=== PATIENT | male | born 1955 | race Caucasian/White ===

== ENCOUNTER 2023-06-23 10:58 | Day surgery (SDC) | payer MEDICARE, OTHER, SELFPAY ==
[2023-06-22 16:11] VITALS: BMI 25.1
[2023-06-23] VITALS (11 sets, daily range): BP systolic 136–198; BP diastolic 66–82; BMI 25.1
[2023-06-23] MEDS: BACTROBAN NASAL 1 GRAM NASAL (11:36)
[2023-06-23] MEDS: PERIDEX 0.12% ORAL RINSE 15 ML PO (11:36)
[2023-06-23] MEDS: NSS 500 IV (11:37)
[2023-06-23] MEDS: VANCOCIN 200 IV (11:37)
[2023-06-23 13:01] LABS: PT 13.4 Sec (11.4-14.6)
[2023-06-23 13:03] LABS: Hematocrit 40.9 % (39.0-52.0); Hemoglobin 13.5 g/dL (13.0-18.0); Mean Corpuscular Volume 78.8 fL (80.0-94.0); Mean Platelet Volume 9.6 fL (7.4-10.4); Platelet Count 242 10^3/uL (130-400); Red Blood Cell Count 5.19 10^6/uL (4.70-6.10); Red Cell Dist. Width 18.7 % (11.5-14.5); White Blood Cell Count 6.9 10^3/uL (4.8-10.8)
[2023-06-23 13:04] LABS: Blood Urea Nitrogen 50 mg/dl (9-20); Calcium 8.5 mg/dl (8.4-10.2); Carbon Dioxide 28 mmol/L (22-30); Chloride 102 mmol/L (98-107); Estimated Creatinine Clearance 20 ml/min; Glucose 166 mg/dl (70-99); Potassium 3.9 mmol/L (3.5-5.1); Sodium 135 mmol/L (135-145); eGFR 18.64
--- NOTE | 2023-06-23 13:31 | W.SUR.PREOP ---
Pre-Operative Surgical Note
-
I have examined this patient prior to the performance of the scheduled procedure.
The patient's condition is unchanged from the time of the current History and
Physical and the patient is able to undergo the scheduled procedure.
--- NOTE | 2023-06-23 15:38 | W.IMMPOSTOP ---
Surgical Immed Post Op Note
-
Primary Surgeon: Tres Morgan III, MD
Assisting Surgeon: Ty Arce MD
Pre-op Diagnosis: AV Graft Stenosis
Post-op Diagnosis: AV Graft Stenosis
Procedure Performed: Brachial-Basilic Graft
Anesthesia Type: General
Specimen / Cultures: NA
Estimated Blood Loss: 8cc
Complications: None
Operative Findings:
Patient's left upper extremity was examined under ultrasound and course of brachial artery and basilic vein were mapped. Two 5cm incisions were made in the distal brachial artery and proximal basilic vein. Subcutaneous tissue and fascia were
dissected with a combination of cautery and blunt dissection. The vessels were exposed and proximal and distal control were obtained with vessel loops. A Bostwick 4-7mm x 45cm vascular graft was opened and tunneled through subcutaneous tissue between
the two incison sites. Local heparin was given and brachial endarderectomy was performed. The 4mm end was beveled and anastamosed in an end-side fashion with the brachial artery. A venotomy was performed on the basilic vein. The 7mm end of graft was
beveled and anastamosed in an end-side fashion with the basilic vein. All anastamoses sites were assessed for leakage and overlying sites were packed with fibrillar and thrombin. Overlying subcutaneous tissue and skin were closed with 3-0 and 4-0
sutures, respectively. Radial and ulnar pulses palpable at end of case. Strong pulse and palpable thrill noted over tunneled graft site.
[2023-06-23 15:50] LABS: Glucose - Point of Care 176 mg/dl (70-99)
--- NOTE | 2023-06-23 16:44 | OR.RPT ---
Operative Report
Operative Report
Date of Operation: 06/23/2023
Pre Op Diagnosis: End-stage renal disease requiring hemodialysis
Post Op Diagnosis: End-stage renal disease requiring hemodialysis
Procedure: Creation of left upper arm AV graft for hemodialysis
Surgeon: Tres Morgan III, MD
Boy'S Adviser: Ty Arce MD PGY-1
Anesthesia: General
Complications: None
Estimated Blood Loss: 15 cc
History and Indications for Procedure: 68-year-old male status post failed attempt at left upper extremity brachiobasilic AV fistula creation. He was still in need of more permanent hemodialysis access and was brought to the operating room for
creation of left upper extremity AV graft.
Procedure in Detail: Kahlil Medina was correctly identified and placed supine on the operating table. After adequate induction of anesthesia the left arm was positioned, prepped and draped in the usual sterile fashion. Preoperative antibiotics were
administered. A timeout procedure was performed with the nursing and anesthesia staff confirming the patients identity as well as the nature and laterality of the procedure.
Just proximal to the antecubital fossa over the brachial pulse a vertical incision was made. Electrocautery was used to divide the subcutaneous tissue. The brachial artery was sharply exposed and proximal and distal control was obtained with vessel
loops .
Over the medial upper arm near the axilla another incision was made. Electrocautery was used on the subcutaneous tissue. The proximal basilic vein was dissected out at this level and proximal and distal control was obtained with vessel loops.
A gentle curved tunnel was created between the 2 incisions over the lateral arm. A 4-7 mm tapered Propaten graft was brought carefully through the tunnel keeping the correct orientation. The 4 mm side was for the arterial anastomosis and the 7 mm
side for the venous.
The vessel loops on the brachial artery were secured. A small arteriotomy was created with an 11 blade and extended just slightly proximally and distally with Loredo scissors to accommodate the 4 mm graft anastomosis. The proximal and distal artery
were flushed with heparinized saline solution. The 4 mm end of the graft was sewn end-to-side to the brachial artery with a running 7-0 Prolene suture. At the completion of the anastomosis the proximal brachial artery vessel loop was released
first. There was excellent pulsatile bleeding from the 7 mm end of the graft. The distal vessel loop was then released. The graft was back flushed with heparinized saline solution and a clamp was placed on the graft just off the arterial
anastomosis.
The vessel loops on the vein were then secured. A venotomy was made with an 11-blade and extended proximally and distally with Loredo scissors. The 7 mm end of the graft was cut and bevelled appropriately and an end to side anastomosis was created
using a running 7-0 Prolene suture. At the completion of the anastomosis the vessel loops were released.
There was an good pulse in the brachial artery proximal and distal to the suture line. There was an excellent, easily palpable thrill in the graft along the entire course in the upper arm. The patient had a palpable ulnar pulse at the wrist at the
conclusion of the case (prior radial artery harvest). Both suture lines were inspected for hemostasis which was achieved.
The wounds were then irrigated with warm saline. Hemostasis was achieved in the wound beds. The wounds were closed in layers and sterile dressings applied.
The patient tolerated the procedure well and was taken to the PACU in stable condition.
Attestation: I was present and responsible for the entire procedure
Signed:
Tres Morgan III, MD
[facility] Surgery
[phone] (ppbg)
== END 2023-06-23 17:55 | disposition home or self-care (01) ==
LOC: CATH 10:58
PROVIDERS: ATTENDING PHYSICIAN Surgery Vascular Surgery; FAMILY PHYSICIAN Family Medicine
DX: I12.0 Hypertensive chronic kidney disease with stage 5 chronic kidney disease or end stage renal disease (principal); E11.22 Type 2 diabetes mellitus with diabetic chronic kidney disease; N18.6 End stage renal disease; Z99.2 Dependence on renal dialysis; Z79.82 Long term (current) use of aspirin; Z79.4 Long term (current) use of insulin; I10 Essential (primary) hypertension
CPT/HCPCS: 36821; 80048; 82962; 85027; 85610; 85730; 86850; 86900; 86901

== ENCOUNTER 2023-07-01 20:06 | Inpatient (IN) | payer MEDICARE, OTHER, SELFPAY ==
[2023-07-01] VITALS (7 sets, daily range): BP systolic 110–153; BP diastolic 56–71; BMI 26.5; BMI 24.3
[2023-07-01 17:20] LABS: Glucose - Point of Care 67 mg/dl (70-99)
--- NOTE | 2023-07-01 17:22 | ED.GENMED ---
History of Present Illness
General
Chief Complaint: Blood Sugar Problem
Source: patient
Time Seen by Provider: 07/01/23 17:10
Travel History
Have you had any contact with someone who has COVID-19?: No
Do you have any symptoms of coronavirus? Fever > 100 degrees, chills, cough, shortness of breath, sore throat, loss of taste or smell, muscle aches, or headache?: No
History of Present Illness
History of Present Illness:
68-year-old male presents to the emergency room via ambulance from dialysis. Patient was noted to be hypoglycemic at dialysis. His glucose was 45. This was treated with glucagon and some oral sugar candy. Medics found his glucose had increased
to 65 when they got there. Upon arrival here patient is noted to have a fever of 101.5. Patient does make urine 3-4 times a day. He denies any dysuria or frequency. He has a mild cough which is chronic. He does not report any change in his
cough. Does have a right anterior chest dialysis catheter. This was placed April 30. Patient started dialysis April 30.
Past History
Past History
ED Past Medical History: Asthma, CAD, Cancer (Right kidney neoplasm), HTN, Hypercholesterolemia, NIDDM, [place], Other (Kidney stones , Back pain due to herniated disc, ) and Other (Herniated discs in neck, has seen pain management at Dr. Arias's office
for injections x 2. Has not had lower back problems.)
ED Past Surgical History: Cardiac (Triple bypass), Orthopedic, Urological (Renal calculus ) and Other (Left upper arm fistula)
Social History
Tobacco: Non-smoker
Alcohol: Occasional
Drug: None
Personal:
Living: with family
Employment: Employed
Phy Exam
Physical Exam
Physical Exam:
General: Awake, Alert, Oriented X3. No acute distress, appears chronically ill
Vitals: Febrile
Head: Atraumatic
Eyes: Pupils equal, EOMI
Throat: Airway intact, no exudates
Neck: Trachea midline
Chest: Right sided tunneled catheter
Lungs: Few crackles bilateral bases l
Heart: Regular rate, no murmurs
Abd: Soft, Nontender, No pulsatile mass
Neuro: Nonfocal
Skin: Warm, dry, no rash
Extremities: pulses equal b/l, no edema
Course
Orders/Labs/Results
Orders:
Orders
07/01/23 Dinner
Regular
At Your Request: Full Participation
07/01/23 17:20
Cardiac Monitoring- Treatment ONCE
07/01/23 17:21
CR Chest - 2 Views Urgent
Comment:
Reason For Exam: fever
07/01/23 17:28
COVID-19 Antigen Urgent
Source: Nasal Swab
Complete Blood Count/With Diff Urgent
Comprehensive Metabolic Panel Urgent
Lactic Acid Q4H
Comment: CANCEL 2nd LACTIC ACID IF 1st LACTIC ACID IS LESS THAN 2
Blood Culture Q30M
JACQUE Source: Blood/Venous
Specimen Description:
Influenza A+B Rapid Molecular Urgent
JACQUE Source: Nasal Swab
Specimen Description:
07/01/23 17:32
Blood Culture Q30M
JACQUE Source: Blood/Venous
Specimen Description:
07/01/23 18:58
Cefepime HCl [Maxipime] 2,000 mg IV NOW STA
07/01/23 19:36
Admit/Transfer Patient As Directed
Co-Sign Provider:
Level of Care: Inpatient admission
Assign to:: Medical/Surgical
Physician / Group: aide
Diagnosis: gastroenteritis, hypoglycemia
Reason for Hospitalization: gastroenteritis, hypoglycemia
Expected length of stay greater than two midnights?: Yes
ELOS- Estimated Length of Stay in days: 2
I certify the patient meets the requirements for IP care: Yes
Code Status As Directed
Resuscitation Status: Full Code
Sterile Water [Sterile Water For Injection] 10 ml .ROUTE .[facility]
07/01/23 19:38
Stool Culture Routine
JACQUE Source: Feces/Stool
Specimen Description:
07/01/23 20:16
Urinalysis Reflex To Culture Urgent
Date Specimen was Collected: 07/01/23
Time Specimen was Collected: 19:02
07/01/23 20:50
Albuterol [ProAIR HFA INHALER] 2 puff INH R QIDPRN PRN
Dextrose 50%-Water [Dextrose 50% Syringe] 12.5 grams IV [id number] PRN
Doxazosin Mesylate [Cardura] 2 mg PO BID
Glucagon [GlucaGen] 1 mg IM PRN PRN
Heparin 5,000 units SC Q12
Nitroglycerin Sublingual [Nitrostat (Sublingual)] 0.4 mg SL [id number] PRN
Ondansetron Injectable [Zofran] 4 mg IV Q6HPRN PRN
VANCOMYCIN Pharmacy to Dose [VANCOCIN Pharmacy to Dose] 1 each Pharmacy To Prepare [Call Pharmacy To Prepare] 0 ml IV PER PROTOCOL
07/01/23 20:50
Activity As Directed
Activity Level: As Tolerated
Bedside Glucose Monitoring As Directed
Frequency: AC&HS
Comment: Change to q6h if pt on TPN, tube feeding or not eating
Vital Signs As Directed
Frequency: Per unit guidelines
DX Deep Vein Thrombosis Video Routine
07/01/23 22:00
FLUTICASONE PROPIONATE 110 mcg [FLOVENT 110mcg] 1 puff INH R BID
Metoprolol Xl [Toprol Xl] 12.5 mg PO BID
Rosuvastatin Calcium [Crestor] 10 mg PO HS
07/02/23 06:00
Complete Blood Count/With Diff IN AM
Comprehensive Metabolic Panel IN AM
Glycohemoglobin (HgbA1c) IN AM
07/02/23 07:30
Insulin Aspart Corrective Low [Novolog Flexpen-Low Resistance] See Protocol SC AC
07/02/23 08:00
Aspirin Low Dose EC [Aspir Low (Enteric Coated)] 81 mg PO DAILY
Calcium Acetate [Phoslo] 1,334 mg PO MEALS
Lactobac/Bifidobac [Visbiome] 1 cap PO DAILY
omega 0-jno-gbz-fish oil [Fish Oil] 1 cap PO DAILY
07/02/23 18:00
Amlodipine [Norvasc] 10 mg PO QPM
Cefepime HCl [Maxipime] 1,000 mg IV Q24H
07/02/23 22:00
Loratadine [Claritin] 10 mg PO Q48H
Abnormal Lab Results
07/01/23 07/01/23 07/01/23
17:14 17:28 18:33
MCH 26.1 L pg
(27.0-31.0)
MCHC 32.3 L g/dL
(33.0-37.0)
RDW 18.9 H %
(11.5-14.5)
Absolute Lymphs (auto) 0.3 L 10^3/uL
(1.2-3.4)
Neutrophils % 91.1 H %
(42.2-75.2)
Lymphocytes % 3.7 L %
(20.5-51.1)
Chloride 94 L mmol/L
(98-107)
Carbon Dioxide 37 H mmol/L
(22-30)
BUN 26 H mg/dl
(9-20)
Creatinine 2.9 H mg/dL
(0.7-1.3)
Glucose 65 L mg/dl
(70-99)
Total Protein 5.7 L g/dl
(6.3-8.2)
Albumin 3.2 L g/dl
(3.5-5.0)
POC Glucose 67 L mg/dl 107 H mg/dl
(70-99) (70-99)
07/01/23 17:28
07/01/23 17:28
Vital Signs
Initial and Last Documented VS:
Initial Vital Signs
Temp Pulse Resp Pulse Ox
101.5 F H 75 18 92
07/01/23 17:09 07/01/23 17:09 07/01/23 17:09 07/01/23 17:09
Last Documented Vital Signs
Temp Pulse Resp BP Pulse Ox
101.1 F H 71 20 112/56 96
07/01/23 21:00 07/01/23 21:00 07/01/23 21:00 07/01/23 21:00 07/01/23 22:13
MDM/Problems Addressed
Differential Diagnosis Includes:
Pneumonia, urinary tract infection, line sepsis, viral illness
MDM/Problems Addressed:
Patient came initially for hypoglycemia but was found to be febrile. COVID and influenza test are negative. Chest x-ray showed left lower lobe infiltrate but this appears to be improving from his previous admissions but do not know that this is
the source of his fever. Patient does have an indwelling dialysis catheter which could be infected. Patient covered with broad-spectrum antibiotics. Will require hospitalization pending culture results and response to therapy
Chronic conditions affecting care: DM, HTN and Kidney disease
*Radiology
Radiology exam reviewed: radiology read reviewed
*Pulse Oximetry
Patient hypoxic: no
*Wheel Setter Interpretation
Rate: normal
Interpretation: normal
Rhythm: sinus
*Critical Care Note
Total Time (30-74mins, 75-104mins- exclusive of procedures): Not Applicable
ED Attending Note
-
Portions of this chart may have been created with voice recognition software.� Occasional wrong word or��sound alike� substitutions may have occurred due to the inherent limitations of voice recognition software.
Discharge Plan
Departure
Patient Disposition: Admit
Date of Disposition: 07/01/23
Time of Disposition: 19:03
Admit to: Med/Surg
Presentation/result/management discussed w/ accepting MD/DO: Hospitalist
Condition: Fair
Discharge Problem:
Fever, ESRD (end stage renal disease), Hypoglycemia
Interventions
Interventions:
*Risk Screen - Suicide Last Done: 07/01/23 17:45
*General Assessment Last Done: 07/01/23 17:45
*Neglect/Abuse Screening Last Done: 07/01/23 17:45
ED- Fall Risk Assessment Last Done: 07/01/23 17:46
*ED COVID-19 Vaccine History Last Done: 07/01/23 17:45
*Nursing Disposition Last Done: 07/01/23 20:50
ED- Neurological Assessment Last Done: 07/01/23 17:45
Discharge Date and Time
Discharge Date/Time: 07/01/23 20:53
[2023-07-01 17:47] LABS: % Basophils 0.1 % (0-2); % Eosinophils 0.3 % (0-6); % Immature Granulocytes 0.3 % (0-0.5); % Lymphocytes 3.7 % (20.5-51.1); % Monocytes 4.5 % (1.7-9.3); % Neutrophils 91.1 % (42.2-75.2); Absolute Lymphocytes 0.3 10^3/uL (1.2-3.4); Absolute Monocytes 0.3 10^3/uL (0.1-0.6); Absolute Neutrophils 6.4 10^3/uL (1.4-6.5); Hematocrit 43.7 % (39.0-52.0); Hemoglobin 14.1 g/dL (13.0-18.0); Mean Corp Hgb Conc. 32.3 g/dL (33.0-37.0); Mean Corpuscular Hgb 26.1 pg (27.0-31.0); Mean Corpuscular Volume 80.8 fL (80.0-94.0); Mean Platelet Volume 9.7 fL (7.4-10.4); Nucleated Red Blood Cells % 0 % (-); Platelet Count 193 10^3/uL (130-400); Red Blood Cell Count 5.41 10^6/uL (4.70-6.10); Red Cell Dist. Width 18.9 % (11.5-14.5)
[2023-07-01 17:57] LABS: ALT (SGPT) 22 U/L (0-50); AST (SGOT) 30 U/L (17-59); Albumin 3.2 g/dl (3.5-5.0); Alkaline Phosphatase 80 U/L (38-126); Blood Urea Nitrogen 26 mg/dl (9-20); Calcium 8.5 mg/dl (8.4-10.2); Carbon Dioxide 37 mmol/L (22-30); Chloride 94 mmol/L (98-107); Estimated Creatinine Clearance 24 ml/min; Glucose 65 mg/dl (70-99); Sodium 138 mmol/L (135-145); Total Bilirubin 0.9 mg/dl (0.2-1.3); Total Protein 5.7 g/dl (6.3-8.2); eGFR 22.56
[2023-07-01 18:01] LABS: Lactic Acid 1.3 mmol/L (0.7-2.0)
[2023-07-01 18:03] LABS: COVID-19 Antigen Negative (Negative)
[2023-07-01 18:35] LABS: Glucose - Point of Care 107 mg/dl (70-99)
[2023-07-01] MEDS: MAXIPIME 2000 MG IV (19:39)
--- NOTE | 2023-07-01 19:42 | HPS.HSE ---
Family Physician
-
Family Physician: Paz Vasquez
Chief Complaint
-
vomiting
History of Present Illness
68-year-old male past medical history of ESRD on hemodialysis Thursday, Thursday, Thursday,, coronary artery disease status post CABG, HFpEF, hypertension, diabetes, BPH, GERD, CML, asthma, right kidney neoplasm presenting with vomiting since last
night. He had several episodes of vomiting after having crab cake earlier in the day yesterday. His spouse also had vomiting. Patient had an episode of loose stools today.
Today during dialysis his blood sugar was noted to be 45. He was given glucagon and some oral sugar candy. Medics found his glucose had increased to 65 when he got there. Upon arrival patient had fever of 101.5. He does make urine 3-4 times a
day. He denies any dysuria or frequency. He has chronic mild cough which is unchanged. He has right anterior chest dialysis catheter that was placed on April 30 looked clean.
Patient checks his blood sugar regularly and states that his blood sugar has been normal in the days preceding up to today.
He drinks alcohol very rarely. He denies any smoking or drugs.
Medical History
Past Medical History
Past Medical History: Reports Other ( ESRD on hemodialysis Thursday, Thursday, Thursday,, coronary artery disease status post CABG, HFpEF, hypertension, diabetes, BPH, GERD, CML, asthma, right kidney neoplasm)
Past Surgical History: Reports None
Social History
Tobacco: Non-smoker
Alcohol: None
Drug: None
Family History
Family History: Not pertinent
Allergies / Home Medications
Allergies reflects when Allergies were last updated in [employer].
Home Medications with original date entered in [employer]
Allergy/Medication List:
Allergies
Allergy/AdvReac Type Severity Reaction Status Date / Time
atorvastatin Allergy Intermediate reports Verified 06/23/23 11:32
muscle
weakness
clonidine Allergy Intermediate Rash Verified 06/23/23 11:32
hydralazine Allergy Intermediate Vomiting Verified 06/23/23 11:32
codeine Allergy Nausea / Verified 06/23/23 11:32
Vomiting
penicillin G Allergy Hives Verified 06/23/23 11:32
Penicillins Allergy Hives Verified 06/23/23 11:32
pollen extracts Allergy seasonal Verified 06/23/23 11:32
allergies
Home Medications
insulin aspart U-100 100 unit/mL (3 mL) subcutaneous pen (Novolog FlexPen U-100 Insulin aspart) 10 - 20 sliding scale dose SC AC Diabetes 09/09/18
rosuvastatin 40 mg tablet (Crestor) 40 mg PO HS High cholesterol 03/11/21
beclomethasone dipropionate 80 mcg/actuation HFA breath activated aerosol (Qvar RediHaler) 1 inh inhalation R BID Lung/breathing issues 12/01/21
aspirin 81 mg tablet,delayed release 81 mg PO DAILY Blood clot prevention/tx 05/15/22
amlodipine 10 mg tablet (Norvasc) 10 mg PO QPM Blood pressure 06/06/22
nitroglycerin 0.4 mg sublingual tablet (Nitrostat) 0.4 mg sublingual [id number] PRN chest pain 06/06/22
doxazosin 2 mg tablet 2 mg PO BID Blood Pressure 08/11/22
loratadine 10 mg tablet 10 mg PO HS Allergies 08/11/22
metoprolol succinate 25 mg tablet,extended release 24 hr (Toprol XL) 12.5 mg PO BID Blood Pressure 08/11/22
albuterol sulfate 90 mcg/actuation aerosol inhaler (ProAir HFA) 2 puff inhalation R QID PRN sob/wheezing 11/21/22
bosutinib 100 mg tablet (Bosulif) 100 mg PO TID CML ##0 04/15/23
Lactobacillus acidophilus 10 billion cell capsule 10,000 mmu cells PO DAILY ##0 04/27/23
omega 7-gth-fus-fish oil 1,200 mg (144 mg-216 mg) capsule (Fish Oil) 1 cap PO DAILY 04/27/23
calcium acetate 667 mg tablet 1,334 mg PO MEALS Kidney Disease 04/28/23
furosemide 80 mg tablet 80 mg PO DAILY 30 days #30 tabs 05/02/23
insulin glargine 100 unit/mL (3 mL) subcutaneous pen (Lantus Solostar U-100 Insulin) 14 unit SC HS Diabetes 06/18/23
insulin glargine 100 unit/mL (3 mL) subcutaneous pen (Lantus Solostar U-100 Insulin) 30 unit SC DAILY Diabetes 06/18/23
Review of Systems
-
History Source: Patient
A 12 point ROS was completed and negative except as noted: Yes
Constitutional: Reports No Symptoms
EENT: Reports No Symptoms
Respiratory: Reports No Symptoms
Cardiac: Reports No Symptoms
Abdomen/GI: Reports See HPI
: Reports No Symptoms
Musculoskeletal: Reports No Symptoms
Skin: Reports No Symptoms
Neurological: Reports No Symptoms
Endocrine: Reports No Symptoms
Hematologic/Lymphatic: Reports No Symptoms
Psych: Reports No Symptoms
Physical Exam
Vital Signs
Vital Signs
Temp Pulse Resp BP Pulse Ox
100.1 F 73 19 113/62 96
07/01/23 19:23 07/01/23 19:23 07/01/23 19:23 07/01/23 19:23 07/01/23 19:23
Physical Exam
General: Well Developed, Well Nourished and No Apparent Distress
HEENT: NormoCephalic, Moist mucous membranes and Atraumatic
Respiratory: Clear
Cardiac: S1/S2 and Regular Rhythm; No Murmur or Rub
GI: Soft, Non Tender, Non Distended and Normal Bowel Sounds; No Organomegaly
Rectal: Deferred by Provider
Musculoskeletal: No Clubbing, No Cyanosis and No Edema
Skin: No Rash
Neuro: Nonfocal/grossly intact
Laboratory Results
-
07/01/23 17:28
07/01/23 17:28
Laboratory Results
Lactic Acid Cancelled 07/01/23 21:30
Total Bilirubin 0.9 mg/dl (0.2-1.3) 07/01/23 17:28
AST 30 U/L (17-59) 07/01/23 17:28
ALT 22 U/L (0-50) 07/01/23 17:28
Alkaline Phosphatase 80 U/L (38-126) 07/01/23 17:28
Data Reviewed
-
Lab Data: Labs Reviewed by me
Old Records: Reviewed
Impression/Plan
-
IMPRESSION:
PLAN:
# Vomiting/fever secondary to gastroenteritis versus possible pneumonia
-Chest x-ray shows findings suggesting left lower lobe pneumonia and moderate left oral effusion which is improved although clinically does not correlate
-COVID, influenza negative
-Check blood cultures
-Urinalysis pending
-Vancomycin/cefepime to cover pneumonia
-Check stool culture if able
-BRAT diet if can tolerate
-Hold Lasix for now given volume losses
# Hypoglycemia secondary to infection
-Hold Lantus for now
-Insulin sliding scale
ESRD on hemodialysis Thursday, Thursday, Thursday
-Patient received dialysis today
CAD status post CABG
-Continue aspirin
-Continue statin
Chronic HFpEF
-Hold Lasix for now
Essential hypertension
-Continue amlodipine
-Continue doxazosin
-Continue metoprolol
Type 2 diabetes
-Continue Lantus 14 units
-Insulin sliding scale
BPH
CML
-Hold Bosulif given current infection
Asthma
-Continue inhalers
Right kidney neoplasm
Full code
DVT prophylaxis�heparin
BRAT diet
--- NOTE | 2023-07-01 21:24 | PHA.VAN.IN ---
Assessment
- Assessment
Renal Function: Patient has ESRD, on chronic Hemodialysis
Hemodialysis Schedule: MWF
Concomitant Antimicrobials: CEFEPIME
- Previous Dosing Experience
Previous Regimen: DOSING BY RANDOM LEVELS
Date of Regimen: 06/07/22
Provided Trough of: UNKNOWN
Provided AUC of: UNKNOWN
Patient's weight is: Decreased compared to previous dosing experience (06/07/22 WT = 84.4 KG)
Plan
- Plan
Initial / Loading Dose: 1500MG
Maintenance Regimen: DOSING BY RANDOM LEVELS
Monitoring: RANDOM VANCOMYCIN LEVEL 07/02/23
Pharmacokinetics Vancomycin I
- -
Patient Age: 68
Patient Sex: Male
Vancomycin Day #: 1
Indication: Pulmonary/Respiratory
Requesting Provider: ADIA
Height / Weight:
Height 5 ft 10 in
Actual Weight 83.8 kg
Pertinent Past Medical History: ESRD
- Vital Signs / Lab Results
Temp Pulse Resp BP Pulse Ox
100.1 F 66 20 120/61 93
07/01/23 19:23 07/01/23 20:15 07/01/23 20:15 07/01/23 20:00 07/01/23 20:35
Lab Results - Hematology
07/01/23
17:28
WBC 7.0
Lab Results - Chemistry
07/01/23
17:28
BUN 26 H
Creatinine 2.9 H
Estimated Creat Clear 24
Albumin 3.2 L
07/01/23 07/01/23
17:28 21:30
Lactic Acid 1.3 Cancelled
Microbiology Results
07/01/23 17:28 Influenza Types A & B (MARY) - Final
Nasal Swab Negative for Influenza A & B, NAAT
Negative results must be combined with clinical observations
and patient history.
Nucleic Acid Amplification test (NAAT)performed on the
[employer] platform.
[2023-07-01] MEDS: CARDURA 2 MG PO (22:01)
[2023-07-01] MEDS: HEPARIN 5000 UNITS SC (22:02)
[2023-07-01] MEDS: VANCOCIN 300 MG IV (22:02)
[2023-07-01] MEDS: TOPROL XL 12.5 MG PO (22:02)
[2023-07-01] MEDS: VANCOCIN 300 ML IV (22:02)
[2023-07-01] MEDS: CRESTOR 10 MG PO (22:02)
[2023-07-01 22:13] LABS: Glucose - Point of Care 68 mg/dl (70-99)
[2023-07-01 22:40] LABS: Glucose - Point of Care 84 mg/dl (70-99)
[2023-07-01] MEDS: OFIRMEV 100 IV (22:52)
[2023-07-02 05:46] VITALS: BMI 24.4
[2023-07-02 07:14] LABS: % Basophils 0.3 % (0-2); % Eosinophils 0.8 % (0-6); % Immature Granulocytes 0.3 % (0-0.5); % Lymphocytes 17.9 % (20.5-51.1); % Monocytes 9.9 % (1.7-9.3); % Neutrophils 70.8 % (42.2-75.2); Absolute Eosinophils 0.1 10^3/uL (0-0.7); Absolute Lymphocytes 1.1 10^3/uL (1.2-3.4); Absolute Monocytes 0.6 10^3/uL (0.1-0.6); Absolute Neutrophils 4.4 10^3/uL (1.4-6.5); Hematocrit 39.8 % (39.0-52.0); Hemoglobin 12.5 g/dL (13.0-18.0); Mean Corp Hgb Conc. 31.4 g/dL (33.0-37.0); Mean Corpuscular Hgb 25.9 pg (27.0-31.0); Mean Corpuscular Volume 82.4 fL (80.0-94.0); Mean Platelet Volume 9.6 fL (7.4-10.4); Nucleated Red Blood Cells % 0 % (-); Platelet Count 173 10^3/uL (130-400); Red Blood Cell Count 4.83 10^6/uL (4.70-6.10); Red Cell Dist. Width 18.6 % (11.5-14.5); White Blood Cell Count 6.3 10^3/uL (4.8-10.8)
[2023-07-02 07:34] LABS: Vancomycin Random 22.3 ug/ml
[2023-07-02 07:47] LABS: ALT (SGPT) 18 U/L (0-50); AST (SGOT) 27 U/L (17-59); Albumin 2.7 g/dl (3.5-5.0); Alkaline Phosphatase 70 U/L (38-126); Blood Urea Nitrogen 37 mg/dl (9-20); Calcium 7.8 mg/dl (8.4-10.2); Carbon Dioxide 34 mmol/L (22-30); Chloride 97 mmol/L (98-107); Estimated Creatinine Clearance 19 ml/min; Glucose 77 mg/dl (70-99); Potassium 4.4 mmol/L (3.5-5.1); Sodium 137 mmol/L (135-145); Total Bilirubin 0.8 mg/dl (0.2-1.3); Total Protein 4.9 g/dl (6.3-8.2); eGFR 16.31
[2023-07-02 07:58] VITALS: BP 141/72
[2023-07-02 08:38] LABS: Glucose - Point of Care 71 mg/dl (70-99)
--- NOTE | 2023-07-02 08:40 | PHA.VAN.FU ---
Vancomycin Assessment / Plan
- Assessment
Hemodialysis Schedule: MWF
WBC's are: WNL
Concomitant Antimicrobials: cefepime
- Assessment - Therapeutic Drug Monitoring
Random Level: 22.3 - drawn ~9H after previous dose of 1500mg
- Dosing Plan
Dosing by Level: Hold off on dosing today
- Monitoring Plan
Random Level: 2/ pre-HD
- Follow Up
Pharmacy will continue to follow.
Vancomycin Follow UP
- -
Patient Age: 68
Patient Sex: Male
Vancomycin Day #: 2
Indication: Pulmonary/Respiratory
Requesting Provider: Dr. Licea
Pertinent Antimicrobial Allergies:
penicillin G - hives as a child
Height / Weight:
Height 5 ft 10 in
Actual Weight 77.224 kg
Pertinent Past Medical History: ESRD on HD MWF, DM, CML
- Vital Signs / Lab Results
Temp Pulse Resp BP Pulse Ox
98.9 F 59 18 141/72 94
07/02/23 07:58 07/02/23 07:58 07/02/23 07:58 07/02/23 07:58 07/02/23 07:58
Lab Results - Hematology
07/01/23 07/02/23
17:28 06:54
WBC 7.0 6.3
Lab Results - Chemistry
07/01/23 07/02/23
17:28 06:54
BUN 26 H 37 H
Creatinine 2.9 H 3.8 H
Estimated Creat Clear 24 19
Albumin 3.2 L 2.7 L
07/01/23 07/01/23
17:28 21:30
Lactic Acid 1.3 Cancelled
Microbiology Results
07/01/23 17:28 Influenza Types A & B (MARY) - Final
Nasal Swab Negative for Influenza A & B, NAAT
Negative results must be combined with clinical observations
and patient history.
Nucleic Acid Amplification test (NAAT)performed on the
[employer] platform.
Therapeutic Drug Monitoring
Random Vancomycin 22.3 ug/ml 07/02/23 06:54
[2023-07-02 09:24] LABS: Glycohemoglobin (HgbA1c) 7.1 % (4.0-5.6)
[2023-07-02] MEDS: NOVOLOG FLEXPEN-LOW RESISTANCE SC (09:41)
[2023-07-02] MEDS: CARDURA 2 MG PO ×2 (09:48→20:49)
[2023-07-02] MEDS: VISBIOME 1 CAP PO (09:48)
[2023-07-02] MEDS: TOPROL XL 12.5 MG PO ×2 (09:48→20:51)
[2023-07-02] MEDS: PHOSLO 1334 MG PO ×3 (09:48→17:45)
[2023-07-02] MEDS: ASPIR LOW (ENTERIC COATED) 81 MG PO (09:49)
[2023-07-02] MEDS: HEPARIN 5000 UNITS SC ×2 (09:49→20:53)
[2023-07-02 10:44] LABS: Urine Albumin 3+ (Neg - Trace); Urine Bilirubin Negative (Negative); Urine Character Clear (Clear); Urine Color Yellow; Urine Glucose Trace (Negative); Urine Ketone Trace (Negative); Urine Leukocyte Negative (Negative); Urine Nitrite Negative (Negative); Urine Occult Blood Negative (Negative); Urine Urobilinogen Negative (Neg - 1+)
[2023-07-02 11:11] LABS: Urine Bacteria Few (Negative); Urine Red Blood Cell 0-2 /HPF (0-2)
--- NOTE | 2023-07-02 11:42 | CM ---
Patient seen bedside.
IA completed.
Patient lives with spouse in 2 story home with 2 steps to enter.
Patient drives.
Independent prior to admission.
patient receives HD at [facility] 10 :25 am chair time.
No hx VN or skilled rehab. Did go to an acute Rehab in [place], but could not recall the name.
Patient denies home care needs.
Plan: Home no needs anticiapted.
[2023-07-02 12:06] LABS: Glucose - Point of Care 282 mg/dl (70-99)
--- NOTE | 2023-07-02 12:19 | W.PN.HOSP.TC ---
Today's Communication/Plan
-
see bold
Assessment / Plan
Assessment / Plan
Gen: NAD, AAOx3.
Eyes: EOMI, PERRLA, no scleral icterus.
Neck: supple.
CV: RRR with frequent premature beats, +S1/S2, no m/r/g.
Resp: CTAB, no rales, wheezes, or rhonchi.
Abd: +BS, soft, NT, ND
Skin: No rashes.
Neuro: CN 2-12 intact, non-focal.
Psych: Normal mood and affect.
CXR: Slightly improved findings suggesting left lower lobe pneumonia. Moderate left pleural effusion. Improved. Cardiomegaly. Stable. Tiny right pleural effusion. Improved.
Vomiting/fever secondary to gastroenteritis versus possible pneumonia, fever:
-CXR above
-COVID, influenza negative
-follow BCxs/stool Cx
-Vancomycin/cefepime to cover pneumonia
-BRAT diet if can tolerate
-Holding Lasix for now given volume losses
-c/s ID
Other problems:
DM2: with mild hypoglycemia secondary to infection, Lantus was held. SSI/accuchecks.
ESRD: renal following for HD M/W/F
CAD s/p CABG: Continue ASA/statin/BB
Chronic HFpEF: cont BB
Essential hypertension: Cont Norvasc/BB/doxazosin
BPH: cont Doxazosin
CML: Hold Bosulif given current infection
Asthma: Continue flovent
h/o Right kidney neoplasm
FULL/heparin
Anticipated Discharge: Within 24 hours
Subjective/Interval History
-
Date of Service: July 02, 2023
Denies CP/SOB. Reports a very small amount of diarrhea.
Objective Data
-
Labs:
Laboratory Results
07/02/23
06:54
WBC 6.3
Hgb 12.5 L
Hct 39.8
Plt Count 173
Sodium 137
Potassium 4.4
Chloride 97 L
Carbon Dioxide 34 H
BUN 37 H
Creatinine 3.8 H
Glucose 77
Calcium 7.8 L
Total Bilirubin 0.8
AST 27
ALT 18
Alkaline Phosphatase 70
Vital Signs:
Vital Signs
Temp Pulse Resp BP Pulse Ox
98.9 F 59 18 141/72 94
07/02/23 07:58 07/02/23 07:58 07/02/23 07:58 07/02/23 07:58 07/02/23 07:58
I&O
07/01/23 07/02/23 07/03/23
06:59 06:59 06:59
Intake Total 600 / 600
Balance 600 / 600
--- NOTE | 2023-07-02 13:37 | W.CON.NEPH ---
Consultation
-
Date/Time Consultation Requested: 07/02/2023 9 AM
Date/Time Consultation Performed: 07/02/2023 12 noon
Requesting Provider: Dr. Rubio
Performing Provider: Dr. Gabriel
Reason for Consultation: ESRD
Medical History
-
Chief Complaint: ESRD
History of Present Illness:
This is a 68-year-old gentleman who is well-known to us for his chronic kidney disease with ESRD now on dialysis Wednesdays at [facility]. He has diabetes mellitus type 2 with multiple complications. He also has known coronary
artery disease with CABG in the past. He also has heart failure with preserved ejection fraction but has had no issues with volume on dialysis. Recently, he had had a crab cake and both he and his became ill with gastrointestinal symptoms.
His primary symptoms were vomiting which she did on several occasions he denied any diarrhea. Because of the persistent vomiting even while dialysis ultimately he was sent to the hospital for evaluation after his treatment on Thursday. He was
then admitted given the severity of his symptoms.
Assisted with his dialysis.
Past Medical History
ESRD, heart failure preserved ejection fraction, coronary disease with bypass, hypertension, diabetes mellitus type 2, nephrolithiasis, left upper extremity AV fistula, BPH, GERD, vocal polyps, CML, cervical radiculopathy, right Achilles tendon
repair, cataract surgery, tenosynovectomy, wisdom teeth extraction.
Social History
Tobacco: Non-Smoker
Alcohol: Occasional
Family History
Family History: CAD and Cancer
Allergies / Home Medications
Allergy/AdvReac Type Severity Reaction Status Date / Time
atorvastatin Allergy reports Verified 07/01/23 20:53
muscle
weakness
clonidine Allergy Rash Verified 07/01/23 20:53
codeine Allergy Nausea / Verified 06/23/23 11:32
Vomiting
grass pollen Allergy Unknown Verified 07/01/23 20:54
house dust Allergy Unknown Verified 07/01/23 20:54
hydralazine Allergy Vomiting Verified 07/01/23 20:53
penicillin G Allergy Hives A Verified 07/01/23 20:53
CHILD
Penicillins Allergy Hives A Verified 07/01/23 20:53
CHILD
pollen extracts Allergy seasonal Verified 06/23/23 11:32
allergies
tree and shrub pollen Allergy Unknown Verified 07/01/23 20:54
Medication Instructions Recorded Confirmed Type
insulin aspart U-100 100 unit/mL 10 - 20 sliding scale dose SC AC 09/09/18 07/01/23 History
(3 mL) subcutaneous pen (Novolog Diabetes
FlexPen U-100 Insulin aspart)
rosuvastatin 40 mg tablet (Crestor) 40 mg PO HS High cholesterol 03/11/21 07/01/23 History
beclomethasone dipropionate 80 1 inh inhalation R BID 12/01/21 07/01/23 History
mcg/actuation HFA breath activated Lung/breathing issues
aerosol (Qvar RediHaler)
aspirin 81 mg tablet,delayed 81 mg PO DAILY Blood clot 05/15/22 07/01/23 History
release prevention/tx
amlodipine 10 mg tablet (Norvasc) 10 mg PO QPM Blood pressure 06/06/22 07/01/23 History
nitroglycerin 0.4 mg sublingual 0.4 mg sublingual [id number] PRN 06/06/22 07/01/23 History
tablet (Nitrostat) chest pain
doxazosin 2 mg tablet 2 mg PO BID Blood Pressure 08/11/22 07/01/23 History
loratadine 10 mg tablet 10 mg PO HS Allergies 08/11/22 07/01/23 History
metoprolol succinate 25 mg 12.5 mg PO BID Blood Pressure 08/11/22 07/01/23 History
tablet,extended release 24 hr
(Toprol XL)
albuterol sulfate 90 mcg/actuation 2 puff inhalation R QID PRN 11/21/22 07/01/23 History
aerosol inhaler (ProAir HFA) sob/wheezing
bosutinib 100 mg tablet (Bosulif) 100 mg PO TID CML ##0 04/15/23 07/01/23 History
Lactobacillus acidophilus 10 10,000 mmu cells PO DAILY 04/27/23 07/01/23 History
billion cell capsule Supplement ##0
omega 8-ubc-qok-fish oil 1,200 mg 1 cap PO DAILY Supplement 04/27/23 07/01/23 History
(144 mg-216 mg) capsule (Fish Oil)
calcium acetate 667 mg tablet 1,334 mg PO MEALS Kidney Disease 04/28/23 07/01/23 History
insulin glargine 100 unit/mL (3 14 unit SC HS Diabetes 06/18/23 07/01/23 History
mL) subcutaneous pen (Lantus
Solostar U-100 Insulin)
insulin glargine 100 unit/mL (3 30 unit SC DAILY Diabetes 06/18/23 07/01/23 History
mL) subcutaneous pen (Lantus
Solostar U-100 Insulin)
furosemide 80 mg tablet 80 mg PO DAILY Fluid 07/02/23 07/01/23 History
Retention/Swelling
Review of Systems
-
Patient denies any nausea or vomiting at this time no shortness of breath no abdominal pain no diarrhea. The remainder of the complete review of systems is negative.
Physical Exam
Vital Signs
Vital Signs
Temp Pulse Resp BP Pulse Ox
98.9 F 59 18 141/72 94
07/02/23 07:58 07/02/23 07:58 07/02/23 07:58 07/02/23 07:58 07/02/23 07:58
Lab Results
WBC 6.3 10^3/uL (4.8-10.8) 07/02/23 06:54
RBC 4.83 10^6/uL (4.70-6.10) 07/02/23 06:54
Hgb 12.5 g/dL (13.0-18.0) L 07/02/23 06:54
Hct 39.8 % (39.0-52.0) 07/02/23 06:54
Plt Count 173 10^3/uL (130-400) 07/02/23 06:54
Sodium 137 mmol/L (135-145) 07/02/23 06:54
Potassium 4.4 mmol/L (3.5-5.1) 07/02/23 06:54
Chloride 97 mmol/L (98-107) L 07/02/23 06:54
Carbon Dioxide 34 mmol/L (22-30) H 07/02/23 06:54
BUN 37 mg/dl (9-20) H 07/02/23 06:54
Creatinine 3.8 mg/dL (0.7-1.3) H 07/02/23 06:54
eGFR 16.31 07/02/23 06:54
Glucose 77 mg/dl (70-99) 07/02/23 06:54
Calcium 7.8 mg/dl (8.4-10.2) L 07/02/23 06:54
Albumin 2.7 g/dl (3.5-5.0) L 07/02/23 06:54
Physical Exam
General: AOx3
HEENT: PERRL, EOMI, Anicteric, Ear/Nose Intact, Hearing Normal, Oropharynx Clear/Moist, Neck Supple, Trachea Midline and No Thyromegaly
Respiratory: Clear and Normal Excursion
Cardiac: Regular Rate/Rhythm
Abdomen: Soft, Nontender, Nondistended, Normal Bowel Sounds and No Hepatosplenomegaly
Skin: No Rash and Normal Turgor
Psych: Mood/afflect pleasant and Insight/judgement good
Assessment/Plan
-
IMP:
ESRD
Chronic HFpEF
ASCVD s/p CABG
Benign Hypertension
DM-II
Creation of left upper arm brachiobasilic AV fistula�, 1st stage on 04/21
Nephrotic syndrome
Nephrolithiasis
BPH
GERD
CML on Bosutinib
Cervical radiculopathy
Hyperphosphatemia
PNA
gastroenteritis
Plan:
-HD tomorrow
-abx for PNA per primary team
-supportive care for gastroenteritis
Data Reviewed
-
Radiology: Image Personally Visualized and interpreted (Chest x-ray on 07/01/2023 by my reading shows left lower lobe infiltrate)
Labs: Labs Reviewed by me (WBC 6.3, hemoglobin 12.5, platelets 173, sodium 137, potassium 4.4, bicarb 34, BUN 37, creatinine 3.8, calcium 7.8, urinalysis pH of 8 with specific gravity of 1.010 trace ketones few bacteria trace glucose 3+ albumin)
--- NOTE | 2023-07-02 13:55 | CON.ID ---
Consultation
-
Date/Time Consultation Requested: 07/02/23 12:35
Date/Time Consultation Performed: 07/02/23 13:55
Requesting Provider: Dr Rubio
Performing Provider: Dr Galo
Reason for Consultation: fever in immunocompromised patient, pneumonia
Chief Complaint / Past History
Chief Complaint
vomiting
History of Present Illness
Mr Medina is a 68 year old male with history of ESRD on HD MWF, CML (bosutinib), R kidney neoplasm who presented here yesterday for vomiting since two nights ago. Spouse also vomiting and they're attributing this to crab cakes. Then yesterday
developed single episode of loose stools. Then at HD same day was hypoglycemia to 45, treated and increased to 65 and patient referred to the ER. No dysuria (makes urine), chronic cough unchanged. HD cath placed 04/30/23.
In the ER febrile to 101.5, BP stable, HR normal, wbc on arrival 7.0 now 6.3, hgb 12.5, plt 173, neutrophils elevated on arrival now normal, K 4.4, cr 3.8, lactic acid 1.3, covid ag neg, 07/01 CXR: atelectasis vs LLL pneumonia, blood cultures x2 in
progress, stool culture in progress, influenza neg, currently on vancomycin and cefepime, ID is consulted for assistance with management.
Past History
Additional Past Medical History:
�ESRD on hemodialysis Thursday, Thursday, Thursday,, coronary artery disease status post CABG, HFpEF, hypertension, diabetes, BPH, GERD, CML, asthma, right kidney neoplasm
Additional Past Surgical History:
none
Allergy History:
atorvastatin Allergy (Verified 07/01/23 20:53)
reports muscle weakness
clonidine Allergy (Verified 07/01/23 20:53)
Rash
codeine Allergy (Verified 06/23/23 11:32)
Nausea / Vomiting
grass pollen Allergy (Verified 07/01/23 20:54)
Unknown
house dust Allergy (Verified 07/01/23 20:54)
Unknown
hydralazine Allergy (Verified 07/01/23 20:53)
Vomiting
penicillin G Allergy (Verified 07/01/23 20:53)
Hives A CHILD
Penicillins Allergy (Verified 07/01/23 20:53)
Hives A CHILD
pollen extracts Allergy (Verified 06/23/23 11:32)
seasonal allergies
tree and shrub pollen Allergy (Verified 07/01/23 20:54)
Unknown
Medications Reviewed: Yes
Social History
Tobacco: Non-Smoker
Alcohol: None
Drug: None
Family History
Family History: Not Pertinent
Review of Systems
Review of Systems
General: Fever
All systems: All other systems were reviewed and were negative
Vital Signs
Temp Pulse Resp BP Pulse Ox
98.9 F 59 18 141/72 94
07/02/23 07:58 07/02/23 07:58 07/02/23 07:58 07/02/23 07:58 07/02/23 07:58
Physical Exam
Physical Exam
Constitutional: No Acute Distress
Cardiovascular: Regular Rate and S1/S2; Negative Murmur or Rub
Pulmonary: Clear and Symmetric; Negative Wheezes, Rales or Rhonchi
Gastrointestinal: Soft, Non Tender, Non Distended and Normal Bowel Sounds
Skin: Warm and Dry; Negative Rash or Jaundice
Lines: HD Cath
Lab / Diagnostic Study Results
07/02/23 06:54
07/02/23 06:54
Abs Immat Gran (auto) 0.0 10^3/uL (0-0.05) 07/02/23 06:54
Absolute Neuts (auto) 4.4 10^3/uL (1.4-6.5) 07/02/23 06:54
Absolute Lymphs (auto) 1.1 10^3/uL (1.2-3.4) L 07/02/23 06:54
Absolute Monos (auto) 0.6 10^3/uL (0.1-0.6) 07/02/23 06:54
Absolute Basos (auto) 0.0 10^3/uL (0-0.2) 07/02/23 06:54
Immature Gran % 0.3 % (0-0.5) 07/02/23 06:54
Neutrophils % 70.8 % (42.2-75.2) 07/02/23 06:54
Lymphocytes % 17.9 % (20.5-51.1) L 07/02/23 06:54
Monocytes % 9.9 % (1.7-9.3) H 07/02/23 06:54
Eosinophils % 0.8 % (0-6) 07/02/23 06:54
Basophils % 0.3 % (0-2) 07/02/23 06:54
Lactic Acid Cancelled 07/01/23 21:30
Ur Squamous Epith Cells 6-10 /LPF (Few) 07/02/23 10:33
Microbiology Results
Micro:
07/02/23 08:56 Salmonella/Shigella Culture - Pending
Feces/Stool Campylobacter Culture - Pending
Shiga Toxin Test - Pending
07/02/23 08:56 Nasal Screen MRSA (PCR) - Pending
Nose
07/01/23 17:28 Influenza Types A & B (MARY) - Final
Nasal Swab Negative for Influenza A & B, NAAT
Negative results must be combined with clinical observations
and patient history.
Nucleic Acid Amplification test (NAAT)performed on the
[employer] platform.
07/01/23 17:28 Blood Culture - Pending
Blood/Venous
07/01/23 17:32 Blood Culture - Pending
Blood/Venous
Assessment / Plan
Gastroenteritis
CML on RTK-I
ESRD on HD
Reported allergy to Penicillin - hives
- blood cultures x2 in progress
- stool culture in progress will follow up
- covid neg
- presentation would not be classic for C diff
- often a self limited issue
- for now will start ceftriaxone (given HD cath), stop vanc/cefepime
- follow clinically
[2023-07-02] MEDS: NOVOLOG FLEXPEN-LOW RESISTANCE 3 UNITS SC (14:23)
[2023-07-02 15:19] VITALS: BP 156/64
[2023-07-02 17:12] LABS: Glucose - Point of Care 368 mg/dl (70-99)
[2023-07-02] MEDS: NOVOLOG FLEXPEN-LOW RESISTANCE 5 UNITS SC (17:27)
[2023-07-02] MEDS: NORVASC 10 MG PO (17:46)
[2023-07-02] MEDS: ROCEPHIN 2000 MG IV (17:46)
[2023-07-02] MEDS: STERILE WATER FOR INJECTION 20 ML IV (17:46)
[2023-07-02 20:47] VITALS: BP 148/70
[2023-07-02] MEDS: CRESTOR 10 MG PO (20:51)
[2023-07-02] MEDS: CLARITIN 10 MG PO (20:51)
[2023-07-02] MEDS: TYLENOL 650 MG PO (20:52)
[2023-07-02 21:31] LABS: Glucose - Point of Care 313 mg/dl (70-99)
[2023-07-02 23:40] VITALS: BP 142/62
[2023-07-03 05:58] VITALS: BMI 24.8
--- NOTE | 2023-07-03 06:44 | W.PN.HOSP.TC ---
Addendum entered and electronically signed by Raaf Rubio MD 07/03/23 15:26:
I just called microbiology. At this moment the patient's blood cultures remain no growth to date. I did discuss this with Dr. Galo over [employer] and she is OK with the patient being discharged. He will be discharged after today's dose of
Rocephin.
Total time spent on d/c = 35 min. This included today's physical exam, progress note, review of laboratory and diagnostic data, preparation of discharge documents and prescriptions, and discussions about the pt's hospital course and discharge plan
with the patient and other esthetician and manager medical spa involved in the patient's care.
Original Note:
Today's Communication/Plan
-
see bold
Assessment / Plan
Assessment / Plan
Gen: NAD, AAOx3.
Eyes: EOMI, PERRLA, no scleral icterus.
Neck: supple.
CV: RRR, +S1/S2, no m/r/g.
Resp: Remains CTAB, no rales, wheezes, or rhonchi.
Abd: Remains +BS, soft, NT, ND
Skin: No rashes.
Neuro: CN 2-12 intact, non-focal.
Psych: Normal mood and affect.
07/01/23 17:32 Blood/Venous Blood Culture - Preliminary
No Growth in 24 hours- Final report to follow
07/01/23 17:28 Blood/Venous Blood Culture - Preliminary
No Growth in 24 hours- Final report to follow
07/02/23 08:56 Nose Nasal Screen MRSA (PCR) - Final
MRSA not detected - performed by PCR methodology.
07/01/23 17:28 Nasal Swab Influenza Types A & B (MARY) - Final
Negative for Influenza A & B, NAAT
Negative results must be combined with clinical observations
and patient history.
Nucleic Acid Amplification test (NAAT)performed on the
[employer] platform.
CXR: Slightly improved findings suggesting left lower lobe pneumonia. Moderate left pleural effusion. Improved. Cardiomegaly. Stable. Tiny right pleural effusion. Improved.
Vomiting/fever secondary to gastroenteritis versus possible pneumonia, fever:
-CXR above
-COVID, influenza negative
-BCxs NGTD
-follow stool Cx
-cont Rocephin as per ID
-diet as tolerated
-Holding Lasix for now given volume losses
Other problems:
DM2: with mild hypoglycemia secondary to infection, Lantus was held. Restart Lantus. SSI/accuchecks.
ESRD: renal following for HD M/W/
CAD s/p CABG: Continue ASA/statin/BB
Chronic HFpEF: cont BB
Essential hypertension: Cont Norvasc/BB/doxazosin
BPH: cont Doxazosin
CML: Hold Bosulif given current infection
Asthma: Continue Flovent
h/o Right kidney neoplasm
FULL/heparin
Anticipated Discharge: 24 - 48 hours
Subjective/Interval History
-
Date of Service: July 03, 2023
No new complaints.
Objective Data
-
Labs:
Laboratory Results
07/03/23
07:00
WBC Pending
Hgb Pending
Hct Pending
Plt Count Pending
Sodium Pending
Potassium Pending
Chloride Pending
Carbon Dioxide Pending
Vital Signs:
Vital Signs
Temp Pulse Resp BP Pulse Ox
98.1 F 55 18 142/62 93
07/02/23 23:40 07/02/23 23:40 07/02/23 23:40 07/02/23 23:40 07/02/23 23:40
I&O
07/01/23 07/02/23 07/03/23
06:59 06:59 06:59
Intake Total 600 / 600 1280 / 1280
Balance 600 / 600 1280 / 1280
[2023-07-03 07:24] LABS: Glucose - Point of Care 264 mg/dl (70-99)
[2023-07-03] MEDS: NON-FORMULARY ITEM 100 MG PO ×2 (07:30→12:12)
[2023-07-03 08:09] VITALS: BP 163/77
[2023-07-03] MEDS: HEPARIN 500 UNITS IV ×2 (08:10→09:12)
[2023-07-03] MEDS: NOVOLOG FLEXPEN-LOW RESISTANCE 3 UNITS SC (08:39)
[2023-07-03] MEDS: HEPARIN 5000 UNITS SC (08:44)
[2023-07-03 08:56] LABS: Hematocrit 36.7 % (39.0-52.0); Hemoglobin 11.8 g/dL (13.0-18.0); Mean Corp Hgb Conc. 32.2 g/dL (33.0-37.0); Mean Corpuscular Hgb 26.6 pg (27.0-31.0); Mean Corpuscular Volume 82.7 fL (80.0-94.0); Platelet Count 180 10^3/uL (130-400); Red Blood Cell Count 4.44 10^6/uL (4.70-6.10); Red Cell Dist. Width 18.5 % (11.5-14.5); White Blood Cell Count 6.9 10^3/uL (4.8-10.8)
[2023-07-03] MEDS: ASPIR LOW (ENTERIC COATED) 81 MG PO (09:02)
--- NOTE | 2023-07-03 09:02 | W.PN.ID1 ---
Date of Service
Date of Service: July 03, 2023
Today's Communication
- to get a dose of ceftriaxone today, if blood cultures remain negative this afternoon then could get dose of CTX early and be discharged to follow up with PCP
Assessment / Plan
Gastroenteritis
CML on RTK-I
ESRD on HD
Reported allergy to Penicillin - hives
- blood cultures x2 in progress
- stool culture in progress
- often a self limited issue
- to get a dose of ceftriaxone today, if blood cultures remain negative this afternoon then could get dose of CTX early and be discharged to follow up with PCP
Chief Complaint
-: Other (gastroenteritis)
Subjective / Review of Systems
afebrile
bp stable
labs not yet posted
stool culture pending
blood cultures remain no growth
no further nausea, vomiting or diarrhea
Vital Signs / Physical Exam
Vital Signs
Vital Signs
Temp Pulse Resp BP Pulse Ox
97.9 F 51 18 163/77 94
07/03/23 08:09 07/03/23 08:09 07/03/23 08:09 07/03/23 08:09 07/03/23 08:09
Physical Exam
Constitutional: No Acute Distress
Cardiovascular: Regular Rate
Pulmonary: Symmetric and Non Labored
Gastrointestinal: Soft, Non Tender and Non Distended
Skin: Warm and Dry; Negative Rash or Jaundice
Objective Data
Lab Data
Estimated Creat Clear 19 ml/min 07/02/23 06:54
Lactic Acid Cancelled 07/01/23 21:30
Total Bilirubin 0.8 mg/dl (0.2-1.3) 07/02/23 06:54
AST 27 U/L (17-59) 07/02/23 06:54
ALT 18 U/L (0-50) 07/02/23 06:54
Alkaline Phosphatase 70 U/L (38-126) 07/02/23 06:54
Most recent labs reviewed.
Micro Results:
07/01/23 17:32 Blood Culture - Preliminary
Blood/Venous No Growth in 24 hours- Final report to follow
07/01/23 17:28 Blood Culture - Preliminary
Blood/Venous No Growth in 24 hours- Final report to follow
07/02/23 08:56 Nasal Screen MRSA (PCR) - Final
Nose MRSA not detected - performed by PCR methodology.
07/02/23 08:56 Salmonella/Shigella Culture - Pending
Feces/Stool Campylobacter Culture - Pending
Shiga Toxin Test - Pending
07/01/23 17:28 Influenza Types A & B (MARY) - Final
Nasal Swab Negative for Influenza A & B, NAAT
Negative results must be combined with clinical observations
and patient history.
Nucleic Acid Amplification test (NAAT)performed on the
[employer] platform.
Care Review
Plan reviewed with: Physician (Dr Rubio)
[2023-07-03] MEDS: VISBIOME 1 CAP PO (09:03)
[2023-07-03] MEDS: PHOSLO 1334 MG PO ×2 (09:03→12:18)
[2023-07-03 09:20] LABS: Carbon Dioxide 30 mmol/L (22-30); Chloride 91 mmol/L (98-107); Potassium 4.4 mmol/L (3.5-5.1); Sodium 131 mmol/L (135-145)
[2023-07-03] MEDS: LANTUS 0.299999999999999989 UNITS SC (10:00)
[2023-07-03 11:15] LABS: Hepatitis B Surface Antigen Negative (Negative)
[2023-07-03] MEDS: HEPARIN 3900 UNITS INTRACATH (11:22)
[2023-07-03 11:29] LABS: Glucose - Point of Care 174 mg/dl (70-99)
[2023-07-03] MEDS: TOPROL XL 12.5 MG PO (12:13)
[2023-07-03] MEDS: CARDURA 2 MG PO (12:14)
[2023-07-03] MEDS: NOVOLOG FLEXPEN-LOW RESISTANCE 1 UNITS SC (12:15)
--- NOTE | 2023-07-03 14:07 | CM ---
Addendum entered by Tati Chairez 07/03/23 15:34:
patient stable for dischrge home today with no needs.
Original Note:
met with patient who is adm with gastroenteritis,bc negative,cont iv roscephin,restart lantus,possible dc home tomorrow with no needs.patient signed medicare letter.
--- NOTE | 2023-07-03 15:27 | W.DCSUMMARY ---
Discharge Summary
Discharge Data
Date of Admission: 07/01/23
Date of Discharge: 07/03/23
-
Pending Results: Yes
Additional Pending Results:
Stool culture results
Hospital Course
Primary diagnoses:
Fever likely due to gastroenteritis
Secondary diagnoses:
Type 2 diabetes mellitus with mild hypoglycemia secondary to infection
End-stage renal disease on hemodialysis Thursday/Thursday/Thursday
Coronary artery disease s/p coronary artery bypass grafting
Chronic heart failure with preserved ejection fraction
Essential hypertension
Benign prostatic hypertrophy
Chronic myelocytic leukemia
Asthma
h/o Right kidney neoplasm
Consultants:
Infectious disease
Nephrology
Imaging:
CXR: Slightly improved findings suggesting left lower lobe pneumonia. Moderate left pleural effusion. Improved. Cardiomegaly. Stable. Tiny right pleural effusion. Improved.
Hospital course: 68-year-old male initially presented with chief complaint of vomiting as outlined in the H&P done on admission. The patient had had vomiting for approximately a day and it started after having a crab cake. His spouse also had
vomiting. He had an episode of loose stools. During dialysis on the day of admission he was noted to be hypoglycemic. Upon arrival to the ER he was febrile. Chest x-ray above. History of the present illness was not consistent with pneumonia but
more likely gastroenteritis. COVID and influenza testing were negative. Patient was initially placed on vancomycin and cefepime. He was seen in consultation by infectious disease and transition to Rocephin. His blood cultures were no growth to
date and he was cleared for discharge by infectious disease off of antibiotic therapy. His symptoms resolved by the time of discharge.
Discharge Plan
-
Patient Disposition: Home (Routine Discharge)
Discharge Diagnosis/Procedures: Fever likely due to gastroenteritis
Condition: Good
Diet: Diabetic, Carb Controlled and Other diet
Additional Diets: Fluid restrict to 1500 cc/day
Activity: As tolerated
Driving Restrictions: As prior to admission
Referrals:
Paz Vasquez MD [Family Provider] - in less than 1 week
Prescriptions:
Continued
insulin aspart U-100 [Novolog FlexPen U-100 Insulin] 300 UNITS/3 ML insulin pen
10 - 20 sliding scale dose SC AC
Patient Comments:
SLIDING SCALE WITH MEALS
rosuvastatin [Crestor] 40 MG tablet
40 mg PO HS
Qvar RediHaler 80 mcg/actuation HFA aerosol breath activated
1 inh INHALATION R BID
aspirin 81 mg Tablet,Delayed Release (Dr/Ec)
81 mg PO DAILY
amlodipine [Norvasc] 10 mg Tablet
10 mg PO QPM
nitroglycerin [Nitrostat] 0.4 mg Tablet, Sublingual
0.4 mg SUBLINGUAL [id number] PRN (Reason: chest pain)
metoprolol succinate [Toprol XL] 25 mg Tablet Extended Release 24 Hr
12.5 mg PO BID
loratadine 10 mg Tablet
10 mg PO HS
doxazosin 2 mg Tablet
2 mg PO BID
albuterol sulfate [ProAir HFA] 90 mcg/actuation Hfa Aerosol Inhaler
2 puff INHALATION R QID PRN (Reason: sob/wheezing)
Bosulif 100 mg Tablet
100 mg PO TID Qty: 0
omega 1-tyl-ukt-fish oil [Fish Oil] 1,200 (144-216) mg Capsule
1 cap PO DAILY
Lactobacillus acidophilus 10 billion cell Capsule
10,000 mmu cells PO DAILY Qty: 0
calcium acetate 667 mg tablet
1,334 mg PO MEALS
insulin glargine [Lantus Solostar U-100 Insulin] 100 unit/mL (3 mL) insulin pen
14 unit SC HS
insulin glargine [Lantus Solostar U-100 Insulin] 100 unit/mL (3 mL) insulin pen
30 unit SC DAILY
furosemide 80 mg tablet
80 mg PO DAILY
Discharge Orders:
Discharge Patient (As Directed); Ordered 07/03/23
Ordered By: Rafa Rubio
[2023-07-03] MEDS: ROCEPHIN 2000 MG IV (16:37)
[2023-07-03 16:38] VITALS: BP 157/69
[2023-07-03] MEDS: STERILE WATER FOR INJECTION 20 ML IV (16:38)
--- NOTE | 2023-07-03 17:30 | PTCARENOTE ---
Rn asset coordinator. Patient states that they removed iv upstairs. Patient d/c with dialysis catheter on right chest wall.
== END 2023-07-03 17:12 | disposition home or self-care (01) | DRG 391 ==
LOC: 4 WEST ACU 20:06
PROVIDERS: ADMITTING PHYSICIAN Hospitalist; ATTENDING PHYSICIAN Internal Medicine; EMERGENCY PHYSICIAN Emergency Medicine; FAMILY PHYSICIAN Family Medicine; OTHER PHYSICIAN Specialist; OTHER PHYSICIAN Student in an Organized Health Care Education/Training Program
DX: K52.9 Noninfective gastroenteritis and colitis, unspecified (principal); N18.6 End stage renal disease; I50.32 Chronic diastolic (congestive) heart failure; I13.2 Hypertensive heart and chronic kidney disease with heart failure and with stage 5 chronic kidney disease, or end stage renal disease; I25.810 Atherosclerosis of coronary artery bypass graft(s) without angina pectoris; C92.10 Chronic myeloid leukemia, BCR/ABL-positive, not having achieved remission; C64.1 Malignant neoplasm of right kidney, except renal pelvis; D84.9 Immunodeficiency, unspecified; K21.9 Gastro-esophageal reflux disease without esophagitis; N40.0 Benign prostatic hyperplasia without lower urinary tract symptoms; J45.909 Unspecified asthma, uncomplicated; Z99.2 Dependence on renal dialysis; E11.22 Type 2 diabetes mellitus with diabetic chronic kidney disease; E11.649 Type 2 diabetes mellitus with hypoglycemia without coma; Z11.52 Encounter for screening for COVID-19
CPT/HCPCS: 71046; 80051; 80053; 80202; 81003; 81015; 82962; 83036; 83605; 85025; 85027; 87040; 87045; 87046; 87340; 87427; 87502; 87641; 87811; 94640; 96374; 99285; G0257; P9047

== ENCOUNTER → 2023-07-09 13:46 | Outpatient (REF) | payer MEDICARE, OTHER, SELFPAY | LOC: RAD 13:46 | PROVIDERS: ATTENDING PHYSICIAN Physician Assistant | DX: I77.0 Arteriovenous fistula, acquired (principal); I82.623 Acute embolism and thrombosis of deep veins of upper extremity, bilateral | CPT/HCPCS: 93990 ==

== ENCOUNTER 2023-07-23 06:22 | Day surgery (SDC) | payer MEDICARE, OTHER, SELFPAY ==
[2023-07-23] VITALS (14 sets, daily range): BP systolic 113–173; BP diastolic 59–78; BMI 25.0
[2023-07-23 08:33] LABS: Glucose - Point of Care 144 mg/dl (70-99)
[2023-07-23] MEDS: NSS 1000 IV (09:06)
[2023-07-23 10:38] LABS: Glucose - Point of Care 158 mg/dl (70-99)
[2023-07-23] MEDS: DETROL LA 4 MG PO (11:12)
[2023-07-23 11:52] LABS: Glucose - Point of Care 126 mg/dl (70-99)
[2023-07-23] MEDS: NOVOLOG FLEXPEN-MODERATE RESISTANCE SC (12:05)
--- NOTE | 2023-07-23 12:19 | W.PN.UPDATE ---
Update Note
Progress Note Update
Junctional rhythm noted intraop and on EKG in PACU
Patient is stable and asymptomatic without chest pain, SOB
Discussed with cardiology - recommended holding beta randa, repeat EKG this afternoon and tomorrow AM
Cardiology consult if not back in sinus rhythm tomorrow or with any symptoms
--- NOTE | 2023-07-23 12:40 | PTCARENOTE ---
pt admitted to room 2110 from the PACU at 1140. pt arrived alert and oriented to room, bed controls and plan of care with verbalized understanding. telemtry placed and reading SB 50's. #[address] Morgan catheter w/CBI infusing slowly. Morgan
output clear yellow. admission database and assessment completed as documented. bedside glucose 126. pt tolerating clear liquids and ordered lunch. pt called to bring in his Bosulif medication from home since non formulary. will observe.
--- NOTE | 2023-07-23 15:44 | W.CON.NEPH ---
Consultation
-
Date/Time Consultation Requested: 8:45AM
Date/Time Consultation Performed: 3:44PM
Performing Provider: Kyleigh Baldwin
Reason for Consultation: ESRD on HD
Medical History
-
Chief Complaint: ESRD on HD
History of Present Illness:
This is a 68-year-old gentleman who is well-known to us for his chronic kidney disease with ESRD now on dialysis Wednesdays at [facility].� He has diabetes mellitus type 2 with multiple complications.� He also has known coronary
artery disease with CABG in the past.� He also has heart failure with preserved ejection fraction and some LE swelling noted on exam. Patient presents to the hospital for TURP procedure, which he states went well.
Past Medical History
ESRD, heart failure preserved ejection fraction, coronary disease with bypass, hypertension, diabetes mellitus type 2, nephrolithiasis, left upper extremity AV fistula, BPH, GERD, vocal polyps, CML, cervical radiculopathy, right Achilles tendon
repair, cataract surgery, tenosynovectomy, wisdom teeth extraction.
Past Surgical History: None
Social History
Tobacco: Non-Smoker
Alcohol: Occasional
Drug: None
Family History
Family History: Not Pertinent
Allergies / Home Medications
Allergy/AdvReac Type Severity Reaction Status Date / Time
atorvastatin Allergy reports Verified 07/23/23 08:30
muscle
weakness
clonidine Allergy Rash Verified 07/23/23 08:30
codeine Allergy Nausea / Verified 07/23/23 08:30
Vomiting
grass pollen Allergy Unknown Verified 07/23/23 08:30
house dust Allergy Unknown Verified 07/23/23 08:30
hydralazine Allergy Vomiting Verified 07/23/23 08:30
Penicillins Allergy Hives A Verified 07/23/23 08:30
CHILD
pollen extracts Allergy seasonal Verified 07/23/23 08:30
allergies
tree and shrub pollen Allergy Unknown Verified 07/23/23 08:30
Medication Instructions Recorded Confirmed Type
insulin aspart U-100 100 unit/mL 10 - 20 sliding scale dose SC AC 09/09/18 07/23/23 History
(3 mL) subcutaneous pen (Novolog Diabetes
FlexPen U-100 Insulin aspart)
rosuvastatin 40 mg tablet (Crestor) 40 mg PO HS High cholesterol 03/11/21 07/23/23 History
beclomethasone dipropionate 80 1 inh inhalation R BID 12/01/21 07/23/23 History
mcg/actuation HFA breath activated Lung/breathing issues
aerosol (Qvar RediHaler)
aspirin 81 mg tablet,delayed 81 mg PO DAILY Blood clot 05/15/22 07/23/23 History
release prevention/tx
amlodipine 10 mg tablet (Norvasc) 10 mg PO QPM Blood pressure 06/06/22 07/23/23 History
nitroglycerin 0.4 mg sublingual 0.4 mg sublingual [id number] PRN 06/06/22 07/23/23 History
tablet (Nitrostat) chest pain
doxazosin 2 mg tablet 2 mg PO BID Blood Pressure 08/11/22 07/23/23 History
loratadine 10 mg tablet 10 mg PO HS Allergies 08/11/22 07/23/23 History
metoprolol succinate 25 mg 12.5 mg PO BID Blood Pressure 08/11/22 07/23/23 History
tablet,extended release 24 hr
(Toprol XL)
albuterol sulfate 90 mcg/actuation 2 puff inhalation R QID PRN 11/21/22 07/23/23 History
aerosol inhaler (ProAir HFA) sob/wheezing
bosutinib 100 mg tablet (Bosulif) 100 mg PO TID CML ##0 04/15/23 07/23/23 History
Lactobacillus acidophilus 10 10,000 mmu cells PO DAILY 04/27/23 07/23/23 History
billion cell capsule Supplement ##0
omega 7-htk-pbx-fish oil 1,200 mg 1 cap PO DAILY Supplement 04/27/23 07/23/23 History
(144 mg-216 mg) capsule (Fish Oil)
calcium acetate 667 mg tablet 1,334 mg PO MEALS Kidney Disease 04/28/23 07/23/23 History
insulin glargine 100 unit/mL (3 14 unit SC HS Diabetes 06/18/23 07/23/23 History
mL) subcutaneous pen (Lantus
Solostar U-100 Insulin)
insulin glargine 100 unit/mL (3 30 unit SC DAILY Diabetes 06/18/23 07/23/23 History
mL) subcutaneous pen (Lantus
Solostar U-100 Insulin)
furosemide 80 mg tablet 80 mg PO DAILY Fluid 07/02/23 07/23/23 History
Retention/Swelling
Review of Systems
-
All other systems: Negative unless noted
Constitutional: Weight Gain and Fatigue
EENT: No Symptoms
Respiratory: No Symptoms
Cardiac: No Symptoms
Abdomen/GI: Abdominal Pain
: Urgency
Musculoskeletal: No Symptoms
Skin: No Symptoms
Neurological: No Symptoms
Endocrine: No Symptoms
Hematologic/Lymphatic: No Symptoms
Physical Exam
Vital Signs
Vital Signs
Temp Pulse Resp BP Pulse Ox
98.4 F 55 18 131/64 91
07/23/23 14:17 07/23/23 14:17 07/23/23 14:17 07/23/23 14:17 07/23/23 14:17
Physical Exam
General: AOx3, No Distress and Nontoxic
HEENT: PERRL, EOMI, Anicteric, Conjunctivae Clear, Ear/Nose Intact and Hearing Normal
Respiratory: Clear
Cardiac: S1/S2, Regular Rate/Rhythm and Murmur
Breast: N/A
Abdomen: Soft, Nontender and Nondistended
Rectal: Deferred by Provider
Musculoskeletal: Edema
Skin: No Rash
Neuro: Nonfocal/Grossly Intact
Hematologic/Lymphatic: No Cervical Lymphadenopathy
Psych: Mood/afflect pleasant and Insight/judgement good
Assessment/Plan
-
IMP:
ESRD
Chronic HFpEF
TURP
ASCVD s/p CABG
Benign Hypertension
DM-II
Creation of left upper arm brachiobasilic AV fistula�, 1st stage on 04/21
Nephrotic syndrome
Nephrolithiasis
BPH
GERD
CML on Bosutinib
Cervical radiculopathy
Hyperphosphatemia
Plan:
-HD tomorrow
-post op management by primary team
Data Reviewed
-
Labs: Discussed with Patient
Old Records: Reviewed
[2023-07-23 17:59] LABS: Glucose - Point of Care 262 mg/dl (70-99)
[2023-07-23] MEDS: NOVOLOG FLEXPEN-MODERATE RESISTANCE 5 UNITS SC (19:54)
[2023-07-23] MEDS: CARDURA 2 MG PO (19:55)
[2023-07-23] MEDS: NORVASC 10 MG PO (19:55)
[2023-07-23] MEDS: NON-FORMULARY ITEM 100 MG PO (19:57)
[2023-07-23] MEDS: TYLENOL 650 MG PO (20:13)
[2023-07-23] MEDS: ROBITUSSIN DM 5 ML PO (20:13)
[2023-07-23] MEDS: MYLICON 80 MG PO (20:13)
[2023-07-23] MEDS: PHOSLO 1334 MG PO (20:36)
[2023-07-23 22:27] LABS: Glucose - Point of Care 290 mg/dl (70-99)
[2023-07-23] MEDS: CRESTOR 40 MG PO (22:45)
[2023-07-23] MEDS: CLARITIN 10 MG PO (22:45)
[2023-07-23] MEDS: PERCOCET 5/325 1 TABLET PO (22:45)
[2023-07-23] MEDS: LANTUS 0.140000000000000013 UNITS SC (22:46)
[2023-07-24] VITALS (8 sets, daily range): BP systolic 152–168; BP diastolic 69–86; BMI 27.1
[2023-07-24] MEDS: ZOFRAN 4 MG IV (03:44)
[2023-07-24] MEDS: FLUSH (NSS) 1 FLUSH IV (03:45)
[2023-07-24] MEDS: PERCOCET 5/325 1 TABLET PO ×3 (03:45→21:34)
[2023-07-24 06:18] LABS: Hematocrit 43.9 % (39.0-52.0); Hemoglobin 13.9 g/dL (13.0-18.0); Mean Corp Hgb Conc. 31.7 g/dL (33.0-37.0); Mean Corpuscular Hgb 26.2 pg (27.0-31.0); Mean Corpuscular Volume 82.7 fL (80.0-94.0); Platelet Count 181 10^3/uL (130-400); Red Blood Cell Count 5.31 10^6/uL (4.70-6.10); Red Cell Dist. Width 17.7 % (11.5-14.5); White Blood Cell Count 18.6 10^3/uL (4.8-10.8)
[2023-07-24 07:02] LABS: Blood Urea Nitrogen 54 mg/dl (9-20); Calcium 9.6 mg/dl (8.4-10.2); Carbon Dioxide 24 mmol/L (22-30); Chloride 95 mmol/L (98-107); Estimated Creatinine Clearance 16 ml/min; Glucose 200 mg/dl (70-99); Potassium 5.3 mmol/L (3.5-5.1); Sodium 135 mmol/L (135-145); eGFR 13.68
[2023-07-24] MEDS: NON-FORMULARY ITEM PO (08:00)
--- NOTE | 2023-07-24 09:13 | W.PN.URO.CBU ---
Today's Communication / Plan
-
Trial of void
Dialysis
Cardiology consult
Possible discharge today
Assessment / Plan
-
68M POD 1 s/p TURP
- No hematuria overnight. Hansen removed this AM for trial of void
- Dialysis this AM, IVF per nephrology
- Some arrhythmia post op with junctional rhythm and now afib on this AM EKG. SR with PVCs on monitor when I saw him. Asymptomatic and normal rate. Discussed with cardiology who will see him today
- Discharge pending trial of void and cardiology recs
Diagnosis
-
Date of Service: July 24, 2023
-
Patient Diagnosis:
BPH
ESRD
CHF
Post Op Day: s/p TURP
Subjective
-
Feeling well overnight
No CP, SOB, palpitations
Some bladder spasms, doing better
Objective
-
Vital Signs
Temp Pulse Resp BP Pulse Ox
97.6 F 72 16 164/81 91
07/24/23 07:45 07/24/23 08:04 07/24/23 08:04 07/24/23 07:45 07/24/23 08:04
Intake and Output
07/23/23 07/24/23 07/25/23
06:59 06:59 06:59
Intake Total 480 / 480
Output Total 50 / 50 250 / 250
Balance 430 / 430 -250 / -250
Intake:
Oral fluids 480 / 480
IV fluids (Total) 0 / 0
NSS 0 / 0
Output:
True Urine Output from CBI 50 / 50 250 / 250
Laboratory Results
07/24/23 05:17
07/24/23 05:17
Physical Exam
-
General - well developed, well nourished, no acute distress
Chest - clear
Abdomen - soft, non-tender
- hansen in place, clear urine
Skin - warm & dry with no rash
Neuro - AOx3, no motor deficits
Extremities - no edema
[2023-07-24] MEDS: NOVOLOG FLEXPEN-MODERATE RESISTANCE SC ×2 (09:15→12:59)
[2023-07-24 09:17] LABS: Glucose - Point of Care 153 mg/dl (70-99)
[2023-07-24] MEDS: PHOSLO PO (10:56)
[2023-07-24] MEDS: LANTUS 0.299999999999999989 UNITS SC (11:01)
--- NOTE | 2023-07-24 11:07 | CON.CAR ---
Addendum entered and electronically signed by Chris Watts MD 07/24/23 21:07:
First line of addendum should read '68 yo man reported to have new onset atrial fibrillation'
Addendum entered and electronically signed by Chris Watts MD 07/24/23 12:04:
68-year-old man with new onset atrial fibrillation following TURP performed on 07/23/2023. He is well-known to me with history of CABG and old inferior [place]V as well as PVCs. He has chronic myelogenous leukemia and more recently history of end-stage
renal disease on hemodialysis effective April 2023. Background history of renal calculi and diabetes. He was bradycardic intraoperatively during TURP and this morning has atrial fibrillation. Bardy CAM performed on May 08, 2023 showed
sinus rhythm with 3 episodes of atrial tachycardia up to 6 beats, with 4 episodes of nonsustained VT up to 8 beats with 9% PVCs and 1.1% PACs. Currently he feels well.
PMH: CAD, inferior [place] 1997, PCI 1997 and 2004, CABG in 2018, asthma, hyperlipidemia, cervical radiculopathy, renal calculi, hypertension, hypercholesterolemia, type 2 diabetes, GERD, CML, end-stage renal disease
Surgical history: ORIF left ankle , lithotripsy, CABG 2018, LAIRD to LAD, radial to OM, saphenous vein to right PDA, right Achilles tendon rupture,, fistula March 2023
FH: Positive for CAD,
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
Allergies: Penicillin, codeine, atorvastatin, clonidine
Outpatient meds: Albuterol, amlodipine 10 mg a day, aspirin 81 mg a day Bosulif 100 mg 3 times daily, doxazosin 2 mg twice daily, furosemide 80 mg a day, insulin, Claritin, metoprolol ER 12.5 twice daily, Qvar, rosuvastatin
ROS negative except as above
164/81, pulse 72, resp rate 16, afebrile
Head neck exam unremarkable, lungs are clear, intermittently irregular rhythm, no obvious murmurs, JVD okay, abdomen benign, extremities without edema, currently on hemodialysis
ECG: Sinus bradycardia with junctional rhythm and A-V dissociation, PVCs, high-grade AV block
ECG #2 possible sinus rhythm with competing junctional pacemaker
ECG #3 sinus rhythm/bradycardia with high-grade AV block and junctional escape's
White count 18.6, hemoglobin 13.9, creatinine 4.4, potassium 5.3
Impression
s/p TURP 07/23/23
Junctional rhythm with periods of sinus arrest and A-V dissociation
History of transient accelerated junctional rhythm 2021
CAD
s/p inferior wall WV in 1997 with circ PCI
in-stent restenosis of circ resulting in PTCA 2004
CABG x3 2019Chronic HFpEF
PVCs
HLD
DM2
ESRD on HD as of 04/2023
CML
Asthma
R renal mass, felt most likely to be cyst
L kidney stones s/p lithotripsy in past
ECHO 04/29/23: EF 50 to 55%, mild biatrial dilatation, trace TR, PAP 37 mmHg
Plan:
He presents with an interesting intraoperative and postoperative rhythm. This is not the first time we have seen this. His sinus mechanism has slowed possibly related to his beta-randa and he has an adequate junctional escape with intermittent
relatively high-grade AV block and A-V dissociation.
However, given his junctional rhythm he is hemodynamically stable. I am hopeful that the issue will resolve with withdrawal of his beta-randa.
Would observe overnight and plan on discharging in the a.m.
While it is conceivable that symptomatic AV block and sick sinus syndrome could eventually necessitate pacemaker implantation I am hopeful that this will not be the case.
We will arrange for outpatient follow-up and can consider outpatient monitoring at that time.
Original Note:
Consultation
Consultation Request
Date/Time Consultation Performed: 07/24/23
Requesting Provider: Dr. Veronica
Performing Provider: An Mahoney PA-C for Dr. LEAH Watts
Reason for Consultation: abnormal heart rhythm, ? afib
Medical History
-
Chief Complaint: TURP
History of Present Illness:
Patient is a 68-year-old male with past medical history of CAD status post stenting and CABG, chronic heart failure with preserved EF, previous renal disease on hemodialysis as of 04/2023, CML who underwent TURP 07/23/2023. Postoperatively patient
had EKG which showed junctional rhythm. His outpatient Toprol was held last evening, however rhythm remains abnormal this morning, with concerns for atrial fibrillation resulting in cardiology consultation. Patient without complaints of chest
pain, shortness of breath, lightheadedness or dizziness. Of note, with history of accelerated junctional rhythm in 2021 in setting of urologic procedure.
PMH:
History of transient accelerated junctional rhythm 2021
CAD
s/p inferior wall [place]V in 1997 with circ PCI
in-stent restenosis of circ resulting in PTCA 2004
CABG x3 2018
Chronic HFpEF
PVCs
HLD
DM2
ESRD on HD as of 04/2023
CML
Asthma
R renal mass, felt most likely to be cyst
L kidney stones s/p lithotripsy in past
Past Medical History
Past Medical History: Other (in HPI)
Social History
Tobacco: Non-Smoker
Personal:
Living: With Family
Employment: Retired
Family History
Family History: CAD (CABG in father)
Allergies / Home Medications
Allergy/AdvReac Type Severity Reaction Status Date / Time
atorvastatin Allergy reports Verified 07/23/23 08:30
muscle
weakness
clonidine Allergy Rash Verified 07/23/23 08:30
codeine Allergy Nausea / Verified 07/23/23 08:30
Vomiting
grass pollen Allergy Unknown Verified 07/23/23 08:30
house dust Allergy Unknown Verified 07/23/23 08:30
hydralazine Allergy Vomiting Verified 07/23/23 08:30
Penicillins Allergy Hives A Verified 07/23/23 08:30
CHILD
pollen extracts Allergy seasonal Verified 07/23/23 08:30
allergies
tree and shrub pollen Allergy nasal Verified 07/23/23 20:07
congestion
Medication Instructions Recorded Confirmed Type
insulin aspart U-100 100 unit/mL 10 - 20 sliding scale dose SC AC 09/09/18 07/23/23 History
(3 mL) subcutaneous pen (Novolog Diabetes
FlexPen U-100 Insulin aspart)
rosuvastatin 40 mg tablet (Crestor) 40 mg PO HS High cholesterol 03/11/21 07/23/23 History
beclomethasone dipropionate 80 1 inh inhalation R BID 12/01/21 07/23/23 History
mcg/actuation HFA breath activated Lung/breathing issues
aerosol (Qvar RediHaler)
aspirin 81 mg tablet,delayed 81 mg PO DAILY Blood clot 05/15/22 07/23/23 History
release prevention/tx
amlodipine 10 mg tablet (Norvasc) 10 mg PO QPM Blood pressure 06/06/22 07/23/23 History
nitroglycerin 0.4 mg sublingual 0.4 mg sublingual [id number] PRN 06/06/22 07/23/23 History
tablet (Nitrostat) chest pain
doxazosin 2 mg tablet 2 mg PO BID Blood Pressure 08/11/22 07/23/23 History
loratadine 10 mg tablet 10 mg PO HS Allergies 08/11/22 07/23/23 History
metoprolol succinate 25 mg 12.5 mg PO BID Blood Pressure 08/11/22 07/23/23 History
tablet,extended release 24 hr
(Toprol XL)
albuterol sulfate 90 mcg/actuation 2 puff inhalation R QID PRN 11/21/22 07/23/23 History
aerosol inhaler (ProAir HFA) sob/wheezing
bosutinib 100 mg tablet (Bosulif) 100 mg PO TID CML ##0 04/15/23 07/23/23 History
Lactobacillus acidophilus 10 10,000 mmu cells PO DAILY 04/27/23 07/23/23 History
billion cell capsule Supplement ##0
omega 2-sst-yjc-fish oil 1,200 mg 1 cap PO DAILY Supplement 04/27/23 07/23/23 History
(144 mg-216 mg) capsule (Fish Oil)
calcium acetate 667 mg tablet 1,334 mg PO MEALS Kidney Disease 04/28/23 07/23/23 History
insulin glargine 100 unit/mL (3 14 unit SC HS Diabetes 06/18/23 07/23/23 History
mL) subcutaneous pen (Lantus
Solostar U-100 Insulin)
insulin glargine 100 unit/mL (3 30 unit SC DAILY Diabetes 06/18/23 07/23/23 History
mL) subcutaneous pen (Lantus
Solostar U-100 Insulin)
furosemide 80 mg tablet 80 mg PO DAILY Fluid 07/02/23 07/23/23 History
Retention/Swelling
Review of Systems
-
History Source: Patient
All other systems: Negative unless noted
Physical Exam
Vital Signs
Temp Pulse Resp BP Pulse Ox
97.6 F 72 16 164/81 91
07/24/23 07:45 07/24/23 08:04 07/24/23 08:04 07/24/23 07:45 07/24/23 08:04
Lab Results
07/24/23 05:17
07/24/23 05:17
Physical Exam
General: No Apparent Distress, Comfortable and Other (on HD. on supp O2)
HEENT: Normocephalic, Anicteric and Moist Mucous Membranes
Respiratory: Clear and Non Labored Respirations
Cardiac: S1/S2 and Regular Rhythm
GI: Soft, Non Tender, Non Distended and Normal Bowel Sounds
Genito-urinary: Other (Morgan to CBI)
Musculoskeletal: No Clubbing, No Cyanosis and No Edema
Skin: Warm and Dry
Neuro: AO x 3
Impression / Plan
-
Primary Design Assembler: Dr. LEAH Watts
Assessment:
s/p TURP 07/23/23
Junctional rhythm post op
History of transient accelerated junctional rhythm 2021
CAD
s/p inferior wall [place] in 1997 with circ PCI
in-stent restenosis of circ resulting in PTCA 2004
CABG x3 2018
Chronic HFpEF
PVCs
HLD
DM2
ESRD on HD as of 04/2023
CML
Asthma
R renal mass, felt most likely to be cyst
L kidney stones s/p lithotripsy in past
ECHO 04/29/23: EF 50 to 55%, mild biatrial dilatation, trace TR, PAP 37 mmHg
Plan:
-Status post TURP 07/23/2023. seen while on HD.
-EKG postoperatively with junctional rhythm. does have history of accelerated junctional rhythm in 2021. Outpatient Toprol held last evening and this morning. EKG from this a.m. likely high-grade AV block with junctional escape. no clear
evidence of atrial fibrillation
-Patient asymptomatic
-Discontinue beta-randa
-Observe overnight on tele
-check TSH
-Consider for outpatient cardiac monitoring
-May require eventual pacemaker
-will follow
Data Reviewed
-
EKG: Tracing Personally Visualized and interpreted
Medical Tests (Nuc Med, Echo etc): Report Reviewed by me
Labs: Labs Reviewed by me
Old Records: Reviewed
--- NOTE | 2023-07-24 12:14 | W.PN.NEPH.HD ---
Assessment
-
Seen on HD. no complaints. VSS, access ok
Progress Note - Hemodialysis
-
Date of Service: July 24, 2023
Duration: 30 minutes and 3 hours
Potassium Bath: 2
Calcium Bath: 2.5
Opti-Dialyzer: 160
Ultrafiltration: Other (3.5kg)
Blood Flow: 400
Dialysate Flow: 600
Heparin: no
EPO: no
[2023-07-24 12:38] LABS: Glucose - Point of Care 148 mg/dl (70-99)
[2023-07-24] MEDS: NON-FORMULARY ITEM 100 MG PO ×2 (12:49→18:23)
[2023-07-24] MEDS: PHOSLO 1334 MG PO ×2 (12:50→18:24)
[2023-07-24] MEDS: ASPIR LOW (ENTERIC COATED) 81 MG PO (12:50)
[2023-07-24] MEDS: CARDURA 2 MG PO ×2 (12:50→21:26)
[2023-07-24] MEDS: LASIX 80 MG PO (12:50)
--- NOTE | 2023-07-24 12:50 | CM ---
Addendum entered by Nano Isaacs RN 07/24/23 12:59:
Patient receives HD M-W-F at [facility].
Original Note:
Reviewed the chart notes and spoke with the patient at the bedside. The patient resides with his spouse in a two story home with two steps to enter. The patient reports no DME/VN in the past, but was in a SNF in [place]. Patient could not
recall name of facility. The patient confirmed his pharmacy of choice is the [facility] [place]. CM continues to be available to patient/family and is monitoring medical plan for needs at discharge.
Plan: Discharge to home when medically stable. Anticipate no needs.
[2023-07-24] MEDS: MYLICON 80 MG PO (12:57)
--- NOTE | 2023-07-24 13:00 | PTCARENOTE ---
Pt assessed after dialysis. Pt is shaking almost to Rigors and resp. are short and 24. Pulse ox reading 80 on 2L 02 via nc. O2 increased to 3L and pulse ox now at 95%. Pt c/o being cold and c/o penile pain 5/10 on pain scale. VS: 97.9-90-41-manual
bp:168/78. Morgan Cath had been removed @1250pm. No bleeding noted from Penis or from AV fistula used for dialysis this am. Pt states ' I'm fine, I'm just cold'. Pt given pain, med.,& warm blankets, Call flynn within reach. Pt instructed to call
Nurses if he begins to feel bad, or have any other needs.
[2023-07-24 16:57] LABS: Glucose - Point of Care 234 mg/dl (70-99)
[2023-07-24] MEDS: NOVOLOG FLEXPEN-MODERATE RESISTANCE 3 UNITS SC (18:24)
[2023-07-24] MEDS: NORVASC 10 MG PO (18:24)
[2023-07-24] MEDS: CRESTOR 40 MG PO (21:27)
[2023-07-24] MEDS: CLARITIN 10 MG PO (21:27)
[2023-07-24] MEDS: LANTUS 0.140000000000000013 UNITS SC (21:28)
[2023-07-24 21:55] LABS: Glucose - Point of Care 181 mg/dl (70-99)
[2023-07-24] MEDS: MELATONIN 5 MG PO (23:56)
[2023-07-25 03:05] VITALS: BP 135/70
[2023-07-25 06:00] VITALS: BMI 27.4
--- NOTE | 2023-07-25 07:39 | W.PN.URO.CBU ---
Today's Communication / Plan
-
check PVR
UOOB
cardiac eval
possible discharge if stable
Assessment / Plan
-
68M POD 2 s/p TURP
hansen out- some hematuria- will check PVR
no cardiac sx's- await cardio dispo regarding discharge planning
underwent HD yesterday
to check labs and pvr today and await cardiac input- possible discharge if stable
Diagnosis
-
Date of Service: July 25, 2023
-
Patient Diagnosis:
BPH
ESRD
CHF
Post Op Day: s/p TURP
Subjective
-
pt feels ok
hansen is out- voiding small volumes of perkins urine
no chest pain
underwent HD yesterday
Objective
-
Vital Signs
Temp Pulse Resp BP Pulse Ox
98.8 F 63 18 135/70 92
07/25/23 03:05 07/25/23 03:05 07/25/23 03:05 07/25/23 03:05 07/25/23 03:05
Intake and Output
07/24/23 07/25/23 07/26/23
06:59 06:59 06:59
Intake Total 480 / 480 360 / 360
Output Total 50 / 50 1300 / 1300
Balance 430 / 430 -940 / -940
Intake:
Oral fluids 480 / 480 360 / 360
IV fluids (Total) 0 / 0
NSS 0 / 0
Output:
Urine, Hansen 1000 / 1000
Urine, Voided 50 / 50
True Urine Output from CBI 50 / 50 250 / 250
Other:
Number of approximated MODERATE 2
amounts of urine
Review of Systems
-
Constitutional: Fatigue
Respiratory: No Symptoms
Cardiac: No Symptoms
Abdomen/GI: No Symptoms
: Frequency
Physical Exam
-
General - no acute distress
Abdomen - soft, non-tender
Genitalia - normal
[2023-07-25 07:40] LABS: % Basophils 0.4 % (0-2); % Eosinophils 1.3 % (0-6); % Immature Granulocytes 0.3 % (0-0.5); % Lymphocytes 8.9 % (20.5-51.1); % Monocytes 9.1 % (1.7-9.3); Absolute Basophils 0.1 10^3/uL (0-0.2); Absolute Eosinophils 0.2 10^3/uL (0-0.7); Absolute Lymphocytes 1.1 10^3/uL (1.2-3.4); Absolute Monocytes 1.2 10^3/uL (0.1-0.6); Absolute Neutrophils 10.1 10^3/uL (1.4-6.5); Hematocrit 41.4 % (39.0-52.0); Hemoglobin 13.3 g/dL (13.0-18.0); Mean Corp Hgb Conc. 32.1 g/dL (33.0-37.0); Mean Corpuscular Hgb 25.9 pg (27.0-31.0); Mean Corpuscular Volume 80.7 fL (80.0-94.0); Mean Platelet Volume 10.1 fL (7.4-10.4); Nucleated Red Blood Cells % 0 % (-); Platelet Count 164 10^3/uL (130-400); Red Blood Cell Count 5.13 10^6/uL (4.70-6.10); Red Cell Dist. Width 17.4 % (11.5-14.5); White Blood Cell Count 12.6 10^3/uL (4.8-10.8)
[2023-07-25 08:00] VITALS: BP 159/76
[2023-07-25 08:10] LABS: Blood Urea Nitrogen 39 mg/dl (9-20); Calcium 9.1 mg/dl (8.4-10.2); Carbon Dioxide 28 mmol/L (22-30); Chloride 98 mmol/L (98-107); Estimated Creatinine Clearance 17 ml/min; Glucose 83 mg/dl (70-99); Sodium 134 mmol/L (135-145); eGFR 14.89
[2023-07-25 08:21] LABS: Glucose - Point of Care 82 mg/dl (70-99)
[2023-07-25 08:23] LABS: TSH 3.17 uIU/ml (0.47-4.68)
[2023-07-25] MEDS: ASPIR LOW (ENTERIC COATED) 81 MG PO (08:42)
[2023-07-25] MEDS: NON-FORMULARY ITEM 100 MG PO ×2 (08:42→13:07)
[2023-07-25] MEDS: LASIX 80 MG PO (08:45)
[2023-07-25] MEDS: PHOSLO 1334 MG PO ×2 (08:45→13:08)
[2023-07-25] MEDS: CARDURA 2 MG PO (08:46)
[2023-07-25] MEDS: NOVOLOG FLEXPEN-MODERATE RESISTANCE SC (08:47)
[2023-07-25] MEDS: LANTUS SC (08:48)
--- NOTE | 2023-07-25 09:37 | W.PN.NEPH.PH ---
Today's Communication / Plan
-
dc planning
Assessment/Plan
-
IMP:
ESRD
Chronic HFpEF
TURP
ASCVD s/p CABG
Benign Hypertension
DM-II
Creation of left upper arm brachiobasilic AV fistula�, 1st stage on 04/21
Nephrotic syndrome
Nephrolithiasis
BPH
GERD
CML on Bosutinib
Cervical radiculopathy
Hyperphosphatemia
Plan:
-HD thursday
-post op management by primary team
-cardiology eval
-dc planning
-
-
Date of Service: July 25, 2023
CC / HPI / ROS
-
Chief Complaint:
ESRD
History of Present Illness:
tolerated HD yesterday
BP stable
no hematuria
Review of Systems:
no CP/SOB
Labs
-
Labs:
WBC 12.6 10^3/uL (4.8-10.8) H 07/25/23 06:58
RBC 5.13 10^6/uL (4.70-6.10) 07/25/23 06:58
Hgb 13.3 g/dL (13.0-18.0) 07/25/23 06:58
Hct 41.4 % (39.0-52.0) 07/25/23 06:58
Plt Count 164 10^3/uL (130-400) 07/25/23 06:58
Sodium 134 mmol/L (135-145) L 07/25/23 06:58
Potassium 4.0 mmol/L (3.5-5.1) 07/25/23 06:58
Chloride 98 mmol/L (98-107) 07/25/23 06:58
Carbon Dioxide 28 mmol/L (22-30) 07/25/23 06:58
BUN 39 mg/dl (9-20) H 07/25/23 06:58
Creatinine 4.1 mg/dL (0.7-1.3) H* 07/25/23 06:58
eGFR 14.89 07/25/23 06:58
Glucose 83 mg/dl (70-99) 07/25/23 06:58
Calcium 9.1 mg/dl (8.4-10.2) 07/25/23 06:58
Physical Exam
-
Vital Signs:
Vital Signs
Temp Pulse Resp BP Pulse Ox
98.4 F 60 16 259/76 93
07/25/23 08:00 07/25/23 08:46 07/25/23 08:02 07/25/23 08:46 07/25/23 08:02
Cardiovascular:: Regular rate and rhythm
Respiratory:: Bilateral: Coarse
Lung Excursion:: Normal
Abdomen:: Nontender and Soft
Bowel Sounds:: Normal
Extremity Edema:: None: Bilateral:
[2023-07-25] MEDS: LANTUS 0.299999999999999989 UNITS SC (10:05)
--- NOTE | 2023-07-25 10:48 | W.PN.CARDCBS ---
Addendum entered and electronically signed by Amarilis Castillo DO 07/25/23 16:46:
I saw and examined the patient.
The Bleach Boiler Puller's note was reviewed and I agree with the note.
Comment: Seen and examined. Patient denies chest pain or pressure, dyspnea on exertion, exertional fatigue, palpitations, dizziness/lightheadedness or near syncope. No history of syncope.
GEN: NAD. AOA x 3
HEENT: Mucous membranes moist
LUNGS: CTA, no wheezes/rales
CV: Regular with ectopy, positive S1-S2. No murmur
CHEST: Dialysis port right anterior chest
ABD: soft, BS+, NT/ND
EXT: No edema
Plan:
Sinus bradycardia with intermittent junctional rhythm and A-V dissociation as well as PVCs and high degree AV block
-Asymptomatic
-Beta-randa was discontinued this hospitalization
-We discussed symptoms attributable to symptomatic bradycardia arrhythmia with instructions to call 911 and return immediately to the hospital
-Discussed with his outpatient generator man Dr. Watts, plan for outpatient library monitor. Patient understands that he may eventually require permanent pacemaker
History of coronary artery disease with prior AL and CABG x 3 in 2019
-No chest pain suggestive of angina
-Continue medical therapy
-No beta-randa given bradycardia arrhythmia
Status post TURP 07/23/2023
-Management and follow-up per urology
Chronic kidney disease on dialysis as of April 2023
-Dialysis on Thursday
History of heart failure with preserved ejection fraction�appears euvolemic.
-Continue outpatient medical therapy including oral Lasix
Patient has outpatient library monitor and follow-up next week in our office
From a cardiac standpoint may be discharged home today
Original Note:
Today's Communication / Plan
-
Stop beta-randa
Outpatient cardiology follow up and monitor arranged
Stable for d/c
Impression / Plan
-
Primary Kitchen Work Supervisor: Dr. LEAH Watts
Assessment:
s/p TURP 07/23/23
Junctional rhythm post op
History of transient accelerated junctional rhythm 2021
CAD
s/p inferior wall AL in 1997 with circ PCI
in-stent restenosis of circ resulting in PTCA 2004
CABG x3 2018
Chronic HFpEF
PVCs
HLD
DM2
ESRD on HD as of 04/2023
CML
Asthma
R renal mass, felt most likely to be cyst
L kidney stones s/p lithotripsy in past
ECHO 04/29/23: EF 50 to 55%, mild biatrial dilatation, trace TR, PAP 37 mmHg
Plan:
-Status post TURP 07/23/2023.
-feeling well and wants to go home today.
-EKG postoperatively with junctional rhythm as well as high-grade AV block with junctional escape. This is not new and he does have history of accelerated junctional rhythm in 2021.
-Toprol held starting evening of 07/23/23. Still with junctional rhythm in the 60's with PVCS which are also not new. Patient asymptomatic
-Discontinue beta-randa and we will arrange for outpatient monitor at cardiology follow up on 07/28/2023
-No indication for PPM at this time
-TSH 3.17
-Stable from cardiac standpoint for d/c with follow up arranged
Progress Note - Kitchen Work Supervisor
Subjective
Date of Service: July 25, 2023
Patient seen and examined. Patient resting comfortably in bed. Patient reports he has been able to ambulate without dizziness or lightheadedness. He is eager to go home.
Objective
Labs:
07/25/23 06:58
07/25/23 06:58
Labs
Hgb 13.3 g/dL (13.0-18.0) 07/25/23 06:58
Hct 41.4 % (39.0-52.0) 07/25/23 06:58
Plt Count 164 10^3/uL (130-400) 07/25/23 06:58
Sodium 134 mmol/L (135-145) L 07/25/23 06:58
Potassium 4.0 mmol/L (3.5-5.1) 07/25/23 06:58
BUN 39 mg/dl (9-20) H 07/25/23 06:58
Creatinine 4.1 mg/dL (0.7-1.3) H* 07/25/23 06:58
Glucose 83 mg/dl (70-99) 07/25/23 06:58
Vital Signs and I&O:
Vital Signs
Temp Pulse Resp BP Pulse Ox
98.4 F 60 16 259/76 93
07/25/23 08:00 07/25/23 08:46 07/25/23 08:02 07/25/23 08:46 07/25/23 08:02
Vital Signs
Temp Pulse Resp BP Pulse Ox
98.4 F 60 16 259/76 93
07/25/23 08:00 07/25/23 08:46 07/25/23 08:02 07/25/23 08:46 07/25/23 08:02
Intake & Output
07/23/23 07/24/23 07/25/23 07/26/23
06:59 06:59 06:59 06:59
Intake Total 480 / 480 360 / 360
Output Total 50 / 50 1300 / 1300
Balance 430 / 430 -940 / -940
Physical Exam
Physical Exam
GEN: No distress, awake, Ox3, sittin up in bed
HEENT: supple, anicteric, mmm
LUNGS: CTA, no wheezes/rales
CV: Reg with ectopy noted, S1/S2, no murmur
CHEST: Dialysis port right anterior chest
ABD: soft, BS+, NT/ND
EXT: No edema, clubbing or cyanosis
NEURO: Gross non-focal
SKIN: No rash, warm, dry
[2023-07-25] MEDS: ROBITUSSIN DM 5 ML PO (12:12)
[2023-07-25 12:18] VITALS: BP 137/65
[2023-07-25 12:52] LABS: Glucose - Point of Care 170 mg/dl (70-99)
[2023-07-25] MEDS: NOVOLOG FLEXPEN-MODERATE RESISTANCE 1 UNITS SC (13:08)
--- NOTE | 2023-07-25 14:17 | CM ---
CM reviewed chart and noted dc order
Bedside meeting with pt- no dc needs noted
Update provided to [facility] via phone
Clinicals and flowsheet faxed
Discharge Disposition- home, no needs
== END 2023-07-25 16:49 | disposition home or self-care (01) ==
LOC: SDS 06:22
PROVIDERS: ATTENDING PHYSICIAN Urology; CONSULT PHYSICIAN Internal Medicine; CONSULT PHYSICIAN Internal Medicine Cardiovascular Disease
DX: N40.1 Benign prostatic hyperplasia with lower urinary tract symptoms (principal); N13.8 Other obstructive and reflux uropathy
CPT/HCPCS: 52601; 80048; 82962; 84443; 85025; 85027; 87070; 93005; 94640; P9047

== ENCOUNTER → 2023-08-06 09:14 | Outpatient (REF) | payer MEDICARE, OTHER, SELFPAY | LOC: RADI 09:14 | PROVIDERS: ATTENDING PHYSICIAN Student in an Organized Health Care Education/Training Program | DX: Z49.01 Encounter for fitting and adjustment of extracorporeal dialysis catheter (principal); N18.6 End stage renal disease | CPT/HCPCS: 36589 ==

== ENCOUNTER → 2023-10-07 11:32 | Outpatient (REF) | payer MEDICARE, OTHER, SELFPAY | LOC: RAD 11:32 | PROVIDERS: ATTENDING PHYSICIAN Family Medicine | DX: I50.32 Chronic diastolic (congestive) heart failure (principal); N18.6 End stage renal disease; C92.10 Chronic myeloid leukemia, BCR/ABL-positive, not having achieved remission; R60.0 Localized edema; R05.8 Other specified cough | CPT/HCPCS: 71046 ==

== ENCOUNTER 2023-11-23 15:57 | Inpatient (IN) | payer MEDICARE, OTHER, SELFPAY ==
[2023-11-23] VITALS (12 sets, daily range): BP systolic 176–201; BP diastolic 72–101
--- NOTE | 2023-11-23 09:14 | ED.GENMED ---
History of Present Illness
<Narinder Araya PA-C - Last Filed: 11/23/23 12:45>
General
Chief Complaint: Change in Mental Status
Source: patient
Exam Limitations: none
Time Seen by Provider: 11/23/23 08:51
History of Present Illness
History of Present Illness:
68-year-old male insulin-dependent diabetic end-stage renal disease on home dialysis presents with 2 to 3 days worth of trouble with dexterity, confusion loss of balance and sensation of weakness. No measurable fever. He does note a new cough. He
states he has been urinating more frequently than usual. He typically does home hemodialysis 5 times a week. He denies chest pain. No chills. He describes having difficulty with dexterity particularly while using a keyboard with his right hand.
He has trouble hitting the right Schwarz-E or sometimes he hits the keys twice.
Past History
<Narinder Araya PA-C - Last Filed: 11/23/23 12:45>
Past History
ED Past Medical History: Asthma, CAD, Cancer (Right kidney neoplasm), HTN, Hypercholesterolemia, NIDDM, NV, Other (Kidney stones , Back pain due to herniated disc, ) and Other (Herniated discs in neck, has seen pain management at Dr. Arias's office
for injections x 2. Has not had lower back problems.)
ED Past Surgical History: Cardiac (Triple bypass), Orthopedic, Urological (Renal calculus ) and Other (Left upper arm fistula)
Social History
Tobacco: Non-smoker
Alcohol: Occasional
Drug: None
Personal:
Living: with family
Employment: Employed
Phy Exam
<Narinder Araya PA-C - Last Filed: 11/23/23 12:45>
Physical Exam
Physical Exam:
General: Chronically ill-appearing male no acute respiratory distress
HEENT: Normocephalic atraumatic
Heart: Regular rate and rhythm no murmurs
Lungs: Clear no wheeze or rales
Neurologic exam: Alert and oriented no facial asymmetry finger-nose [id number] intact. Good sensation to the lower extremities bilaterally. Good strength to the upper extremities bilaterally. No dysarthria or aphasia
Extremities: No cyanosis or edema
Skin: Warm no rash
Course
<Narinder Araya PA-C - Last Filed: 11/23/23 12:45>
Orders/Labs/Results
Orders:
Orders
11/23/23 09:12
CR Chest - 2 Views Urgent
Comment:
Reason For Exam: cough
11/23/23 09:13
CT Head W/o Iv Contrast Urgent
Comment:
Reason For Exam: weakness, confusion
11/23/23 09:24
Comprehensive Metabolic Panel Urgent
11/23/23 10:31
Complete Blood Count/With Diff Routine
11/23/23 12:12
Hemodialysis treatment As Directed
Treatment date:: 11/24/23
Treatment type: Hemodialysis
Ultrafiltration (kg): 2kg
Estimated dry weight (kg): 70
Treatment time (duration): 3 hours 30 minutes
Use dialysis access:: AVF
Dialyzer:: Optiflux 160
Blood flow rate minimum: 350
Blood flow rate maximum: 400
Dialysis flow rate: 600 mL/min
Dialysate temperature: 37 degrees Celsius
Sodium (Na): 137
Potassium (K): 3
Calcium (Ca): 2.5
Bicarbonate (HCO3): 37
11/23/23 13:47
Urinalysis Reflex To Culture Urgent
Date Specimen was Collected: 11/23/23
Time Specimen was Collected: 13:46
Urine Microscopic Reflex Cult Urgent
Urine Culture Urgent
JACQUE Source: U
Specimen Description:
Date Specimen was Collected: 11/23/23
Time Specimen was Collected: 13:46
11/24/23 07:00
Electrolytes Urgent
Comment: pre-Hemodialysis lab, to be drawn by HD nurse
H&H Urgent
Comment: pre-Hemodialysis lab, to be drawn by HD nurse
11/24/23 08:00
Mannitol 25% 12.5 grams IV HD-Q1HPRN PRN
Sodium Chloride [Sodium Chloride 4 Meq/ml For Hemodialysis] 10 ml IV HD-Q1HPRN PRN
Abnormal Lab Results
11/23/23 11/23/23 11/23/23
10:31 13:47
MCV 77.3 L fL
(80.0-94.0)
MCH 26.5 L pg
(27.0-31.0)
RDW 17.1 H %
(11.5-14.5)
Absolute Neuts (auto) 6.9 H 10^3/uL
(1.4-6.5)
Absolute Lymphs (auto) 1.0 L 10^3/uL
(1.2-3.4)
Absolute Monos (auto) 0.7 H 10^3/uL
(0.1-0.6)
Neutrophils % 78.8 H %
(42.2-75.2)
Lymphocytes % 11.9 L %
(20.5-51.1)
Sodium 131 L mmol/L
(135-145)
Chloride 92 L mmol/L
(98-107)
BUN 49 H mg/dl
(9-20)
Creatinine 4.5 H* mg/dL
(0.7-1.3)
Glucose 263 H mg/dl
(70-99)
Calcium 11.4 H mg/dl
(8.4-10.2)
Ur Occult Blood Reflex 2+ A
(Negative)
Leukocyte Esterase Rfl 1+ A
(Negative)
Urine Glucose 1+ A
(Negative)
Urine Albumin (Reflex) 3+ A
(Neg - Trace)
11/23/23 10:31
11/23/23 09:24
Vital Signs
Initial and Last Documented VS:
Initial Vital Signs
Temp Pulse Resp BP Pulse Ox
98.0 F 62 18 176/101 93
11/23/23 08:47 11/23/23 08:47 11/23/23 08:47 11/23/23 08:47 11/23/23 08:47
Last Documented Vital Signs
Temp Pulse Resp BP Pulse Ox
98.0 F 62 14 190/87 97
11/23/23 08:47 11/23/23 14:00 11/23/23 14:00 11/23/23 14:00 11/23/23 14:00
<Prabhu Maki, DO - Last Filed: 11/23/23 14:10>
Orders/Labs/Results
Orders:
Orders
11/23/23 09:12
CR Chest - 2 Views Urgent
Comment:
Reason For Exam: cough
11/23/23 09:13
CT Head W/o Iv Contrast Urgent
Comment:
Reason For Exam: weakness, confusion
11/23/23 09:24
Comprehensive Metabolic Panel Urgent
11/23/23 10:31
Complete Blood Count/With Diff Routine
11/23/23 12:12
Hemodialysis treatment As Directed
Treatment date:: 11/24/23
Treatment type: Hemodialysis
Ultrafiltration (kg): 2kg
Estimated dry weight (kg): 70
Treatment time (duration): 3 hours 30 minutes
Use dialysis access:: AVF
Dialyzer:: Optiflux 160
Blood flow rate minimum: 350
Blood flow rate maximum: 400
Dialysis flow rate: 600 mL/min
Dialysate temperature: 37 degrees Celsius
Sodium (Na): 137
Potassium (K): 3
Calcium (Ca): 2.5
Bicarbonate (HCO3): 37
11/23/23 13:47
Urinalysis Reflex To Culture Urgent
Date Specimen was Collected: 11/23/23
Time Specimen was Collected: 13:46
Urine Microscopic Reflex Cult Urgent
Urine Culture Urgent
JACQUE Source: U
Specimen Description:
Date Specimen was Collected: 11/23/23
Time Specimen was Collected: 13:46
11/24/23 07:00
Electrolytes Urgent
Comment: pre-Hemodialysis lab, to be drawn by HD nurse
H&H Urgent
Comment: pre-Hemodialysis lab, to be drawn by HD nurse
11/24/23 08:00
Mannitol 25% 12.5 grams IV HD-Q1HPRN PRN
Sodium Chloride [Sodium Chloride 4 Meq/ml For Hemodialysis] 10 ml IV HD-Q1HPRN PRN
Abnormal Lab Results
11/23/23 11/23/23 11/23/23
09:24 10:31 13:47
MCV 77.3 L fL
(80.0-94.0)
MCH 26.5 L pg
(27.0-31.0)
RDW 17.1 H %
(11.5-14.5)
Absolute Neuts (auto) 6.9 H 10^3/uL
(1.4-6.5)
Absolute Lymphs (auto) 1.0 L 10^3/uL
(1.2-3.4)
Absolute Monos (auto) 0.7 H 10^3/uL
(0.1-0.6)
Neutrophils % 78.8 H %
(42.2-75.2)
Lymphocytes % 11.9 L %
(20.5-51.1)
Sodium 131 L mmol/L
(135-145)
Chloride 92 L mmol/L
(98-107)
BUN 49 H mg/dl
(9-20)
Creatinine 4.5 H* mg/dL
(0.7-1.3)
Glucose 263 H mg/dl
(70-99)
Calcium 11.4 H mg/dl
(8.4-10.2)
Ur Occult Blood Reflex 2+ A
(Negative)
Leukocyte Esterase Rfl 1+ A
(Negative)
Urine Glucose 1+ A
(Negative)
Urine Albumin (Reflex) 3+ A
(Neg - Trace)
11/23/23 10:31
11/23/23 09:24
Vital Signs
Initial and Last Documented VS:
Initial Vital Signs
Temp Pulse Resp BP Pulse Ox
98.0 F 62 18 176/101 93
11/23/23 08:47 11/23/23 08:47 11/23/23 08:47 11/23/23 08:47 11/23/23 08:47
Last Documented Vital Signs
Temp Pulse Resp BP Pulse Ox
98.0 F 62 14 190/87 97
11/23/23 08:47 11/23/23 14:00 11/23/23 14:00 11/23/23 14:00 11/23/23 14:00
<Narinder Araya PA-C - Last Filed: 11/23/23 12:45>
MDM/Problems Addressed
Differential Diagnosis Includes:
Weakness confusion increased difficulty with dexterity. Question CVA versus electrolyte abnormality versus anemia versus underlying infectious source.
Will check urine and chest x-ray. CT head pending labs pending.
<Narinder Araya PA-C - Last Filed: 11/23/23 12:45>
*Critical Care Note
Total Time (30-74mins, 75-104mins- exclusive of procedures): Not Applicable
<Narinder Araya PA-C - Last Filed: 11/23/23 12:45>
Update Note
Update Note:
Patient reevaluated. CT of the head was negative. Still waiting on urine specimen. Labs reviewed. Creatinine 4.5 but consistent with end-stage renal disease. Potassium is 3.6. Head CT negative. Chest x-ray shows small bilateral pleural
effusions. Question possible CVA with dexterity and confusion issues. Will admit to hospital. Discussed with emergency room attending. Also discussed with nephrology who saw the patient
ED Attending Note
<Narinder Araya PA-C - Last Filed: 11/23/23 12:45>
-
Portions of this chart may have been created with voice recognition software.� Occasional wrong word or��sound alike� substitutions may have occurred due to the inherent limitations of voice recognition software.
<Prabhu Maki, - Last Filed: 11/23/23 14:10>
ED Attending Note
Patient seen and examined by attending physician: Yes
ED Attending Note:
I have reviewed and agree with history and treatment plan by Shelton Araya. My exam revealed
Physical Exam
General: no apparent distress, not acutely ill
Neck: supple. no meningeal signs. normal posterior pharynx
Heart: s1/s2 regular rate and rhythm, no murmur. equal radial
pulses.
HEENT: Pupils equal round reactive to light, EOMI
Lungs: no acute respiratory distress. clear bilaterally
Abdomen: normal bowel sounds. not tender. no CVAT
Neuro: alert and oriented. no focal neurological deficits cranial nerves II through XII intact
Skin: no rash
Psychiatric: well kept. interactive and cooperative
Extremities: no edema. no calf tenderness. negative homans. good distal pulses, AV fistula left upper arm
68-year-old male that complains of decreased dexterity right hand, numbness of right hand and a global weakness. Concern for possible CVA.
Discharge Plan
Departure
Patient Disposition: Admit
Date of Disposition: 11/23/23
Time of Disposition: 12:45
Admit to: Telemetry
Presentation/result/management discussed w/ accepting MD/DO: Hospitalist
Discharge Problem:
Confusion
Prescriptions:
No Action
rosuvastatin [Crestor] 40 MG tablet
40 mg PO HS
Qvar RediHaler 80 mcg/actuation HFA aerosol breath activated
2 inh INHALATION R BID
aspirin 81 mg Tablet,Delayed Release (Dr/Ec)
81 mg PO DAILY
amlodipine [Norvasc] 10 mg Tablet
10 mg PO HS
loratadine 10 mg Tablet
10 mg PO HS
doxazosin 2 mg Tablet
2 mg PO BID
Bosulif 100 mg Tablet
100 mg PO TID Qty: 0
omega 3-nlv-iiq-fish oil [Fish Oil] 1,200 (144-216) mg Capsule
1 cap PO HS
insulin glargine [Lantus Solostar U-100 Insulin] 100 unit/mL (3 mL) insulin pen
14 unit SC HS
insulin glargine [Lantus Solostar U-100 Insulin] 100 unit/mL (3 mL) insulin pen
30 unit SC DAILY
furosemide 80 mg tablet
80 mg PO BID
acetaminophen [Tylenol 8 Hour] 650 mg Tablet Extended Release
650 - 1,300 mg PO Q8HPRN PRN (Reason: mild pain)
Renal Caps 1 mg Capsule
2 cap PO BID
Patient Comments:
11/23/2023, pt. gets this med. from [facility]. Could not confirm with another source. Pt. states to take 2 caps BID.
albuterol sulfate 90 mcg/actuation Hfa Aerosol Inhaler
2 puff INHALATION R QIDPRN PRN (Reason: sob)
insulin aspart U-100 [Novolog FlexPen U-100 Insulin] 100 unit/mL (3 mL) Insulin Pen
14 - 20 sliding scale dose SC DIRECTED
Patient Comments:
11/23/2023, pt. unsure of sliding scale breakdown.
calcium acetate(phosphat bind) 667 mg Capsule
1,334 mg PO MEALS
Visbiome 112.5 billion cell Capsule
1 cap PO DAILY
Referrals:
Paz Vasquez MD [Family Provider] -
Interventions
Interventions:
*Risk Screen - Suicide Last Done: 11/23/23 08:47
*General Assessment Last Done: 11/23/23 08:47
*Neglect/Abuse Screening Last Done: 11/23/23 08:47
ED- Fall Risk Assessment Last Done: 11/23/23 09:59
*ED COVID-19 Vaccine History Last Done: 11/23/23 08:52
ED- Pulmonary Assessment Last Done: 11/23/23 08:56
ED- Neurological Assessment Last Done: 11/23/23 09:08
ED- Cardiac Assessment Last Done: 11/23/23 09:08
ED Swallowing Screen Last Done: 11/23/23 09:09
Discharge Date and Time
Print Language: CHINESE
[2023-11-23 10:23] LABS: ALT (SGPT) 31 U/L (0-50); AST (SGOT) 35 U/L (17-59); Albumin 4.3 g/dl (3.5-5.0); Alkaline Phosphatase 64 U/L (38-126); Blood Urea Nitrogen 49 mg/dl (9-20); Calcium 11.4 mg/dl (8.4-10.2); Carbon Dioxide 28 mmol/L (22-30); Chloride 92 mmol/L (98-107); Glucose 263 mg/dl (70-99); Potassium 3.6 mmol/L (3.5-5.1); Sodium 131 mmol/L (135-145); Total Bilirubin 0.9 mg/dl (0.2-1.3); Total Protein 6.7 g/dl (6.3-8.2); eGFR 13.32
[2023-11-23 10:43] LABS: % Basophils 0.3 % (0-2); % Eosinophils 0.8 % (0-6); % Immature Granulocytes 0.5 % (0-0.5); % Lymphocytes 11.9 % (20.5-51.1); % Monocytes 7.7 % (1.7-9.3); % Neutrophils 78.8 % (42.2-75.2); Absolute Eosinophils 0.1 10^3/uL (0-0.7); Absolute Monocytes 0.7 10^3/uL (0.1-0.6); Absolute Neutrophils 6.9 10^3/uL (1.4-6.5); Hematocrit 39.1 % (39.0-52.0); Hemoglobin 13.4 g/dL (13.0-18.0); Mean Corp Hgb Conc. 34.3 g/dL (33.0-37.0); Mean Corpuscular Hgb 26.5 pg (27.0-31.0); Mean Corpuscular Volume 77.3 fL (80.0-94.0); Nucleated Red Blood Cells % 0 % (-); Platelet Count 191 10^3/uL (130-400); Red Blood Cell Count 5.06 10^6/uL (4.70-6.10); Red Cell Dist. Width 17.1 % (11.5-14.5); White Blood Cell Count 8.7 10^3/uL (4.8-10.8)
--- NOTE | 2023-11-23 11:57 | W.CON.NEPH ---
Consultation
-
Date/Time Consultation Requested: 11/23/2023 12:00
Date/Time Consultation Performed: 11/23/2023 12:00
Requesting Provider: Shanthi
Performing Provider: Dr. Frost
Reason for Consultation: End-stage renal disease/hypertension
Medical History
-
Chief Complaint: End-stage renal disease/hypertension
History of Present Illness:
This is a 68-year-old gentleman who is well-known to us for his chronic kidney disease with ESRD now on dialysis at home 5 times nightly. He dialyzes via his AV fistula and his last dialysis was completed last. He has diabetes mellitus type 2 with
multiple complications. and is maintained insulin.� He also has known coronary artery disease with CABG in the past.� He has a history of hypertension maintained on amlodipine and doxazosin. His current estimated dry weight on dialysis has been
70.5 kg. He presents today with 2 to 3 days worth of trouble with dexterity, confusion loss of balance and sensation of weakness. No measurable fever. He does note a new cough. He states he has been urinating more frequently than usual. He
denies chest pain. No chills. He describes having difficulty with dexterity particularly while using a keyboard with his right hand. He has trouble hitting the right Schwarz-E or sometimes he hits the keys twice. He underwent CAT scan in the
emergency room without acute findings. I note that his blood pressure is uncontrolled with systolic blood pressures of 200. He is to be admitted and worked up for possible CVA. We were consulted for end-stage renal disease manage.
Past Medical History
ESRD, heart failure preserved ejection fraction, coronary disease with bypass, hypertension, diabetes mellitus type 2, nephrolithiasis, left upper extremity AV fistula, BPH, GERD, vocal polyps, CML, cervical radiculopathy, right Achilles tendon
repair, cataract surgery, tenosynovectomy, wisdom teeth extraction.
Past Surgical History: None
Social History
Tobacco: Non-Smoker
Alcohol: Occasional
Drug: None
Family History
Family History: Not Pertinent
Allergies / Home Medications
Allergy/AdvReac Type Severity Reaction Status Date / Time
atorvastatin Allergy reports Verified 11/23/23 08:47
muscle
weakness
clonidine Allergy Rash Verified 11/23/23 08:47
codeine Allergy Nausea / Verified 11/23/23 08:47
Vomiting
grass pollen Allergy Unknown Verified 11/23/23 08:47
house dust Allergy Unknown Verified 11/23/23 08:47
hydralazine Allergy Vomiting Verified 11/23/23 08:47
Penicillins Allergy Hives A Verified 11/23/23 08:47
CHILD
pollen extracts Allergy seasonal Verified 11/23/23 08:47
allergies
tree and shrub pollen Allergy nasal Verified 11/23/23 08:47
congestion
�Medication �Instructions �Recorded �Confirmed �Type
rosuvastatin 40 mg tablet (Crestor) 40 mg PO HS High cholesterol 03/11/21 11/23/23 History
beclomethasone dipropionate 80 2 inh inhalation R BID 12/01/21 11/23/23 History
mcg/actuation HFA breath activated Lung/breathing issues
aerosol (Qvar RediHaler)
aspirin 81 mg tablet,delayed 81 mg PO DAILY Blood clot 05/15/22 11/23/23 History
release prevention/tx
amlodipine 10 mg tablet (Norvasc) 10 mg PO HS Blood pressure 06/06/22 11/23/23 History
doxazosin 2 mg tablet 2 mg PO BID Blood Pressure 08/11/22 11/23/23 History
loratadine 10 mg tablet 10 mg PO HS Allergies 08/11/22 11/23/23 History
bosutinib 100 mg tablet (Bosulif) 100 mg PO TID CML ##0 04/15/23 11/23/23 History
omega 4-fpu-sey-fish oil 1,200 mg 1 cap PO HS Supplement 04/27/23 11/23/23 History
(144 mg-216 mg) capsule (Fish Oil)
insulin glargine 100 unit/mL (3 14 unit SC HS Diabetes 06/18/23 11/23/23 History
mL) subcutaneous pen (Lantus
Solostar U-100 Insulin)
insulin glargine 100 unit/mL (3 30 unit SC DAILY Diabetes 06/18/23 11/23/23 History
mL) subcutaneous pen (Lantus
Solostar U-100 Insulin)
furosemide 80 mg tablet 80 mg PO BID Fluid 07/02/23 11/23/23 History
Retention/Swelling
Lactobac no.2-Bifidobac no.1-S. 1 cap PO DAILY 11/23/23 11/23/23 History
thermo 112.5 billion cell capsule
(Visbiome)
acetaminophen 650 mg 650 - 1,300 mg PO Q8HPRN PRN mild 11/23/23 11/23/23 History
tablet,extended release (Tylenol 8 pain
Hour)
albuterol sulfate 90 mcg/actuation 2 puff inhalation R QIDPRN PRN sob 11/23/23 11/23/23 History
aerosol inhaler
calcium acetate(phosphat bind) 667 1,334 mg PO MEALS 11/23/23 11/23/23 History
mg capsule
insulin aspart U-100 100 unit/mL 14 - 20 sliding scale dose SC 11/23/23 11/23/23 History
(3 mL) subcutaneous pen (Novolog DIRECTED
FlexPen U-100 Insulin aspart)
vitamin B complex and vitamin C 2 cap PO BID 11/23/23 History
no.20-folic acid 1 mg capsule
(Renal Caps)
Review of Systems
-
History Source: Patient and Family
All other systems: Negative unless noted
Constitutional: Fatigue
Respiratory: Cough
Cardiac: No Symptoms
Abdomen/GI: No Symptoms
: No Symptoms
Musculoskeletal: No Symptoms
Skin: No Symptoms
Neurological: Weakness (Right hand weakness) and Other (Vestibular disturbances, confusion, intermittent verbal expressive aphasia, right hand dysarthria)
Endocrine: No Symptoms
Hematologic/Lymphatic: No Symptoms
Physical Exam
Vital Signs
Vital Signs
Temp Pulse Resp BP Pulse Ox
98.0 F 59 13 199/79 92
11/23/23 08:47 11/23/23 11:15 11/23/23 11:15 11/23/23 11:00 11/23/23 10:24
Lab Results
WBC 8.7 10^3/uL (4.8-10.8) 11/23/23 10:31
RBC 5.06 10^6/uL (4.70-6.10) 11/23/23 10:31
Hgb 13.4 g/dL (13.0-18.0) 11/23/23 10:31
Hct 39.1 % (39.0-52.0) 11/23/23 10:31
Plt Count 191 10^3/uL (130-400) 11/23/23 10:31
Sodium 131 mmol/L (135-145) L 11/23/23 09:24
Potassium 3.6 mmol/L (3.5-5.1) 11/23/23 09:24
Chloride 92 mmol/L (98-107) L 11/23/23 09:24
Carbon Dioxide 28 mmol/L (22-30) 11/23/23 09:24
BUN 49 mg/dl (9-20) H 11/23/23 09:24
Creatinine 4.5 mg/dL (0.7-1.3) H* 11/23/23 09:24
eGFR 13.32 11/23/23 09:24
Glucose 263 mg/dl (70-99) H 11/23/23 09:24
Calcium 11.4 mg/dl (8.4-10.2) H 11/23/23 09:24
Albumin 4.3 g/dl (3.5-5.0) 11/23/23 09:24
Physical Exam
General: AOx3, Nontoxic , NAD
HEENT: PERRL, EOMI, Anicteric, Conjunctivae Clear, Ear/Nose Intact, Hearing Normal, Oropharynx Clear/Moist, Dentition Intact, Facial Symmetry, Neck Supple, Neck: Trachea Midline, No JVD and No Thyromegaly, no Bruits
Respiratory: Clear to auscultation bilaterally with normal lung exersion
Cardiac: S1/S2 and Regular Rate/Rhythm
Breast: Deferred by me
Abdomen: Soft, Nontender, Nondistended, Normal Bowel Sounds and No Hepatosplenomegaly
Rectal: Deferred by Provider
Genito-urinary: No Costovertebral Tenderness
Extremities: No Clubbing, No Cyanosis and No Edema
Skin: No Rash or open lesions
Neuro: Nonfocal/Grossly Intact, CN II-XII (Intact) and Strength (Musculoskeletal exam 5 out of 5 both upper and lower extremities)
Hematologic/Lymphatic: No Cervical Lymphadenopathy, No Submandibular Lymphadenopathy and No Supraclavicular Lymphadenopathy
Psych: Mood/afflect pleasant, Insight/judgement good and Appropriate
Vascular: plus 2 pedal and radial pulses
Vascular Access: AVF (Left upper extremity: Good thrill and bruit)
Data Reviewed
-
Radiology: Report Reviewed by me (Chest x-ray personally reviewed by myself: sternal cl noted, no infiltrate or chf)
CT Scan: Report Reviewed by me (CT of head without acute findings such as mass or bleed or CVA)
Labs: Labs Reviewed by me ([facility])
Old Records: Reviewed (Old records reviewed from date July 2023 for ESRD during TURP procedure)
Assessment/Plan
-
Impression:
ESRD (home 5 days weekly)
Confusion/disequilibrium/right hand dysarthria: suspecte CVA
Uncontrolled hypertension
Hyponatremia
Left upper extremity AV fistula
Diabetes
History of coronary artery disease with previous CABG
BPH/TURP
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
Plan:
-No acute dialysis requirement today, we will plan on dialysis tomorrow and orders will be provided
-Would add IV hydralazine 10 mg IV every 6 hours for systolic blood pressure greater than 170, maintain current oral antihypertensives
-Fluid restriction at 1500 cc daily in setting of hyponatremia and ESRD
-Sodium restriction 2 g or less in diet for ESRD
-CVA workup will be initiated, initial CT scan negative but will likely require MRI of head, anticipate neurology consult
[2023-11-23 14:03] LABS: Urine Albumin 3+ (Neg - Trace); Urine Bilirubin Negative (Negative); Urine Character Clear (Clear); Urine Color Yellow; Urine Glucose 1+ (Negative); Urine Ketone Negative (Negative); Urine Leukocyte 1+ (Negative); Urine Nitrite Negative (Negative); Urine Occult Blood 2+ (Negative); Urine Specific Gravity 1.015 (<1.030); Urine Urobilinogen Negative (Neg - 1+)
[2023-11-23 14:16] LABS: Urine Red Blood Cell 0-2 /HPF (0-2); Urine White Cell 30-40 /HPF (0-5)
[2023-11-23 14:17] LABS: Urine Bacteria Moderate (Negative)
[2023-11-23 14:18] LABS: Urine Hyaline Cast 0-2 /LPF (0-2)
--- NOTE | 2023-11-23 14:47 | HPS.HSE ---
Addendum entered and electronically signed by Andre Gregg MD 11/23/23 17:45:
Continue to follow closely and will consider cardiology evaluation if any tele abnormality
Addendum entered and electronically signed by Andre Gregg MD 11/23/23 17:03:
I saw and examined the patient.
The HEADLINE WRITER or PA's note was reviewed and I agree with the note.
Comment: 68-year-old male with past medical history of diabetes, ESRD status, BPH, GERD, CAD, hypertension came to the hospital with right hand weakness along with generalized weakness. Patient also noted to have problem with his gait. Denies any
chest pain, shortness of breath he denies any headache. Check ammonia. start abx for UTI. check bladder scan. HD per nephrology. neurology consult. check MRI. PT/OT. check iron panel,b12,folate
General: Well Developed, Well Nourished and No Apparent Distress
HEENT: NormoCephalic, Moist mucous membranes and Atraumatic
Respiratory: Clear
Cardiac: S1/S2 and Regular Rhythm; No Murmur or Rub
GI: Soft, Non Tender, Non Distended and Normal Bowel Sounds; No Organomegaly
Rectal: Deferred by Provider
Musculoskeletal: No Clubbing, No Cyanosis and No Edema
Skin: No Rash
Neuro: AO x 3 and Nonfocal/grossly intact
Psych: Calm
I spent a total of 77 minutes with the patient or on the floor. More than 50% of this time involved counseling and coordination of care.
Original Note:
Family Physician
-
Family Physician: Paz Vasquez
Chief Complaint
-
right hand dexterity
lethargic
loss of balance
History of Present Illness
68-year-old male with PMH for CKD on dialysis 5 time night at home, GERD,BPH, CAD, hypertension, leukemia presented to us with right hand dexterity. Patient was having trouble typing, spelling. noticed lethargic. He was falling asleep more
than usual. Complained of generalized weakness. Patient was not able to get of from toilet or from chair. Patient was off balance. Complaint of cough for 3 days which is nonproductive. Patient denied any fever, chills chest pain or short of
breath. Patient denied headache dizziness or syncopal episode. Patient denied any dysuria hematuria.
Head CT with no acute findings.
Possible UTI
Admitting for further management
Medical History
Past Medical History
Past Medical History: Reports Other
Additional Past Medical History:
GERD
Coronary artery disease
Asthma
Type 2 diabetes
BPH
Hyperlipidemia
Nephrotic syndrome
End-stage renal disease
Chronic heart failure
Kidney stones
Leukemia
Past Surgical History: Reports Other
Additional Past Surgical History:
Coronary artery bypass graft x 3
Cardiac stent
Left ankle surgery x 2
Social History
Tobacco: Non-smoker
Alcohol: None
Drug: None
Personal:
Living: With Family
Family History
Family History: Not pertinent
Allergies / Home Medications
Allergies reflects when Allergies were last updated in [facility].
Home Medications with original date entered in [facility]
Allergy/Medication List:
Allergies
Allergy/AdvReac Type Severity Reaction Status Date / Time
atorvastatin Allergy reports Verified 11/23/23 08:47
muscle
weakness
clonidine Allergy Rash Verified 11/23/23 08:47
codeine Allergy Nausea / Verified 11/23/23 08:47
Vomiting
grass pollen Allergy Unknown Verified 11/23/23 08:47
house dust Allergy Unknown Verified 11/23/23 08:47
hydralazine Allergy Vomiting Verified 11/23/23 08:47
Penicillins Allergy Hives A Verified 11/23/23 08:47
CHILD
pollen extracts Allergy seasonal Verified 11/23/23 08:47
allergies
tree and shrub pollen Allergy nasal Verified 11/23/23 08:47
congestion
Home Medications
rosuvastatin 40 mg tablet (Crestor) 40 mg PO HS High cholesterol 03/11/21
beclomethasone dipropionate 80 mcg/actuation HFA breath activated aerosol (Qvar RediHaler) 2 inh inhalation R BID Lung/breathing issues 12/01/21
aspirin 81 mg tablet,delayed release 81 mg PO DAILY Blood clot prevention/tx 05/15/22
amlodipine 10 mg tablet (Norvasc) 10 mg PO HS Blood pressure 06/06/22
doxazosin 2 mg tablet 2 mg PO BID Blood Pressure 08/11/22
loratadine 10 mg tablet 10 mg PO HS Allergies 08/11/22
bosutinib 100 mg tablet (Bosulif) 100 mg PO TID CML ##0 04/15/23
omega 0-ajc-rwv-fish oil 1,200 mg (144 mg-216 mg) capsule (Fish Oil) 1 cap PO HS Supplement 04/27/23
insulin glargine 100 unit/mL (3 mL) subcutaneous pen (Lantus Solostar U-100 Insulin) 14 unit SC HS Diabetes 06/18/23
insulin glargine 100 unit/mL (3 mL) subcutaneous pen (Lantus Solostar U-100 Insulin) 30 unit SC DAILY Diabetes 06/18/23
furosemide 80 mg tablet 80 mg PO BID Fluid Retention/Swelling 07/02/23
Lactobac no.2-Bifidobac no.1-S. thermo 112.5 billion cell capsule (Visbiome) 1 cap PO DAILY 11/23/23
acetaminophen 650 mg tablet,extended release (Tylenol 8 Hour) 650 - 1,300 mg PO Q8HPRN PRN mild pain 11/23/23
albuterol sulfate 90 mcg/actuation aerosol inhaler 2 puff inhalation R QIDPRN PRN sob 11/23/23
calcium acetate(phosphat bind) 667 mg capsule 1,334 mg PO MEALS 11/23/23
insulin aspart U-100 100 unit/mL (3 mL) subcutaneous pen (Novolog FlexPen U-100 Insulin aspart) 14 - 20 sliding scale dose SC DIRECTED 11/23/23
vitamin B complex and vitamin C no.20-folic acid 1 mg capsule (Renal Caps) 2 cap PO BID 11/23/23
Review of Systems
-
Constitutional: Reports Fatigue
EENT: Reports No Symptoms
Respiratory: Reports No Symptoms and Cough
Cardiac: Reports No Symptoms
Abdomen/GI: Reports No Symptoms
: Reports No Symptoms
Musculoskeletal: Reports No Symptoms
Skin: Reports No Symptoms
Neurological: Reports Weakness
Endocrine: Reports No Symptoms
Hematologic/Lymphatic: Reports No Symptoms
Psych: Reports No Symptoms
Physical Exam
Vital Signs
Vital Signs
Temp Pulse Resp BP Pulse Ox
98.0 F 62 14 190/87 97
11/23/23 08:47 11/23/23 14:00 11/23/23 14:00 11/23/23 14:00 11/23/23 14:00
Physical Exam
General: Well Developed, Well Nourished and No Apparent Distress
HEENT: NormoCephalic, Moist mucous membranes and Atraumatic
Respiratory: Clear
Cardiac: S1/S2 and Regular Rhythm; No Murmur or Rub
GI: Soft, Non Tender, Non Distended and Normal Bowel Sounds; No Organomegaly
Rectal: Deferred by Provider
Musculoskeletal: No Clubbing, No Cyanosis and No Edema
Skin: No Rash
Neuro: AO x 3 and Nonfocal/grossly intact
Psych: Calm
Laboratory Results
-
11/23/23 10:31
11/23/23 09:24
Laboratory Results
Total Bilirubin 0.9 mg/dl (0.2-1.3) 11/23/23 09:24
AST 35 U/L (17-59) 11/23/23 09:24
ALT 31 U/L (0-50) 11/23/23 09:24
Alkaline Phosphatase 64 U/L (38-126) 11/23/23 09:24
Data Reviewed
-
Diagnostic Radiology: Report Reviewed by me
CT Scan: Report Reviewed by me
Lab Data: Labs Reviewed by me
Impression/Plan
-
# Weakness/metabolic encephalopathy/gait dysfunction rule out acute CVA
-Head CT negative for acute findings
-stroke protocol
-obtain MRI/MRA
-asa continued
-statin continued
-obtain a1c,lipid profile
-PT/OT consulted
-neurology consulted
# Urinary tract infection
-hxt of Enterococcus faecalis
-ceftriaxone continued
#cough likely viral
-chest x ray with Small bilateral pleural effusions, left greater than right. Left lower lobe airspace disease may also be present. Mild central pulmonary vascular congestion.
-obtain COVID
-[place] prn for cough
# End-stage renal disease on dialysis/hyponatremia/hypercalcemia
-Nephrology consulted
#DM2
-sliding scale
-CHO diet
-Lantus 14u at hs
-Lantus 15u in am
#CAD s/p CABG: Continue ASA/statin/BB
#Chronic HFpEF
-not in acute exacerbation
-Lasix continued
.-fluid restriction
-strict I&O
-daily weight
#hypertension urgency
-ROSA MARIA elevated in ER
-hydralazine prn
-Norvasc,doxazosin
#BPH: cont Doxazosin
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
#Asthma
-not in acute exacerbation
-nebs from home continued
#FULL/heparin
[2023-11-23 15:35] LABS: COVID-19 Antigen Negative (Negative)
--- NOTE | 2023-11-23 16:00 | CON.NEURO ---
Neuro Assessment/Plan
Assessment
IMPRESSIONS/RECOMMENDATIONS:
Abrupt change in mental status with reduced dexterity in the right hand and new onset cough
Differential diagnosis includes focal area of acute ischemic change intracranially producing the patient's dexterity difficulty, the rest of his symptoms however are more suggestive of toxic metabolic encephalopathy
Plan
Check MRI of brain as planned
Would not at this time alter the patient's usual aspirin use
Must consider replacement of the patient's aspirin with the use of anticoagulation based on prior history of atrial fibrillation and on future MRI of brain results
Check blood work for additional metabolic abnormalities
Provide thiamine in case of deficiency
Will continue to follow patient. Thank you.
Consultation
Order
Date of Consultation: 11/23/23
Requesting Provider: Hospitalists
Reason for Consult: Change in mental status
Subjective/Objective
Subjective Data
Date of Service: November 23, 2023
As per my esteemed colleagues consultation of November 22, 2022:
'History of Present Illness:
67-year-old male with a past medical history of hypertension and cancer brought into the ED after becoming confused while out to dinner. He states that his told him that he was repeatedly asking where they were, what he ordered for dinner and
did not know details of a vacation that they are planning to take that he planned. Per ED records, he had difficulty operating their car. Speech was clear throughout the event. No loss of consciousness during the event. No clear seizure
activity. No clear focal neurological deficits. No associated headache. He states that he began coming back to normal in the ED and is currently completely back to baseline. He states that he remembers some of last night's events but does not
remember repeatedly asking questions or driving home. Blood pressure is elevated he says 'it always is when I come to the hospital.'
No prior history of transient global amnesia, seizure or stroke. He has no baseline memory issues. No clear provoking factors for this event. No recent medical procedures, exertion or stressful events. His losartan was recently increased from 25
mg to 50 mg daily.'
Subsequent evaluation included an MRI of the brain performed February 2023 which was unremarkable. Patient [right-handed] had follow-up with our esteemed outpatient nurse practitioner and was not found to have recurrent episodes subsequently
discharged from follow-up. Patient was instructed at that time to continue daily aspirin lifelong.
Patient returned to this hospital's emergency department with approximately 72-hour history of mental status change with dexterity decline in the right hand. Patient is a limited history provider and information mostly obtained from medical record
review. Patient also reports right eye visual difficulty and cough starting at the same time.
Objective Data
Vital Signs
Temp Pulse Resp BP Pulse Ox
36.7 C 63 23 197/80 94
11/23/23 08:47 11/23/23 15:15 11/23/23 15:15 11/23/23 15:00 11/23/23 15:15
Lab Results
11/23/23 10:31
11/23/23 09:24
Sodium 131 mmol/L (135-145) L 11/23/23 09:24
Potassium 3.6 mmol/L (3.5-5.1) 11/23/23 09:24
BUN 49 mg/dl (9-20) H 11/23/23 09:24
Glucose 263 mg/dl (70-99) H 11/23/23 09:24
Calcium 11.4 mg/dl (8.4-10.2) H 11/23/23 09:24
Patient Allergies
atorvastatin Allergy (Verified 11/23/23 08:47)
reports muscle weakness
clonidine Allergy (Verified 11/23/23 08:47)
Rash
codeine Allergy (Verified 11/23/23 08:47)
Nausea / Vomiting
grass pollen Allergy (Verified 11/23/23 08:47)
Unknown
house dust Allergy (Verified 11/23/23 08:47)
Unknown
hydralazine Allergy (Verified 11/23/23 08:47)
Vomiting
Penicillins Allergy (Verified 11/23/23 08:47)
Hives A CHILD
pollen extracts Allergy (Verified 11/23/23 08:47)
seasonal allergies
tree and shrub pollen Allergy (Verified 11/23/23 08:47)
nasal congestion
Review of Systems
-
History Source: Patient
All other systems: Reviewed and negative
EENT: Blurry Vision (right eye); Negative Swallowing Difficulty
Respiratory: Cough
Cardiac: Negative Chest Pain
Abdomen/GI: Negative Incontinence of Stool
Genitourinary: Negative Incontinence
Musculoskeletal: Negative Back Pain or Neck Pain
Neuro: Other (gait change with proceeding to the right); Negative Dizzy or Headache
Physical Exam
-
General: No Apparent Distress and Appears Stated Age
Eyes: OU Absent Papilledema, Round OU, [place] Conjunctivae and No Ptosis
HEENT: Anicteric and Moist Mucous Membranes
Neck: Full Range of Motion
Respiratory: No Dyspnea
Cardiac: No JVD
GI: Non-distended
Skin: Unremarkable
Extremities: No Clubbing, No Cyanosis and No Edema
Psych: Negative Intact Judgement/Insight
Extended Neurological Exam
Mood & Affect: Mood Unremarkable and Affect Unremarkable
Attention Span & Concentration: Awake, Interactive, Closes Eyes after Stimulation (After approximately 3 seconds) and Severe Difficulty with 2 Step Request
Memory: Unremarkable
Tremor: Hand Tremor Absent and Head Tremor Absent
Involuntary Movement: Asterixis (In lower extremities more than upper extremities)
Speech: Quality Unremarkable and Moderately Reduced Output
Cranial Nerve II: Left Eye: Pupillary Reactivity Unremarkable, Pupillary Size Unremarkable and Visual Silverio Intact
Cranial Nerve II: Right Eye: Pupillary Reactivity Unremarkable, Pupillary Size Unremarkable and Visual Silverio Intact
Cranial Nerves III, IV, : Extraocular Movement: Extraocular Movement Full in all Directions
Cranial Nerve VII: Facial Symmetry: Normal Facial Symmetry
Cranial Nerve VIII: Hearing: Unremarkable Hearing to Normal Conversational Volume
Cranial Nerves IX, X: Palate Movement: Palate Elevation Symmetric
Cranial Nerve XI: Shoulder Shrug: Unremarkable
Cranial Nerve XII: Tongue Protusion: Midline
Muscle Strength, Overall: Full Throughout
Muscle Bulk & Tone: Bulk Unremarkable and Tone Unremarkable
Pronator Drift: Drift in Left Lower Extremity and Drift in Right Lower Extremity
Deep Tendon Reflexes: Absent Throughout
Touch Sensation: Unremarkable and Double Simultaneous Stimulation Unremarkable
Coordination: Fibpcj-tyhl-xvfoyl Testing Unremarkable
Babinski Sign: Absent Bilaterally
Gait & Station: Unable to Assess
Data Reviewed
-
CT Head: Report Reviewed
Labs: Ordered and Report Reviewed
Reviewed with: Nurse, Nurse Practioner and Patient
Old Records: Summarized
Medications
-
Active Medications
Generic Name Dose Route Start Last Admin
Trade Name Freq PRN Reason Stop Dose Admin
Mannitol 12.5 grams 11/24/23 08:00
Mannitol 25% (12.5 Grams/50 Ml) Vial IV 11/24/23 23:59
HD-Q1HPRN PRN
sbp less then 100
Sodium Chloride 10 ml 11/24/23 08:00
Sodium Chloride (4 Meq/Ml) 30 Ml Vial *For Hemodialysis* IV 11/24/23 23:59
HD-Q1HPRN PRN
cramps
Home Medications
�Medication �Instructions �Recorded
rosuvastatin 40 mg tablet (Crestor) 40 mg PO HS High cholesterol 03/11/21
beclomethasone dipropionate 80 2 inh inhalation R BID 12/01/21
mcg/actuation HFA breath activated Lung/breathing issues
aerosol (Qvar RediHaler)
aspirin 81 mg tablet,delayed 81 mg PO DAILY Blood clot 05/15/22
release prevention/tx
amlodipine 10 mg tablet (Norvasc) 10 mg PO HS Blood pressure 06/06/22
doxazosin 2 mg tablet 2 mg PO BID Blood Pressure 08/11/22
loratadine 10 mg tablet 10 mg PO HS Allergies 08/11/22
bosutinib 100 mg tablet (Bosulif) 100 mg PO TID CML ##0 04/15/23
omega 0-wxu-aci-fish oil 1,200 mg 1 cap PO HS Supplement 04/27/23
(144 mg-216 mg) capsule (Fish Oil)
insulin glargine 100 unit/mL (3 14 unit SC HS Diabetes 06/18/23
mL) subcutaneous pen (Lantus
Solostar U-100 Insulin)
insulin glargine 100 unit/mL (3 30 unit SC DAILY Diabetes 06/18/23
mL) subcutaneous pen (Lantus
Solostar U-100 Insulin)
furosemide 80 mg tablet 80 mg PO BID Fluid 07/02/23
Retention/Swelling
Lactobac no.2-Bifidobac no.1-S. 1 cap PO DAILY 11/23/23
thermo 112.5 billion cell capsule
(Visbiome)
acetaminophen 650 mg 650 - 1,300 mg PO Q8HPRN PRN mild 11/23/23
tablet,extended release (Tylenol 8 pain
Hour)
albuterol sulfate 90 mcg/actuation 2 puff inhalation R QIDPRN PRN sob 11/23/23
aerosol inhaler
calcium acetate(phosphat bind) 667 1,334 mg PO MEALS 11/23/23
mg capsule
insulin aspart U-100 100 unit/mL 14 - 20 sliding scale dose SC 11/23/23
(3 mL) subcutaneous pen (Novolog DIRECTED
FlexPen U-100 Insulin aspart)
vitamin B complex and vitamin C 2 cap PO BID 11/23/23
no.20-folic acid 1 mg capsule
(Renal Caps)
Past History
Past History
ED Past Medical History: Arrthythmia (Atrial fibrillation), Asthma, CAD, Cancer (Right kidney neoplasm, CML), CHF, GERD, HTN, Hypercholesterolemia, NIDDM, [place], Renal failure (Diabetic nephropathy), Other (Kidney stones, Back pain due to herniated
disc, transient global amnesia in November 2022, bilateral pleural effusions) and Other (Herniated discs in neck, has seen pain management at Dr. Arias's office for injections x 2. Has not had lower back problems, BPH, vocal polyps)
ED Past Surgical History: Cardiac (Triple bypass), Orthopedic, Urological (Renal calculus, TURP) and Other (Left upper arm fistula, cataract extractions, tenosynovectomy, wisdom teeth extraction)
Social History
Tobacco: Non-smoker
Alcohol: Occasional
Drug: None
Personal:
Living: with family
Employment: Employed
Family History
Family History: Other (Reviewed and noncontributory)
[2023-11-23 16:26] LABS: Ammonia 26 umol/L (9-30)
--- NOTE | 2023-11-23 17:03 | W.PN.UPDATE ---
Update Note
Progress Note Update
For billing purposes only
[2023-11-23 17:10] LABS: Ferritin 22.8 ng/ml (17.9-464.0)
[2023-11-23 17:42] LABS: Folate > 20.0 ng/ml (2.76-20); Vitamin B12 > 1000 pg/ml (239-931)
[2023-11-23 17:56] LABS: Total Iron Binding Capacity 373 ug/dl (261-462)
[2023-11-23 18:27] LABS: Iron 85 ug/dl (49-181); Percent Saturation 22 % (20-50)
[2023-11-23] MEDS: STERILE WATER FOR INJECTION 10 ML IV (18:37)
[2023-11-23] MEDS: PHOSLO 1334 MG PO (18:37)
[2023-11-23 18:41] LABS: Glucose - Point of Care 103 mg/dl (70-99)
[2023-11-23] MEDS: APRESOLINE 10 MG IV ×2 (18:41→23:30)
[2023-11-23] MEDS: FLUSH (NSS) 3 FLUSH IV (18:42)
[2023-11-23] MEDS: NOVOLOG FLEXPEN-LOW RESISTANCE SC (18:43)
[2023-11-23] MEDS: LASIX 80 MG PO (18:46)
[2023-11-23] MEDS: THIAMINE INJECTION 100 MG IV (18:46)
[2023-11-23] MEDS: ROCEPHIN 1000 MG IV (18:48)
[2023-11-23] MEDS: NEPHROCAP 2 CAPSULE PO (20:11)
[2023-11-23] MEDS: CARDURA 2 MG PO (20:11)
[2023-11-23] MEDS: ROBITUSSIN 100 MG PO (20:17)
[2023-11-23 21:36] LABS: Glucose - Point of Care 234 mg/dl (70-99)
[2023-11-23] MEDS: CRESTOR 40 MG PO (21:48)
[2023-11-23] MEDS: NORVASC 10 MG PO (21:48)
[2023-11-23] MEDS: LANTUS 0.14 UNITS SC (21:49)
[2023-11-24] VITALS (10 sets, daily range): BP systolic 122–199; BP diastolic 66–87; PULSE 64; O2SAT 95–99; BMI 22.1
[2023-11-24] MEDS: COMPAZINE 5 MG IV (06:01)
[2023-11-24 07:12] LABS: Glucose - Point of Care 266 mg/dl (70-99)
[2023-11-24] MEDS: NOVOLOG FLEXPEN-LOW RESISTANCE 3 UNITS SC ×2 (07:52→18:34)
[2023-11-24] MEDS: NON-FORMULARY ITEM 300 MG PO (07:54)
[2023-11-24] MEDS: PHOSLO 1334 MG PO ×3 (07:59→20:28)
[2023-11-24] MEDS: LANTUS 0.15 UNITS SC (08:00)
[2023-11-24] MEDS: ASPIR LOW (ENTERIC COATED) 81 MG PO (08:00)
[2023-11-24] MEDS: NEPHROCAP 2 CAPSULE PO ×2 (08:00→20:32)
[2023-11-24] MEDS: APRESOLINE 10 MG IV ×2 (08:03→23:40)
[2023-11-24] MEDS: LASIX 80 MG PO ×2 (08:06→20:28)
[2023-11-24] MEDS: THIAMINE INJECTION 100 MG IV (08:07)
[2023-11-24] MEDS: CARDURA 2 MG PO (08:07)
[2023-11-24] MEDS: FLUSH (NSS) 1 FLUSH IV (08:08)
--- NOTE | 2023-11-24 09:35 | W.PN.NEURO.1 ---
Today's Communication / Plan
-
Check MRI of brain as planned
Would not at this time alter the patient's usual aspirin use
Must consider replacement of the patient's aspirin with the use of anticoagulation based on prior history of atrial fibrillation and on future MRI of brain results
Initiate iron due to low ferritin level
Provided thiamine in case of deficiency
Neuro Assessment/Plan
Assessment
IMPRESSIONS/RECOMMENDATIONS:
Abrupt change in mental status with reduced dexterity in the right hand and new onset cough
Differential diagnosis includes focal area of acute ischemic change intracranially producing the patient's dexterity difficulty, the rest of his symptoms however are more suggestive of toxic metabolic encephalopathy
Plan
Check MRI of brain as planned
Would not at this time alter the patient's usual aspirin use
Must consider replacement of the patient's aspirin with the use of anticoagulation based on prior history of atrial fibrillation and on future MRI of brain results
Initiate iron due to low ferritin level
Provided thiamine in case of deficiency
Will continue to follow patient
Subjective/Objective
Subjective Data
Date of Service: November 24, 2023
Wakefulness improved.
Objective Data
Vital Signs
Temp Pulse Resp BP Pulse Ox
37.3 C 76 16 182/78 94
11/24/23 07:35 11/24/23 08:04 11/24/23 08:04 11/24/23 07:35 11/24/23 08:04
Sodium 131 mmol/L (135-145) L 11/23/23 09:24
Potassium 3.6 mmol/L (3.5-5.1) 11/23/23 09:24
BUN 49 mg/dl (9-20) H 11/23/23 09:24
Glucose 263 mg/dl (70-99) H 11/23/23 09:24
Calcium 11.4 mg/dl (8.4-10.2) H 11/23/23 09:24
Vitamin B12 > 1000 pg/ml (084-931) H 11/23/23 09:24
Patient Allergies
atorvastatin Allergy (Verified 11/23/23 08:47)
reports muscle weakness
clonidine Allergy (Verified 11/23/23 08:47)
Rash
codeine Allergy (Verified 11/23/23 08:47)
Nausea / Vomiting
grass pollen Allergy (Verified 11/23/23 08:47)
Unknown
house dust Allergy (Verified 11/23/23 08:47)
Unknown
hydralazine Allergy (Verified 11/23/23 08:47)
Vomiting
Penicillins Allergy (Verified 11/23/23 08:47)
Hives A CHILD
pollen extracts Allergy (Verified 11/23/23 08:47)
seasonal allergies
tree and shrub pollen Allergy (Verified 11/23/23 08:47)
nasal congestion
Review of Systems
-
History Source: Patient
All other systems: Reviewed and negative
EENT: Blurry Vision (right eye); Negative Swallowing Difficulty
Respiratory: Cough
Cardiac: Negative Chest Pain
Abdomen/GI: Negative Incontinence of Stool
Genitourinary: Negative Incontinence
Musculoskeletal: Negative Back Pain or Neck Pain
Neuro: Negative Dizzy or Headache
Physical Exam
-
General: No Apparent Distress and Appears Stated Age
Eyes: Round OU, [place] Conjunctivae and No Ptosis
HEENT: Anicteric and Moist Mucous Membranes
Neck: Full Range of Motion
Respiratory: No Dyspnea
Cardiac: No JVD
GI: Non-distended
Skin: Unremarkable
Extremities: No Clubbing, No Cyanosis and No Edema
Psych: Negative Intact Judgement/Insight
Extended Neurological Exam
Mood & Affect: Mood Unremarkable and Affect Unremarkable
Attention Span & Concentration: Awake, Alert and Interactive
Memory: Unremarkable
Tremor: Hand Tremor Absent and Head Tremor Absent
Involuntary Movement: Asterixis (In hands)
Speech: Quality Unremarkable and Quantity Unremarkable
Cranial Nerve II: Left Eye: Pupillary Size Unremarkable and Visual Silverio Grossly Intact
Cranial Nerve II: Right Eye: Pupillary Size Unremarkable and Visual Silverio Grossly Intact
Cranial Nerves III, IV, : Extraocular Movement: Grossly Intact
Cranial Nerve VII: Facial Symmetry: Normal Facial Symmetry
Cranial Nerve VIII: Hearing: Unremarkable Hearing to Normal Conversational Volume
Muscle Strength, Overall: Spontaneously Moves (All extremities)
Muscle Bulk & Tone: Bulk Unremarkable
Pronator Drift: No Drift in Upper Extremities
Touch Sensation: Unremarkable
Coordination: Pgsfgr-[id number]-[id number] Testing Unremarkable
Data Reviewed
-
CT Head: Report Reviewed
Labs: Report Reviewed
Reviewed with: Physician and Patient
Old Records: Summarized
Past History
Past History
ED Past Medical History: Arrthythmia (Atrial fibrillation), Asthma, CAD, Cancer (Right kidney neoplasm, CML), CHF, GERD, HTN, Hypercholesterolemia, NIDDM, [place], Renal failure (Diabetic nephropathy), Other (Kidney stones, Back pain due to herniated
disc, transient global amnesia in November 2022, bilateral pleural effusions) and Other (Herniated discs in neck, has seen pain management at Dr. Arias's office for injections x 2. Has not had lower back problems, BPH, vocal polyps)
ED Past Surgical History: Cardiac (Triple bypass), Orthopedic, Urological (Renal calculus, TURP) and Other (Left upper arm fistula, cataract extractions, tenosynovectomy, wisdom teeth extraction)
Social History
Tobacco: Non-smoker
Alcohol: Occasional
Drug: None
Personal:
Living: with family
Employment: Employed
Family History
Family History: Other (Reviewed and noncontributory)
Medications
-
Medications:
Generic Name Dose Route Start Last Admin
Trade Name Freq PRN Reason Stop Dose Admin
Acetaminophen 650 mg 11/23/23 16:37
Acetaminophen 650 Mg Rectal Suppository RECTAL 12/21/23 16:36
Q4HPRN PRN
QUINTANILLA, mild pain, or temp >100.4F
Acetaminophen 650 mg 11/23/23 16:37
Acetaminophen 325 Mg Tablet PO 12/21/23 16:36
Q4HPRN PRN
QUINTANILLA, mild pain, or temp >100.4F
Albuterol 2 puff 11/23/23 16:37
Albuterol Hfa [90 Mcg/Dose] Inhaler INH
R QIDPRN PRN
sob
Protocol
Amlodipine Besylate 10 mg 11/23/23 22:00 11/23/23 21:48
Amlodipine 10 Mg Tablet PO 12/21/23 21:59 10 mg
HS BINH Administration
Aspirin 81 mg 11/24/23 08:00 11/24/23 08:00
Aspirin 81 Mg (Enteric Coated) Tablet PO 12/22/23 07:59 81 mg
DAILY BINH Administration
Calcium Acetate 1,334 mg 11/23/23 17:30 11/24/23 07:59
Calcium Acetate 667 Mg Tablet PO 12/21/23 17:29 1,334 mg
MEALS BINH Administration
Ceftriaxone Sodium 1,000 mg 11/23/23 18:00 11/23/23 18:48
Ceftriaxone 1000 Mg / 10 Ml Vial IV 1,000 mg
Q24H BINH Administration
Dextrose 12.5 grams 11/23/23 16:37
Dextrose 50% (0.5 Grams/Ml) 50 Ml Syringe IV 12/21/23 16:36
[id number] PRN
hypoglycemia
Protocol
Docusate Sodium 100 mg 11/24/23 08:02
Docusate Sodium 100 Mg Capsule PO 12/22/23 08:01
BIDPRN PRN
no BM > 24 hours
Doxazosin Mesylate 2 mg 11/23/23 20:00 11/24/23 08:07
Doxazosin 2 Mg Tablet PO 12/21/23 19:59 2 mg
BID BINH Administration
Ferrous Sulfate 325 mg 11/24/23 22:00
Ferrous Sulfate 325 Mg Tablet PO 12/22/23 21:59
HS BINH
Fluticasone Propionate 2 puff 11/23/23 20:00 11/24/23 08:00
Fluticasone 110mcg Inhaler INH 12/21/23 19:59 2 puff
R BID BINH Administration
Furosemide 80 mg 11/23/23 17:00 11/24/23 08:06
Furosemide 80 Mg Tablet PO 12/21/23 16:59 80 mg
BID AT 0800,1600 BINH Administration
Glucagon 1 mg 11/23/23 16:37
Glucagon 1 Mg Vial IM 12/21/23 16:36
PRN PRN
hypoglycemia
Protocol
Guaifenesin 100 mg 11/23/23 16:37 11/23/23 20:17
Guaifenesin Oral Solution (200 Mg/10 Ml) Cup PO 12/21/23 16:36 100 mg
Q4HPRN PRN Administration
cough
Hydralazine HCl 10 mg 11/23/23 16:37 11/24/23 08:03
Hydralazine 20 Mg/Ml Vial IV 12/21/23 16:36 10 mg
Q6HPRN PRN Administration
hypertension
Insulin Glargine 14 units/ 0.14 mls @ 0 mls/hr 11/23/23 22:00 11/23/23 21:49
Device SC 12/21/23 21:59 0.14 mls
HS BINH Administration
As Directed
Insulin Glargine 15 units/ 0.15 mls @ 0 mls/hr 11/24/23 08:00 11/24/23 08:00
Device SC 12/22/23 07:59 0.15 mls
DAILY BINH Administration
As Directed
Insulin Aspart 0 units 11/23/23 16:37 11/24/23 07:52
Insulin Aspart Low Resistance 300 Units/3 Ml Pen.Injctr SC 12/21/23 16:36 3 units
AC BINH Administration
Protocol
Mannitol 12.5 grams 11/24/23 08:00
Mannitol 25% (12.5 Grams/50 Ml) Vial IV 11/24/23 23:59
HD-Q1HPRN PRN
sbp less then 100
Bosutinib [Bosulif] 0 mg 11/24/23 08:00 11/24/23 07:54
300mg [3 Tablets] Po PO 12/22/23 07:59 300 mg
Daily DAILY BINH Administration
Prochlorperazine Edisylate 5 mg 11/24/23 05:43 11/24/23 06:01
Prochlorperazine 10 Mg/2 Ml Vial IV 12/22/23 05:42 5 mg
Q6HPRN PRN Administration
n/v
Rosuvastatin Calcium 40 mg 11/23/23 22:00 11/23/23 21:48
Rosuvastatin (Crestor) 40 Mg Tablet PO 12/21/23 21:59 40 mg
HS BINH Administration
Sodium Chloride 10 ml 11/24/23 08:00
Sodium Chloride (4 Meq/Ml) 30 Ml Vial *For Hemodialysis* IV 11/24/23 23:59
HD-Q1HPRN PRN
cramps
Sodium Chloride 0 flush 11/23/23 17:00 11/24/23 08:08
Sodium Chloride 0.9% (Flush) Syringe IV 12/21/23 16:59 1 flush
PER PROTOCOL BINH Administration
Sterile Water 10 ml 11/23/23 18:00 11/23/23 18:38
Sterile Water For Injection 10 Ml Vial IV 12/21/23 17:59 Not Given
Q24H BINH
Thiamine HCl 100 mg 11/23/23 18:00 11/24/23 08:07
Thiamine (100 Mg/Ml) 2 Ml Vial IV 12/21/23 17:59 100 mg
DAILY BINH Administration
Vitamin B Complex/Vit C/Folic Acid 2 capsule 11/23/23 20:00 11/24/23 08:00
Renal Cap (Nephrocap) Capsule PO 12/21/23 19:59 2 capsule
BID BINH Administration
[2023-11-24 11:14] LABS: Glucose - Point of Care 411 mg/dl (70-99)
[2023-11-24 11:16] LABS: Glucose - Point of Care 418 mg/dl (70-99)
[2023-11-24 11:41] LABS: Hematocrit 37.9 % (39.0-52.0); Hemoglobin 12.9 g/dL (13.0-18.0); Mean Corpuscular Hgb 26.3 pg (27.0-31.0); Mean Corpuscular Volume 77.2 fL (80.0-94.0); Mean Platelet Volume 9.6 fL (7.4-10.4); Platelet Count 181 10^3/uL (130-400); Red Blood Cell Count 4.91 10^6/uL (4.70-6.10); Red Cell Dist. Width 17.1 % (11.5-14.5); White Blood Cell Count 9.1 10^3/uL (4.8-10.8)
--- NOTE | 2023-11-24 12:08 | W.PN.HOSP.TC ---
Addendum entered and electronically signed by Andre Gregg MD 11/24/23 12:19:
Hyponatremia
Monitor
Original Note:
Today's Communication/Plan
-
Monitor vital signs see plan
Continue with aspirin
Switch antibiotics to oral
Need better blood pressure control
HD today
PT/OT
Assessment / Plan
Assessment / Plan
General: Well Developed, Well Nourished and No Apparent Distress
HEENT: NormoCephalic, Moist mucous membranes and Atraumatic
Respiratory: Clear
Cardiac: S1/S2 and Regular Rhythm; No Murmur or Rub
GI: Soft, Non Tender, Non Distended and Normal Bowel Sounds; No Organomegaly
Rectal: Deferred by Provider
Musculoskeletal: No Clubbing, No Cyanosis and No Edema
Skin: No Rash
Neuro: AO x 3 and Nonfocal/grossly intact
Psych: Calm
Weakness and confusion could be related to metabolic encephalopathy related to possible insufficient HD; would need to r/o CVA
-Head CT negative for acute findings
-stroke protocol
-obtain MRI/MRA
-asa continued
-statin continued
-obtain a1c,lipid profile pending
-PT/OT consulted
-neurology following, plan for HD 11/23
# Urinary tract infection
-hx of Enterococcus faecalis
ucx no growth here; switch to cefdinir for complicated UTI
#cough likely viral
-chest x ray with Small bilateral pleural effusions, left greater than right. Left lower lobe airspace disease may also be present. Mild central pulmonary vascular congestion.
-obtain COVID
-guaianesin prn for cough
# End-stage renal disease on dialysis/hyponatremia/hypercalcemia
-Nephrology consulted
#DM2
-sliding scale
-CHO diet
-Lantus 14u at hs
-Lantus 30u in am
#CAD s/p CABG: Continue ASA/statin/BB
#Chronic HFpEF
-not in acute exacerbation
-Lasix continued
.-fluid restriction
-strict I&O
-daily weight
#hypertension urgency
-BP elevated in ER
-hydralazine prn
-Norvasc,doxazosin
#BPH: cont Doxazosin
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
#Asthma
-not in acute exacerbation
-nebs from home continued
#FULL/heparin
Anticipated Discharge: 24 - 48 hours
Subjective/Interval History
-
Date of Service: November 24, 2023
denies pain
Objective Data
-
Labs:
Laboratory Results
11/24/23 11/24/23
11:29 11:29
WBC 9.1
Hgb 12.9 L
Hct 37.9 L
Plt Count 181
Sodium Pending
Potassium Pending
Chloride Pending
Carbon Dioxide Pending
BUN Pending
Creatinine Pending
Glucose Pending Pending
Calcium Pending
Vital Signs:
Vital Signs
Temp Pulse Resp BP Pulse Ox
98.8 F 71 17 183/75 98
11/24/23 11:33 11/24/23 11:33 11/24/23 11:33 11/24/23 11:33 11/24/23 11:33
I&O
11/23/23 11/24/23 11/25/23
06:59 06:59 06:59
Intake Total 480 / 480
Balance 480 / 480
--- NOTE | 2023-11-24 12:09 | CM ---
health sciences manager reviewed patient's chart and met with patient and patient states that he lives in a 2 story home with his spouse with 2 steps to enter, patient is independent with adl's and ambulation, no dme, patient drives, patient is on Dialysis at
home, 5 nights a week. Physical therapy saw patient and are recommending acute rehab attempted to discuss with patient however patient unable to stay awake.
[facility]
PCP: Dr. Vasquez
Plan; Will discuss acute rehab as recommended by physical therapy with patient.
[2023-11-24 12:17] LABS: Blood Urea Nitrogen 66 mg/dl (9-20); Calcium 11.9 mg/dl (8.4-10.2); Carbon Dioxide 23 mmol/L (22-30); Chloride 91 mmol/L (98-107); Estimated Creatinine Clearance 12 ml/min; Glucose 403 mg/dl (70-99); HDL Cholesterol 43 mg/dl; LDL Cholesterol, Calculated 32 mg/dl; Potassium 3.8 mmol/L (3.5-5.1); Sodium 130 mmol/L (135-145); Total Cholesterol 103 mg/dl (50-199); Triglyceride 144 mg/dl (10-149); Very Low Density Lipoprotein 28 mg/dl (0-30); eGFR 10.24
[2023-11-24] MEDS: NOVOLOG FLEXPEN-LOW RESISTANCE 6 UNITS SC (12:57)
[2023-11-24 14:33] LABS: Glycohemoglobin (HgbA1c) 7.2 % (4.0-5.6)
[2023-11-24 17:13] LABS: Glucose - Point of Care 266 mg/dl (70-99)
--- NOTE | 2023-11-24 17:28 | W.PN.NEPH.HD ---
Assessment
-
Seen on HD. no complaints. BP high, Access ok. still somnolent overall but more awake on HD.
Progress Note - Hemodialysis
-
Date of Service: November 24, 2023
Duration: 30 minutes and 3 hours
Potassium Bath: 3
Calcium Bath: 2.5
Ultrafiltration: Other (2kg)
Blood Flow: 400
Dialysate Flow: 600
Heparin: no
EPO: no
[2023-11-24] MEDS: CARDURA 3 MG PO (20:32)
[2023-11-24] MEDS: OMNICEF 300 MG PO (20:32)
[2023-11-24 22:07] LABS: Glucose - Point of Care 248 mg/dl (70-99)
[2023-11-24] MEDS: LANTUS 0.14 UNITS SC (22:09)
[2023-11-24] MEDS: CRESTOR 40 MG PO (22:10)
[2023-11-24] MEDS: NORVASC 10 MG PO (22:10)
[2023-11-24] MEDS: FEOSOL 325 MG PO (22:10)
[2023-11-24] MEDS: ROBITUSSIN 100 MG PO (22:59)
[2023-11-24] MEDS: MELATONIN PO (23:24)
[2023-11-24] MEDS: MELATONIN 5 MG PO (23:40)
[2023-11-25] VITALS (8 sets, daily range): BP systolic 153–205; BP diastolic 70–85; PULSE 108; BMI 22.1
[2023-11-25] MEDS: ROBITUSSIN 100 MG PO ×2 (05:50→23:28)
[2023-11-25 07:46] LABS: Glucose - Point of Care 245 mg/dl (70-99)
[2023-11-25 08:50] LABS: Hematocrit 41.3 % (39.0-52.0); Hemoglobin 13.4 g/dL (13.0-18.0); Mean Corp Hgb Conc. 32.4 g/dL (33.0-37.0); Mean Corpuscular Hgb 26.1 pg (27.0-31.0); Mean Corpuscular Volume 80.5 fL (80.0-94.0); Mean Platelet Volume 9.3 fL (7.4-10.4); Platelet Count 178 10^3/uL (130-400); Red Blood Cell Count 5.13 10^6/uL (4.70-6.10); Red Cell Dist. Width 16.9 % (11.5-14.5); White Blood Cell Count 10.5 10^3/uL (4.8-10.8)
[2023-11-25] MEDS: NON-FORMULARY ITEM 300 MG PO (09:11)
[2023-11-25] MEDS: NEPHROCAP 2 CAPSULE PO ×2 (09:12→21:28)
[2023-11-25] MEDS: LASIX 80 MG PO ×2 (09:12→16:39)
[2023-11-25] MEDS: PHOSLO 1334 MG PO ×3 (09:12→16:41)
[2023-11-25] MEDS: CARDURA 3 MG PO (09:13)
[2023-11-25] MEDS: ASPIR LOW (ENTERIC COATED) 81 MG PO (09:14)
[2023-11-25] MEDS: LANTUS 0.3 UNITS SC (09:14)
[2023-11-25] MEDS: NOVOLOG FLEXPEN-LOW RESISTANCE 2 UNITS SC (09:14)
[2023-11-25] MEDS: ATIVAN 1 MG PO (09:45)
[2023-11-25] MEDS: THIAMINE INJECTION 100 MG IV (09:45)
[2023-11-25 09:55] LABS: Blood Urea Nitrogen 38 mg/dl (9-20); Calcium 11.2 mg/dl (8.4-10.2); Carbon Dioxide 28 mmol/L (22-30); Chloride 92 mmol/L (98-107); Estimated Creatinine Clearance 16 ml/min; Glucose 246 mg/dl (70-99); Potassium 3.6 mmol/L (3.5-5.1); Sodium 134 mmol/L (135-145); eGFR 14.06
--- NOTE | 2023-11-25 11:30 | W.PN.HOSP.TC ---
Today's Communication/Plan
-
Monitor vital signs see plan
MRI pending
HD per nephrology
Continued antibiotics
PT/OT
Might need rehab
Assessment / Plan
Assessment / Plan
General: Well Developed, Well Nourished and No Apparent Distress
HEENT: NormoCephalic, Moist mucous membranes and Atraumatic
Respiratory: Clear
Cardiac: S1/S2 and Regular Rhythm; No Murmur or Rub
GI: Soft, Non Tender, Non Distended and Normal Bowel Sounds; No Organomegaly
Rectal: Deferred by Provider
Musculoskeletal: No Clubbing, No Cyanosis and No Edema
Skin: No Rash
Neuro: AO x 3 and Nonfocal/grossly intact
Psych: Calm
Weakness and confusion could be related to metabolic encephalopathy related to possible insufficient HD; would need to r/o CVA
-Head CT negative for acute findings
-stroke protocol
- MRI/MRA pending
-asa continued
-statin continued
A1c 7.2
-PT/OT consulted
-neurology following, plan for HD 11/23
# Urinary tract infection
-hx of Enterococcus faecalis
ucx no growth here; switch to cefdinir for complicated UTI; to be given after HD
#cough likely viral
-chest x ray with Small bilateral pleural effusions, left greater than right. Left lower lobe airspace disease may also be present. Mild central pulmonary vascular congestion.
-obtain COVID
-guaianesin prn for cough
# End-stage renal disease on dialysis/hyponatremia/hypercalcemia
-Nephrology consulted
Hyponatremia
Monitor
#DM2
-sliding scale
-CHO diet
Increase Lantus
cw sliding scale
#CAD s/p CABG: Continue ASA/statin/BB
#Chronic HFpEF
-not in acute exacerbation
-Lasix continued
.-fluid restriction
-strict I&O
-daily weight
Iron deficient
Replete
#hypertension urgency
-BP elevated in ER
-hydralazine prn
-Norvasc,doxazosin
#BPH: cont Doxazosin
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
#Asthma
-not in acute exacerbation
-nebs from home continued
#FULL/heparin
PT/OT recommending rehab
Anticipated Discharge: Within 24 hours
Subjective/Interval History
-
Date of Service: November 25, 2023
Denies pain
Objective Data
-
Labs:
Laboratory Results
11/25/23
07:53
WBC 10.5
Hgb 13.4
Hct 41.3
Plt Count 178
Sodium 134 L
Potassium 3.6
Chloride 92 L
Carbon Dioxide 28
BUN 38 H
Creatinine 4.3 H*
Glucose 246 H
Calcium 11.2 H
Vital Signs:
Vital Signs
Temp Pulse Resp BP Pulse Ox
97.8 F 65 16 165/72 98
11/25/23 08:00 11/25/23 09:13 11/25/23 08:11 11/25/23 09:13 11/25/23 08:11
I&O
11/24/23 11/25/23 11/26/23
06:59 06:59 06:59
Intake Total 480 / 480 960 / 960
Balance 480 / 480 960 / 960
[2023-11-25 13:04] LABS: Glucose - Point of Care 365 mg/dl (70-99)
[2023-11-25] MEDS: NOVOLOG FLEXPEN-LOW RESISTANCE 5 UNITS SC (13:12)
--- NOTE | 2023-11-25 13:37 | W.PN.NEPH.PH ---
Today's Communication / Plan
-
HD tomorrow
Assessment/Plan
-
Impression:
ESRD (home 5 days weekly)
Confusion/disequilibrium/right hand dysarthria: suspecte CVA
Uncontrolled hypertension
Hyponatremia
Left upper extremity AV fistula
Diabetes
History of coronary artery disease with previous CABG
BPH/TURP
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
Plan:
HD tomorrow
increase doxazosin to 4mg BID
neuro eval in progress, possible increase in ventricle size on MRI, may need to consider LP
MRI does not suggest PRES given BP and severity of sxs on admission
-
-
Date of Service: November 25, 2023
CC / HPI / ROS
-
Chief Complaint:
ESRD
History of Present Illness:
BP slightly better on more BP meds
tolerated HD yesterday
mental status better
Review of Systems:
no CP/SOB
Labs
-
Labs:
WBC 10.5 10^3/uL (4.8-10.8) 11/25/23 07:53
RBC 5.13 10^6/uL (4.70-6.10) 11/25/23 07:53
Hgb 13.4 g/dL (13.0-18.0) 11/25/23 07:53
Hct 41.3 % (39.0-52.0) 11/25/23 07:53
Plt Count 178 10^3/uL (130-400) 11/25/23 07:53
Sodium 134 mmol/L (135-145) L 11/25/23 07:53
Potassium 3.6 mmol/L (3.5-5.1) 11/25/23 07:53
Chloride 92 mmol/L (98-107) L 11/25/23 07:53
Carbon Dioxide 28 mmol/L (22-30) 11/25/23 07:53
BUN 38 mg/dl (9-20) H 11/25/23 07:53
Creatinine 4.3 mg/dL (0.7-1.3) H* 11/25/23 07:53
eGFR 14.06 11/25/23 07:53
Glucose 246 mg/dl (70-99) H 11/25/23 07:53
Calcium 11.2 mg/dl (8.4-10.2) H 11/25/23 07:53
Albumin 4.3 g/dl (3.5-5.0) 11/23/23 09:24
Physical Exam
-
Vital Signs:
Vital Signs
Temp Pulse Resp BP Pulse Ox
97.8 F 65 16 165/72 98
11/25/23 08:00 11/25/23 09:13 11/25/23 08:11 11/25/23 09:13 11/25/23 08:11
Cardiovascular:: Regular rate and rhythm
Respiratory:: Bilateral: Coarse
Lung Excursion:: Normal
Abdomen:: Nontender and Soft
Bowel Sounds:: Normal
Extremity Edema:: None: Bilateral:
--- NOTE | 2023-11-25 14:02 | CM ---
trailer park manager reviewed patient's chart and will follow with patient progress for discharge planning. Patient was given Ativan for a test and unable to keep eyes open when speaking with rifle case repairer unable to review acute rehab options with patient.
Plan; To follow with patient progress.
--- NOTE | 2023-11-25 14:53 | W.PN.NEURO.1 ---
Today's Communication / Plan
-
Would not at this time alter the patient's usual aspirin use
Initiated iron due to low ferritin level
Provided thiamine in case of deficiency
Neuro Assessment/Plan
Assessment
IMPRESSIONS/RECOMMENDATIONS:
Abrupt change in mental status with reduced dexterity in the right hand and new onset cough
There is no evidence of a neurological etiology for the patient's symptomatology with the exception of toxic metabolic encephalopathy although there is again not a major change in his usual background function
Plan
Would not at this time alter the patient's usual aspirin use
Initiated iron due to low ferritin level
Provided thiamine in case of deficiency
Will continue to follow as needed
Subjective/Objective
Subjective Data
Date of Service: November 25, 2023
Objective Data
Vital Signs
Temp Pulse Resp BP Pulse Ox
36.6 C 65 16 165/72 98
11/25/23 08:00 11/25/23 09:13 11/25/23 08:11 11/25/23 09:13 11/25/23 08:11
Lab Results
11/25/23 07:53
11/25/23 07:53
Sodium 134 mmol/L (135-145) L 11/25/23 07:53
Potassium 3.6 mmol/L (3.5-5.1) 11/25/23 07:53
BUN 38 mg/dl (9-20) H 11/25/23 07:53
Glucose 246 mg/dl (70-99) H 11/25/23 07:53
Calcium 11.2 mg/dl (8.4-10.2) H 11/25/23 07:53
LDL Cholesterol, Calc 32 mg/dl 11/24/23 11:29
Vitamin B12 > 1000 pg/ml (239-931) H 11/23/23 09:24
Patient Allergies
atorvastatin Allergy (Verified 11/23/23 08:47)
reports muscle weakness
clonidine Allergy (Verified 11/23/23 08:47)
Rash
codeine Allergy (Verified 11/23/23 08:47)
Nausea / Vomiting
grass pollen Allergy (Verified 11/23/23 08:47)
Unknown
house dust Allergy (Verified 11/23/23 08:47)
Unknown
hydralazine Allergy (Verified 11/23/23 08:47)
Vomiting
Penicillins Allergy (Verified 11/23/23 08:47)
Hives A CHILD
pollen extracts Allergy (Verified 11/23/23 08:47)
seasonal allergies
tree and shrub pollen Allergy (Verified 11/23/23 08:47)
nasal congestion
Data Reviewed
-
MRI Head: Report Reviewed and Image Reviewed
MRA Head: Report Reviewed
MRA Neck: Report Reviewed
Labs: Report Reviewed
Lipid Profile: Report Reviewed
Old Records: Summarized
[2023-11-25] MEDS: ProAIR HFA INHALER 2 PUFF INH (15:45)
[2023-11-25 15:50] LABS: Glucose - Point of Care 307 mg/dl (70-99)
[2023-11-25] MEDS: NOVOLOG FLEXPEN-LOW RESISTANCE 4 UNITS SC (16:41)
[2023-11-25] MEDS: NORVASC 10 MG PO (21:28)
[2023-11-25] MEDS: FEOSOL 325 MG PO (21:28)
[2023-11-25] MEDS: CRESTOR 40 MG PO (21:28)
[2023-11-25] MEDS: CARDURA 4 MG PO (21:29)
[2023-11-25 21:36] LABS: Glucose - Point of Care 373 mg/dl (70-99)
[2023-11-25] MEDS: LANTUS 0.16 UNITS SC (21:46)
[2023-11-25] MEDS: NOVOLOG FLEXPEN 4 UNITS SC (22:19)
[2023-11-25] MEDS: APRESOLINE 10 MG IV (23:20)
[2023-11-26] VITALS (10 sets, daily range): BP systolic 155–191; BP diastolic 58–77; BMI 22.3
[2023-11-26] MEDS: ProAIR HFA INHALER 2 PUFF INH (00:10)
--- NOTE | 2023-11-26 01:26 | PTCARENOTE ---
Recheck patient`s blood pressure. Manual BP was 172/60. OFFICE SUPPORT ASSISTANT Brayan made aware.
--- NOTE | 2023-11-26 03:47 | PTCARENOTE ---
0300 manual BP was 186/58 and HR 64. Patient is asymptomatic laying in bed. On-call HOOKER MACHINE TENDER Brayan made aware. No new orders.
[2023-11-26] MEDS: APRESOLINE 10 MG IV ×2 (04:00→22:46)
[2023-11-26 07:57] LABS: Glucose - Point of Care 286 mg/dl (70-99)
[2023-11-26] MEDS: NOVOLOG FLEXPEN-LOW RESISTANCE 3 UNITS SC (08:45)
[2023-11-26] MEDS: ASPIR LOW (ENTERIC COATED) 81 MG PO (08:51)
[2023-11-26] MEDS: LANTUS 0.33 UNITS SC (08:52)
[2023-11-26] MEDS: PHOSLO 1334 MG PO ×2 (08:52→18:39)
[2023-11-26] MEDS: THIAMINE INJECTION 100 MG IV (08:52)
[2023-11-26] MEDS: NEPHROCAP 2 CAPSULE PO ×2 (08:52→20:23)
[2023-11-26] MEDS: FLUSH (NSS) 2 FLUSH IV (08:53)
[2023-11-26] MEDS: CARDURA 4 MG PO ×2 (09:00→20:23)
[2023-11-26] MEDS: LASIX 80 MG PO ×2 (09:00→18:38)
[2023-11-26] MEDS: NON-FORMULARY ITEM 300 MG PO (09:01)
--- NOTE | 2023-11-26 11:22 | W.PN.HOSP.TC ---
Today's Communication/Plan
-
Monitor vital signs and see plan
HD today
Continue to monitor blood pressure
Continue antibiotics
PT/OT
Discharge planning
Assessment / Plan
Assessment / Plan
General: Well Developed, Well Nourished and No Apparent Distress
HEENT: NormoCephalic, Moist mucous membranes and Atraumatic
Respiratory: Clear
Cardiac: S1/S2 and Regular Rhythm; No Murmur or Rub
GI: Soft, Non Tender, Non Distended and Normal Bowel Sounds; No Organomegaly
Rectal: Deferred by Provider
Musculoskeletal: No Clubbing, No Cyanosis and No Edema
Skin: No Rash
Neuro: AO x 3 and Nonfocal/grossly intact
Psych: Calm
Weakness and confusion could be related to metabolic encephalopathy related to possible insufficient HD
MRI without acute CVA. Neurology does not seem convinced with normal pressure hydrocephalus. Patient denies any headache.
-Head CT negative for acute findings
-asa continued
-statin continued
A1c 7.2
-PT/OT rec rehab
-neurology following, plan for HD today
# Urinary tract infection
-hx of Enterococcus faecalis
ucx no growth here; switch to cefdinir for complicated UTI; to be given after HD
#cough likely viral
-chest x ray with Small bilateral pleural effusions, left greater than right. Left lower lobe airspace disease may also be present. Mild central pulmonary vascular congestion.
-obtain COVID
-guaianesin prn for cough
# End-stage renal disease on dialysis/hyponatremia/hypercalcemia
-Nephrology following
Hyponatremia
Monitor
#DM2
-sliding scale
-CHO diet
Increase Lantus
cw sliding scale
#CAD s/p CABG: Continue ASA/statin/BB
#Chronic HFpEF
-not in acute exacerbation
-Lasix continued
.-fluid restriction
-strict I&O
-daily weight
Iron deficient
Replete
#hypertension urgency
-BP elevated in ER
-hydralazine prn
-Norvasc,doxazosin
#BPH: cont Doxazosin
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
#Asthma
-not in acute exacerbation
-nebs from home continued
#FULL/heparin
PT/OT recommending rehab
Anticipated Discharge: Within 24 hours
Subjective/Interval History
-
Date of Service: November 26, 2023
denies pain
Objective Data
-
Labs:
Laboratory Results
11/26/23
06:00
WBC Pending
Hgb Pending
Hct Pending
Plt Count Pending
Sodium Pending
Potassium Pending
Chloride Pending
Carbon Dioxide Pending
BUN Pending
Creatinine Pending
Glucose Pending
Calcium Pending
Vital Signs:
Vital Signs
Temp Pulse Resp BP Pulse Ox
97.8 F 65 16 183/68 92
11/26/23 07:00 11/26/23 07:32 11/26/23 07:32 11/26/23 07:00 11/26/23 07:32
I&O
11/25/23 11/26/23 11/27/23
06:59 06:59 06:59
Intake Total 960 / 960 900 / 900
Balance 960 / 960 900 / 900
--- NOTE | 2023-11-26 11:50 | PTOTSP ---
Speech Therapy
Presentation: Patient was fully oriented and willing to participate. Patient recalled his phone number, home address, and read the time on the clock without any overt difficulty.
Communication: Patient's speech and language appeared to be WNL during informal conversation with slightly slowed rate of speech. Patient states his speech is back to baseline but does at times have trouble with word-finding. Patient identified
10/10 items and their functions without any overt difficulty during confrontational naming tasks.
Swallowing Function: Patient was observed with several sips of thin liquids (cup and straw) and bites of regular consistency solids in which patient appeared to tolerate as he did not exhibit any overt clinical s/sx of aspiration. Patient denied any
dysphagia complaints.
Per RN, patient tolerated medication whole with thin liquids.
Recommendations:
1) Continue regular consistency solids and thin liquids
2) Standard aspiration precautions and reflux precautions
3) Medications as tolerated
Plan: MEDICAL WRITER will continue to follow; pending hospitalization.
--- NOTE | 2023-11-26 12:19 | W.PN.NEPH.HD ---
Assessment
-
Patient seen on HD
sbp 180
will add losartan tomorrow if bp remains high
Progress Note - Hemodialysis
-
Date of Service: November 26, 2023
Duration: 30 minutes and 3 hours
Potassium Bath: 3
Calcium Bath: 2.5
Opti-Dialyzer: 160
Ultrafiltration: Other (2.5kg if tolerated)
Blood Flow: 400
Dialysate Flow: 600
Heparin: none
EPO: none
[2023-11-26 12:49] LABS: Hematocrit 34.6 % (39.0-52.0); Mean Corp Hgb Conc. 34.7 g/dL (33.0-37.0); Mean Corpuscular Hgb 26.8 pg (27.0-31.0); Mean Corpuscular Volume 77.2 fL (80.0-94.0); Mean Platelet Volume 9.4 fL (7.4-10.4); Platelet Count 169 10^3/uL (130-400); Red Blood Cell Count 4.48 10^6/uL (4.70-6.10); Red Cell Dist. Width 16.9 % (11.5-14.5); White Blood Cell Count 11.4 10^3/uL (4.8-10.8)
[2023-11-26 13:08] LABS: Blood Urea Nitrogen 59 mg/dl (9-20); Calcium 10.9 mg/dl (8.4-10.2); Carbon Dioxide 28 mmol/L (22-30); Chloride 91 mmol/L (98-107); Estimated Creatinine Clearance 11 ml/min; Glucose 373 mg/dl (70-99); Potassium 3.6 mmol/L (3.5-5.1); Sodium 129 mmol/L (135-145); eGFR 9.43
[2023-11-26] MEDS: FLEXBUMIN 25% FOR HEMODIALYSIS 12.5 GRAMS IV (15:05)
[2023-11-26] MEDS: MANNITOL 25% 12.5 GRAMS IV (15:06)
[2023-11-26] MEDS: TYLENOL 650 MG PO ×2 (15:30→22:55)
[2023-11-26 15:31] LABS: Glucose - Point of Care 194 mg/dl (70-99)
[2023-11-26] MEDS: NOVOLOG FLEXPEN-LOW RESISTANCE 1 UNITS SC (15:32)
[2023-11-26] MEDS: PHOSLO PO (16:48)
[2023-11-26 17:38] LABS: Glucose - Point of Care 222 mg/dl (70-99)
[2023-11-26] MEDS: NOVOLOG FLEXPEN-LOW RESISTANCE 2 UNITS SC (18:36)
[2023-11-26] MEDS: OMNICEF 300 MG PO (18:38)
[2023-11-26 19:21] LABS: Hepatitis B Surface Antigen Negative (Negative)
[2023-11-26 19:56] LABS: Hepatitis B Surface Antibody Positive
[2023-11-26] MEDS: CRESTOR 40 MG PO (21:33)
[2023-11-26] MEDS: NORVASC 10 MG PO (21:33)
[2023-11-26] MEDS: FEOSOL 325 MG PO (21:33)
[2023-11-26 21:55] LABS: Glucose - Point of Care 343 mg/dl (70-99)
[2023-11-26] MEDS: LANTUS 0.16 UNITS SC (21:59)
[2023-11-26] MEDS: NOVOLOG FLEXPEN 10 UNITS SC (22:19)
[2023-11-26] MEDS: ROBITUSSIN 100 MG PO (22:46)
[2023-11-26] MEDS: MYLICON 80 MG PO (23:08)
[2023-11-26] MEDS: VENTOLIN NEBULES 2.5 MG INH (23:44)
[2023-11-27 01:11] VITALS: BP 170/58
[2023-11-27 06:00] VITALS: BMI 22.2
[2023-11-27 08:13] LABS: Glucose - Point of Care 244 mg/dl (70-99)
[2023-11-27] MEDS: ProAIR HFA INHALER 2 PUFF INH (08:22)
[2023-11-27 08:29] VITALS: BP 158/71
[2023-11-27] MEDS: NON-FORMULARY ITEM 3 MG PO (08:51)
[2023-11-27] MEDS: PHOSLO 1334 MG PO ×3 (08:52→16:54)
[2023-11-27] MEDS: LASIX 80 MG PO ×2 (08:53→15:50)
[2023-11-27] MEDS: NEPHROCAP 2 CAPSULE PO ×2 (08:53→20:40)
[2023-11-27] MEDS: ASPIR LOW (ENTERIC COATED) 81 MG PO (08:54)
[2023-11-27] MEDS: CARDURA 4 MG PO ×2 (08:55→20:41)
[2023-11-27] MEDS: LANTUS 0.33 UNITS SC (08:55)
[2023-11-27] MEDS: NOVOLOG FLEXPEN-LOW RESISTANCE 2 UNITS SC (08:56)
[2023-11-27] MEDS: THIAMINE INJECTION 100 MG IV (09:32)
--- NOTE | 2023-11-27 09:49 | W.PN.NEPH.PH ---
Today's Communication / Plan
-
Add losartan 25 mg every afternoon
Dialysis tomorrow
Assessment/Plan
-
Impression:
ESRD (home 5 days weekly)
Confusion/disequilibrium/right hand dysarthria: suspecte CVA
Uncontrolled hypertension
Hyponatremia
Left upper extremity AV fistula
Diabetes
History of coronary artery disease with previous CABG
BPH/TURP
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
Plan:
HD tomorrow,orders provided
Patient and now deciding as to whether or not they want to continue at home dialysis or be transition back to our dialysis unit
I will need to know an answer as outpatient dialysis schedule and will have to be arranged if they decide to go back into the unit
add losartan 25mg qhs for bp control
Patient will likely not tolerate further ultrafiltration for blood pressure control
neuro eval in progress, possible increase in ventricle size on MRI, may need to consider LP
MRI does not suggest PRES given BP and severity of sxs on admission
-
-
Date of Service: November 27, 2023
CC / HPI / ROS
-
Chief Complaint:
ESRD
History of Present Illness:
BP slightly better on more BP meds
tolerated HD yesterday
mental status better
Review of Systems:
no CP/SOB
Labs
-
Labs:
eGFR 9.43 11/26/23 12:37
Albumin 4.3 g/dl (3.5-5.0) 11/23/23 09:24
Physical Exam
-
Vital Signs:
Vital Signs
Temp Pulse Resp BP Pulse Ox
98.2 F 69 16 158/71 95
11/27/23 08:29 11/27/23 08:29 11/27/23 08:29 11/27/23 08:29 11/27/23 08:29
Cardiovascular:: Regular rate and rhythm
Respiratory:: Bilateral: Coarse
Lung Excursion:: Normal
Abdomen:: Nontender and Soft
Bowel Sounds:: Normal
Extremity Edema:: None: Bilateral:
[2023-11-27 10:37] LABS: Hematocrit 39.2 % (39.0-52.0); Hemoglobin 12.7 g/dL (13.0-18.0); Mean Corp Hgb Conc. 32.4 g/dL (33.0-37.0); Mean Corpuscular Hgb 26.1 pg (27.0-31.0); Mean Corpuscular Volume 80.7 fL (80.0-94.0); Mean Platelet Volume 9.9 fL (7.4-10.4); Platelet Count 165 10^3/uL (130-400); Red Blood Cell Count 4.86 10^6/uL (4.70-6.10); Red Cell Dist. Width 17.1 % (11.5-14.5)
[2023-11-27 10:55] LABS: Blood Urea Nitrogen 44 mg/dl (9-20); Calcium 10.5 mg/dl (8.4-10.2); Carbon Dioxide 22 mmol/L (22-30); Chloride 93 mmol/L (98-107); Estimated Creatinine Clearance 15 ml/min; Glucose 362 mg/dl (70-99); Sodium 131 mmol/L (135-145); eGFR 13.32
[2023-11-27 11:38] LABS: Glucose - Point of Care 418 mg/dl (70-99)
[2023-11-27 13:17] LABS: Glucose 406 mg/dl (70-99)
--- NOTE | 2023-11-27 13:21 | W.PN.HOSP.TC ---
Today's Communication/Plan
-
Monitor vital signs and see plan
HD per nephrology
Monitor blood pressure
Increase insulin
Continue with antibiotics
Discharge planning
Assessment / Plan
Assessment / Plan
General: Well Developed, Well Nourished and No Apparent Distress
HEENT: NormoCephalic, Moist mucous membranes and Atraumatic
Respiratory: Clear
Cardiac: S1/S2 and Regular Rhythm; No Murmur or Rub
GI: Soft, Non Tender, Non Distended and Normal Bowel Sounds; No Organomegaly
Rectal: Deferred by Provider
Musculoskeletal: No Clubbing, No Cyanosis and No Edema
Skin: No Rash
Neuro: AO x 3 and Nonfocal/grossly intact
Psych: Calm
Weakness and confusion could be related to metabolic encephalopathy related to possible insufficient HD
MRI without acute CVA. Neurology does not seem convinced with normal pressure hydrocephalus. Patient denies any headache.
-Head CT negative for acute findings
-asa continued
-statin continued
A1c 7.2
-PT/OT rec rehab
-nephrology following, plan for HD tomorrow
# Urinary tract infection
-hx of Enterococcus faecalis
ucx no growth here; switch to cefdinir for complicated UTI; to be given after HD
#cough likely viral
-chest x ray with Small bilateral pleural effusions, left greater than right. Left lower lobe airspace disease may also be present. Mild central pulmonary vascular congestion.
-guaianesin prn for cough
# End-stage renal disease on dialysis/hyponatremia/hypercalcemia
-Nephrology following
Hyponatremia
Monitor
#DM2
-sliding scale
-CHO diet
Increase Lantus
cw sliding scale
Mild hypercalcemia
Managed with HD
#CAD s/p CABG: Continue ASA/statin/BB
#Chronic HFpEF
-not in acute exacerbation
-Lasix continued
.-fluid restriction
-strict I&O
-daily weight
Iron deficient
Replete
#hypertension urgency
-BP elevated in ER
-hydralazine prn
-Norvasc,doxazosin
#BPH: cont Doxazosin
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
#Asthma
-not in acute exacerbation
-nebs from home continued
#FULL/heparin
PT/OT recommending rehab
I spent a total of 51 minutes with the patient or on the floor. More than 50% of this time involved counseling and coordination of care.
Anticipated Discharge: Within 24 hours
Subjective/Interval History
-
Date of Service: November 27, 2023
denies pain
Objective Data
-
Labs:
Laboratory Results
11/27/23 11/27/23
09:54 12:48
WBC 12.0 H
Hgb 12.7 L
Hct 39.2
Plt Count 165
Sodium 131 L
Potassium 4.0
Chloride 93 L
Carbon Dioxide 22
BUN 44 H
Creatinine 4.5 H*
Glucose 362 H 406 H
Calcium 10.5 H
Vital Signs:
Vital Signs
Temp Pulse Resp BP Pulse Ox
98.2 F 69 16 158/71 95
11/27/23 08:29 11/27/23 08:29 11/27/23 08:29 11/27/23 08:29 11/27/23 08:29
I&O
11/26/23 11/27/23 11/28/23
06:59 06:59 06:59
Intake Total 900 / 900 480 / 480
Balance 900 / 900 480 / 480
[2023-11-27] MEDS: APRESOLINE 10 MG IV (14:24)
[2023-11-27] MEDS: NOVOLOG FLEXPEN-MODERATE RESISTANCE 11 UNITS SC (14:28)
[2023-11-27] MEDS: NOVOLOG FLEXPEN-LOW RESISTANCE SC (14:32)
[2023-11-27 15:21] LABS: Glucose - Point of Care 423 mg/dl (70-99)
--- NOTE | 2023-11-27 15:45 | CM ---
manager pathology spoke with patient and spouse today and they are waiting on PM&R evaluation, referral sent to [facility] and will follow up to see if patient is approved and accepted at [facility].
Plan: Patient is hoping for acute rehab at [facility], patient is not agreeable to skilled placement.
[2023-11-27 15:47] VITALS: BP 176/67
--- NOTE | 2023-11-27 16:21 | CON.MD ---
Addendum entered and electronically signed by Chris Osuna MD 11/27/23 18:07:
Hypertension: Blood pressure must be less than 180 systolically to participate in therapy. Currently not able to participate in therapy due to hypertension which is being addressed.
Original Note:
Consultation - Medical
-
Referring Provider: Dr. Andre Gregg
Chief Complaint: Debility after sepsis
History of Present Illness: 68-year-old male with PMH (as below) presented to [facility] on 11/23/2023 with generalized weakness. Noted with hypertension urgency in the hospital. CT and MRI of the head with no acute findings, thought to be
metabolic encephalopathy possible related to insufficient hemodialysis. Noted with cough thought to be viral in nature with small bilateral pleural effusions left greater than right. Found to be iron deficient and on repletion. Seen by speech and
cleared for regular diet with thin liquids, no acute speech concerns. Overall he is feeling better and feeling more clear. Still working on his sugar and blood pressure control. Notes that he is scheduled start some new blood pressure medications
for hypertension.
Past Medical History: Asthma, insulin-dependent type II diabetes mellitus, CML on tyrosine kinase inhibitor therapy, essential hypertension, nephrolithiasis, hyperlipidemia, CAD, ESRD on HD, BPH, GERD, nephrotic syndrome, chronic heart failure
Procedure History: Cardiac bypass x5, multiple renal calculi resections with recent stent and removal, right Achilles rupture repair and left ankle surgery for fracture
Family History: Denies any pertinent
Social History:
Functional Level Premorbidly: Independent with all activities
Functional Level Currently: Min assist transfers, min assist ambulating 75 feet hand-held assist, min assist lower extremity dressing.
Tobacco: Denies
Alcohol: Occasional
Drug use: Denies
Lives with: Spouse
24-hour assistance available: Yes, is retired
Number of floors: 2
# steps to enter: 1
# steps to second floor: Full flight
Potential First floor set up: Yes
Driving: Yes
Occupation: Retired
�
Allergies:
Allergy/AdvReac Type Severity Reaction Status Date / Time
atorvastatin Allergy reports Verified 11/23/23 08:47
muscle
weakness
clonidine Allergy Rash Verified 11/23/23 08:47
codeine Allergy Nausea / Verified 11/23/23 08:47
Vomiting
grass pollen Allergy Unknown Verified 11/23/23 08:47
house dust Allergy Unknown Verified 11/23/23 08:47
hydralazine Allergy Vomiting Verified 11/23/23 08:47
Penicillins Allergy Hives A Verified 11/23/23 08:47
CHILD
pollen extracts Allergy seasonal Verified 11/23/23 08:47
allergies
tree and shrub pollen Allergy nasal Verified 11/23/23 08:47
congestion
Review of Systems:
Constitutional: (x) abNormal _fatigue
Eye: (x) Normal _
Ear/Nose/Throat: (x) Normal _
Respiratory: (x) Normal _
Cardiovascular: (x) Normal _
Gastrointestinal: (x) Normal _
Genitourinary: (x) abNormal _end-stage renal disease on dialysis
Musculoskeletal: (x) abNormal _generalized fatigue
Integumentary: (x) Normal _
Neurologic: (x) abNormal _neuropathy
Psychiatric: (x) Normal _
Endocrine: (x) Normal _
Hematologic/Lymphatic: (x) Normal _
Allergic/Immunologic: (x) Normal _
Medications:
Active Current Visit Medication List
Category Date Time Status
Acetaminophen [Tylenol/Feverall] Med 11/23/23 16:37 Active
650 mg RECTAL Q4HPRN PRN
Acetaminophen [Tylenol] Med 11/23/23 16:37 Active
650 mg PO Q4HPRN PRN
Albuterol [ProAIR HFA INHALER] Med 11/23/23 16:37 Active
2 puff INH R QIDPRN PRN
Amlodipine [Norvasc] Med 11/23/23 22:00 Active
10 mg PO HS
Aspirin Low Dose EC [Aspir Low (Enteric Coated)] Med 11/24/23 08:00 Active
81 mg PO DAILY
Bosutinib [Bosulif] Med 11/24/23 08:00 Active
See Dose Instructions PO DAILY
Calcium Acetate [Phoslo] Med 11/23/23 17:30 Active
1,334 mg PO MEALS
Cefdinir [Omnicef] Med 11/24/23 18:00 Active
300 mg PO TuThSa@1800
Dextrose 50%-Water [Dextrose 50% Syringe] Med 11/23/23 16:37 Active
12.5 grams IV [id number] PRN
Docusate Sodium [Colace] Med 11/24/23 08:02 Active
100 mg PO BIDPRN PRN
Doxazosin Mesylate [Cardura] Med 11/25/23 20:00 Active
4 mg PO BID
FLUTICASONE PROPIONATE 110 mcg [FLOVENT 110mcg] Med 11/23/23 20:00 Active
2 puff INH R BID
Ferrous Sulfate [Feosol] Med 11/24/23 22:00 Active
325 mg PO HS
Flush (0.9% Sodium Chloride) [Flush (Nss)] Med 11/23/23 17:00 Active
See Dose Instructions IV PER PROTOCOL
Furosemide [Lasix] Med 11/23/23 17:00 Active
80 mg PO BID AT 0800,1600
Glucagon [GlucaGen] Med 11/23/23 16:37 Active
1 mg IM PRN PRN
Guaifenesin Solution [Robitussin] Med 11/23/23 16:37 Active
100 mg PO Q4HPRN PRN
HydrALAZINE [Apresoline] Med 11/26/23 03:36 Active
10 mg IV Q4HPRN PRN
Insulin Aspart Corrective Mod [Novolog Flexpen-Moderate Med 11/27/23 16:30 Active
Resistance]
See Protocol SC AC
Insulin Aspart Pen [Novolog Flexpen] Med 11/27/23 16:30 Active
10 units SC AC
Insulin Glargine Lantus [Lantus] 20 units Med 11/27/23 08:42 Active
Subcutaneous Insulin Syringe [Syringe-Insulin] 0 unit
SC HS
Insulin Glargine Lantus [Lantus] 35 units Med 11/27/23 08:42 Active
Subcutaneous Insulin Syringe [Syringe-Insulin] 0 unit
SC DAILY
Losartan [Cozaar] Med 11/27/23 18:00 Active
25 mg PO QPM
Mannitol 25% Med 11/28/23 08:00 Active
12.5 grams IV HD-Q1HPRN PRN
Prochlorperazine [Compazine] Med 11/24/23 05:43 Active
5 mg IV Q6HPRN PRN
Renal Cap [Nephrocap] Med 11/23/23 20:00 Active
2 capsule PO BID
Rosuvastatin Calcium [Crestor] Med 11/23/23 22:00 Active
40 mg PO HS
Simethicone [Mylicon] Med 11/26/23 23:00 Active
80 mg PO QIDPRN PRN
Sodium Chloride [Sodium Chloride 4 Meq/ml For Med 11/28/23 08:00 Active
Hemodialysis]
10 ml IV HD-Q1HPRN PRN
Thiamine Injection Med 11/23/23 18:00 Active
100 mg IV DAILY
Vitals:
Temp Pulse Resp BP Pulse Ox
97.3 F 66 14 176/67 93
11/27/23 15:47 11/27/23 15:47 11/27/23 15:47 11/27/23 15:47 11/27/23 15:47
Height 5 ft 10 in
Actual Weight 70.08 kg
Body Mass Index (BMI) 22.2
Physical Exam:
General Appearance/Observation: Well-developed, well-nourished male in no apparent distress.
Pain/Comfort Assessment: Denies
Mood/Affect: Appropriate
Integumentary/Operative Site:
�� Pressure Ulcer Evaluation: Has some ecchymosis over the right heel, but does not appear to be pressure related. Has protective heel pad.
Eyes: Conjunctiva/Lids: normal ��� Pupils: pupils equal round and reactive to light and Accommodation
Ears/Nose/Throat: oral mucosa moist,� throat clear, geographic tongue.������������ Lips/Teeth/Gums: normal
Cardiovascular: Heart: regular, systolic murmur
Respiratory: Respiratory Effort/Chest Expansion: normal ������ Auscultation: Clear to auscultation bilaterally
Gastrointestinal: abdomen not tender, no distension, normal abdominal bowel sounds
Genitourinary: No Morgan
Extremities: Edema: None Cyanosis: None Trophic changes: None
Neurology Exam:
Orientation: Alert, Oriented to self, Time, Place
Memory: Intact for recent medical concerns
Comprehension: Intact
Two step command: Intact
Cranial Nerves:
�� CNII: Pupillary light reflex: Intact��� Visual Field: Intact
�� CN III, IV, : Extraocular muscles: Intact
�� CN V: Facial Sensation at Forehead: Intact, Maxilla: Intact, Mandible: Intact
�� CN VII: Facial movement: Symmetric
�� CN VIII: Hearing: Normal
�� CN IX/X: Speech & swallow: Normal, Position of Uvula: Midline
�� CN XI: Shoulder shrug: Symmetric
�� CN XII: Tongue protrusion: Midline
Sensory:
�� Light touch: Intact in bilateral upper and lower extremities
�� Pain: Intact in bilateral lower extremities
Reflexes:
�� Biceps: 2+ bilaterally
�� Brachioradialis: 2+ bilaterally
�� Triceps: 2+ bilaterally
�� Patellar: 3+ bilaterally with crossed adductor
�� Achilles: 3+ bilaterally
�� Babinski: Down going bilaterally
�� Clonus: None
�� Paul: Negative bilaterally
Cerebellar: Dysmetria/Ataxia: None
Musculoskeletal:
Motor: (Manual muscle scale 0-5)
Muscle SA EF WE EE FF FA HF KE DF EHL PF
Right� 5 5 5 5 5 5 5 5 5 5 5
Left 5 5 5 5 5 5 5 5 5 5 5
Tone: Normal in all extremities
Range of Motion: Passively within normal limits in all extremities
Lab Results
Laboratory Data
11/27/23 09:54
Total Bilirubin 0.9 mg/dl (0.2-1.3) 11/23/23 09:24
AST 35 U/L (17-59) 11/23/23 09:24
ALT 31 U/L (0-50) 11/23/23 09:24
Alkaline Phosphatase 64 U/L (38-126) 11/23/23 09:24
Total Protein 6.7 g/dl (6.3-8.2) 11/23/23 09:24
Albumin 4.3 g/dl (3.5-5.0) 11/23/23 09:24
Diagnostic Results: as per HPI
Assessment
67-year-old male with PMH (Asthma, insulin-dependent diabetes mellitus, CML on tyrosine kinase inhibitor therapy, essential hypertension, nephrolithiasis, hyperlipidemia, CAD) with 06/06/2022 with right lower extremity weakness felt to be
radiculopathy and urosepsis with ADL and ambulatory dysfunction
Plan
PM&R PT/OT to increase independence with ADLs, improve balance, coordination, endurance, strength, mobility, community reintegration, decreased burden of care on others and family education.
Metabolic encephalopathy: Unclear etiology, possibly secondary to dialysis or blood pressure concerns
ESRD on HD: Nephrology following.
HTN: Amlodipine, metoprolol, monitor closely
HLD: Statin
CML: bosutinib
Coronary artery disease : Aspirin, statin, beta-randa
DM II: Accu-Cheks, insulin sliding scale, aspart, lantus.
Microcytic Anemia: ESRD on HD, on iron supplement.� Continue to monitor.
Psych: Psychology consult.� Monitor mood, medications as needed.
Skin: monitor for pressure sores/rashes/lesions.
Pain: acetaminophen as needed.
Bowel: Colace and Senna, PRN bisacodyl.
Bladder: Decreased urine output on dialysis
DVT Prophylaxis: Mechanical currently, consider chemoprophylaxis
Pulmonary: Incentive spirometry
Safety: Continue to reinforce assistance with all transfers.
Code Status:� Full code
Dispo (date/plan/equipment needs): Home with family care.� Social history reviewed.
Functional and Medical Goals: Modified Independent with ADL�s, ambulation, transfers
Discharge Destination: [facility] facility
A total of 60 minutes were spent with the patient preparing for the evaluation, obtaining history, performing examination and evaluation, counseling, data review, case management, care coordination, forder operator, and EMR documentation.
Thank you for allowing me to care for your patient. Please contact me with any questions or concerns.
[2023-11-27 16:35] LABS: Glucose 371 mg/dl (70-99)
[2023-11-27] MEDS: COZAAR 25 MG PO (16:54)
[2023-11-27] MEDS: NOVOLOG FLEXPEN 10 UNITS SC (18:33)
[2023-11-27] MEDS: NOVOLOG FLEXPEN-MODERATE RESISTANCE 9 UNITS SC (18:33)
[2023-11-27 21:29] LABS: Glucose - Point of Care 242 mg/dl (70-99)
[2023-11-27] MEDS: FEOSOL 325 MG PO (21:40)
[2023-11-27] MEDS: CRESTOR 40 MG PO (21:40)
[2023-11-27] MEDS: NORVASC 10 MG PO (21:42)
[2023-11-27] MEDS: LANTUS 0.2 UNITS SC (21:47)
[2023-11-27] MEDS: ROBITUSSIN 100 MG PO (22:52)
[2023-11-27] MEDS: MYLICON 80 MG PO (23:00)
[2023-11-27 23:36] VITALS: BP 138/60
[2023-11-28] MEDS: COMPAZINE 5 MG IV (05:25)
[2023-11-28 05:34] VITALS: BP 153/65
[2023-11-28 06:26] VITALS: BMI 21.8
[2023-11-28 07:05] LABS: Glucose - Point of Care 164 mg/dl (70-99)
--- NOTE | 2023-11-28 07:25 | PTCARENOTE ---
At 0530 pt called and needed assistance while in the bathroom. Jakub PCT stood by the bathroom door while patient was washing up. Pt stated 'I feel dizzy' and pt stated 'I'm losing my balance because the socks are slippery.' Ashley RN, Desmond RN and
[facility] assisted lowering pt to the ground. Pt was then assisted onto to the wheelchair and back to bed. Once in bed, pt reported 'feeling nauseous.' Rosman given to the pt. Pt vomited. VSS. AAOx3. Neuro check completed. Bed alarm, yellow fall risk
band intact.
[2023-11-28 07:55] VITALS: BP 119/59
[2023-11-28 08:32] LABS: Hematocrit 35.7 % (39.0-52.0); Mean Corp Hgb Conc. 33.6 g/dL (33.0-37.0); Mean Corpuscular Hgb 26.5 pg (27.0-31.0); Mean Corpuscular Volume 78.8 fL (80.0-94.0); Mean Platelet Volume 9.5 fL (7.4-10.4); Platelet Count 169 10^3/uL (130-400); Red Blood Cell Count 4.53 10^6/uL (4.70-6.10); White Blood Cell Count 11.7 10^3/uL (4.8-10.8)
--- NOTE | 2023-11-28 08:58 | W.PN.NEPH.HD ---
Assessment
-
Patient seen on Hd
Systolic blood pressure 118 at current low-volume UF of 0.5 kg
Losartan was added last evening to help control blood pressure
Patient and decided for patient to go in center as opposed to HD following discharge
Henceforth case management will have to contact our dialysis unit for outpatient arrangements to be made
Progress Note - Hemodialysis
-
Date of Service: November 28, 2023
Duration: 30 minutes and 3 hours
Potassium Bath: 3
Calcium Bath: 2.5
Opti-Dialyzer: 160
Ultrafiltration: Other (0.5)
Blood Flow: 400
Dialysate Flow: 600
Heparin: None
EPO: None
--- NOTE | 2023-11-28 09:18 | PTCARENOTE ---
Addendum entered by Natali Hardy RN 11/28/23 12:46:
lunch blood sugar was 103. Dr Gregg made aware and was asked whether pt should receive his 10 units of Novolog. made him aware he only ate a small bowl of oatmea. stated he should get 2 units. asked for now order to be entered.
Addendum entered by Natali Hardy RN 11/28/23 09:28:
Dr Gregg at bedside. Discussed morning insulin with him as pt has not eaten breakfast. stated ok to give scheduled Lantus. novolog 10units scheduled and Novolog corrective morning doses to be held.
Original Note:
pt on dialysis at start of shift. Per dialysis, morning meds to be given once treatment is done.
[2023-11-28] MEDS: LANTUS 0.35 UNITS SC (09:24)
[2023-11-28] MEDS: NOVOLOG FLEXPEN-MODERATE RESISTANCE SC ×2 (09:25→11:55)
[2023-11-28] MEDS: NOVOLOG FLEXPEN SC ×2 (09:25→12:45)
[2023-11-28] MEDS: PHOSLO PO (11:32)
[2023-11-28] MEDS: NON-FORMULARY ITEM 300 MG PO (11:45)
[2023-11-28] MEDS: PHOSLO 1334 MG PO ×2 (11:46→17:31)
[2023-11-28] MEDS: ASPIR LOW (ENTERIC COATED) 81 MG PO (11:46)
[2023-11-28] MEDS: NEPHROCAP 2 CAPSULE PO ×2 (11:46→20:30)
[2023-11-28] MEDS: LASIX 80 MG PO (11:46)
[2023-11-28] MEDS: CARDURA 4 MG PO ×2 (11:48→20:30)
[2023-11-28] MEDS: THIAMINE INJECTION 100 MG IV (11:48)
[2023-11-28 11:52] LABS: Glucose - Point of Care 103 mg/dl (70-99)
[2023-11-28] MEDS: ROBITUSSIN 100 MG PO ×2 (12:28→22:07)
[2023-11-28] MEDS: NOVOLOG FLEXPEN 2 UNITS SC (13:12)
--- NOTE | 2023-11-28 14:05 | W.PN.HOSP.TC ---
Today's Communication/Plan
-
Monitor vital signs see plan
HD per nephrology
PMNR consulted
pai gow manager for disposition
Continue antibiotics
Assessment / Plan
Assessment / Plan
General: Well Developed, Well Nourished and No Apparent Distress
HEENT: NormoCephalic, Moist mucous membranes and Atraumatic
Respiratory: Clear
Cardiac: S1/S2 and Regular Rhythm; No Murmur or Rub
GI: Soft, Non Tender, Non Distended and Normal Bowel Sounds; No Organomegaly
Rectal: Deferred by Provider
Musculoskeletal: No Clubbing, No Cyanosis and No Edema
Skin: No Rash
Neuro: AO x 3 and Nonfocal/grossly intact
Psych: Calm
Weakness and confusion could be related to metabolic encephalopathy related to possible insufficient HD
MRI without acute CVA. Neurology does not seem convinced with normal pressure hydrocephalus. Patient denies any headache.
-Head CT negative for acute findings
-asa continued
-statin continued
A1c 7.2
-PT/OT rec rehab
-nephrology following, plan for HD today
# Urinary tract infection
-hx of Enterococcus faecalis
ucx no growth here; switch to cefdinir for complicated UTI; to be given after HD
#cough likely viral
-chest x ray with Small bilateral pleural effusions, left greater than right. Left lower lobe airspace disease may also be present. Mild central pulmonary vascular congestion.
-guaianesin prn for cough
# End-stage renal disease on dialysis/hyponatremia/hypercalcemia
-Nephrology following
Hyponatremia
Monitor
#DM2
-sliding scale
-CHO diet
Increase Lantus
cw sliding scale
Mild hypercalcemia
Managed with HD
#CAD s/p CABG: Continue ASA/statin/BB
#Chronic HFpEF
-not in acute exacerbation
-Lasix continued
.-fluid restriction
-strict I&O
-daily weight
Iron deficient
Replete
#hypertension urgency
-BP elevated in ER
-hydralazine prn
-Norvasc,doxazosin
#BPH: cont Doxazosin
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
#Asthma
-not in acute exacerbation
-nebs from home continued
#FULL/heparin
PT/OT recommending rehab; PMNR consulted
Anticipated Discharge: Within 24 hours
Subjective/Interval History
-
Date of Service: November 28, 2023
Denies pain
Objective Data
-
Labs:
Laboratory Results
11/28/23
08:03
WBC 11.7 H
Hgb 12.0 L
Hct 35.7 L
Plt Count 169
Vital Signs:
Vital Signs
Temp Pulse Resp BP Pulse Ox
97.9 F 75 14 122/57 97
11/28/23 07:55 11/28/23 11:46 11/28/23 07:55 11/28/23 11:46 11/28/23 07:55
I&O
11/27/23 11/28/23 11/29/23
06:59 06:59 06:59
Intake Total 480 / 480 720 / 720
Balance 480 / 480 720 / 720
[2023-11-28 15:03] VITALS: BP 132/62
[2023-11-28] MEDS: TYLENOL 650 MG PO (16:17)
[2023-11-28 16:40] LABS: Glucose - Point of Care 236 mg/dl (70-99)
[2023-11-28] MEDS: ProAIR HFA INHALER 2 PUFF INH ×2 (16:43→22:48)
[2023-11-28] MEDS: LASIX PO (17:37)
[2023-11-28] MEDS: COZAAR PO (17:38)
[2023-11-28] MEDS: NOVOLOG FLEXPEN-MODERATE RESISTANCE 3 UNITS SC (17:38)
[2023-11-28] MEDS: NOVOLOG FLEXPEN 10 UNITS SC (17:39)
--- NOTE | 2023-11-28 17:46 | PTCARENOTE ---
Dr Gregg aware pt with blood pressure of 90/58 heart rate of 72. aware that Lasix is due (given later as his morning dose was late due to dialysis)and losartan. Ordered to hold both medications at this time. Pt and updated.
[2023-11-28] MEDS: OMNICEF 300 MG PO (18:06)
[2023-11-28 20:23] VITALS: BP 136/63
[2023-11-28 21:22] LABS: Glucose - Point of Care 208 mg/dl (70-99)
[2023-11-28] MEDS: CRESTOR 40 MG PO (22:06)
[2023-11-28] MEDS: FEOSOL 325 MG PO (22:06)
[2023-11-28] MEDS: NORVASC 10 MG PO (22:06)
[2023-11-28] MEDS: LANTUS 0.2 UNITS SC (22:07)
[2023-11-28 23:00] VITALS: BP 126/59
[2023-11-29] MEDS: ROBITUSSIN 100 MG PO ×2 (02:14→21:39)
[2023-11-29 03:00] VITALS: BP 148/72
[2023-11-29 06:00] VITALS: BMI 21.8
[2023-11-29 06:09] LABS: % Basophils 0.3 % (0-2); % Eosinophils 0.9 % (0-6); % Immature Granulocytes 0.8 % (0-0.5); % Lymphocytes 11.9 % (20.5-51.1); % Monocytes 7.4 % (1.7-9.3); % Neutrophils 78.7 % (42.2-75.2); Absolute Eosinophils 0.1 10^3/uL (0-0.7); Absolute Immature Granulocytes 0.1 10^3/uL (0-0.05); Absolute Lymphocytes 1.8 10^3/uL (1.2-3.4); Absolute Monocytes 1.1 10^3/uL (0.1-0.6); Absolute Neutrophils 11.9 10^3/uL (1.4-6.5); Hematocrit 39.9 % (39.0-52.0); Hemoglobin 13.3 g/dL (13.0-18.0); Mean Corp Hgb Conc. 33.3 g/dL (33.0-37.0); Mean Corpuscular Hgb 26.1 pg (27.0-31.0); Mean Corpuscular Volume 78.4 fL (80.0-94.0); Mean Platelet Volume 9.6 fL (7.4-10.4); Nucleated Red Blood Cells % 0 % (-); Platelet Count 189 10^3/uL (130-400); Red Blood Cell Count 5.09 10^6/uL (4.70-6.10); Red Cell Dist. Width 17.2 % (11.5-14.5); White Blood Cell Count 15.2 10^3/uL (4.8-10.8)
[2023-11-29 06:40] LABS: Blood Urea Nitrogen 41 mg/dl (9-20); Calcium 10.5 mg/dl (8.4-10.2); Carbon Dioxide 28 mmol/L (22-30); Chloride 91 mmol/L (98-107); Estimated Creatinine Clearance 14 ml/min; Glucose 77 mg/dl (70-99); Potassium 3.4 mmol/L (3.5-5.1); Sodium 131 mmol/L (135-145); eGFR 12.64
[2023-11-29 07:00] VITALS: BP 137/68
[2023-11-29] MEDS: ProAIR HFA INHALER 2 PUFF INH ×2 (07:28→20:23)
[2023-11-29 07:47] LABS: Glucose - Point of Care 91 mg/dl (70-99)
[2023-11-29] MEDS: ASPIR LOW (ENTERIC COATED) 81 MG PO (08:35)
[2023-11-29] MEDS: PHOSLO 1334 MG PO ×3 (08:36→17:58)
[2023-11-29] MEDS: LASIX 80 MG PO ×2 (08:36→16:30)
[2023-11-29] MEDS: NEPHROCAP 2 CAPSULE PO ×2 (08:36→20:17)
[2023-11-29] MEDS: CARDURA 4 MG PO ×2 (08:36→20:17)
[2023-11-29] MEDS: THIAMINE INJECTION 100 MG IV (08:36)
[2023-11-29] MEDS: NON-FORMULARY ITEM 300 MG PO (08:38)
[2023-11-29] MEDS: NOVOLOG FLEXPEN 5 UNITS SC ×3 (09:20→17:57)
[2023-11-29] MEDS: NOVOLOG FLEXPEN-MODERATE RESISTANCE SC (09:21)
[2023-11-29] MEDS: LANTUS SC (09:24)
--- NOTE | 2023-11-29 09:25 | PTCARENOTE ---
Dr Gregg aware of morning blood sugar of 91. labwork of 77. Pt expressed concern about receiving 35 units of lantus with his sugar being 91. He was also scheduled for Novolog [address] Gregg changed Lantus order to 25 units and
his meal Novolog dose to 5 units. Pt updated on the change in orders.
[2023-11-29] MEDS: NOVOLOG FLEXPEN SC (09:48)
--- NOTE | 2023-11-29 11:21 | W.PN.NEPH.PH ---
Addendum entered and electronically signed by Joaquin Frost DO 11/29/23 11:25:
Patient is on Thursday dialysis schedule
Next dialysis will be scheduled for Thursday not tomorrow
Original Note:
Today's Communication / Plan
-
Dialysis tomorrow
Assessment/Plan
-
Impression:
ESRD (home 5 days weekly)
Confusion/disequilibrium/right hand dysarthria: suspecte CVA
Uncontrolled hypertension
Hyponatremia
Left upper extremity AV fistula
Diabetes
History of coronary artery disease with previous CABG
BPH/TURP
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
Plan:
HD tomorrow,orders provided
Patient and already signed deciding that they want to transition back to our dialysis unit from home therapies
maintain losartan 25mg qhs for bp control which was added a few days prior
Patient will likely not tolerate further ultrafiltration for blood pressure control
MRI does not suggest PRES given BP and severity of sxs on admission
For possible rehab placement
-
-
Date of Service: November 29, 2023
CC / HPI / ROS
-
Chief Complaint:
ESRD
History of Present Illness:
BP better on with addition of losartan
ESRD now on Thursday
mental status better
Review of Systems:
no CP/SOB
Labs
-
Labs:
WBC 15.2 10^3/uL (4.8-10.8) H 11/29/23 05:44
RBC 5.09 10^6/uL (4.70-6.10) 11/29/23 05:44
Hgb 13.3 g/dL (13.0-18.0) 11/29/23 05:44
Hct 39.9 % (39.0-52.0) 11/29/23 05:44
Plt Count 189 10^3/uL (130-400) 11/29/23 05:44
Sodium 131 mmol/L (135-145) L 11/29/23 05:44
Potassium 3.4 mmol/L (3.5-5.1) L 11/29/23 05:44
Chloride 91 mmol/L (98-107) L 11/29/23 05:44
Carbon Dioxide 28 mmol/L (22-30) 11/29/23 05:44
BUN 41 mg/dl (9-20) H 11/29/23 05:44
Creatinine 4.7 mg/dL (0.7-1.3) H* 11/29/23 05:44
eGFR 12.64 11/29/23 05:44
Glucose 77 mg/dl (70-99) 11/29/23 05:44
Calcium 10.5 mg/dl (8.4-10.2) H 11/29/23 05:44
Albumin 4.3 g/dl (3.5-5.0) 11/23/23 09:24
Physical Exam
-
Vital Signs:
Vital Signs
Temp Pulse Resp BP Pulse Ox
97.9 F 69 16 137/68 93
11/29/23 07:00 11/29/23 07:32 11/29/23 07:32 11/29/23 07:00 11/29/23 07:32
Cardiovascular:: Regular rate and rhythm
Respiratory:: Bilateral: Coarse
Lung Excursion:: Normal
Abdomen:: Nontender and Soft
Bowel Sounds:: Normal
Extremity Edema:: None: Bilateral:
Other Findings::
LUE AV fistula
--- NOTE | 2023-11-29 12:13 | W.PN.HOSP.TC ---
Today's Communication/Plan
-
Monitor vital sign closely plan
HD per nephrology
Antibiotics
Discharge planning, patient and spouse interested in rehab. prepress manager aware
Monitor leukocytosis
Assessment / Plan
Assessment / Plan
General: Well Developed, Well Nourished and No Apparent Distress
HEENT: NormoCephalic, Moist mucous membranes and Atraumatic
Respiratory: Clear
Cardiac: S1/S2 and Regular Rhythm; No Murmur or Rub
GI: Soft, Non Tender, Non Distended and Normal Bowel Sounds
Musculoskeletal: No Clubbing, No Cyanosis and No Edema
Neuro: AO x 3 and Nonfocal/grossly intact
Psych: Calm
Weakness and confusion could be related to metabolic encephalopathy related to possible insufficient HD
MRI without acute CVA. Neurology does not seem convinced with normal pressure hydrocephalus. Patient denies any headache.
-Head CT negative for acute findings
-asa continued
-statin continued
A1c 7.2
-PT/OT rec rehab
-nephrology following, on HD
# Urinary tract infection
-hx of Enterococcus faecalis
ucx no growth here however did had symptoms. switch to cefdinir for complicated UTI; to be given after HD
last day 12/02
#cough likely viral
-chest x ray with Small bilateral pleural effusions, left greater than right. Left lower lobe airspace disease may also be present. Mild central pulmonary vascular congestion.
-guaianesin prn for cough
Leukocytosis noted, had not passed. If white count continues to rise then will get chest x-ray again
# End-stage renal disease on dialysis/hyponatremia/hypercalcemia
-Nephrology following
Hyponatremia
Monitor
#DM2
-sliding scale
-lantus decreased due to episodes of hypoglycemia, mealtime insulin also decreased
cw sliding scale
Mild hypercalcemia
Managed with HD
#CAD s/p CABG: Continue ASA/statin/BB
#Chronic HFpEF
-not in acute exacerbation
-Lasix continued
.-fluid restriction
-strict I&O
-daily weight
Iron deficient
Replete
#hypertension urgency
-BP elevated in ER
-hydralazine prn
-Norvasc,doxazosin
#BPH: cont Doxazosin
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
#Asthma
-not in acute exacerbation
-nebs from home continued
#FULL/heparin
PT/OT recommending rehab; PMNR consulted, does not appear candidate for [facility]. Spoke with spouse and patient and they are okay with SNF. prepress manager notified
Anticipated Discharge: 24 - 48 hours
Subjective/Interval History
-
Date of Service: November 29, 2023
denies pain
Objective Data
-
Labs:
Laboratory Results
11/29/23
05:44
WBC 15.2 H
Hgb 13.3
Hct 39.9
Plt Count 189
Sodium 131 L
Potassium 3.4 L
Chloride 91 L
Carbon Dioxide 28
BUN 41 H
Creatinine 4.7 H*
Glucose 77
Calcium 10.5 H
Vital Signs:
Vital Signs
Temp Pulse Resp BP Pulse Ox
97.9 F 69 16 137/68 93
11/29/23 07:00 11/29/23 07:32 11/29/23 07:32 11/29/23 07:00 11/29/23 07:32
I&O
11/28/23 11/29/23 11/30/23
06:59 06:59 06:59
Intake Total 720 / 720 480 / 480
Balance 720 / 720 480 / 480
[2023-11-29 13:12] LABS: Glucose - Point of Care 256 mg/dl (70-99)
[2023-11-29] MEDS: NOVOLOG FLEXPEN-MODERATE RESISTANCE 5 UNITS SC ×2 (13:12→17:57)
--- NOTE | 2023-11-29 14:37 | CM ---
Addendum entered by Maegan Cabrera 11/30/23 12:11:
manager system spoke with Emilio saleem for [facility] [phone] and she requested that all clinicals be faxed to [phone], telehealth case manager faxed all clinicals to [facility] in [place]. Facility is 2.[address] from [facility], case
building manager will await determination.
Original Note:
Chart reviewed including patient progress with physical therapy, recommendation was for possible acute rehab, patient was seen by PM&R who recommended skilled. Referral sent to [place] as requested by patient. manager system explained to patient that
PM&R did not approve him for acute rehab and but recommended skilled, options were reviewed and patient declined skilled placement satiating that he wanted a referral sent to [facility] in [place], referral
sent to facility.
Plan; Await determination from [facility] in [place].
[2023-11-29 15:00] VITALS: BP 154/77
[2023-11-29 17:54] VITALS: BP 142/72
[2023-11-29 17:55] LABS: Glucose - Point of Care 253 mg/dl (70-99)
[2023-11-29] MEDS: COZAAR 25 MG PO (17:58)
[2023-11-29 19:25] VITALS: BP 151/62
[2023-11-29] MEDS: CRESTOR 40 MG PO (21:25)
[2023-11-29] MEDS: NORVASC 10 MG PO (21:25)
[2023-11-29 21:30] LABS: Glucose - Point of Care 199 mg/dl (70-99)
[2023-11-29] MEDS: LANTUS 0.14 UNITS SC (21:31)
[2023-11-29] MEDS: MYLICON 80 MG PO (21:39)
[2023-11-29] MEDS: FEOSOL 325 MG PO (22:09)
[2023-11-29 23:40] VITALS: BP 158/68
[2023-11-30 03:47] LABS: Glucose - Point of Care 165 mg/dl (70-99)
[2023-11-30 03:50] VITALS: BP 134/56
[2023-11-30 06:00] VITALS: BMI 22.2
[2023-11-30 07:00] VITALS: BP 124/57
[2023-11-30 07:17] LABS: % Basophils 0.3 % (0-2); % Immature Granulocytes 0.6 % (0-0.5); % Lymphocytes 10.8 % (20.5-51.1); % Monocytes 6.5 % (1.7-9.3); % Neutrophils 80.8 % (42.2-75.2); Absolute Eosinophils 0.1 10^3/uL (0-0.7); Absolute Immature Granulocytes 0.1 10^3/uL (0-0.05); Absolute Lymphocytes 1.4 10^3/uL (1.2-3.4); Absolute Monocytes 0.8 10^3/uL (0.1-0.6); Absolute Neutrophils 10.1 10^3/uL (1.4-6.5); Hematocrit 35.1 % (39.0-52.0); Mean Corp Hgb Conc. 34.2 g/dL (33.0-37.0); Mean Corpuscular Hgb 26.6 pg (27.0-31.0); Mean Corpuscular Volume 77.8 fL (80.0-94.0); Mean Platelet Volume 9.7 fL (7.4-10.4); Nucleated Red Blood Cells % 0 % (-); Platelet Count 182 10^3/uL (130-400); Red Blood Cell Count 4.51 10^6/uL (4.70-6.10); Red Cell Dist. Width 17.1 % (11.5-14.5); White Blood Cell Count 12.5 10^3/uL (4.8-10.8)
[2023-11-30 07:42] LABS: Blood Urea Nitrogen 58 mg/dl (9-20); Calcium 10.1 mg/dl (8.4-10.2); Carbon Dioxide 27 mmol/L (22-30); Chloride 91 mmol/L (98-107); Estimated Creatinine Clearance 10 ml/min; Glucose 151 mg/dl (70-99); Sodium 129 mmol/L (135-145); eGFR 8.41
[2023-11-30 07:59] LABS: Glucose - Point of Care 179 mg/dl (70-99)
[2023-11-30 08:53] VITALS: BP 105/51; BP 105/57; BP 121/58; BP 127/58; BP 84/45; BP 95/53; BP 97/53; PULSE 56; PULSE 58; PULSE 60; PULSE 64; O2SAT 93
[2023-11-30] MEDS: CARDURA 4 MG PO (10:11)
[2023-11-30] MEDS: PHOSLO 1334 MG PO ×3 (10:11→17:10)
[2023-11-30] MEDS: ASPIR LOW (ENTERIC COATED) 81 MG PO (10:11)
[2023-11-30] MEDS: LASIX 80 MG PO ×2 (10:12→17:11)
[2023-11-30] MEDS: NEPHROCAP 2 CAPSULE PO ×2 (10:12→20:36)
[2023-11-30] MEDS: NON-FORMULARY ITEM 3 MG PO (10:12)
[2023-11-30] MEDS: THIAMINE INJECTION 100 MG IV (10:13)
[2023-11-30] MEDS: NOVOLOG FLEXPEN 5 UNITS SC ×3 (10:15→17:11)
[2023-11-30] MEDS: NOVOLOG FLEXPEN-MODERATE RESISTANCE 1 UNITS SC (10:15)
[2023-11-30] MEDS: LANTUS 0.25 UNITS SC (10:33)
--- NOTE | 2023-11-30 10:59 | W.PN.HOSP.TC ---
Today's Communication/Plan
-
Nephro recs
adjustment of BP meds
Ongoing disposition-
HD tomorrow
Assessment / Plan
Assessment / Plan
General: Well Developed, Well Nourished and No Apparent Distress
HEENT: NormoCephalic, Moist mucous membranes and Atraumatic
Respiratory: Clear
Cardiac: S1/S2 and Regular Rhythm; No Murmur or Rub
GI: Soft, Non Tender, Non Distended and Normal Bowel Sounds
Musculoskeletal: No Clubbing, No Cyanosis and No Edema
Neuro: AO x 3 and Nonfocal/grossly intact
Psych: Calm
Weakness and confusion could be related to metabolic encephalopathy related to possible insufficient HD
MRI without acute CVA. Neurology does not seem convinced with normal pressure hydrocephalus. Patient denies any headache.
-Head CT negative for acute findings
-asa continued
-statin continued
A1c 7.2
-PT/OT rec rehab
-nephrology following, on HD Thursday and Thursday. HD tomorrow.
#hypertension urgency
#Primary hypertension
-BP elevated in ER
-hydralazine prn
-Remains on multiple regimen with Norvasc 10 mg nightly, doxazosin dose increased to 4 mg p.o. twice daily, Cozaar 25 mg nightly was added and remains on Lasix 80 mg p.o. twice daily
-Patient was orthostatic positive symptomatic. May need to consider down titration of meds. Nephrology managing meds and will defer to them.
# Urinary tract infection
-hx of Enterococcus faecalis
ucx no growth here however did had symptoms. switch to cefdinir for complicated UTI; to be given after HD
last day 12/02
#cough likely viral
-chest x ray with Small bilateral pleural effusions, left greater than right. Left lower lobe airspace disease may also be present. Mild central pulmonary vascular congestion.
-guaianesin prn for cough
Leukocytosis downtrended. Afebrile.
# End-stage renal disease on dialysis/hyponatremia/hypercalcemia
--nephrology following, on HD Thursday and Thursday. HD tomorrow.
#DM2
-Lantus dose decreased. Continue with Lantus 25 units a.m. and 14 units nightly. Continue with decreased dose of NovoLog 5 units AC
-cw sliding scale
-poc am 179.
Mild hypercalcemia
Managed with HD
#CAD s/p CABG: Continue ASA/statin/BB
#Chronic HFpEF
-not in acute exacerbation
-Lasix continued
.-fluid restriction
-strict I&O
-daily weight
Iron deficient
Replete
#BPH: cont Doxazosin
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
#Asthma
-not in acute exacerbation
-nebs from home continued
#FULL/heparin
PT/OT-SNF. Pt wants acute rehab in [place]. CM on board.
Anticipated Discharge: Within 24 hours
Subjective/Interval History
-
Date of Service: November 30, 2023
Worked with physical therapy earlier in the morning and was found to have orthostatic positive hypotension
Objective Data
-
Labs:
Laboratory Results
11/30/23
06:42
WBC 12.5 H
Hgb 12.0 L
Hct 35.1 L
Plt Count 182
Sodium 129 L
Potassium 4.0
Chloride 91 L
Carbon Dioxide 27
BUN 58 H
Creatinine 6.6 H*
Glucose 151 H
Calcium 10.1
Vital Signs:
Vital Signs
Temp Pulse Resp BP Pulse Ox
97.9 F 61 16 124/57 94
11/30/23 07:00 11/30/23 08:59 11/30/23 08:59 11/30/23 07:00 11/30/23 08:59
I&O
11/29/23 11/30/23 12/01/23
06:59 06:59 06:59
Intake Total 1200 / 1200
Balance 1200 / 1200
--- NOTE | 2023-11-30 11:26 | W.PN.NEPH.PH ---
Today's Communication / Plan
-
HD tomorrow
Assessment/Plan
-
Impression:
ESRD (home 5 days weekly)
Confusion/disequilibrium/right hand dysarthria: suspecte CVA
Uncontrolled hypertension
Hyponatremia
Left upper extremity AV fistula
Diabetes
History of coronary artery disease with previous CABG
BPH/TURP
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
Plan:
HD tomorrow
Patient and already signed deciding that they want to transition back to our dialysis unit from home therapies
maintain losartan 25mg qhs for bp control
await rehab arrangements
-
-
Date of Service: November 30, 2023
CC / HPI / ROS
-
Chief Complaint:
ESRD
History of Present Illness:
BP better on with addition of losartan
ESRD tolerated HD thursday
mental status better
Review of Systems:
no CP/SOB
Labs
-
Labs:
WBC 12.5 10^3/uL (4.8-10.8) H 11/30/23 06:42
RBC 4.51 10^6/uL (4.70-6.10) L 11/30/23 06:42
Hgb 12.0 g/dL (13.0-18.0) L 11/30/23 06:42
Hct 35.1 % (39.0-52.0) L 11/30/23 06:42
Plt Count 182 10^3/uL (130-400) 11/30/23 06:42
Sodium 129 mmol/L (135-145) L 11/30/23 06:42
Potassium 4.0 mmol/L (3.5-5.1) 11/30/23 06:42
Chloride 91 mmol/L (98-107) L 11/30/23 06:42
Carbon Dioxide 27 mmol/L (22-30) 07/08/24 06:42
BUN 58 mg/dl (9-20) H 11/30/23 06:42
Creatinine 6.6 mg/dL (0.7-1.3) H* 11/30/23 06:42
eGFR 8.41 11/30/23 06:42
Glucose 151 mg/dl (70-99) H 11/30/23 06:42
Calcium 10.1 mg/dl (8.4-10.2) 11/30/23 06:42
Albumin 4.3 g/dl (3.5-5.0) 11/23/23 09:24
Physical Exam
-
Vital Signs:
Vital Signs
Temp Pulse Resp BP Pulse Ox
97.9 F 61 16 124/57 94
11/30/23 07:00 11/30/23 08:59 11/30/23 08:59 11/30/23 07:00 11/30/23 08:59
Cardiovascular:: Regular rate and rhythm
Respiratory:: Bilateral: CTA
Lung Excursion:: Normal
Abdomen:: Nontender and Soft
Bowel Sounds:: Normal
Extremity Edema:: None: Bilateral:
[2023-11-30 12:21] LABS: Glucose - Point of Care 290 mg/dl (70-99)
[2023-11-30] MEDS: NOVOLOG FLEXPEN-MODERATE RESISTANCE 5 UNITS SC (14:27)
--- NOTE | 2023-11-30 14:36 | CM ---
apartment house manager reviewed patient's chart and met with patient and followed up with a referral to [facility] [id number] in [place] acute rehab and they have accepted patient tomorrow after HD. Spouse to transport.
[facility] [place]
Report [phone]

Plan; Patient to transfer to [facility] acute rehab in [place]
[2023-11-30 15:00] VITALS: BP 122/52
[2023-11-30 16:56] LABS: Glucose - Point of Care 244 mg/dl (70-99)
[2023-11-30] MEDS: NOVOLOG FLEXPEN-MODERATE RESISTANCE 3 UNITS SC (17:11)
[2023-11-30] MEDS: COZAAR 25 MG PO (18:39)
[2023-11-30 20:25] VITALS: BP 129/54
[2023-11-30] MEDS: CARDURA 3 MG PO (20:37)
[2023-11-30 20:58] LABS: Glucose - Point of Care 213 mg/dl (70-99)
[2023-11-30] MEDS: FEOSOL 325 MG PO (22:27)
[2023-11-30] MEDS: LANTUS 0.14 UNITS SC (22:27)
[2023-11-30] MEDS: NORVASC 10 MG PO (22:27)
[2023-11-30] MEDS: ROBITUSSIN 100 MG PO (22:27)
[2023-11-30] MEDS: CRESTOR 40 MG PO (22:27)
[2023-11-30] MEDS: MELATONIN 5 MG PO (22:56)
[2023-11-30] MEDS: ProAIR HFA INHALER 2 PUFF INH (23:39)
[2023-12-01 00:21] VITALS: BP 146/66
[2023-12-01 06:00] VITALS: BMI 22.2
[2023-12-01 07:00] VITALS: BP 110/50
[2023-12-01] MEDS: ProAIR HFA INHALER 2 PUFF INH (07:52)
[2023-12-01 07:54] LABS: Glucose - Point of Care 140 mg/dl (70-99)
[2023-12-01] MEDS: NOVOLOG FLEXPEN-MODERATE RESISTANCE SC (08:52)
[2023-12-01] MEDS: LANTUS 0.25 UNITS SC (08:59)
[2023-12-01] MEDS: NOVOLOG FLEXPEN 5 UNITS SC ×2 (08:59→11:33)
[2023-12-01] MEDS: PHOSLO 1334 MG PO ×2 (09:00→11:36)
[2023-12-01] MEDS: NON-FORMULARY ITEM 300 MG PO (09:00)
[2023-12-01] MEDS: ASPIR LOW (ENTERIC COATED) 81 MG PO (09:00)
[2023-12-01] MEDS: THIAMINE INJECTION 100 MG IV (09:00)
[2023-12-01] MEDS: LASIX 80 MG PO (09:00)
[2023-12-01] MEDS: NEPHROCAP 2 CAPSULE PO (09:01)
[2023-12-01] MEDS: CARDURA 3 MG PO (09:01)
--- NOTE | 2023-12-01 10:24 | PTCARENOTE ---
pt aaox3. states no pain or sob. HD scheduled for 12:00 today pt made aware.
[2023-12-01 11:00] VITALS: BP 114/52
--- NOTE | 2023-12-01 11:14 | CM ---
Addendum entered by Maegan Cabrera 12/01/23 14:39:
Spouse to transport patient at 5pm today, nursing and Emilio at [facility] rehab made aware.
Original Note:
truck sales manager continues to follow with patient progress notes and spoke with Emilio in admissions at [facility] this morning and faxed flow sheets for HD, along with Hep B. Plan is for patient to transfer to
[facility] today after HD, patient to have HD today at 12:00.
After HD please fax HD notes to [phone]
[facility]
Report [phone]

Plan; Patient to transfer to [facility] today after HD, spouse to transport.
[2023-12-01 11:25] LABS: Glucose - Point of Care 312 mg/dl (70-99)
[2023-12-01] MEDS: NOVOLOG FLEXPEN-MODERATE RESISTANCE 7 UNITS SC (11:34)
--- NOTE | 2023-12-01 11:52 | W.PN.HOSP.TC ---
Today's Communication/Plan
-
DC after HD today
Assessment / Plan
Assessment / Plan
General: Well Developed, Well Nourished and No Apparent Distress
HEENT: NormoCephalic, Moist mucous membranes and Atraumatic
Respiratory: Clear
Cardiac: S1/S2 and Regular Rhythm; No Murmur or Rub
GI: Soft, Non Tender, Non Distended and Normal Bowel Sounds
Musculoskeletal: No Clubbing, No Cyanosis and No Edema
Neuro: AO x 3 and Nonfocal/grossly intact
Psych: Calm
Weakness and confusion could be related to metabolic encephalopathy related to possible insufficient HD
MRI without acute CVA. Neurology does not seem convinced with normal pressure hydrocephalus. Patient denies any headache.
-Head CT negative for acute findings
-asa continued
-statin continued
-A1c 7.2
-PT/OT rec rehab
-nephrology following, on HD Thursday and Thursday. HD tomorrow.
#hypertension urgency
#Primary hypertension
-BP elevated in ER
-hydralazine prn
-Remains on multiple regimen with Norvasc 10 mg nightly, , Cozaar 25 mg nightly was added and remains on Lasix 80 mg p.o. twice daily. d/w with nephro and doxazosin decreased to 3mg BID (which was increased to 4mg BID earlier in admission)
-No overt hypotension.
# Urinary tract infection
-hx of Enterococcus faecalis
ucx no growth here however did had symptoms. switch to cefdinir for complicated UTI; to be given after HD
last day 12/02
#cough likely viral
-chest x ray with Small bilateral pleural effusions, left greater than right. Left lower lobe airspace disease may also be present. Mild central pulmonary vascular congestion.
-guaianesin prn for cough
Leukocytosis downtrended. Afebrile.
# End-stage renal disease on dialysis/hyponatremia/hypercalcemia
--nephrology following, on HD Thursday and Thursday. HD toDAY.
#DM2
-Lantus dose decreased. Continue with Lantus 25 units a.m. and 14 units nightly. Continue with decreased dose of NovoLog 5 units AC
-cw sliding scale
-poc am 140
Mild hypercalcemia
Managed with HD
#CAD s/p CABG: Continue ASA/statin/BB
#Chronic HFpEF
-not in acute exacerbation
-Lasix continued
.-fluid restriction
-strict I&O
-daily weight
Iron deficient
Replete
#BPH: cont Doxazosin
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
#Asthma
-not in acute exacerbation
-nebs from home continued
#FULL/heparin
PT/OT-SNF. Pt wants acute rehab in [place]. CM on board. dc to [facility] today post HD
More than 30 minutes spent in discharge including
Final examination of the patient
Summarizing hospital stay
Instructions for continuing care to all relevant caregivers
Preparation of discharge records, prescriptions, and referral forms
Total time spent (in minutes): 52
Anticipated Discharge: Today
Subjective/Interval History
-
Date of Service: December 01, 2023
frustrated with diet
otherwise no lightheadedness or dizziness
Objective Data
-
Labs:
Laboratory Results
12/01/23
07:00
Hgb Pending
Hct Pending
Sodium Pending
Potassium Pending
Chloride Pending
Carbon Dioxide Pending
Vital Signs:
Vital Signs
Temp Pulse Resp BP Pulse Ox
97.5 F 70 18 110/50 94
12/01/23 07:00 12/01/23 07:54 12/01/23 07:54 12/01/23 09:01 07/09/24 07:54
I&O
11/30/23 12/01/23 12/02/23
06:59 06:59 06:59
Intake Total 1200 / 1200 420 / 420
Balance 1200 / 1200 420 / 420
[2023-12-01 12:51] LABS: Hematocrit 32.8 % (39.0-52.0); Hemoglobin 11.2 g/dL (13.0-18.0)
[2023-12-01 12:57] LABS: Carbon Dioxide 25 mmol/L (22-30); Chloride 89 mmol/L (98-107); Potassium 3.4 mmol/L (3.5-5.1); Sodium 126 mmol/L (135-145)
[2023-12-01] MEDS: MANNITOL 25% 12.5 GRAMS IV (13:34)
[2023-12-01] MEDS: FLEXBUMIN 25% FOR HEMODIALYSIS 12.5 GRAMS IV (13:37)
--- NOTE | 2023-12-01 13:38 | W.PN.NEPH.HD ---
Assessment
-
Seen on HD. no complaints. Vss, BP low on HD. reduce cardura to 4mg HS. access ok
Progress Note - Hemodialysis
-
Date of Service: December 01, 2023
Duration: 30 minutes and 3 hours
Potassium Bath: 3
Calcium Bath: 2.5
Opti-Dialyzer: 160
Ultrafiltration: EDW
Blood Flow: 400
Dialysate Flow: 600
Heparin: no
EPO: no
[2023-12-01 15:00] VITALS: BP 111/55
== END 2023-12-01 17:13 | DRG 291 ==
LOC: 4 WEST ACU 15:57
PROVIDERS: Physician Assistant; Registered Nurse; Specialist; ADMITTING PHYSICIAN Internal Medicine; ATTENDING PHYSICIAN Hospitalist; CONSULT PHYSICIAN Physical Medicine & Rehabilitation; CONSULT PHYSICIAN Psychiatry & Neurology Neurology; CONSULT PHYSICIAN Specialist; EMERGENCY PHYSICIAN Emergency Medicine; FAMILY PHYSICIAN Family Medicine
PROC: 5A1D70Z Performance of Urinary Filtration, Intermittent, Less than 6 Hours Per Day (ICD-10-PCS; 2023-11-24)
DX: I13.2 Hypertensive heart and chronic kidney disease with heart failure and with stage 5 chronic kidney disease, or end stage renal disease (principal); G93.41 Metabolic encephalopathy; N18.6 End stage renal disease; N39.0 Urinary tract infection, site not specified; E87.1 Hypo-osmolality and hyponatremia; C92.10 Chronic myeloid leukemia, BCR/ABL-positive, not having achieved remission; I50.32 Chronic diastolic (congestive) heart failure; Z99.2 Dependence on renal dialysis; I16.0 Hypertensive urgency; Z11.52 Encounter for screening for COVID-19
CPT/HCPCS: 70450; 70544; 70547; 70551; 71046; 80048; 80051; 80053; 80061; 81003; 81015; 82140; 82607; 82728; 82746; 82947; 82962; 83036; 83540; 83550; 85014; 85018; 85025; 85027; 86706; 87070; 87086; 87340; 87811; 92526; 92610; 93005; 94640; 97116; 97129; 97163; 97167; 97530; 99285; G0257; P9047

== ENCOUNTER 2024-01-17 14:20 | Inpatient (IN) | payer MEDICARE, OTHER, SELFPAY ==
[2024-01-17] VITALS (10 sets, daily range): BP systolic 112–145; BP diastolic 63–86; BMI 24.6
[2024-01-17] MEDS: LOW STRENGTH ASPIRIN 324 MG PO (12:12)
--- NOTE | 2024-01-17 12:14 | PHANOTE ---
Med Rec Note:
Spouse unsure of insulin dosages or if pt is still taking calcium acetate, medications left unconfirmed.
[2024-01-17] MEDS: BRILINTA 180 MG PO (12:18)
--- NOTE | 2024-01-17 12:20 | ED.GENMED ---
History of Present Illness
General
Chief Complaint: Chest Pain
Time Seen by Provider: 01/17/24 12:13
History of Present Illness
History of Present Illness:
69-year-old male with history of CAD status post stenting and CABG in 2019 on aspirin, end-stage renal disease on dialysis, CML, diabetes presenting for chest pain. Patient reports chest pain started last evening, midsternal. He thought it was
indigestion so he waited until today. Pain worsened throughout the evening, prompting him to come to the hospital. Notes that the pain is currently present. Does note some dyspnea with the chest pain. Denies any vomiting. Reports the pain does
feel similar to prior cardiac events. Denies additional acute medical complaints
Past History
Past History
ED Past Medical History: Arrthythmia (Atrial fibrillation), Asthma, CAD, Cancer (Right kidney neoplasm, CML), CHF, GERD, HTN, Hypercholesterolemia, NIDDM, DE, Renal failure (Diabetic nephropathy), Other (Kidney stones, Back pain due to herniated
disc, transient global amnesia in November 2022, bilateral pleural effusions) and Other (Herniated discs in neck, has seen pain management at Dr. Arias's office for injections x 2. Has not had lower back problems, BPH, vocal polyps)
ED Past Surgical History: Cardiac (Triple bypass), Orthopedic, Urological (Renal calculus, TURP) and Other (Left upper arm fistula, cataract extractions, tenosynovectomy, wisdom teeth extraction)
Social History
Tobacco: Non-smoker
Alcohol: Occasional
Drug: None
Personal:
Living: with family
Employment: Employed
Family History
Family History: Other (Reviewed and noncontributory)
Phy Exam
Physical Exam
Physical Exam:
General: Well-appearing, no clinical signs of dehydration, nontoxic and in no acute distress
HEENT: protecting airway
Neck: appears supple
CV: Normal heart rate, regular rhythm, no evidence of cyanosis
Resp: No accessory muscle use, no increased work of breathing, lungs clear to auscultation bilaterally
Abd: Soft and non-distended, no tenderness to palpation
Extremities: No deformities, no swelling, no erythema
Neuro: alert, no focal neurologic deficit
: deferred
Rectal: deferred
Psych: Normal affect
Skin: Intact
Scores
Heart Score for Chest Pain Patients
STEMI patient?: Yes
History: Highly Suspicious
ECG: Significant ST-Depression
Age: >/= 65 years
Risk Factors: >/= 3 Risk Factors or History of CAD
Course
Orders/Labs/Results
Orders:
Orders
01/17/24 12:00
EKG [Electrocardiogram (*1)] Urgent
Reason for Study: Chest Pain
EKG- Treatment ONCE
01/17/24 12:09
Cardiac Monitoring- Treatment ONCE
IV Insert/Care/Rem.- Treatment PRN
O2 Therapy [RESP] Urgent
Titrate/Wean O2 to maintain O2 sat greater than (%): 90
Special Instructions: Maintain sats >/=90%
Pulse Ox/spot Check [RESP] Urgent
Quantity: 1
Special Instructions: ON ROOM AIR
01/17/24 12:14
Complete Blood Count/With Diff Urgent
Comprehensive Metabolic Panel Urgent
Troponin I Urgent
01/17/24 12:18
Heparin 4,000 units IV NOW STA
01/17/24 12:24
Ticagrelor [Brilinta] 180 mg PO ONCE ONE
01/17/24 12:25
Aspirin Chewable [Low Strength Aspirin] 324 mg PO NOW STA
01/17/24 12:29
Verapamil Injectable [Isoptin/Verapamil Injection] 5 mg .ROUTE .STK-MED ONE
01/17/24 12:30
Fentanyl Citrate/Pf [Sublimaze] 100 mcg .ROUTE .STK-MED ONE
Heparin 10,000 units .ROUTE .STK-MED ONE
Heparin 1000 Units/500 ml [Heparin] 1,000 units in 500 ml .ROUTE .STK-MED
Heparin Sodium,Porcine/Ns/Pf [Heparin 2000 Units/1000 ml] 2,000 unit in 1,000 ml .ROUTE .STK-MED
Lidocaine HCl/Pf [Xylocaine-Mpf 1% Vial] 100 mg .ROUTE .STK-MED ONE
Midazolam HCl [Versed] 2 mg .ROUTE .STK-MED ONE
Nitroglycerin [Tridil] 1,500 mcg .ROUTE .STK-MED ONE
Abnormal Lab Results
01/17/24
12:14
WBC 16.6 H 10^3/uL
(4.8-10.8)
RBC 4.42 L 10^6/uL
(4.70-6.10)
Hgb 12.5 L g/dL
(13.0-18.0)
Hct 37.0 L %
(39.0-52.0)
RDW 18.6 H %
(11.5-14.5)
Abs Immat Gran (auto) 0.1 H 10^3/uL
(0-0.05)
Absolute Neuts (auto) 13.8 H 10^3/uL
(1.4-6.5)
Absolute Monos (auto) 1.4 H 10^3/uL
(0.1-0.6)
Neutrophils % 83.4 H %
(42.2-75.2)
Lymphocytes % 7.2 L %
(20.5-51.1)
Sodium 132 L mmol/L
(135-145)
Chloride 86 L mmol/L
(98-107)
BUN 76 H mg/dl
(9-20)
Creatinine 6.0 H* mg/dL
(0.7-1.3)
Glucose 164 H mg/dl
(70-99)
AST 159 H U/L
(17-59)
Troponin I 24.300 H* ng/ml
01/17/24 12:14
01/17/24 12:14
Vital Signs
Initial and Last Documented VS:
Initial Vital Signs
Pulse Resp BP
64 20 117/86
01/17/24 12:08 01/17/24 12:08 01/17/24 12:08
Last Documented Vital Signs
Temp Pulse Resp BP Pulse Ox
97.6 F 58 17 112/63 95
01/17/24 12:21 01/17/24 12:30 01/17/24 12:30 01/17/24 12:30 01/17/24 12:30
MDM/Problems Addressed
MDM/Problems Addressed:
69-year-old male with significant cardiac history presenting for chest pain since last evening. Vital signs normal.
Patient had EKG in triage, concerning for STEMI, so STEMI alert called. On my evaluation, patient in no acute distress, however EKG does appear consistent with a STEMI, elevations in the precordial leads with depressions laterally. IV access
obtained, laboratory analysis sent. Will administer as/Brilinta/heparin. Did discuss with cardiac interventionalists on-call, Dr. Dixon who will come in for catheterization.
*EKG
Interpreted by ED Provider?: Yes
EKG Intrepretation Date: 01/17/24
EKG Intrepretation Time: 12:21
Interpretation: abnormal
Comparison EKG: changes noted
Heart Rate: 58
Rate: bradycardiac
Rhythm: sinus
[place]: right axis deviation
Interval: long QT
QRS Pattern: right bundle branch block
Ischemia: ST elevation
*Critical Care Note
Total Time (30-74mins, 75-104mins- exclusive of procedures): Not Applicable
ED Attending Note
-
Portions of this chart may have been created with voice recognition software.� Occasional wrong word or��sound alike� substitutions may have occurred due to the inherent limitations of voice recognition software.
Discharge Plan
Departure
Patient Disposition: Admit
Date of Disposition: 01/17/24
Time of Disposition: 12:38
Presentation/result/management discussed w/ accepting MD/DO: cardiology
Condition: Serious
Discharge Problem:
Chest pain, ST elevation (STEMI) myocardial infarction
Prescriptions:
No Action
rosuvastatin [Crestor] 40 MG tablet
40 mg PO HS
Qvar RediHaler 80 mcg/actuation HFA aerosol breath activated
2 inh INHALATION R BID
aspirin 81 mg Tablet,Delayed Release (Dr/Ec)
81 mg PO DAILY
amlodipine [Norvasc] 10 mg Tablet
10 mg PO HS
loratadine 10 mg Tablet
10 mg PO HS
Bosulif 100 mg Tablet
100 mg PO TID Qty: 0
omega 4-msd-khq-fish oil [Fish Oil] 1,200 (144-216) mg Capsule
1 cap PO HS
insulin glargine [Lantus Solostar U-100 Insulin] 100 unit/mL (3 mL) insulin pen
14 unit SC HS
furosemide 80 mg tablet
80 mg PO BID
acetaminophen [Tylenol 8 Hour] 650 mg Tablet Extended Release
650 - 1,300 mg PO Q8HPRN PRN (Reason: mild pain)
albuterol sulfate 90 mcg/actuation Hfa Aerosol Inhaler
2 puff INHALATION R QIDPRN PRN (Reason: sob)
calcium acetate(phosphat bind) 667 mg Capsule
1,334 mg PO MEALS
Visbiome 112.5 billion cell Capsule
1 cap PO DAILY
losartan 25 mg Tablet
25 mg PO QPM 30 Days Qty: 30 0RF
Rx Instructions:
Hold for SBP<100
insulin aspart U-100 100 unit/mL (3 mL) Insulin Pen
5 unit SC AC 30 Days Qty: 4.5 0RF
insulin glargine [Lantus Solostar U-100 Insulin] 100 unit/mL (3 mL) insulin pen
25 unit SC DAILY Qty: 0 0RF
doxazosin 2 mg Tablet
4 mg PO HS Qty: 0 0RF
Rx Instructions:
Hold for SBP<100
ProRenal 8 mg iron-800 mcg-1,000 unit tablet
1 tab PO DAILY
calcitriol 0.5 mcg capsule
1 mcg PO DAILY
Referrals:
Paz Vasquez MD [Family Provider] -
Interventions
Interventions:
*Risk Screen - Suicide Last Done: 01/17/24 12:11
*General Assessment Last Done: 01/17/24 12:11
*Neglect/Abuse Screening Last Done: 01/17/24 12:11
ED- Fall Risk Assessment Last Done: 01/17/24 12:15
*ED COVID-19 Vaccine History Last Done: 01/17/24 12:11
*Nursing Disposition Last Done: 01/17/24 12:35
ED- Cardiac Assessment Last Done: 01/17/24 12:15
Discharge Date and Time
Discharge Date/Time: 01/17/24 12:35
Print Language: [id number]
[2024-01-17] MEDS: HEPARIN 4000 UNITS IV (12:23)
[2024-01-17 12:26] LABS: % Basophils 0.2 % (0-2); % Eosinophils 0.1 % (0-6); % Immature Granulocytes 0.5 % (0-0.5); % Lymphocytes 7.2 % (20.5-51.1); % Monocytes 8.6 % (1.7-9.3); % Neutrophils 83.4 % (42.2-75.2); Absolute Immature Granulocytes 0.1 10^3/uL (0-0.05); Absolute Lymphocytes 1.2 10^3/uL (1.2-3.4); Absolute Monocytes 1.4 10^3/uL (0.1-0.6); Absolute Neutrophils 13.8 10^3/uL (1.4-6.5); Hemoglobin 12.5 g/dL (13.0-18.0); Mean Corp Hgb Conc. 33.8 g/dL (33.0-37.0); Mean Corpuscular Hgb 28.3 pg (27.0-31.0); Mean Corpuscular Volume 83.7 fL (80.0-94.0); Mean Platelet Volume 9.5 fL (7.4-10.4); Nucleated Red Blood Cells % 0 % (-); Platelet Count 206 10^3/uL (130-400); Red Blood Cell Count 4.42 10^6/uL (4.70-6.10); Red Cell Dist. Width 18.6 % (11.5-14.5); White Blood Cell Count 16.6 10^3/uL (4.8-10.8)
[2024-01-17 12:34] LABS: ALT (SGPT) 50 U/L (0-50); AST (SGOT) 159 U/L (17-59); Albumin 4.7 g/dl (3.5-5.0); Alkaline Phosphatase 67 U/L (38-126); Blood Urea Nitrogen 76 mg/dl (9-20); Calcium 8.9 mg/dl (8.4-10.2); Carbon Dioxide 30 mmol/L (22-30); Chloride 86 mmol/L (98-107); Estimated Creatinine Clearance 12 ml/min; Glucose 164 mg/dl (70-99); Potassium 4.2 mmol/L (3.5-5.1); Sodium 132 mmol/L (135-145); Total Bilirubin 0.8 mg/dl (0.2-1.3); Total Protein 7.1 g/dl (6.3-8.2); eGFR 9.37
--- NOTE | 2024-01-17 12:42 | CON.CAR ---
Addendum entered and electronically signed by Lobito Sandhu DO 01/17/24 14:15:
Update:
The patient was able to clarify his chest pain syndrome, stating that symptoms actually began Thursday evening (today is Thursday afternoon) but became worse on Thursday evening.
His chest pain is actually 2/10 at rest, 5-6/10 with deep inspiration.
During his cardiac catheterization, his troponin returned at 24.
LVEDP was 16 mmHg.
LVgram shows a dilated LV with inferolateral hypokinesis and a mildly reduced systolic function, LVEF 45%.
Coronary angiography showed FIRE MEDIC of the RCA, a 90% LAD lesion, a 70% LCx lesion and an occlusion of the dLCx into OM2.
The LAIRD to LAD and SVG to RCA grafts are widely patent.
The LRA to OM2 could not be identified and is presumed occluded.
An attempt was made to intervene on the OM2, the thinking being that the lesion appeared to be a FIRE MEDIC but might be acutely occluded, or more likely the lesion is a FIRE MEDIC and the LRA is acute occluded.
I was able to pass a Whisper wire partially into the OM2, but was never confident that I was not in a dissection plane. Clearly the dLCx/OM2 is chronically, totally occluded, which is consistent with his prior SPECT from 2021.
Furthermore, I was struck by the patient's relative hypoxia vs. his filling pressures. He required 4LNC to maintain SaO2 of 92%, out of proportion to an LVEDP of 16-20 mmHg.
Given his hypoxia with pleuritic chest pain, I elected to conclude the coronary angiography procedure and send the patient for a STAT CTPE.
The patient will be admitted to internal medicine.
I have reached out to the hospitalist and spoken with the patient's .
Original Note:
Consultation
Consultation Request
Date/Time Consultation Requested: 01/17/2024; 12:09
Date/Time Consultation Performed: 01/17/2024; 12:42
Requesting Provider: Diana Davala. D.O.
Performing Provider: Lobito Sandhu D.O.
Reason for Consultation: STEMI
Medical History
-
Chief Complaint: Chest Pain.
History of Present Illness:
69 y/o male with HTN, HLD, IDDM, ESRD on HD, CML and CAD s/p remote PCI to RCA/LCx and CABG x3 (LAIRD to LAD, LRA to OM, SVG to RPDA) in [address] Brasher presenting with an hour of chest pain. He feels it is similar to prior cardiac pain he
has had in the past, but does comment that his current pain is pleuritic. He rates his chest pain at 6/10. EKG shows ST segment elevation in the anterior leads with some lateral reciprocal changes. rn lab was activated and he was loaded with
aspirin, heparin and ticagrelor. Of note, the patient had a brief run of atrial fibrillation following TURP in July of this year, but is not currently maintained on therapeutic anticoagulation.
Prior stress test on 09/09/2021 shows a fixed defect in the basal inferolateral, basal inferior and mid inferolateral segments consistent with infarction.
Past Medical History
Past Medical History: Asthma, CAD, Cancer, HTN, Hypercholesterolemia, IDDM and DC
Past Surgical History: Orthopedic and Urological
Social History
Tobacco: Non-Smoker
Alcohol: None
Drug: None
Personal:
Living: With Family
Employment: Retired
Family History
Family History: Reviewed & Not Pertinent
Allergies / Home Medications
Allergy/AdvReac Type Severity Reaction Status Date / Time
atorvastatin Allergy reports Verified 01/17/24 12:02
muscle
weakness
clonidine Allergy Rash Verified 01/17/24 12:02
codeine Allergy Nausea / Verified 01/17/24 12:02
Vomiting
grass pollen Allergy Unknown Verified 01/17/24 12:02
house dust Allergy Unknown Verified 01/17/24 12:02
hydralazine Allergy Vomiting Verified 01/17/24 12:02
Penicillins Allergy Hives A Verified 01/17/24 12:02
CHILD
pollen extracts Allergy seasonal Verified 01/17/24 12:02
allergies
tree and shrub pollen Allergy nasal Verified 01/17/24 12:02
congestion
�Medication �Instructions �Recorded �Confirmed �Type
rosuvastatin 40 mg tablet (Crestor) 40 mg PO HS High cholesterol 03/11/21 01/17/24 History
beclomethasone dipropionate 80 2 inh inhalation R BID 12/01/21 01/17/24 History
mcg/actuation HFA breath activated Lung/breathing issues
aerosol (Qvar RediHaler)
aspirin 81 mg tablet,delayed 81 mg PO DAILY Blood clot 05/15/22 01/17/24 History
release prevention/tx
amlodipine 10 mg tablet (Norvasc) 10 mg PO HS Blood pressure 06/06/22 01/17/24 History
loratadine 10 mg tablet 10 mg PO HS Allergies 08/11/22 01/17/24 History
bosutinib 100 mg tablet (Bosulif) 100 mg PO TID CML ##0 04/15/23 01/17/24 History
omega 9-bjd-tmj-fish oil 1,200 mg 1 cap PO HS Supplement 04/27/23 01/17/24 History
(144 mg-216 mg) capsule (Fish Oil)
insulin glargine 100 unit/mL (3 14 unit SC HS Diabetes 06/18/23 11/23/23 History
mL) subcutaneous pen (Lantus
Solostar U-100 Insulin)
furosemide 80 mg tablet 80 mg PO BID Fluid 07/02/23 01/17/24 History
Retention/Swelling
Lactobac no.2-Bifidobac no.1-S. 1 cap PO DAILY 11/23/23 01/17/24 History
thermo 112.5 billion cell capsule
(Visbiome)
acetaminophen 650 mg 650 - 1,300 mg PO Q8HPRN PRN mild 11/23/23 01/17/24 History
tablet,extended release (Tylenol 8 pain
Hour)
albuterol sulfate 90 mcg/actuation 2 puff inhalation R QIDPRN PRN sob 11/23/23 01/17/24 History
aerosol inhaler
calcium acetate(phosphat bind) 667 1,334 mg PO MEALS 11/23/23 11/23/23 History
mg capsule
insulin aspart U-100 100 unit/mL 5 unit (0.05 mL) SC AC 30 days 11/30/23 Rx
(3 mL) subcutaneous pen #4.5 mL
insulin glargine 100 unit/mL (3 25 unit (0.25 mL) SC DAILY 11/30/23 11/23/23 Rx
mL) subcutaneous pen (Lantus Diabetes #0 mL
Solostar U-100 Insulin)
losartan 25 mg tablet 25 mg PO QPM 30 days #30 tabs 11/30/23 01/17/24 Rx
doxazosin 2 mg tablet 4 mg (2 x 2 mg) PO HS Blood 12/01/23 01/17/24 Rx
Pressure #0 tabs
calcitriol 0.5 mcg capsule 1 mcg PO DAILY 01/17/24 01/17/24 History
vit B complx, C-iron 8 mg-folic 1 tab PO DAILY 01/17/24 01/17/24 History
acid 800 mcg-D3 1,000 unit-zinc
tablet (ProRenal)
Review of Systems
-
History Source: Patient and Family
All other systems: Negative unless noted
Constitutional: No Symptoms
EENT: No Symptoms
Respiratory: No Symptoms
Cardiac: Chest Pain
Abdomen/GI: No Symptoms
: No Symptoms
Musculoskeletal: No Symptoms
Skin: No Symptoms
Neurological: No Symptoms
Physical Exam
Vital Signs
Temp Pulse Resp BP Pulse Ox
36.4 C 58 17 112/63 95
01/17/24 12:21 01/17/24 12:30 01/17/24 12:30 01/17/24 12:30 01/17/24 12:30
Lab Results
01/17/24 12:14
01/17/24 12:14
Physical Exam
General: Well Developed, Well Nourished, No Apparent Distress and Comfortable
HEENT: Normocephalic, Anicteric and Moist Mucous Membranes
Respiratory: Clear and Non Labored Respirations
Cardiac: S1/S2 and Regular Rhythm
Breast: Deferred by me
GI: Soft, Non Tender, Non Distended and Normal Bowel Sounds
Rectal: Deferred by Provider
Musculoskeletal: No Clubbing, No Cyanosis and No Edema
Skin: Warm and Dry
Neuro: AO x 3
Hematologic/Lymphatic: No Lymphadenopathy
Psych: Calm
Impression / Plan
-
69 y/o male with CML, HTN, HLD, IDDM, ESRD on HD, CAD s/p remote PCI and CABG (2019) presenting with chest pain and ST segment elevation on EKG concerning for STEMI.
#STEMI
-Urgent cardiac catheterization with ad hoc PCI.
-Consent is signed and on the chart.
-Further instructions to follow.
Data Reviewed
-
EKG: Tracing Personally Visualized and interpreted
Radiology: Report Reviewed by me
CT Scan: Report Reviewed by me
Medical Tests (Nuc Med, Echo etc): Image Personally Visualized and interpreted and Report Reviewed by me
Labs: Labs Reviewed by me
Old Records: Reviewed
--- NOTE | 2024-01-17 13:22 | HPS.HSE ---
Family Physician
-
Family Physician: Paz Vasquez
Chief Complaint
-
Chest pain increased with inspiration
History of Present Illness
69-year-old male presenting to the ED with 1 hour of chest pain [address] elevation in anterior leads. He also reports same pain last night worse with inspiration improved somewhat with rest. He was noted to be having a STEMI with
cardiology notified Dr. Sandhu. The patient was given loading dose aspirin, heparin and Brilinta. He was immediately taken to the [facility]. He has history of CAD/PCI to RCA/LCx and CABG x3 (LAIRD to LAD, LRA to OM, SVG to RPDA) in 2019 with
Sameera .
Patient had recent admission 11/22 - 12/01/2023 for uremia secondary to insufficient hemodialysis. Patient was also noted to have Enterococcus faecalis in urine on November 27, 2023 treated with antibiotics. He was started on Cozaar due to uncontrolled
hypertension and his doxazosin was increased to 4 mg at bedtime as he could not tolerate twice daily due to hypotension.
Past medical history CAD status post CABG, chronic heart failure preserved EF, factor V Leiden, HTN with HTN urgency, DM2, ESRD on dialysis, hypercalcemia, hyponatremia, CML, asthma, UTI with Enterococcus faecalis November 27, 2023
Medical History
Past Medical History
Past Medical History: Reports Other
Additional Past Medical History:
Factor V Leiden
GERD
Coronary artery disease
Asthma
Type 2 diabetes
BPH
Hyperlipidemia
Nephrotic syndrome
End-stage renal disease
Chronic heart failure
Kidney stones
CML
Past Surgical History: Reports Other
Additional Past Surgical History:
Coronary artery bypass graft x 3 PCI to RCA/LCx and CABG x3 (LAIRD to LAD, LRA to OM, SVG to RPDA) in [address] Brasher
Cardiac stent
Left ankle surgery x 2
Social History
Tobacco: Non-smoker
Alcohol: None
Drug: None
Personal:
Living: With Family
Employment: Retired
Family History
Family History: Other (Daughter at age 18 pulmonary embolism secondary to factor V Leiden)
Allergies / Home Medications
Allergies reflects when Allergies were last updated in [employer].
Home Medications with original date entered in [employer]
Allergy/Medication List:
Allergies
Allergy/AdvReac Type Severity Reaction Status Date / Time
atorvastatin Allergy reports Verified 11/23/23 08:47
muscle
weakness
clonidine Allergy Rash Verified 11/23/23 08:47
codeine Allergy Nausea / Verified 11/23/23 08:47
Vomiting
grass pollen Allergy Unknown Verified 11/23/23 08:47
house dust Allergy Unknown Verified 11/23/23 08:47
hydralazine Allergy Vomiting Verified 11/23/23 08:47
Penicillins Allergy Hives A Verified 11/23/23 08:47
CHILD
pollen extracts Allergy seasonal Verified 11/23/23 08:47
allergies
tree and shrub pollen Allergy nasal Verified 11/23/23 08:47
congestion
Home Medications
rosuvastatin 40 mg tablet (Crestor) 40 mg PO HS High cholesterol 03/11/21
beclomethasone dipropionate 80 mcg/actuation HFA breath activated aerosol (Qvar RediHaler) 2 inh inhalation R BID Lung/breathing issues 12/01/21
aspirin 81 mg tablet,delayed release 81 mg PO DAILY Blood clot prevention/tx 05/15/22
amlodipine 10 mg tablet (Norvasc) 10 mg PO HS Blood pressure 06/06/22
doxazosin 2 mg tablet 2 mg PO BID Blood Pressure 08/11/22
loratadine 10 mg tablet 10 mg PO HS Allergies 08/11/22
bosutinib 100 mg tablet (Bosulif) 100 mg PO TID CML ##0 04/15/23
omega 6-dwf-hei-fish oil 1,200 mg (144 mg-216 mg) capsule (Fish Oil) 1 cap PO HS Supplement 04/27/23
insulin glargine 100 unit/mL (3 mL) subcutaneous pen (Lantus Solostar U-100 Insulin) 14 unit SC HS Diabetes 06/18/23
insulin glargine 100 unit/mL (3 mL) subcutaneous pen (Lantus Solostar U-100 Insulin) 30 unit SC DAILY Diabetes 06/18/23
furosemide 80 mg tablet 80 mg PO BID Fluid Retention/Swelling 07/02/23
Lactobac no.2-Bifidobac no.1-S. thermo 112.5 billion cell capsule (Visbiome) 1 cap PO DAILY 11/23/23
acetaminophen 650 mg tablet,extended release (Tylenol 8 Hour) 650 - 1,300 mg PO Q8HPRN PRN mild pain 11/23/23
albuterol sulfate 90 mcg/actuation aerosol inhaler 2 puff inhalation R QIDPRN PRN sob 11/23/23
calcium acetate(phosphat bind) 667 mg capsule 1,334 mg PO MEALS 11/23/23
insulin aspart U-100 100 unit/mL (3 mL) subcutaneous pen (Novolog FlexPen U-100 Insulin aspart) 14 - 20 sliding scale dose SC DIRECTED 11/23/23
vitamin B complex and vitamin C no.20-folic acid 1 mg capsule (Renal Caps) 2 cap PO BID 11/23/23
Review of Systems
-
History Source: Patient and Family ( at bedside)
A 12 point ROS was completed and negative except as noted: Yes
Constitutional: Denies Fever or Fatigue
EENT: Denies Tearing or Mouth Pain
Respiratory: Denies Cough or Trouble Breathing
Cardiac: Reports Chest Pain (Increased with inspiration); Denies Diaphoresis, Palpitations or Syncope
Abdomen/GI: Denies Abdominal Pain, Nausea, Vomiting or Diarrhea
: Reports Other (Patient reports voids 3-4 times a day); Denies Dysuria, Frequency, Flank Pain, Incontinence or Difficulty Voiding
Musculoskeletal: Denies Joint Pain or Joint Swelling
Skin: Denies Itching or Rash
Neurological: Denies Dizzy, Headache or Weakness
Endocrine: Reports No Symptoms
Hematologic/Lymphatic: Reports No Symptoms
Psych: Reports Calm
Physical Exam
Vital Signs
Vital Signs
Temp Pulse Resp BP Pulse Ox
97.6 F 58 17 112/63 95
01/17/24 12:21 01/17/24 12:30 01/17/24 12:30 01/17/24 12:30 01/17/24 12:30
Physical Exam
General: Comfortable and Pain; No Fever or Chills
HEENT: NormoCephalic, Anicteric, PERRLA and [employer] Conjunctivae
Respiratory: Clear; No Wheezes or Rales
Cardiac: S1/S2 and Regular Rhythm; No Murmur, Rub, Gallop or Peripheral Edema
Breast: Deferred by me
GI: Soft, Non Tender, Non Distended, Normal Bowel Sounds and No Hepatosplenomegaly
Genito-urinary: Deferred by me
Musculoskeletal: No Clubbing, No Cyanosis and No Edema
Skin: Warm, Dry and Other (Right femoral artery cath approach); No Rash or Jaundice
Neuro: AO x 3, No Motor Deficits, Nonfocal/grossly intact, Cranial Nerves Intact and No Sensory Deficits; No Slurred Speech, Facial Droop or Tremors
Psych: Calm
Laboratory Results
-
01/17/24 12:14
01/17/24 12:14
Laboratory Results
Total Bilirubin 0.8 mg/dl (0.2-1.3) 01/17/24 12:14
AST 159 U/L (17-59) H 01/17/24 12:14
ALT 50 U/L (0-50) 01/17/24 12:14
Alkaline Phosphatase 67 U/L (38-126) 01/17/24 12:14
Troponin I 24.300 ng/ml H* 01/17/24 12:14
Impression/Plan
-
Impression/plan:
Admit to IVU
#STEMI
#CAD/CABG-PCI to RCA/LCx and CABG x3 (LAIRD to LAD, LRA to OM, SVG to RPDA) in [address] Brasher
Troponin 24, repeat troponin 20 will trend
-Given aspirin 324 mg now
-Heparin 4000 units bolus given in ER
-Brilinta 180 mg once given in ER
-Continue aspirin 81 mg daily
-Continue Crestor 40 mg at bedtime
-continue aspirin 81 mg daily
-Consult [facility] cardiology
-Check 2D echo
-Limited weightbearing x 1 week, right femoral artery cath approach was completed
EKG with ST elevation in anterior leads, prolonged QTc 522 MS, Hx RBBB incomplete
[facility] report 01/17/2024:
1.Right dominant circulation with a chronic total occlusion of the ostial RCA, a 70% lesion in the proximal LAD progressing to 90% at its Zenith in the mid LAD, a 50% lesion in the proximal third of the diagonal, a 60-70% lesion in the distal aspect
of the proximal circumflex leading into OM1 with a chronic total occlusion of the mid circumflex into OM 2, status post prior coronary artery bypass grafting (patent LARID to LAD, patent SVG to RPDA, occluded LRA to OM 2).
2. Unsuccessful attempt to wire OM 2, confirming that this was a chronic total occlusion.
3. Relative hypoxia given filling pressures, high concern for pulmonary embolism given pleuritic chest pain.
2D echo 04/29/2023: EF 50-55%, no wall normalities, trace MR, trace TR, pulm arterial pressure 37 mmHg
Stress test 09/10/2023 showed fixed defect in the basal inferior lateral, basal inferior and mid inferior lateral segments consistent
with infarction
#Chest pain concern for PE
#History factor V Leiden
-Will check CT PE study today
-Continue IV heparin drip as above
#History of brief run A-fib following TURP July 2023
-Not currently on anticoagulation per cardiology notes
# End-stage renal disease on dialysis at home 5 days a week
Patient reports VOIDS 3-4 times a day
Hx hyponatremia/hypercalcemia
NA 132, calcium 8.9
-Continue Calcitrol 1 mcg p.o. daily, calcium acetate 1334 mg with meals, losartan 25 mg every afternoon
-Consult Nephrology-discussed with Dr. COOLEY who will dialyze while here Thursday
#DM 2
Accu-Cheks with SSI, check HgbA1c
-Nursing to confirm patient's Lantus dose and insulin aspart
#Hx of CML
WBC 16.6 > 12.578 2023 although baseline 12-18 in 2023
#HLD
Check lipid profile
Continue Crestor 40 mg at bedtime
# HTN�benign hypertension urgency hx
-Continue hydralazine, Norvasc 10 mg at bedtime, losartan 25 mg every afternoon
#Urinary tract infection November 27, 2023
-hx of Enterococcus faecalis treated with cefdinir
#Chronic HFpEF
-not in acute exacerbation
-- Hold Lasix today
-Would resume Lasix 80 mg twice daily tomorrow 01/18/2024 post dialysis if blood pressure stable
.-fluid restriction
-strict I&O
-daily weight
#BPH: cont Doxazosin 8 mg at bedtime
#Asthma-no acute exacerbation
-nebs from home continued
DVT prophylaxis
IV heparin drip
Full code
[2024-01-17 13:45] LABS: ACT-LR - POC 340 Seconds (116-155)
--- NOTE | 2024-01-17 14:15 | ITS.CL.CATH ---
[facility] - Catheterization
Cardiac Catheterization
Procedure Report:
CARDIAC CATHETERIZATION REPORT
Date of Procedure: 01/17/2024
Referring: Diana Celeste D.O.
INDICATION: ST elevation myocardial infarction.
PROCEDURE:
1. Left heart catheterization.
2. Coronary angiography.
3. Bypass angiography.
4. Left ventriculography.
5. Failed attempt at circumflex revascularization.
ACCESS:
6 Marshallese right common femoral artery using a modified Seldinger technique with a micropuncture kit under ultrasound guidance.
CATHETERS:
1. 5 Marshallese JR4.
2. 5 Marshallese JL 4.
3. 5 Marshallese JIMENA.
4. 5 Marshallese AL-1.
5. 5 Marshallese angled pigtail.
6. 6 Marshallese EBU 4.0 guiding catheter.
HEMODYNAMIC DATA
Weight (kg): 77.8
AO (s/d/x, mmHg): 122/62/87
LV (s/x mmHg): 124/17
LEFT VENTRICULOGRAPHY: Performed in an RABAGO projection. Dilated left ventricle with hypokinesis of the mid and distal inferior/inferolateral wall with mildly reduced systolic function. LV ejection fraction estimated at 45%. There is no mitral
valve regurgitation. There is no aortic valve insufficiency. The aortic root is normal. The ascending aorta is mild to moderately dilated. The visualized descending aorta appears normal.
CORONARY ANGIOGRAPHY
Dominance: Right.
Left Main: Normal size, trifurcating vessel. There is no coronary artery disease.
LAD: Normal size vessel giving rise to a single significant diagonal. There is a 70% lesion beginning in the proximal LAD which progresses to a 90% lesion at its Zenith, spanning the origin of the diagonal. There is a 50% lesion in the proximal
third of the diagonal. The distal vessel is supplied by patent LAIRD graft.
Ramus: Small size vessel supplying the anterolateral wall. There are minor luminal irregularities.
Circumflex: Normal size, nondominant vessel giving rise to 2 obtuse marginals. There is a 60-70% lesion in in the distal aspect of the proximal circumflex leading into OM1. The mid circumflex between OM1 and OM 2 has MAYA I flow, becoming
occluded just before the origin of OM 2.
RCA: Normal size, dominant vessel with a substantial posterolateral arcade. The vessel is chronically totally occluded at its origin.
BYPASS GRAFT ANGIOGRAPHY
LAIRD to LAD: Normal size graft with end-to-side anastomosis to the mid LAD. There is no evidence of stenosis or graft degeneration.
SVG to dRCA Normal size graft with end-to-side anastomosis to the RPDA which backfills the right posterolateral branch. There is no evidence of stenosis or graft degeneration. Of note, there is a 90% lesion in the distal RCA right at the junction
of the RPDA and RPL.
LRA to OM 2: Not visualized on angiography or left ventriculography with aortic visualization. Presumed to be occluded.
INTERVENTION(S)
1. Unsuccessful attempt to wire the second obtuse marginal, confirming chronic total occlusion.
Narrative:
The decision was made to attempt percutaneous coronary intervention. The diagnostic catheter was removed over a wire and a 6Fr EBU 4.0 guiding catheter was advanced to the aortic root and seated in the left main coronary artery. Additional heparin
was given and a Power Turn Flex wire was advanced into the distal circumflex. The wire buckled when it reached the area of occlusion in the circumflex proximal to OM 2. Several attempts were made with a power turn flex wire without any successful
forward progress. A quick cross microcatheter was advanced over the power turn flex wire for support. Unfortunately, this did not change the wires inability to cross the lesion.
The power turn flex wire was withdrawn and a whisper wire was advanced through the quick cross microcatheter with a 2 mm 45 degree bend, ideal for traversing MEDIA RELATIONS SPECIALIST's and channel surfing. With this wire, I was able to advance into the more distal
circumflex/OM 2. However, the wire tip was never free and I was concerned that the wire may have entered a dissection plane. The wire was withdrawn and angiography was performed through the quick cross. This did show the anatomy and course of the
second obtuse marginal, but confirmed that the lesion was chronically totally occluded. Given the relative small nature of the second obtuse marginal, the decision was made to end the procedure at this time. A final angiogram showed continued
patency of the circumflex into OM 1 without evidence of dissection or perforation in the distal vessel.
Closure Device: 6 Marshallese Angio-Seal.
Radiation (mGy): 1376.16
DAP (cm2.Gy): 110.79
Fluoroscopy time (minutes): 21.2
Sedation time (minutes): 65
CONCLUSIONS
1. Right dominant circulation with a chronic total occlusion of the ostial RCA, a 70% lesion in the proximal LAD progressing to 90% at its Zenith in the mid LAD, a 50% lesion in the proximal third of the diagonal, a 60-70% lesion in the distal
aspect of the proximal circumflex leading into OM1 with a chronic total occlusion of the mid circumflex into OM 2, status post prior coronary artery bypass grafting (patent LAIRD to LAD, patent SVG to RPDA, occluded LRA to OM 2).
2. Unsuccessful attempt to wire OM 2, confirming that this was a chronic total occlusion.
3. Relative hypoxia given filling pressures, high concern for pulmonary embolism given pleuritic chest pain.
RECOMMENDATIONS:
1. Expectant management after cardiac catheterization via right common femoral approach.
2. Limited weight bearing for one week.
3. Medical management of likely LRA occlusion.
4. Stat CT PE protocol.
5. Echocardiogram.
6. Guideline directed medical therapy as hemodynamics will tolerate.
7. Volume management with hemodialysis. Nephrology consult.
8. Aggressive secondary risk factor modification.
Copy to: Diana Celeste D.O., Paz Vasquez M.D., Madeleine Watts M.D.
Lobito Sandhu DO, FACC, FACP
--- NOTE | 2024-01-17 14:37 | W.CON.NEPH ---
Consultation
-
Date/Time Consultation Requested: 01/17/2024 2:20PM
Date/Time Consultation Performed: 01/17/2024 2:45PM
Requesting Provider: Leslie Pierec
Performing Provider: Kyleigh Baldwin
Reason for Consultation: ESRD on HD
Medical History
-
Chief Complaint: End-stage renal disease/hypertension
History of Present Illness:
This is a 69-year-old gentleman who is well-known to us for his chronic kidney disease with ESRD now on dialysis at home 5 times nightly. He dialyzes via his AV fistula and his last dialysis was completed last on . He has diabetes mellitus
type 2 with multiple complications and is maintained insulin.� He also has known coronary artery disease with CABG in the past.� He has a history of hypertension maintained on amlodipine and doxazosin. His current estimated dry weight on dialysis
has been 70.5 kg. He presents today for chest pain with ST elevation in anterior leads. He was found to have a STEMI and brought to manager cath lab. We are consulted for management of ESRD
Past Medical History
ESRD, heart failure preserved ejection fraction, coronary disease with bypass, hypertension, diabetes mellitus type 2, nephrolithiasis, left upper extremity AV fistula, BPH, GERD, vocal polyps, CML, cervical radiculopathy, right Achilles tendon
repair, cataract surgery, tenosynovectomy, wisdom teeth extraction.
Past Surgical History: Other (Coronary artery bypass graft x 3 PCI to RCA/LCx and CABG x3 (LAIRD to LAD, LRA to OM, SVG to RPDA) in [address] Brasher Cardiac stent Left ankle surgery x 2)
Social History
Tobacco: Non-Smoker
Alcohol: None
Drug: None
Living: With Family
Family History
Family History: Not Pertinent
Allergies / Home Medications
Allergy/AdvReac Type Severity Reaction Status Date / Time
atorvastatin Allergy reports Verified 01/17/24 12:02
muscle
weakness
clonidine Allergy Rash Verified 01/17/24 12:02
codeine Allergy Nausea / Verified 01/17/24 12:02
Vomiting
grass pollen Allergy Unknown Verified 01/17/24 12:02
house dust Allergy Unknown Verified 01/17/24 12:02
hydralazine Allergy Vomiting Verified 01/17/24 12:02
Penicillins Allergy Hives A Verified 01/17/24 12:02
CHILD
pollen extracts Allergy seasonal Verified 01/17/24 12:02
allergies
tree and shrub pollen Allergy nasal Verified 01/17/24 12:02
congestion
�Medication �Instructions �Recorded �Confirmed �Type
rosuvastatin 40 mg tablet (Crestor) 40 mg PO HS High cholesterol 03/11/21 01/17/24 History
beclomethasone dipropionate 80 2 inh inhalation R BID 12/01/21 01/17/24 History
mcg/actuation HFA breath activated Lung/breathing issues
aerosol (Qvar RediHaler)
aspirin 81 mg tablet,delayed 81 mg PO DAILY Blood clot 05/15/22 01/17/24 History
release prevention/tx
amlodipine 10 mg tablet (Norvasc) 10 mg PO HS Blood pressure 06/06/22 01/17/24 History
loratadine 10 mg tablet 10 mg PO HS Allergies 08/11/22 01/17/24 History
bosutinib 100 mg tablet (Bosulif) 100 mg PO TID CML ##0 04/15/23 01/17/24 History
omega 1-vco-abt-fish oil 1,200 mg 1 cap PO HS Supplement 04/27/23 01/17/24 History
(144 mg-216 mg) capsule (Fish Oil)
insulin glargine 100 unit/mL (3 14 unit SC HS Diabetes 06/18/23 11/23/23 History
mL) subcutaneous pen (Lantus
Solostar U-100 Insulin)
furosemide 80 mg tablet 80 mg PO BID Fluid 07/02/23 01/17/24 History
Retention/Swelling
Lactobac no.2-Bifidobac no.1-S. 1 cap PO DAILY 11/23/23 01/17/24 History
thermo 112.5 billion cell capsule
(Visbiome)
acetaminophen 650 mg 650 - 1,300 mg PO Q8HPRN PRN mild 11/23/23 01/17/24 History
tablet,extended release (Tylenol 8 pain
Hour)
albuterol sulfate 90 mcg/actuation 2 puff inhalation R QIDPRN PRN sob 11/23/23 01/17/24 History
aerosol inhaler
calcium acetate(phosphat bind) 667 1,334 mg PO MEALS 11/23/23 11/23/23 History
mg capsule
insulin aspart U-100 100 unit/mL 5 unit (0.05 mL) SC AC 30 days 11/30/23 Rx
(3 mL) subcutaneous pen #4.5 mL
insulin glargine 100 unit/mL (3 25 unit (0.25 mL) SC DAILY 11/30/23 11/23/23 Rx
mL) subcutaneous pen (Lantus Diabetes #0 mL
Solostar U-100 Insulin)
losartan 25 mg tablet 25 mg PO QPM 30 days #30 tabs 11/30/23 01/17/24 Rx
doxazosin 2 mg tablet 4 mg (2 x 2 mg) PO HS Blood 12/01/23 01/17/24 Rx
Pressure #0 tabs
calcitriol 0.5 mcg capsule 1 mcg PO DAILY 01/17/24 01/17/24 History
vit B complx, C-iron 8 mg-folic 1 tab PO DAILY 01/17/24 01/17/24 History
acid 800 mcg-D3 1,000 unit-zinc
tablet (ProRenal)
Review of Systems
-
History Source: Patient and Family
All other systems: Negative unless noted
Constitutional: Fatigue
Cardiac: Chest Pain
Physical Exam
Vital Signs
Vital Signs
Temp Pulse Resp BP Pulse Ox
97.6 F 58 17 112/63 95
01/17/24 12:21 01/17/24 12:30 01/17/24 12:30 01/17/24 12:30 01/17/24 12:30
Lab Results
WBC 16.6 10^3/uL (4.8-10.8) H 01/17/24 12:14
RBC 4.42 10^6/uL (4.70-6.10) L 01/17/24 12:14
Hgb 12.5 g/dL (13.0-18.0) L 01/17/24 12:14
Hct 37.0 % (39.0-52.0) L 01/17/24 12:14
Plt Count 206 10^3/uL (130-400) 01/17/24 12:14
Sodium 132 mmol/L (135-145) L 01/17/24 12:14
Potassium 4.2 mmol/L (3.5-5.1) 01/17/24 12:14
Chloride 86 mmol/L (98-107) L 01/17/24 12:14
Carbon Dioxide 30 mmol/L (22-30) 01/17/24 12:14
BUN 76 mg/dl (9-20) H 01/17/24 12:14
Creatinine 6.0 mg/dL (0.7-1.3) H* 01/17/24 12:14
eGFR 9.37 01/17/24 12:14
Glucose 164 mg/dl (70-99) H 01/17/24 12:14
Calcium 8.9 mg/dl (8.4-10.2) 01/17/24 12:14
Albumin 4.7 g/dl (3.5-5.0) 01/17/24 12:14
Physical Exam
General: AOx3, No Distress and Nontoxic
HEENT: PERRL, EOMI and Anicteric
Respiratory: Clear
Cardiac: S1/S2, Regular Rate/Rhythm and No Edema
Breast: N/A
Abdomen: Soft, Nontender, Nondistended, Normal Bowel Sounds and No Hepatosplenomegaly
Rectal: Deferred by Provider
Musculoskeletal: No Clubbing, No Cyanosis and No Edema
Skin: No Rash, Warm, Dry, No Clubbing, No Cyanosis, Normal Turgor and No Bruising
Neuro: Nonfocal/Grossly Intact
Hematologic/Lymphatic: No Cervical Lymphadenopathy
Psych: Mood/afflect pleasant
Vascular Access: AVG
Data Reviewed
-
Medical Tests (Nuc Med, Echo etc): Image Personally Visualized and interpreted (STEMI in anterior leads)
Labs: Labs Reviewed by me
Old Records: Reviewed
Assessment/Plan
-
Impression:
ESRD (home 5 days weekly)
STEMI
Uncontrolled hypertension
Hyponatremia
Left upper extremity AV fistula
Diabetes
History of coronary artery disease with previous CABG
BPH/TURP
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
Plan:
HD tomorrow for MWF therapy while in the hospital
will require lower BFR due to cardiac issues
renal diet
[2024-01-17] MEDS: DILAUDID 0.25 MG IV ×2 (15:05→20:15)
--- NOTE | 2024-01-17 15:05 | W.PN.UPDATE ---
Update Note
Progress Note Update
Seen and examined and discussed with physician in detail I am in agreement with plan and management mentioned by physician as
Patient seen and evaluated after cardiac catheterization is awake, alert and oriented x 3 and hold appropriate conversation at the bedside, presented to the hospital complaining of recurrent episodes of centrally located chest pain started
yesterday evening initially yesterday lasted around 2 hours eventually went away and this morning he woke up with the same pain, admit was moderately severe, denies associated sweating or nausea or vomiting denied any recent travel or cough or
congestion or shortness of breath, EKG show ST elevation TX in anterior leads as well as troponin was extremely elevated taken to cardiac cath where her multiple blockage new on old as discussed with cardiology were not able to stent opening any of
the blockage. With a known history of the factor V deficiency not anticoagulated and been hypoxic then PE may need to be considered rule out.
Patient on home hemodialysis 5 days a week,
Vital signs reviewed
Physical exam:
General: Awake, alert and oriented x3, not in distress and holds appropriate conversation.
HEENT: No active discharge, ecchymosis or bruising, moist lips, tongue and mucous membrane.
Eyes: No discharge or red conjunctiva, no nystagmus, pupils are reactive and equal
Neck:Supple, no JVD no bruit no goiter.
Respiratory: Normal AP contour and diameter, normal chest wall movement, normal respiratory effort, no respiratory distress,
Lungs: Good air entry bilaterally, no wheezing or rhonchi, no rales or crackles
Heart: S1, S2 regular, normal rate, no added sound.
Gastrointestinal: Positive bowel sounds, soft, nontender, no guarding or rigidity or organomegaly
Musculoskeletal: Left arm AV graft, no chest wall abnormality or tenderness. All joints and extremities have good range of motion, no muscle tenderness or any joint swelling or tenderness.
Extremities: No pitting edema, good peripheral pulses, good range of motion
Skin: Warm and dry, no ulceration, normal color.
Neurological: Awake, alert and oriented x3, speech clear and comprehensive, good muscle tone, normal sensory and motor function
Psychiatric: Normal mood, normal thought and judgment, normal affect,
Workup including labs, imaging, EKG and archive reviewed.
Assessment and plan:
ST elevation TX, postcardiac cath today of multiple blockage including the graft to OM or 2. Cardiology is not able to open it or even stented.
For now continue heparin drip for 48-hour with monitor for bleeding
CTA chest to rule out pulm embolism with known history of factor V deficiency
Cardiac monitoring
Recheck labs including troponin
Continue aspirin, statin
Chest pain: As above
Coronary artery disease status post graft
Aspirin/statin
Not on rate limiting medication because of bradycardia.
Diabetes mellitus: Continue insulin Glucoscan
End-stage renal disease on home hemodialysis 5 days a week
Nephrology consult
Rest of the assessment and management as per detailed H&P by physician assistant terminal manager
All discussed with the patient and the family
Discussed with physician assistant terminal manager
Discussed with the behavioral services tech
Discussed with the nurse
[2024-01-17] MEDS: HEPARIN 25000 UNITS/250 ML IV (15:16)
[2024-01-17 15:37] LABS: Glucose - Point of Care 127 mg/dl (70-99)
[2024-01-17] MEDS: NOVOLOG FLEXPEN-LOW RESISTANCE SC (16:49)
[2024-01-17] MEDS: COZAAR 25 MG PO (17:23)
--- NOTE | 2024-01-17 17:27 | PTCARENOTE ---
Pt received post cath at 1514. Pt continues with chest discomfort, worse with a deep breath. Medicated with Dilaudid as ordered with partial relief. Denies any sob, room air sat 97%. Heparin started as ordered. Pt transported to CT scan for chest
CT.
[2024-01-17] MEDS: MYLICON 80 MG PO (20:14)
[2024-01-17] MEDS: FLUSH (NSS) 1 FLUSH IV (20:15)
[2024-01-17 21:40] LABS: APTT 33.5 Sec (23.4-35.0)
[2024-01-17 21:45] LABS: Glucose - Point of Care 215 mg/dl (70-99)
[2024-01-17] MEDS: CRESTOR 40 MG PO (21:45)
[2024-01-17] MEDS: CARDURA 4 MG PO (21:45)
[2024-01-17] MEDS: CLARITIN 10 MG PO (21:45)
[2024-01-17] MEDS: LANTUS 0.15 UNITS SC (21:45)
[2024-01-17] MEDS: NORVASC PO (21:48)
--- NOTE | 2024-01-17 22:00 | PTCARENOTE ---
Received pt at handoff. AOX3 and pleasant. R groin is c/d/i. Pt is ambulatory OOB w/ standby assist. Pt c/o CP 10/01. Dilaudid administered per order. Pt reports pain relief acceptable to his level. Heparin gtt infusing at 950 units/hr. POC reviewed
w/ pt. Verbalizes understanding. Currently in bed; call rina w/in reach.
[2024-01-18] VITALS (21 sets, daily range): BP systolic 100–156; BP diastolic 48–81; BMI 24.4
--- NOTE | 2024-01-18 00:51 | PTCARENOTE ---
Pt taken down to ultrasound via stretcher and RN assist. Pt tolerated. Currently in bed; call rina w/in reach.
[2024-01-18] MEDS: PERCOCET 5/325 1 TABLET PO ×2 (00:59→07:36)
[2024-01-18 03:55] LABS: Hematocrit 32.2 % (39.0-52.0); Hemoglobin 11.3 g/dL (13.0-18.0); Mean Corp Hgb Conc. 35.1 g/dL (33.0-37.0); Mean Corpuscular Hgb 28.8 pg (27.0-31.0); Mean Corpuscular Volume 82.1 fL (80.0-94.0); Mean Platelet Volume 9.6 fL (7.4-10.4); Platelet Count 177 10^3/uL (130-400); Red Blood Cell Count 3.92 10^6/uL (4.70-6.10); Red Cell Dist. Width 18.8 % (11.5-14.5); White Blood Cell Count 13.7 10^3/uL (4.8-10.8)
[2024-01-18 04:10] LABS: APTT 95.1 Sec (23.4-35.0)
[2024-01-18 04:21] LABS: Blood Urea Nitrogen 84 mg/dl (9-20); Calcium 8.1 mg/dl (8.4-10.2); Carbon Dioxide 22 mmol/L (22-30); Chloride 89 mmol/L (98-107); Estimated Creatinine Clearance 10 ml/min; Glucose 191 mg/dl (70-99); HDL Cholesterol 41 mg/dl; LDL Cholesterol, Calculated 24 mg/dl; Potassium 4.3 mmol/L (3.5-5.1); Sodium 130 mmol/L (135-145); Total Cholesterol 82 mg/dl (50-199); Triglyceride 88 mg/dl (10-149); Very Low Density Lipoprotein 17 mg/dl (0-30); eGFR 8.06
[2024-01-18 07:10] LABS: Glucose - Point of Care 191 mg/dl (70-99)
[2024-01-18] MEDS: VISBIOME 1 CAP PO (07:36)
[2024-01-18] MEDS: ASPIR LOW (ENTERIC COATED) 81 MG PO (07:36)
[2024-01-18] MEDS: NEPHROCAP PO (07:38)
--- NOTE | 2024-01-18 08:17 | W.PN.CARDCBS ---
Addendum entered and electronically signed by Amarilis Castillo DO 01/18/24 11:08:
I saw and examined the patient.
The Business Services Analyst's note was reviewed and I agree with the note.
Comment: Patient seen and examined during dialysis. Overall feels better with resolved chest pain. No shortness of breath at rest.
GEN: No distress, awake, alert, oriented x3
HEENT: supple, anicteric, mmm
LUNGS: CTA, no wheezes/rales
CV: Reg with ectopy noted, S1/S2, no murmur
CHEST: Dialysis port right anterior chest
EXT: No edema, clubbing or cyanosis
NEURO: Gross non-focal
Plan:
-Presented with chest pain and ST segment elevation on EKG concerning for STEMI.
-Taken urgently to hatchery laborer and found to have ART HANDLER of mid circumflex into OM2 as well as occluded LRA to OM2. Unsuccessful attempt to wire OM2, confirming ART HANDLER.
-Plan is for medical management. Continue aspirin and IV heparin gtt for now.
-Eventually add plavix 75mg daily with stopping heparin.
-Factor V Leiden noted-No personal history of thromboembolic disease. Patient was tested after his daughter had a blood clot and tested positive for factor V Leiden. Unclear if he is home or heterozygous. CTA negative for PE
- Hgb stable at 11.3
-Troponin elevated, up to 27.1 in AM 01/17. Continue to trend to peak.
-Echo pending 01/17.
-BP stable, continue amlodipine, doxazosin, and losartan.
-CT of chest negative for PE. LE US negative for DVT.
-Continue crestor 40mg daily. LDL 24.
-HD today, continue MWF while hospitalized.
-Hgb A1c pending.
Original Note:
Today's Communication / Plan
-
HD today
Echo today
Continue IV heparin for now
Impression / Plan
-
Primary Crew Team Member: Dr. LEAH Watts
Assessment:
Presented with chest pain
Concern for STEMI on EKG
CAD
s/p inferior wall [place] in 1997 with circ PCI
in-stent restenosis of circ resulting in PTCA 2004
CABG x3 2018
Chronic HFpEF
PVCs
HLD
DM2
ESRD on HD as of 04/2023
CML
Factor V Leiden
Asthma
R renal mass, felt most likely to be cyst
L kidney stones s/p lithotripsy in past
ECHO 04/29/23: EF 50 to 55%, mild biatrial dilatation, trace TR, PAP 37 mmHg
Echo 01/18/2024: Study pending
Plan:
-Presented with chest pain and ST segment elevation on EKG concerning for STEMI.
-Taken urgently to hatchery laborer and found to have ART HANDLER of mid circumflex into OM2 as well as occluded LRA to OM2. Unsuccessful attempt to wire OM2, confirming ART HANDLER.
-Plan is for medical management. Continue aspirin and IV heparin gtt for now.
-Eventually add plavix 75mg daily with stopping heparin. Factor V Leiden noted. Hgb stable at 11.3
-Troponin elevated, up to 27.1 in AM 01/17. Continue to trend to peak.
-Echo pending 01/17.
-BP stable, continue amlodipine, doxazosin, and losartan.
-CT of chest negative for PE. LE US negative for DVT.
-Continue crestor 40mg daily. LDL 24.
-HD today, continue MWF while hospitalized.
-Hgb A1c pending.
Progress Note - Crew Team Member
Subjective
Date of Service: January 18, 2024
Still w/ mild chest pain, however is improving.
Objective
Labs:
01/18/24 03:35
01/18/24 03:35
Labs
Hgb 11.3 g/dL (13.0-18.0) L 01/18/24 03:35
Hct 32.2 % (39.0-52.0) L 01/18/24 03:35
Plt Count 177 10^3/uL (130-400) 01/18/24 03:35
APTT 95.1 Sec (23.4-35.0) H 01/18/24 03:35
Sodium 130 mmol/L (135-145) L 01/18/24 03:35
Potassium 4.3 mmol/L (3.5-5.1) 01/18/24 03:35
BUN 84 mg/dl (9-20) H 01/18/24 03:35
Creatinine 6.8 mg/dL (0.7-1.3) H* 01/18/24 03:35
Glucose 191 mg/dl (70-99) H 01/18/24 03:35
Troponins
01/17/24 01/17/24 01/17/24
12:14 13:54 21:23
Troponin I 24.300 H* 20.900 H* 26.000 H*
01/18/24
03:35
Troponin I 27.100 H*
Vital Signs and I&O:
Vital Signs
Temp Pulse Resp BP Pulse Ox
98.7 F 58 16 100/55 94
01/18/24 06:58 01/18/24 03:18 01/18/24 06:58 01/18/24 03:18 01/18/24 06:58
Vital Signs
Temp Pulse Resp BP Pulse Ox
98.7 F 58 16 100/55 94
01/18/24 06:58 01/18/24 03:18 01/18/24 06:58 01/18/24 03:18 01/18/24 06:58
Intake & Output
01/16/24 01/17/24 01/18/24 01/19/24
06:59 06:59 06:59 06:59
Output Total 150 / 150
Balance -150 / -150
Physical Exam
Physical Exam
GEN: No distress, awake, alert, oriented x3
HEENT: supple, anicteric, mmm
LUNGS: CTA, no wheezes/rales
CV: Reg with ectopy noted, S1/S2, no murmur
CHEST: Dialysis port right anterior chest
EXT: No edema, clubbing or cyanosis
NEURO: Gross non-focal
SKIN: No rash, warm, dry
--- NOTE | 2024-01-18 08:26 | PTCARENOTE ---
Pt c/o chest discomfort this morning, rated 5/10, med with Percocet 1 tab po, as ordered, with relief noted.
[2024-01-18] MEDS: LANTUS 0.07 UNITS SC (08:42)
[2024-01-18] MEDS: NOVOLOG FLEXPEN-LOW RESISTANCE 1 UNITS SC (08:42)
[2024-01-18 10:27] LABS: Glycohemoglobin (HgbA1c) 7.7 % (4.0-5.6)
--- NOTE | 2024-01-18 10:32 | W.PN.NEPH.HD ---
Assessment
-
Seen on HD. no complaints. VSS, access ok
Progress Note - Hemodialysis
-
Date of Service: January 18, 2024
Duration: 30 minutes and 3 hours
Potassium Bath: 4
Calcium Bath: 2.5
Opti-Dialyzer: 160
Ultrafiltration: Other (2kg)
Dialysate Flow: 600
Heparin: no
EPO: no
[2024-01-18 10:48] LABS: APTT 107.6 Sec (23.4-35.0)
[2024-01-18 12:29] LABS: Glucose - Point of Care 127 mg/dl (70-99)
[2024-01-18] MEDS: NOVOLOG FLEXPEN-LOW RESISTANCE SC (12:35)
--- NOTE | 2024-01-18 12:45 | CM ---
Addendum entered by Michelle Cole RN 01/18/24 16:25:
[facility] Patient is not interested in VN.
Original Note:
Chart reviewed. Patient was getting bedside HD. Patient is independent of ADLS, lives with his in a [address], [address], 0 DME but has a SPC an RW at home. Patient is ESRD with Home HD 5x/week. Patient received Home PT and Home OT, unsure of
through with who. Patient's will be in later today. I will follow up with her. Plan is for the patient to return home. CM to follow
[2024-01-18] MEDS: HEPARIN 25000 UNITS/250 ML IV (13:33)
[2024-01-18 17:30] LABS: Glucose - Point of Care 270 mg/dl (70-99)
[2024-01-18] MEDS: COZAAR 25 MG PO (17:47)
[2024-01-18] MEDS: NOVOLOG FLEXPEN-LOW RESISTANCE 3 UNITS SC (17:48)
--- NOTE | 2024-01-18 18:20 | PTCARENOTE ---
Addendum entered by Arina Luna RN 01/18/24 18:21:
[id number]
Original Note:
Rec'd Pt, HD nurse in room, setting up to dialize Pt. Pt eating breakfast, offers no complaints.
--- NOTE | 2024-01-18 21:24 | PTCARENOTE ---
Heparin gtt infusing at 1150 units/hr. Tele- SR. HR 60s. Pt currently has no c/o pain/discomfort at this time. POC reviewed w/ pt. Verbalizes understanding. Currently in bed; call rina w/in reach.
[2024-01-18 22:07] LABS: Glucose - Point of Care 398 mg/dl (70-99)
[2024-01-18] MEDS: CLARITIN 10 MG PO (22:12)
[2024-01-18] MEDS: NORVASC 10 MG PO (22:12)
[2024-01-18] MEDS: CRESTOR 40 MG PO (22:12)
[2024-01-18] MEDS: CARDURA 4 MG PO (22:12)
[2024-01-18] MEDS: LANTUS 0.15 UNITS SC (22:13)
[2024-01-18] MEDS: NOVOLOG FLEXPEN 5 UNITS SC (22:16)
[2024-01-18] MEDS: NON-FORMULARY ITEM 100 MG PO (22:16)
[2024-01-19] VITALS (8 sets, daily range): BP systolic 90–134; BP diastolic 37–64; BMI 24.0
[2024-01-19 00:09] LABS: Glucose - Point of Care 406 mg/dl (70-99)
[2024-01-19 00:51] LABS: Glucose 401 mg/dl (70-99)
[2024-01-19] MEDS: PERCOCET 5/325 1 TABLET PO (01:12)
[2024-01-19] MEDS: NOVOLOG FLEXPEN 10 UNITS SC (01:13)
--- NOTE | 2024-01-19 01:17 | PTCARENOTE ---
Addendum entered by Verónica Hoffman RN 01/19/24 03:55:
Rechecked accucheck 2 hours post treatment- 314. P. Jose Roberto GEODETIC ENGINEER notified and no further orders placed.
Original Note:
Pt accucheck at HS 398. P. Jose Roberto GEODETIC ENGINEER notified and orders placed. 5 units novolog administered as ordered. See MAR. Rechecked accucheck 2 hours post treatment and reads RR high. Venous stat glucose drawn and sent per protocol. Venous glucose 401. P.
Jose Roberto notified and orders placed. 10 units novolog administered as ordered. See MAR.
[2024-01-19 03:35] LABS: Glucose - Point of Care 314 mg/dl (70-99)
[2024-01-19 03:57] LABS: Hematocrit 32.2 % (39.0-52.0); Mean Corp Hgb Conc. 34.2 g/dL (33.0-37.0); Mean Corpuscular Hgb 28.5 pg (27.0-31.0); Mean Corpuscular Volume 83.4 fL (80.0-94.0); Mean Platelet Volume 9.4 fL (7.4-10.4); Platelet Count 173 10^3/uL (130-400); Red Blood Cell Count 3.86 10^6/uL (4.70-6.10); Red Cell Dist. Width 18.7 % (11.5-14.5)
[2024-01-19 04:13] LABS: APTT 91.7 Sec (23.4-35.0)
[2024-01-19 04:28] LABS: Blood Urea Nitrogen 50 mg/dl (9-20); Calcium 8.4 mg/dl (8.4-10.2); Carbon Dioxide 25 mmol/L (22-30); Chloride 94 mmol/L (98-107); Estimated Creatinine Clearance 13 ml/min; Glucose 299 mg/dl (70-99); Potassium 3.6 mmol/L (3.5-5.1); Sodium 132 mmol/L (135-145); eGFR 11.13
[2024-01-19 07:59] LABS: Glucose - Point of Care 234 mg/dl (70-99)
[2024-01-19] MEDS: ASPIR LOW (ENTERIC COATED) 81 MG PO (09:13)
[2024-01-19] MEDS: NON-FORMULARY ITEM 100 MG PO ×3 (09:13→23:09)
[2024-01-19] MEDS: VISBIOME 1 CAP PO (09:14)
[2024-01-19] MEDS: PLAVIX 600 MG PO (09:15)
[2024-01-19] MEDS: LANTUS 0.07 UNITS SC (09:16)
[2024-01-19] MEDS: NEPHROCAP PO (09:16)
[2024-01-19] MEDS: NOVOLOG FLEXPEN-LOW RESISTANCE 2 UNITS SC (09:17)
--- NOTE | 2024-01-19 09:46 | W.PN.NEPH.PH ---
Today's Communication / Plan
-
HD tomorrow
Assessment/Plan
-
Impression:
ESRD (home 5 days weekly)
STEMI
Uncontrolled hypertension
Hyponatremia
Left upper extremity AV fistula
Diabetes
History of coronary artery disease with previous CABG
BPH/TURP
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
Plan:
HD tomorrow for MWF therapy while in the hospital
dc after HD
he should continue HHD at home as before
watch post Tx bleeding with plavix
-
-
Date of Service: January 19, 2024
CC / HPI / ROS
-
Chief Complaint:
ESRD
History of Present Illness:
tolerated HD yesterday
BP stable, low this am
Anemia stable 11
Review of Systems:
no CP/SOB
Labs
-
Labs:
WBC 10.0 10^3/uL (4.8-10.8) 01/19/24 03:47
RBC 3.86 10^6/uL (4.70-6.10) L 01/19/24 03:47
Hgb 11.0 g/dL (13.0-18.0) L 01/19/24 03:47
Hct 32.2 % (39.0-52.0) L 01/19/24 03:47
Plt Count 173 10^3/uL (130-400) 01/19/24 03:47
Sodium 132 mmol/L (135-145) L 01/19/24 03:47
Potassium 3.6 mmol/L (3.5-5.1) 01/19/24 03:47
Chloride 94 mmol/L (98-107) L 01/19/24 03:47
Carbon Dioxide 25 mmol/L (22-30) 01/19/24 03:47
BUN 50 mg/dl (9-20) H 01/19/24 03:47
Creatinine 5.2 mg/dL (0.7-1.3) H* 01/19/24 03:47
eGFR 11.13 01/19/24 03:47
Glucose 299 mg/dl (70-99) H 01/19/24 03:47
Calcium 8.4 mg/dl (8.4-10.2) 01/19/24 03:47
Albumin 4.7 g/dl (3.5-5.0) 01/17/24 12:14
Physical Exam
-
Vital Signs:
Vital Signs
Temp Pulse Resp BP Pulse Ox
98.4 F 59 14 99/55 96
01/19/24 06:43 01/19/24 08:14 01/19/24 08:14 01/19/24 03:36 01/19/24 08:14
Cardiovascular:: Regular rate and rhythm
Respiratory:: Bilateral: Coarse
Lung Excursion:: Normal
Abdomen:: Nontender and Soft
Bowel Sounds:: Normal
Extremity Edema:: None: Bilateral:
--- NOTE | 2024-01-19 10:30 | W.PN.HOSP.TC ---
Today's Communication/Plan
-
plavix
monitor overnight
HD tomm
adjust insulin
Assessment / Plan
Assessment / Plan
Solar Photovoltaic Installer report 01/17/2024:
1.Right dominant circulation with a chronic total occlusion of the ostial RCA, a 70% lesion in the proximal LAD progressing to 90% at its Zenith in the mid LAD, a 50% lesion in the proximal third of the diagonal, a 60-70% lesion in the distal aspect
of the proximal circumflex leading into OM1 with a chronic total occlusion of the mid circumflex into OM 2, status post prior coronary artery bypass grafting (patent LAIRD to LAD, patent SVG to RPDA, occluded LRA to OM 2).
2. Unsuccessful attempt to wire OM 2, confirming that this was a chronic total occlusion.
3. Relative hypoxia given filling pressures, high concern for pulmonary embolism given pleuritic chest pain.
#STEMI
#CAD/CABG-PCI to RCA/LCx and CABG x3 (LAIRD to LAD, LRA to OM, SVG to RPDA) in [address] Brasher
Troponin 24, repeat troponin 20 will trend
-Given aspirin 324 mg now
-Heparin 4000 units bolus given in ER
-Brilinta 180 mg once given in ER
-Continue aspirin 81 mg daily
-Continue Crestor 40 mg at bedtime
-continue aspirin 81 mg daily
-Consult [facility] cardiology
-Plan to stop heparin later today. Status post Plavix loading dose with plan to start daily Plavix.
#Chest pain concern for PE
#History factor V Leiden
-CT chest negative for pulmonary embolism.
-DC IV heparin.
#History of brief run A-fib following TURP July 2023
-Not currently on anticoagulation per cardiology notes
# End-stage renal disease on home HD
Hx hyponatremia/hypercalcemia
-Continue Calcitrol 1 mcg p.o. daily, calcium acetate 1334 mg with meals, losartan 25 mg every afternoon
-HD per nephrology. Plan to cont MWF schedule while here.
#DM 2
Accu-Cheks with SSI, '
-Continue with Lantus 25 units morning and 14 units at bedtime. Also continue with Premeal 5 units NovoLog
#Hx of CML
Monitor for now.
#HLD
Continue Crestor 40 mg at bedtime
# HTN�benign hypertension urgency hx
-Continue Norvasc 10 mg at bedtime, losartan 25 mg every afternoon
#Chronic HFpEF
-not in acute exacerbation
-Cont lasix 80mg BID
.-fluid restriction
-strict I&O
-daily weight
#BPH: Continue with doxazosin 4 mg nightly
#Asthma-no acute exacerbation
-nebs from home continued
DVT prophylaxis-scds
Full code
d/w with cards
Anticipated Discharge: Within 24 hours
Subjective/Interval History
-
Date of Service: January 19, 2024
Of note patient was assigned to hospitalist group this morning
Patient was seen and examined at bedside
Denies any chest pain
Some cough yesterday
Objective Data
-
Labs:
Laboratory Results
01/19/24 01/19/24
00:18 03:47
WBC 10.0
Hgb 11.0 L
Hct 32.2 L
Plt Count 173
APTT 91.7 H
Sodium 132 L
Potassium 3.6
Chloride 94 L
Carbon Dioxide 25
BUN 50 H
Creatinine 5.2 H*
Glucose 401 H 299 H
Calcium 8.4
Vital Signs:
Vital Signs
Temp Pulse Resp BP Pulse Ox
98.4 F 59 14 99/55 96
01/19/24 06:43 01/19/24 08:14 01/19/24 08:14 01/19/24 03:36 01/19/24 08:14
I&O
01/18/24 01/19/24 01/20/24
06:59 06:59 06:59
Output Total 150 / 150
Balance -150 / -150
Physical Exam
-
General: Well Developed and No Apparent Distress
HEENT: Normocephalic, Atraumatic and Moist Mucous Membranes
Respiratory: Clear to Auscultation
Cardiac: Regular Rhythm, S1/S2 and Other (Midsternal scar noted); Negative Murmur, Rub or Gallop
GI: Soft, Nontender, Nondistended and Normal Bowel Sounds; Negative Organomegaly
Rectal: Deferred by Provider
Musculoskeletal: No Clubbing, No Cyanosis and No Edema
Skin: Negative Rash
Neuro: Awake, AO x 3 and Nonfocal/Grossly Intact
Psych: Calm
Data Reviewed
-
Total Time Spent with Patient (in minutes): 56
--- NOTE | 2024-01-19 11:28 | CM ---
Chart reviewed. Patient is independent of ADLS, lives with his in a [address], [facility], does not use any DME but has a SPC and RW at home. Patient is current with [facility] PT/OT. Patient does home HD 5x a week with [facility] back up. Plan is for the
patient to return home. CM to follow
[2024-01-19 11:57] LABS: Glucose - Point of Care 433 mg/dl (70-99)
--- NOTE | 2024-01-19 12:24 | PTCARENOTE ---
Pt noted to be in accelerated junctional rhythm on monitor, Pt assymptomatic, An Mahoney aware, EKG ordered and obtained.
[2024-01-19 13:26] LABS: Glucose 401 mg/dl (70-99)
[2024-01-19] MEDS: NOVOLOG FLEXPEN-LOW RESISTANCE 6 UNITS SC (13:51)
[2024-01-19] MEDS: NOVOLOG FLEXPEN 5 UNITS SC (13:52)
--- NOTE | 2024-01-19 14:12 | GLUCOSE ---
SITUATION:
Pt accucheck 433, stat venous glucose 401 @ 1345. Dr Squiresk aware. Pt covered with Novolog SSI 6 units as ordered and Novolog meal time insulin 5 units as ordered. Accucheck rechecked at 1611 = 445, stat venous glucose ordered, result 389. Dr Gamez
notified, one-time dose of Novolog 12 units SQ ordered and given.
BACKGROUND:
ASSESSMENT:
Pt assymptomatic, offers no complaints.
RECOMMENDATION:
--- NOTE | 2024-01-19 15:14 | W.PN.CARDCBS ---
Today's Communication / Plan
-
Stop IV heparin and start Plavix with 600 mg p.o. load
Hold off on beta-randa with junctional rhythm
Stable cardiology for discharge after hemodialysis on 01/19
Impression / Plan
-
Primary Medical Billing Supervisor: Dr. LEAH Watts
Assessment:
Presented with chest pain
Concern for STEMI on EKG
Catheterization 01/17/2024�TELEGRAPH OFFICE MANAGER of mid circumflex into OM2 as well as occluded LRA to OM2. Unsuccessful attempt to wire OM2, confirming TELEGRAPH OFFICE MANAGER.
Junctional rhythm 01/19/2024
CAD
s/p inferior wall [place] in 1997 with circ PCI
in-stent restenosis of circ resulting in PTCA 2004
CABG x3 2018
Chronic HFpEF
PVCs
HLD
DM2
ESRD on HD as of 04/2023
CML
Factor V Leiden
Asthma
R renal mass, felt most likely to be cyst
L kidney stones s/p lithotripsy in past
ECHO 04/29/23: EF 50 to 55%, mild biatrial dilatation, trace TR, PAP [address] of chest 01/17/2024: Negative for PE.
01/18/2024: US negative for DVT.
Catheterization 01/17/2024�TELEGRAPH OFFICE MANAGER of mid circumflex into OM2 as well as occluded LRA to OM2. Unsuccessful attempt to wire OM2, confirming TELEGRAPH OFFICE MANAGER.
Echo 01/18/2024: Ejection fraction 50 to 55%, mild concentric LVH, aortic sclerosis
Plan:
He has discomfort with taking a deep breath which is atypical for cardiac etiology although some element of pericarditis cannot be excluded
Continue medical therapy of occluded mid circumflex into OM 2
Will discontinue IV heparin and start Plavix with 600 mg p.o. load
No beta-randa with junctional rhythm
Continue high-dose Crestor
He wants to wait and get hemodialysis on 01/19 and would be stable for discharge after hemodialysis
Progress Note - Medical Billing Supervisor
Subjective
Date of Service: January 19, 2024
Complains of chest discomfort with taking a deep breath.
Objective
Labs:
01/19/24 03:47
01/19/24 12:54
Labs
Hgb 11.0 g/dL (13.0-18.0) L 01/19/24 03:47
Hct 32.2 % (39.0-52.0) L 01/19/24 03:47
Plt Count 173 10^3/uL (130-400) 01/19/24 03:47
APTT 91.7 Sec (23.4-35.0) H 01/19/24 03:47
Sodium 132 mmol/L (135-145) L 01/19/24 03:47
Potassium 3.6 mmol/L (3.5-5.1) 01/19/24 03:47
BUN 50 mg/dl (9-20) H 01/19/24 03:47
Creatinine 5.2 mg/dL (0.7-1.3) H* 01/19/24 03:47
Glucose 401 mg/dl (70-99) H 01/19/24 12:54
Troponins
01/17/24 01/17/24 01/17/24
12:14 13:54 21:23
Troponin I 24.300 H* 20.900 H* 26.000 H*
01/18/24 01/18/24 01/18/24
03:35 10:04 16:01
Troponin I 27.100 H* 31.400 H* 29.100 H*
01/18/24
22:00
Troponin I Cancelled
Vital Signs and I&O:
Vital Signs
Temp Pulse Resp BP Pulse Ox
98.6 F 65 16 91/37 92
01/19/24 14:58 01/19/24 11:15 01/19/24 14:58 01/19/24 11:06 01/19/24 14:58
Vital Signs
Temp Pulse Resp BP Pulse Ox
98.6 F 65 16 91/37 92
01/19/24 14:58 01/19/24 11:15 01/19/24 14:58 01/19/24 11:06 01/19/24 14:58
Intake & Output
01/17/24 01/18/24 01/19/24 01/20/24
06:59 06:59 06:59 06:59
Output Total 150 / 150
Balance -150 / -150
Physical Exam
Physical Exam
General: Well developed, well nourished in NAD.
Neck: Supple, no JVD, HJR, carotids +2 B/L, no bruits bilaterally.
Heart: Non displaced PMI, RRR, no murmurs, No S3, S4, no rubs.
Lungs: Scattered rhonchi at the bases
Extremities: No clubbing, cyanosis or edema bilaterally.
Neuro: Grossly nonfocal, awake, alert and oriented x3.
[2024-01-19 16:12] LABS: Glucose - Point of Care 445 mg/dl (70-99)
[2024-01-19 16:50] LABS: Glucose 389 mg/dl (70-99)
[2024-01-19] MEDS: NOVOLOG FLEXPEN SC (17:05)
[2024-01-19] MEDS: NOVOLOG FLEXPEN-LOW RESISTANCE SC (17:06)
[2024-01-19] MEDS: NOVOLOG FLEXPEN 12 UNITS SC (17:06)
[2024-01-19] MEDS: LASIX 80 MG PO (17:08)
[2024-01-19] MEDS: COZAAR 25 MG PO (17:13)
[2024-01-19 19:39] LABS: Glucose - Point of Care 306 mg/dl (70-99)
[2024-01-19] MEDS: NOVOLOG FLEXPEN 4 UNITS SC (20:11)
--- NOTE | 2024-01-19 21:00 | PTCARENOTE ---
Addendum entered by Verónica Hoffman RN 01/19/24 23:38:
Rechecked accucheck 2 hours post treatment of 4 units Novolog. Accucheck 228. 14 units Lantus administered as ordered. See JUL.
Original Note:
Rechecked pt accucheck 2 hours post treatment of 12 units novolog given by bernard DUGGAN. Accucheck 306. Aden NDIAYE notified and orders placed. 4 units Novolog ordered and administered per Aden NDIAYE.
[2024-01-19 23:04] LABS: Glucose - Point of Care 228 mg/dl (70-99)
[2024-01-19] MEDS: CARDURA 4 MG PO (23:08)
[2024-01-19] MEDS: LANTUS 0.14 UNITS SC (23:08)
[2024-01-19] MEDS: CLARITIN 10 MG PO (23:08)
[2024-01-19] MEDS: NORVASC PO (23:08)
[2024-01-19] MEDS: CRESTOR 40 MG PO (23:08)
[2024-01-20] VITALS (14 sets, daily range): BP systolic 93–126; BP diastolic 51–67
[2024-01-20] MEDS: PERCOCET 5/325 1 TABLET PO (00:04)
[2024-01-20 06:49] LABS: Glucose - Point of Care 153 mg/dl (70-99)
[2024-01-20] MEDS: NOVOLOG FLEXPEN 5 UNITS SC (07:57)
[2024-01-20] MEDS: NOVOLOG FLEXPEN-LOW RESISTANCE 1 UNITS SC (07:58)
[2024-01-20] MEDS: ASPIR LOW (ENTERIC COATED) 81 MG PO (08:21)
[2024-01-20] MEDS: PLAVIX 75 MG PO (08:22)
[2024-01-20 08:23] LABS: Hematocrit 32.3 % (39.0-52.0); Mean Corp Hgb Conc. 34.1 g/dL (33.0-37.0); Mean Corpuscular Hgb 28.5 pg (27.0-31.0); Mean Corpuscular Volume 83.7 fL (80.0-94.0); Mean Platelet Volume 9.5 fL (7.4-10.4); Platelet Count 185 10^3/uL (130-400); Red Blood Cell Count 3.86 10^6/uL (4.70-6.10); Red Cell Dist. Width 18.6 % (11.5-14.5); White Blood Cell Count 9.4 10^3/uL (4.8-10.8)
[2024-01-20] MEDS: LANTUS 0.3 UNITS SC (08:28)
[2024-01-20 08:35] LABS: Blood Urea Nitrogen 64 mg/dl (9-20); Calcium 8.1 mg/dl (8.4-10.2); Carbon Dioxide 23 mmol/L (22-30); Chloride 94 mmol/L (98-107); Estimated Creatinine Clearance 9 ml/min; Glucose 195 mg/dl (70-99); Potassium 3.8 mmol/L (3.5-5.1); Sodium 133 mmol/L (135-145); eGFR 7.29
--- NOTE | 2024-01-20 10:00 | W.PN.NEPH.HD ---
Assessment
-
pt seen during HD
vtials stable
UF to get to EDW
AVF functions well
d/c after HD
he will return to home HD from Thursday
Progress Note - Hemodialysis
-
Date of Service: January 20, 2024
Duration: 30 minutes and 3 hours
Potassium Bath: 4
Calcium Bath: 2.5
Opti-Dialyzer: 160
Ultrafiltration: Other (1-1.5kg)
Blood Flow: 400
Dialysate Flow: 600
Heparin: no
EPO: no
--- NOTE | 2024-01-20 11:27 | W.PN.HOSP.TC ---
Today's Communication/Plan
-
dc home
hd today
plavix
Op cards f/u-appt already set up
Assessment / Plan
Assessment / Plan
Automobile Repossessor report 01/17/2024:
1.Right dominant circulation with a chronic total occlusion of the ostial RCA, a 70% lesion in the proximal LAD progressing to 90% at its Zenith in the mid LAD, a 50% lesion in the proximal third of the diagonal, a 60-70% lesion in the distal aspect
of the proximal circumflex leading into OM1 with a chronic total occlusion of the mid circumflex into OM 2, status post prior coronary artery bypass grafting (patent LAIRD to LAD, patent SVG to RPDA, occluded LRA to OM 2).
2. Unsuccessful attempt to wire OM 2, confirming that this was a chronic total occlusion.
3. Relative hypoxia given filling pressures, high concern for pulmonary embolism given pleuritic chest pain.
#STEMI
#CAD/CABG-PCI to RCA/LCx and CABG x3 (LAIRD to LAD, LRA to OM, SVG to RPDA) in [address] Brasher
Troponin 24, repeat troponin 20 will trend
-Given aspirin 324 mg now
-Heparin 4000 units bolus given in ER
-Brilinta 180 mg once given in ER
-Continue aspirin 81 mg daily
-Continue Crestor 40 mg at bedtime
-continue aspirin 81 mg daily
-Consult [facility] cardiology
-status post heparin infusion. status post Plavix loading dose 600 mg and now with plan to start daily Plavix.
#Chest pain concern for PE
#History factor V Leiden
-CT chest negative for pulmonary embolism.
-DC IV heparin.
#History of brief run A-fib following TURP July 2023
-Not currently on anticoagulation per cardiology notes
-No beta-randa with junctional rhythm history
# End-stage renal disease on home HD
Hx hyponatremia/hypercalcemia
-Continue Calcitrol 1 mcg p.o. daily, calcium acetate 1334 mg with meals, losartan 25 mg every afternoon
-HD per nephrology. Plan to cont MWF schedule while here.
#DM 2
Accu-Cheks with SSI, '
-Restart patient home regimen. POC 153.
#Hx of CML
Monitor for now.
#HLD
Continue Crestor 40 mg at bedtime
# HTN�benign hypertension urgency hx
-Continue Norvasc 10 mg at bedtime, losartan 25 mg every afternoon and Lasix 80 twice daily
#Chronic HFpEF
-not in acute exacerbation
-Cont lasix 80mg BID
.-fluid restriction
-strict I&O
-daily weight
#BPH: Continue with doxazosin 4 mg nightly
#Asthma-no acute exacerbation
-nebs from home continued
DVT prophylaxis-scds
Full code
Discussed with nephrology okay for DC
Dispo Home later today after dialysis.
More than 30 minutes spent in discharge including
Final examination of the patient
Summarizing hospital stay
Instructions for continuing care to all relevant caregivers
Preparation of discharge records, prescriptions, and referral forms
Total time spent (in minutes): 56
Anticipated Discharge: Today
Subjective/Interval History
-
Date of Service: January 20, 2024
Seen on hemodialysis
Denies any chest pain
Objective Data
-
Labs:
Laboratory Results
01/20/24
07:50
WBC 9.4
Hgb 11.0 L
Hct 32.3 L
Plt Count 185
Sodium 133 L
Potassium 3.8
Chloride 94 L
Carbon Dioxide 23
BUN 64 H
Creatinine 7.4 H*
Glucose 195 H
Calcium 8.1 L
Vital Signs:
Vital Signs
Temp Pulse Resp BP Pulse Ox
97.6 F 59 16 113/61 95
01/20/24 11:09 01/20/24 11:00 01/20/24 11:09 01/20/24 11:00 01/20/24 11:09
I&O
01/19/24 01/20/24 01/21/24
06:59 06:59 06:59
Intake Total 240 / 240
Balance 240 / 240
Physical Exam
-
General: Well Developed and No Apparent Distress
HEENT: Normocephalic, Atraumatic and Moist Mucous Membranes
Respiratory: Clear to Auscultation
Cardiac: Regular Rhythm, S1/S2 and Other (Midsternal scar noted); Negative Murmur, Rub or Gallop
GI: Soft, Nontender, Nondistended and Normal Bowel Sounds; Negative Organomegaly
Rectal: Deferred by Provider
Musculoskeletal: No Clubbing, No Cyanosis and No Edema
Skin: Negative Rash
Neuro: Awake, AO x 3 and Nonfocal/Grossly Intact
Psych: Calm
--- NOTE | 2024-01-20 11:34 | W.DCSUMMARY ---
Discharge Summary
Discharge Data
Date of Admission: 01/17/24
Date of Discharge: 01/20/24
-
Pending Results: No
Hospital Course
69-year-old male past medical history of ESRD on hemodialysis, diabetes mellitus, chronic HFpEF, iron deficiency, BPH, CML, asthma who presented with chest pain. EKG on admission concerning for STEMI. STEMI alert. Patient was urgently taken to
cardiac Electrical Laboratory Technician and was found to have .Right dominant circulation with a chronic total occlusion of the ostial RCA, a 70% lesion in the proximal LAD progressing to 90% at its Zenith in the mid LAD, a 50% lesion in the proximal third of the
diagonal, a 60-70% lesion in the distal aspect of the proximal circumflex leading into OM1 with a chronic total occlusion of the mid circumflex into OM 2, status post prior coronary artery bypass grafting (patent LAIRD to LAD, patent SVG to RPDA,
occluded LRA to OM 2). Unsuccessful attempt to wire OM 2, confirming that this was a chronic total occlusion. Relative hypoxia given filling pressures, high concern for pulmonary embolism given pleuritic chest pain. Patient was continued on heparin
infusion. There was concern for pulmonary embolism patient underwent CT chest emergently and was found to be negative. Peripheral vascular ultrasound was also negative for DVT. Nephrology was consulted and patient underwent regular scheduled
hemodialysis. Patient was on home dialysis at home patient chest pain resolved.. Per cardiology further plan is for medical management. As pain was continued. Heparin was discontinued and started on Plavix. Patient was not a candidate for
beta-randa as with junctional rhythm. 7 office clerk routine will be applied per cardiology on discharge. Patient was continued on her home regimen of extensive blood pressure medications. Insulin was restarted to home regimen. Patient was
tolerating hemodialysis without any chest pain. Hemoglobin stayed stable. Patient be discharged home with outpatient cardiology follow-up and to resume his outpatient hemodialysis regimen.
Found to have a moderate interaction between Plavix and Crestor. Discussed with pharmacist plan will be to discontinue Crestor. Switch patient to simvastatin. Also discussed with patient and he agreed and verbalized understanding.
Discharge Plan
-
Patient Disposition: Home (Routine Discharge)
Discharge Diagnosis/Procedures: STEMI status post cardiac catheterization
End-stage renal disease status post hemodialysis
Junctional rhythm
Condition: Fair
Diet: 2 Gram Sodium, Diabetic, Carb Controlled and Restrict fluids to 48 oz
Activity: With assistance and As tolerated
Driving Restrictions: As prior to admission
Others Tests: 7 day office clerk routine
Other Services: Cardiac Rehab
Stand Alone Forms: DC Instructions- Cath/EP Lab
Referrals:
Ariela Tovar PA-C [Specified Professional Personl] - 02/04/24 11:00 am (You have a cardiology follow-up appointment at the [facility] with Dr. Watts's physician outreach assistant, Ariela. Please call questions)
Paz Vasquez MD [Family Provider] - in less than 1 week
Prescriptions:
New
clopidogrel 75 mg Tablet
75 mg PO DAILY 30 Days Qty: 30 0RF
simvastatin 40 mg tablet
40 mg PO DAILY Qty: 30 0RF
Continued
Qvar RediHaler 80 mcg/actuation HFA aerosol breath activated
2 inh INHALATION R BID
aspirin 81 mg Tablet,Delayed Release (Dr/Ec)
81 mg PO DAILY
amlodipine [Norvasc] 10 mg Tablet
10 mg PO HS
loratadine 10 mg Tablet
10 mg PO HS
Bosulif 100 mg Tablet
100 mg PO TID Qty: 0
omega 6-uuj-ldf-fish oil [Fish Oil] 1,200 (144-216) mg Capsule
1 cap PO HS
insulin glargine [Lantus Solostar U-100 Insulin] 100 unit/mL (3 mL) insulin pen
14 unit SC HS
furosemide 80 mg tablet
80 mg PO BID
acetaminophen [Tylenol 8 Hour] 650 mg Tablet Extended Release
650 - 1,300 mg PO Q8HPRN PRN (Reason: mild pain)
albuterol sulfate 90 mcg/actuation Hfa Aerosol Inhaler
2 puff INHALATION R QIDPRN PRN (Reason: sob)
Visbiome 112.5 billion cell Capsule
1 cap PO DAILY
losartan 25 mg Tablet
25 mg PO QPM 30 Days Qty: 30 0RF
Rx Instructions:
Hold for SBP<100
doxazosin 2 mg Tablet
4 mg PO HS Qty: 0 0RF
Rx Instructions:
Hold for SBP<100
ProRenal 8 mg iron-800 mcg-1,000 unit tablet
1 tab PO DAILY
calcitriol 0.5 mcg capsule
1 mcg PO DAILY
insulin glargine [Lantus Solostar U-100 Insulin] 100 unit/mL (3 mL) insulin pen
30 unit SC DAILY
insulin aspart U-100 100 unit/mL (3 mL) insulin pen
5 unit SC AC
Discontinued
rosuvastatin [Crestor] 40 MG tablet
40 mg PO HS
Discharge Orders:
Discharge Patient (As Directed); Ordered 01/20/24
Ordered By: He Gamez
Care Plan Goals
Care Plan Goals:
Problem: Readiness for enhanced knowledge related to diagnosis and treatment plan
Goal: Understand your diagnosis and treatment plan needs, including medications if applicable.
Instructions: Know your diagnosis, underlying causes and treatment plan options, including medications if applicable. Consult with your health care team to learn about your diagnosis and treatment plan, including medications if applicable.
Discharge Date and Time
Discharge Date/Time: 01/20/24 13:01
Print Language: YORUBA
[2024-01-20] MEDS: NEPHROCAP 1 CAPSULE PO (11:38)
[2024-01-20] MEDS: LASIX 80 MG PO (11:39)
[2024-01-20] MEDS: NON-FORMULARY ITEM 1 MG PO (11:40)
[2024-01-20] MEDS: VISBIOME 1 CAP PO (11:46)
--- NOTE | 2024-01-20 12:06 | W.PN.CARDCBS ---
Addendum entered and electronically signed by Dawit Lay MD 01/20/24 14:01:
I saw and examined the patient.
The Operational Meteorologist's note was reviewed and I agree with the note.
Comment: Briefly, 69-year-old man past medical history of CAD status post prior CABG and PCI as well as ESRD on HD who presented with chest discomfort found to be a likely late presentation STEMI
Initial troponin over 20 and EKG with anterior injury pattern
Urgent left heart catheterization 01/17/2024 found to have occluded OM 2 which was unable to be intervened on
The patient was chest pain-free at the time of my exam this morning
Plan for medical management of CAD with aspirin/Plavix, high intensity statin and Norvasc as antianginal
Patient developed accelerated junctional rhythm yesterday with heart rate in the low 60s which has persisted
No significant pauses seen on telemetry
He is asymptomatic without lightheadedness or dizziness
Avoid AV chinyere blockers for now
We will arrange for outpatient director voice at the time of discharge
Original Note:
Today's Communication / Plan
-
For discharge today after hemodialysis.
Continue aspirin, Plavix, Norvasc, statin, Cozaar, Cardura, Lasix, Crestor
Cardiac rehab
Outpatient cardiac follow-up arranged
1 week director voice upon discharge for junctional rhythm
Impression / Plan
-
Primary Raw Shellfish Preparer: Dr. LEAH Watts
Assessment:
Presented with chest pain
Concern for STEMI on EKG
Catheterization 01/17/2024�PROCESS SPECIALIST of mid circumflex into OM2 as well as occluded LRA to OM2. Unsuccessful attempt to wire OM2, confirming PROCESS SPECIALIST.
Junctional rhythm 01/19/2024
CAD
s/p inferior wall [place] in 1997 with circ PCI
in-stent restenosis of circ resulting in PTCA 2004
CABG x3 2018
Chronic HFpEF
PVCs
HLD
DM2
ESRD on HD as of 04/2023
CML
Factor V Leiden
Asthma
R renal mass, felt most likely to be cyst
L kidney stones s/p lithotripsy in past
ECHO 04/29/23: EF 50 to 55%, mild biatrial dilatation, trace TR, PAP [address] of chest 01/17/2024: Negative for PE.
01/18/2024: US negative for DVT.
Catheterization 01/17/2024�PROCESS SPECIALIST of mid circumflex into OM2 as well as occluded LRA to OM2. Unsuccessful attempt to wire OM2, confirming PROCESS SPECIALIST.
Echo 01/18/2024: Ejection fraction 50 to 55%, mild concentric LVH, aortic sclerosis
Plan:
-He presented as a STEMI. Troponin peaked at 31.4. Cath with occluded mid circumflex into OM 2, which was unable to be crossed. Plan for medical management
-Continue aspirin, Plavix
-Fortunately EF preserved at 50 to 55% by echo.
-Not candidate for beta-randa with junctional rhythm, patient asymptomatic. Will plan for 7-day director voice upon discharge
-Continue Norvasc, Cardura, Cozaar
-Continue p.o. Lasix 80 mg twice daily
-Continue high-dose Crestor
-cardiac rehab
-Plan for discharge today
-Outpatient cardiac follow-up arranged
Progress Note - Raw Shellfish Preparer
Subjective
Date of Service: January 20, 2024
No issues overnight noted
Objective
Labs:
01/20/24 07:50
01/20/24 07:50
Labs
Hgb 11.0 g/dL (13.0-18.0) L 01/20/24 07:50
Hct 32.3 % (39.0-52.0) L 01/20/24 07:50
Plt Count 185 10^3/uL (130-400) 01/20/24 07:50
APTT 91.7 Sec (23.4-35.0) H 01/19/24 03:47
Sodium 133 mmol/L (135-145) L 01/20/24 07:50
Potassium 3.8 mmol/L (3.5-5.1) 01/20/24 07:50
BUN 64 mg/dl (9-20) H 01/20/24 07:50
Creatinine 7.4 mg/dL (0.7-1.3) H* 01/20/24 07:50
Glucose 195 mg/dl (70-99) H 01/20/24 07:50
Troponins
01/17/24 01/17/24 01/17/24
12:14 13:54 21:23
Troponin I 24.300 H* 20.900 H* 26.000 H*
01/18/24 01/18/24 01/18/24
03:35 10:04 16:01
Troponin I 27.100 H* 31.400 H* 29.100 H*
01/18/24
22:00
Troponin I Cancelled
Vital Signs and I&O:
Vital Signs
Temp Pulse Resp BP Pulse Ox
97.6 F 59 16 113/61 95
01/20/24 11:09 01/20/24 11:00 01/20/24 11:09 01/20/24 11:00 01/20/24 11:09
Vital Signs
Temp Pulse Resp BP Pulse Ox
97.6 F 59 16 113/61 95
01/20/24 11:09 01/20/24 11:00 01/20/24 11:09 01/20/24 11:00 01/20/24 11:09
Intake & Output
01/18/24 01/19/24 01/20/24 01/21/24
07:59 07:59 07:59 07:59
Intake Total 240 / 240
Output Total 150 / 150
Balance -150 / -150 240 / 240
--- NOTE | 2024-01-20 13:00 | PTCARENOTE ---
Pt received this am just about to start dialysis. Pt with no c/o offered. Assisted oob to the bathroom, gait steady. Pt discharged to home with post dialysis. Discharge instructions given and reviewed with pt and his with good
understanding.
== END 2024-01-20 13:01 | disposition home or self-care (01) | DRG 280 ==
LOC: IVU 14:20
PROVIDERS: Clinical Nurse Specialist Family Health; Internal Medicine; Internal Medicine Cardiovascular Disease; Physician Assistant; Specialist; ADMITTING PHYSICIAN Internal Medicine; ATTENDING PHYSICIAN Hospitalist; CONSULT PHYSICIAN Student in an Organized Health Care Education/Training Program; EMERGENCY PHYSICIAN Student in an Organized Health Care Education/Training Program; FAMILY PHYSICIAN Family Medicine; OTHER PHYSICIAN Internal Medicine Cardiovascular Disease
PROC: 4A023N7 Measurement of Cardiac Sampling and Pressure, Left Heart, Percutaneous Approach (ICD-10-PCS; 2024-01-17)
PROC: B2151ZZ Fluoroscopy of Left Heart using Low Osmolar Contrast (ICD-10-PCS; 2024-01-17)
PROC: B2111ZZ Fluoroscopy of Multiple Coronary Arteries using Low Osmolar Contrast (ICD-10-PCS; 2024-01-17)
PROC: 5A1D70Z Performance of Urinary Filtration, Intermittent, Less than 6 Hours Per Day (ICD-10-PCS; 2024-01-18)
DX: I21.3 ST elevation (STEMI) myocardial infarction of unspecified site (principal); N18.6 End stage renal disease; C92.10 Chronic myeloid leukemia, BCR/ABL-positive, not having achieved remission; I13.2 Hypertensive heart and chronic kidney disease with heart failure and with stage 5 chronic kidney disease, or end stage renal disease; E87.1 Hypo-osmolality and hyponatremia; I50.32 Chronic diastolic (congestive) heart failure; Z99.2 Dependence on renal dialysis; E11.22 Type 2 diabetes mellitus with diabetic chronic kidney disease; I16.0 Hypertensive urgency
CPT/HCPCS: 71275; 80048; 80053; 80061; 82947; 82962; 83036; 84484; 85025; 85027; 85347; 85730; 92941; 93005; 93306; 93459; 93970; 94640; 96374; 99285; C1760; C1769; C1887; C1894; G0257; P9047; Q9967

== ENCOUNTER 2024-01-24 18:03 | Inpatient (IN) | payer MEDICARE, OTHER, SELFPAY ==
[2024-01-24] VITALS (17 sets, daily range): BP systolic 87–131; BP diastolic 49–78; BMI 25.2; BMI 24.7
--- NOTE | 2024-01-24 14:40 | EDRN ---
Dr. Harrison in room w/pt at this time.
[2024-01-24] MEDS: ASPIRIN 325 MG PO (14:46)
--- NOTE | 2024-01-24 14:47 | EDRN ---
IV VAT RN paged as no veins appeared on check, pt was stuck recently and can only use R arm d/t AVF in L arm.
--- NOTE | 2024-01-24 14:54 | ED.GENMED ---
History of Present Illness
General
Chief Complaint: Chest Pain
Source: patient, records, spouse and previous hospital records
Exam Limitations: none
Time Seen by Provider: 01/24/24 14:34
Nursing documentation reviewed up to this point in time: agreed with
History of Present Illness
History of Present Illness:
69-year-old male presents with chest pain and shortness of breath complicated past medical history CAD with stenting 25 years ago recently had an [place] troponin of 20 unable to be stented treated medically recently started on Plavix, did have some
shortness of breath which worsened pressure on the right side of his chest he states for the most part different than his prior angina a few days ago does not radiate to the jaw or back,
Blood pressure been running in the 70s the past couple days, Dr. Gabriel has been adjusting his blood pressure meds, states he worked him up for PE when he is in the hospital also an echocardiogram
Past History
Past History
ED Past Medical History: Arrthythmia (Atrial fibrillation), Asthma, CAD, Cancer (Right kidney neoplasm, CML), CHF, GERD, HTN, Hypercholesterolemia, NIDDM, [place], Renal failure (Diabetic nephropathy), Other (Kidney stones, Back pain due to herniated
disc, transient global amnesia in November 2022, bilateral pleural effusions) and Other (Herniated discs in neck, has seen pain management at Dr. Arias's office for injections x 2. Has not had lower back problems, BPH, vocal polyps)
ED Past Surgical History: Cardiac (Triple bypass), Orthopedic, Urological (Renal calculus, TURP) and Other (Left upper arm fistula, cataract extractions, tenosynovectomy, wisdom teeth extraction)
Social History
Tobacco: Non-smoker
Alcohol: Occasional
Drug: None
Personal:
Living: with family
Employment: Employed
Family History
Family History: Other (Reviewed and noncontributory)
Review of Systems
Review of Systems
All Other Systems: Not applicable
Constitutional: Denies fever or fatigue
EENT: Reports no symptoms
Respiratory: Reports cough and trouble breathing
Cardiac: Reports no symptoms
ABD/GI: Reports no symptoms
: Reports no symptoms
Musculoskeletal: Reports no symptoms
Neurological: Reports weakness
Endocrine: Reports no symptoms
Phy Exam
Physical Exam
Physical Exam:
Physical Exam
General: 69 male mild distress nontoxic
Neck: No jaw
Heart: Regular
Lungs: Crackles at the base
Abdomen: Nontender
Neuro: alert and oriented. no focal neurological deficits
Skin: no rash
Psychiatric: well kept. interactive and cooperative
Extremities: Trace
Scores
Heart Score for Chest Pain Patients
STEMI patient?: No
History: Slightly or Non-Suspicious
ECG: Significant ST-Depression
Age: >/= 65 years
Risk Factors: >/= 3 Risk Factors or History of CAD
Troponin: >/= 3 x Normal Limit
Heart Score for Chest Pain Patients: 8
Heart Score Risk: 72.7 % MACE over next 6 weeks
Course
Orders/Labs/Results
Orders:
Orders
01/24/24 14:20
Electrocardiogram (*1) Urgent
Reason for Study: Chest Pain
EKG- Treatment ONCE
01/24/24 14:34
Electrocardiogram (*1) Stat
Reason for Study: Other
Other Reason for Exam: chest pain
Cardiac Monitoring- Treatment ONCE
EKG- Treatment ONCE
CR Chest Portable - 1 View Urgent
Comment:
Reason For Exam: cp
Reason Study Needs to be Portable: Patient Unstable
01/24/24 14:44
Aspirin 325 mg PO NOW STA
Nitroglycerin Sublingual [Nitrostat (Sublingual)] 0.4 mg SL [id number] PRN
01/24/24 15:12
Add On- LAB Urgent
Tests Added?: pBNP
01/24/24 15:15
NORepinephrine 4 MG/250 ML [Levophed] 4 mg in 250 ml IV PER PROTOCOL
Initial dose in mcg/min, then titrate:: 2
Titrate to keep:: SBP > 90 mmHg
Titrate by mcg/min:: 1-2 mcg/min
Frequency of titrations (minutes):: 5
Maximum dose in ICU in mcg/min:: 30
Maximum dose in IMU in mcg/min:: 8
Maximum dose in IVU in mcg/min:: 4
Begin to taper infusion when:: Remained at goal for 4hrs
Taper by mcg/min:: 1-2 mcg/min
Frequency of taper (minutes) if patient maintains goal:: 30
Taper to off?: Yes
If infusion off & no longer maintaining goal:: Contact Provider
01/24/24 15:41
Complete Blood Count/With Diff Urgent
Comprehensive Metabolic Panel Urgent
Magnesium Urgent
NT-proBNP Urgent
Comment: ADD ON
Troponin I Urgent
Blood Culture Urgent
JACQUE Source: Blood/Venous
Specimen Description:
01/24/24 15:58
Blood Culture Urgent
JACQUE Source: Blood/Venous
Specimen Description:
01/24/24 16:07
CT Chest Pe Study Urgent
Comment:
Reason For Exam: sob low bp esrd, ok to scan
01/24/24 16:29
Furosemide [Lasix] 100 mg IV NOW STA
Abnormal Lab Results
01/24/24
15:41
WBC 12.1 H 10^3/uL
(4.8-10.8)
RBC 3.99 L 10^6/uL
(4.70-6.10)
Hgb 11.3 L g/dL
(13.0-18.0)
Hct 33.8 L %
(39.0-52.0)
RDW 18.1 H %
(11.5-14.5)
Abs Immat Gran (auto) 0.1 H 10^3/uL
(0-0.05)
Absolute Neuts (auto) 10.5 H 10^3/uL
(1.4-6.5)
Absolute Lymphs (auto) 0.8 L 10^3/uL
(1.2-3.4)
Neutrophils % 87.1 H %
(42.2-75.2)
Lymphocytes % 6.6 L %
(20.5-51.1)
Sodium 132 L mmol/L
(135-145)
Chloride 88 L mmol/L
(98-107)
BUN 74 H mg/dl
(9-20)
Creatinine 8.0 H* mg/dL
(0.7-1.3)
Glucose 163 H mg/dl
(70-99)
Calcium 8.3 L mg/dl
(8.4-10.2)
Magnesium 2.7 H mg/dl
(1.6-2.3)
Troponin I 18.100 H* ng/ml
01/24/24 15:41
01/24/24 15:41
Vital Signs
Initial and Last Documented VS:
Initial Vital Signs
Temp Pulse Resp
98.9 F 54 16
01/24/24 14:16 01/24/24 14:16 01/24/24 14:16
Last Documented Vital Signs
Temp Pulse Resp BP Pulse Ox
98.9 F 61 23 114/59 95
01/24/24 14:16 01/24/24 16:40 01/24/24 16:15 01/24/24 16:40 01/24/24 16:15
MDM/Problems Addressed
Differential Diagnosis Includes:
ACS late presentation [place] heart failure PE pleural effusion pneumonia
MDM/Problems Addressed:
Chest pain shortness of breath
Chronic conditions affecting care: DM, HTN, CAD, Cardiomyopathy, Arrhythmia and Kidney disease
Acute Exacerbation and/or Progression of Chronic Illness: DM, HTN, CAD, Cardiomyopathy, Arrhythmia and Kidney disease
*Radiology
Radiology exam reviewed: preliminary read by ED provider
*Pulse Oximetry
Patient hypoxic: no
*EKG
Interpreted by ED Provider?: Yes
Interpretation: abnormal
Comparison EKG: changes noted
Heart Rate: 78
Rate: normal
Rhythm: sinus
Ischemia: ST elevation
*Bonderite Operator Interpretation
Rate: normal
Interpretation: normal
Heart Rate: 78
Rhythm: sinus
*Critical Care Note
Total Time (30-74mins, 75-104mins- exclusive of procedures): 30
Data Reviewed
Review of Other/Old Records Reveals: Labs, Records, Operative Reports, Testing, Progress Notes and Discharge Summary
Source: patient and spouse
Prescriptions/Medications Considered But Not Given:
tpa
Further Testing Considered But Not Given:
echo
Update Note
Update Note:
CRITICAL CARE STATEMENT: A total of 30 minutes of critical care time was provided for this patient. This includes management of unstable vital signs, evaluation of the patient at bedside, reviewing the patient's pertinent medical records discussion
with EMS providers and patient's family in addition to discussion with consultants, review of old EKGs and review of pertinent medical records. This time with separate from time utilized to perform the aforementioned documented procedures
Numerous conversations with cardiology nephrology hospitalist patient's spouse and patient nursing
ED Attending Note
-
Portions of this chart may have been created with voice recognition software.� Occasional wrong word or��sound alike� substitutions may have occurred due to the inherent limitations of voice recognition software.
Discharge Plan
Departure
Patient Disposition: Admit
Date of Disposition: 01/24/24
Time of Disposition: 16:46
Admit to: ICU
Presentation/result/management discussed w/ accepting MD/DO: Hospitalist
Patient with high blood pressure during this ER visit?: No
Condition: Fair
Covid-19: Not Applicable
Discharge Problem:
ESRD (end stage renal disease), CAD (coronary artery disease), Hypertensive heart and chronic kidney disease with heart failure and with stage 5 chronic kidney disease, or end stage renal disease, Insulin dependent diabetes mellitus, Diabetes
mellitus with nephropathy, Chronic diastolic (congestive) heart failure, Chest pain, Factor V deficiency, Occlusion of coronary artery bypass graft, Hypertension
Prescriptions:
No Action
Qvar RediHaler 80 mcg/actuation HFA aerosol breath activated
2 inh INHALATION R BID
aspirin 81 mg Tablet,Delayed Release (Dr/Ec)
81 mg PO DAILY
amlodipine [Norvasc] 10 mg Tablet
10 mg PO HS
loratadine 10 mg Tablet
10 mg PO HS
Bosulif 100 mg Tablet
100 mg PO TID Qty: 0
omega 4-uax-ysq-fish oil [Fish Oil] 1,200 (144-216) mg Capsule
1 cap PO HS
insulin glargine [Lantus Solostar U-100 Insulin] 100 unit/mL (3 mL) insulin pen
14 unit SC HS
furosemide 80 mg tablet
80 mg PO BID
acetaminophen [Tylenol 8 Hour] 650 mg Tablet Extended Release
650 - 1,300 mg PO Q8HPRN PRN (Reason: mild pain)
albuterol sulfate 90 mcg/actuation Hfa Aerosol Inhaler
2 puff INHALATION R QIDPRN PRN (Reason: sob)
Visbiome 112.5 billion cell Capsule
1 cap PO DAILY
losartan 25 mg Tablet
25 mg PO QPM 30 Days Qty: 30 0RF
Rx Instructions:
Hold for SBP<100
doxazosin 2 mg Tablet
4 mg PO HS Qty: 0 0RF
Rx Instructions:
Hold for SBP<100
ProRenal 8 mg iron-800 mcg-1,000 unit tablet
1 tab PO DAILY
calcitriol 0.5 mcg capsule
1 mcg PO DAILY
insulin glargine [Lantus Solostar U-100 Insulin] 100 unit/mL (3 mL) insulin pen
30 unit SC DAILY
insulin aspart U-100 100 unit/mL (3 mL) insulin pen
5 unit SC AC
clopidogrel 75 mg Tablet
75 mg PO DAILY 30 Days Qty: 30 0RF
simvastatin 40 mg tablet
40 mg PO DAILY Qty: 30 0RF
Referrals:
Paz Vasquez MD [Family Provider] -
Interventions
Interventions:
*Risk Screen - Suicide Last Done: 01/24/24 14:41
*General Assessment Last Done: 01/24/24 14:41
*Neglect/Abuse Screening Last Done: 01/24/24 14:41
ED- Fall Risk Assessment Last Done: 01/24/24 14:41
*ED COVID-19 Vaccine History Last Done: 01/24/24 14:41
ED- Cardiac Assessment Last Done: 01/24/24 15:03
Discharge Date and Time
Print Language: [place]
--- NOTE | 2024-01-24 14:55 | EDRN ---
Pt had chest pain in R chest at 07/[address] Harrison in to see pt. Pain is now 08/01. NTG was held due to SBP of [address] Harrison was just informed.
--- NOTE | 2024-01-24 14:55 | EDRN ---
Pt getting a portable CXR at the stretcher side at this time.
--- NOTE | 2024-01-24 15:06 | EDRN ---
Dr. Harrison in room w/pt. Pt states his BP has been running lower than usual and he had called and spoke to MD about it. He states it was in the 70's for SBP.
--- NOTE | 2024-01-24 15:20 | EDRN ---
SALES AND MARKETING ENGINEER in room w/pt at this time attempting IV Access and blood draw.
--- NOTE | 2024-01-24 15:37 | EDRN ---
IV VAT RN unable to get IV access. This RN attempted to call Madeleine LOZADA who can do US IV access.
--- NOTE | 2024-01-24 15:38 | EDRN ---
EDITING CLERK was able to get a #24P in R AC at this time.
[2024-01-24 15:47] LABS: % Basophils 0.2 % (0-2); % Eosinophils 0.9 % (0-6); % Immature Granulocytes 0.4 % (0-0.5); % Lymphocytes 6.6 % (20.5-51.1); % Monocytes 4.8 % (1.7-9.3); % Neutrophils 87.1 % (42.2-75.2); Absolute Eosinophils 0.1 10^3/uL (0-0.7); Absolute Immature Granulocytes 0.1 10^3/uL (0-0.05); Absolute Lymphocytes 0.8 10^3/uL (1.2-3.4); Absolute Monocytes 0.6 10^3/uL (0.1-0.6); Absolute Neutrophils 10.5 10^3/uL (1.4-6.5); Hematocrit 33.8 % (39.0-52.0); Hemoglobin 11.3 g/dL (13.0-18.0); Mean Corp Hgb Conc. 33.4 g/dL (33.0-37.0); Mean Corpuscular Hgb 28.3 pg (27.0-31.0); Mean Corpuscular Volume 84.7 fL (80.0-94.0); Mean Platelet Volume 9.5 fL (7.4-10.4); Nucleated Red Blood Cells % 0 % (-); Platelet Count 224 10^3/uL (130-400); Red Blood Cell Count 3.99 10^6/uL (4.70-6.10); Red Cell Dist. Width 18.1 % (11.5-14.5); White Blood Cell Count 12.1 10^3/uL (4.8-10.8)
--- NOTE | 2024-01-24 15:48 | EDRN ---
Madeleine LOZADA in room attempting US in R arm at this time.
[2024-01-24 16:04] LABS: ALT (SGPT) 28 U/L (0-50); AST (SGOT) 37 U/L (17-59); Albumin 4.2 g/dl (3.5-5.0); Alkaline Phosphatase 66 U/L (38-126); Blood Urea Nitrogen 74 mg/dl (9-20); Calcium 8.3 mg/dl (8.4-10.2); Carbon Dioxide 26 mmol/L (22-30); Chloride 88 mmol/L (98-107); Estimated Creatinine Clearance 9 ml/min; Glucose 163 mg/dl (70-99); Magnesium 2.7 mg/dl (1.6-2.3); Potassium 4.6 mmol/L (3.5-5.1); Sodium 132 mmol/L (135-145); Total Bilirubin 0.8 mg/dl (0.2-1.3); Total Protein 6.7 g/dl (6.3-8.2); eGFR 6.64
[2024-01-24] MEDS: LEVOPHED 250 IV (16:04)
--- NOTE | 2024-01-24 16:10 | EDRN ---
Levophed started at this time and Dr. Harrison said to titrate to SBP 105-110.
--- NOTE | 2024-01-24 16:12 | EDRN ---
Dr. Annetta Alvarado in room w/pt at this time.
[2024-01-24 16:14] LABS: NT-proBNP 23900 pg/ml
--- NOTE | 2024-01-24 16:17 | EDRN ---
Lab results are back and printed and given to Dr. Alvarado at this time.
[2024-01-24] MEDS: LASIX 100 MG IV (16:40)
--- NOTE | 2024-01-24 17:00 | CON.CAR ---
Consultation
Consultation Request
Date/Time Consultation Requested: 01/24/2024 4 PM
Date/Time Consultation Performed: 01/24/2024 5 PM
Requesting Provider: Dr Harrison
Performing Provider: Dr Annetta Glez
Reason for Consultation: Chest pain
Medical History
-
Chief Complaint: Chest pain
History of Present Illness:
He has a very complex medical history. He was recently admitted to the hospital and discharged 01/20/[address] elevation [place] with peak troponin of 31.4. He was started on dual antiplatelet therapy. He underwent cardiac
catheterization with occluded mid circumflex into the OM 2 which was unable to be crossed and plan was for medical management. He was not a beta-randa candidate given junctional rhythm although asymptomatic. He was placed on a 7-day monitor.
Previous outpatient monitor with nonsustained VT for which beta-randa was started and then ultimately discontinued because of junctional rhythms.
Echocardiogram 01/18/2024 with ejection fraction 50 to 55%. Mild LVH. Trace AI.
He has history of prior CABG times 3 in 2018 with LAIRD to the LAD, SVG to RCA. Left radial artery to OM. He has prior history of remote PCI to RCA/left circumflex. Inferior wall [place] 1997 with in-stent restenosis of left circumflex resulting in
PTCA in 2004. He has history of CML, diabetes, hyperlipidemia and hypertension. He has factor V Leiden deficiency noted. No personal history of thromboembolism.
He is end-stage renal disease on hemodialysis with home hemodialysis. He has some fatigue. He has had low blood pressure readings and according to patient this week both amlodipine and doxazosin were held by nephrology so he could proceed with
dialysis His blood pressure readings were low with systolic of 75 mmHg.
Today this morning he developed right-sided chest discomfort prompting ER visit. He currently is comfortable. Blood pressure was low and Levophed was hung but not utilized. He feels that his belly is distended in addition and just very mildly
tender.
Has some asterixis on exam. He feels that he has not completed dialysis fully this week given low blood pressure readings.
EKG is very abnormal with continued junctional rhythm and ST elevation in the anterior leads consistent with evolving pattern of myocardial infarction noted during last admission.
Labs with hemoglobin 11.3 white blood count 12.1. BUNs/creatinine 74/8.0 sodium 132. Potassium 4.6. LFTs are normal and troponin is 18.1 (last prior to discharge 29.1). proBNP 23 900
Chest x-ray small bilateral pleural effusions.
Past Medical History
Past Medical History: Arrhythmias (Junctional rhythm), CAD (CABG x 3, recent ST elevation [place] 12/2023, distant RCA/left circumflex stents), Cancer (CML), GERD, HTN, Hypercholesterolemia, IDDM and Other (End-stage renal disease on home hemodialysis,
BPH, renal stones)
Past Surgical History: Orthopedic (Ankle surgery)
Social History
Tobacco: Non-Smoker
Personal:
Living: With Family
Allergies / Home Medications
Allergy/AdvReac Type Severity Reaction Status Date / Time
atorvastatin Allergy reports Verified 01/24/24 14:19
muscle
weakness
clonidine Allergy Rash Verified 01/24/24 14:19
codeine Allergy Nausea / Verified 01/24/24 14:19
Vomiting
grass pollen Allergy Unknown Verified 01/24/24 14:19
house dust Allergy Unknown Verified 01/24/24 14:19
hydralazine Allergy Vomiting Verified 01/24/24 14:19
Penicillins Allergy Hives A Verified 01/24/24 14:19
CHILD
pollen extracts Allergy seasonal Verified 01/24/24 14:19
allergies
tree and shrub pollen Allergy nasal Verified 01/24/24 14:19
congestion
�Medication �Instructions �Recorded �Confirmed �Type
beclomethasone dipropionate 80 2 inh inhalation R BID 12/01/21 01/17/24 History
mcg/actuation HFA breath activated Lung/breathing issues
aerosol (Qvar RediHaler)
aspirin 81 mg tablet,delayed 81 mg PO DAILY Blood clot 05/15/22 01/17/24 History
release prevention/tx
amlodipine 10 mg tablet (Norvasc) 10 mg PO HS Blood pressure 06/06/22 01/17/24 History
loratadine 10 mg tablet 10 mg PO HS Allergies 08/11/22 01/17/24 History
bosutinib 100 mg tablet (Bosulif) 100 mg PO TID CML ##0 04/15/23 01/17/24 History
omega 3-rdx-sxy-fish oil 1,200 mg 1 cap PO HS Supplement 04/27/23 01/17/24 History
(144 mg-216 mg) capsule (Fish Oil)
insulin glargine 100 unit/mL (3 14 unit SC HS Diabetes 06/18/23 01/17/24 History
mL) subcutaneous pen (Lantus
Solostar U-100 Insulin)
furosemide 80 mg tablet 80 mg PO BID Fluid 07/02/23 01/17/24 History
Retention/Swelling
Lactobac no.2-Bifidobac no.1-S. 1 cap PO DAILY Gastrointestinal 11/23/23 01/17/24 History
thermo 112.5 billion cell capsule Issue
(Visbiome)
acetaminophen 650 mg 650 - 1,300 mg PO Q8HPRN PRN mild 11/23/23 01/17/24 History
tablet,extended release (Tylenol 8 pain
Hour)
albuterol sulfate 90 mcg/actuation 2 puff inhalation R QIDPRN PRN sob 11/23/23 01/17/24 History
aerosol inhaler
losartan 25 mg tablet 25 mg PO QPM 30 days #30 tabs 11/30/23 01/17/24 Rx
doxazosin 2 mg tablet 4 mg (2 x 2 mg) PO HS Blood 12/01/23 01/17/24 Rx
Pressure #0 tabs
calcitriol 0.5 mcg capsule 1 mcg PO DAILY Supplement 01/17/24 01/17/24 History
insulin glargine 100 unit/mL (3 30 unit SC DAILY Diabetes 01/17/24 01/17/24 History
mL) subcutaneous pen (Lantus
Solostar U-100 Insulin)
vit B complx, C-iron 8 mg-folic 1 tab PO DAILY Supplement 01/17/24 01/17/24 History
acid 800 mcg-D3 1,000 unit-zinc
tablet (ProRenal)
insulin aspart U-100 100 unit/mL 5 unit SC AC Diabetes 01/18/24 History
(3 mL) subcutaneous pen
clopidogrel 75 mg tablet 75 mg PO DAILY 30 days #30 tabs 01/19/24 Rx
simvastatin 40 mg tablet 40 mg PO DAILY #30 tabs 01/20/24 Rx
Review of Systems
-
History Source: Patient
All other systems: Negative unless noted
Constitutional: Fatigue and Other
Cardiac: Chest Pain
Physical Exam
Vital Signs
Temp Pulse Resp BP Pulse Ox
98.9 F 62 21 102/54 89
01/24/24 14:16 01/24/24 16:45 01/24/24 16:45 01/24/24 16:45 01/24/24 16:45
Lab Results
01/24/24 15:41
01/24/24 15:41
Troponin I 18.100 ng/ml H* 01/24/24 15:41
Wko-M-Mqpykugvzgk Pept 23847 pg/ml 01/24/24 15:41
General: Chronically ill-appearing man
Neck: Positive JVD
Heart: Regular rate and rhythm 2/6 basal systolic murmur
Lungs: Decreased breath sounds at the bases with few crackles
Abdomen: Distended with normal bowel sounds mildly tender diffuse
Extremities: No clubbing, cyanosis or edema bilaterally.
Neuro: Asterixis on exam, awake, alert
Impression / Plan
-
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 Chris Watts
Assessment:
Presented with chest pain, predominantly right-sided
Abnormal EKG
Junctional rhythm
Low blood pressure
Recent STEMI with peak troponin of 31 discharged 01/18/24
Catheterization 01/17/2024�HUMAN RELATIONS MANAGER of mid circumflex into OM2 as well as occluded LRA to OM2. Unsuccessful attempt to wire OM2, confirming HUMAN RELATIONS MANAGER.
CAD
s/p inferior wall [place] in 1997 with circ PCI
in-stent restenosis of circ resulting in PTCA 2004
CABG x3 2018
Chronic HFpEF
PVCs with NSVT previously mentioned on outpatient Holter monitor asymptomatic (in the setting of ejection fraction 50 to 55%)
Hyperlipidemia
DM2
ESRD on HD as of 04/2023
CML
Factor V Leiden with no history of clotting events
Asthma
R renal mass, felt most likely to be cyst
L kidney stones s/p lithotripsy in past
ECHO 04/29/23: EF 50 to 55%, mild biatrial dilatation, trace TR, PAP [address] chest 01/17/2024: Negative for PE.
Lower extremity venous ultrasound 01/18/2024: US negative for DVT.
Catheterization 01/17/2024�HUMAN RELATIONS MANAGER of mid circumflex into OM2 as well as occluded LRA to OM2. Unsuccessful attempt to wire OM2, confirming HUMAN RELATIONS MANAGER.
Echo 01/18/2024: Ejection fraction 50 to 55%, mild concentric LVH, aortic sclerosis
Rhythm star current download- including 01/22/2024 08:00:23 -01/20/2024 15:01:21 junctional rhythm, sinus bradycardia, PVCs isolated, couplets and 4 beat run of NSVT. Short runs of PAT
Plan:
He presented with chest discomfort which is atypical and right-sided. He recently had ST elevation [place] with that time troponin peaking at 31.4. Currently troponin is 18 and downtrending. Cath with occluded mid circumflex into OM 2, which was
unable to be crossed. EKG is abnormal but stable and consistent with evolving [place]. He is currently chest pain-free. Fortunately recent echo with EF preserved at 50 to 55%.
Plan for continued medical management with aggressive risk factor modification
Continue aspirin, Plavix
Unfortunately given low blood pressure amlodipine was discontinued
He is not a beta-randa candidate
Continue to trend troponins and follow EKGs
Given right-sided chest discomfort plan is for repeat CT scan in the ER. History of factor V Leiden with no history of thrombotic event. I question whether this may be in part related to increased volume.
Low blood pressure readings
Pressors were hung but not utilized
This week given low blood pressure readings Norvasc and Cardura were discontinued through nephrology
Likely multifactorial
Concern regarding contribution of continued junctional rhythm
Continue to follow closely
End-stage renal disease on hemodialysis (home)
He has been missing since last cutting dialysis sessions short this week because of low blood pressure.
I am concerned that he may be under dialyzed and have increased volume which may be contributing to his symptomatology.
proBNP is elevated but nonspecific
He does have some asterixis on exam. Cognition is stable
Nephrology to assess patient
ER to try IV Lasix
Bladder scan
Junctional rhythm
I am concerned that junctional rhythm may also be contributing to symptoms of low blood pressure and fatigue. Restoring AV synchrony may be helpful.
Junctional rhythm is making it not possible to use beta-randa for PVCs/NSVT or coronary disease if needed
Short runs of PAT also noted on rhythm*
Patient may benefit from pacemaker which I discussed with the patient and his . EP opinion
PVCs/NSVT
Noted previously on outpatient monitor 4 beat run on current rhythm*. No symptoms. Ejection fraction 50 to 55%.
Cannot use beta-randa at this time given junctional rhythm
Hyperlipidemia
Continue lipid-lowering with high-dose Crestor
Mild abdominal distention/discomfort
Defer to primary service
Discussed with patient and his .
Discussed with the emergency department physician.
I have spent 45 minutes total critical care time reviewing records
Data Reviewed
-
EKG: Tracing Personally Visualized and interpreted
Radiology: Image Personally Visualized and interpreted and Report Reviewed by me
CT Scan: Report Reviewed by me
Ultrasound: Report Reviewed by me
Medical Tests ([employer], Echo etc): Image Personally Visualized and interpreted
Labs: Labs Reviewed by me
Old Records: Reviewed
--- NOTE | 2024-01-24 17:05 | EDRN ---
Dr. Emmanuel informed of bladder scan results and that pt's abdomen appears distended and firm.
--- NOTE | 2024-01-24 17:07 | EDRN ---
chemical treatment plant technician [place] in room w/ spouse doing med rec at this time.
--- NOTE | 2024-01-24 17:16 | HPS.HSE ---
Addendum entered and electronically signed by Kiran Cox DO 01/24/24 19:27:
EKG reviewed: Indeterminate Rhythm likely junctional, RBBB, Isolated ST changes of V1, QTC 495ms. No change from 01/19/2024.
Original Note:
Family Physician
-
Family Physician: Paz Vasquez
Chief Complaint
-
Right Sided Chest pain and SOB
History of Present Illness
69yo M with PMH CAD s/p CABG, Recent Cath last admission not amenable to PCI (med management recommended), HTN/HLD, HFpEF (TTE 01/18/24 EF 50-55, no WMA), Asthma, GERD, DM2 on insulin, Neuropathy, Nephrotic Syndrome, ESRD on Home HD (5 days per
week), Factor V Leiden (never been A.C.), DDD, CML, Hx Enterococcus UTI 11/2023 presents to ER for 4-5 days of low BP with right sided CP and SOB today. Pt has been following with his physician office rep Dr. Gabriel 2/ hypotension. Yesterday he did not undergo
home dialysis via LUE AVF. He was then told to stop his amlodipine and doxazosin. Despite this today he noticed BP in the 80/54 range. Pt states he woke up feeling his normal self but while seat on recliner felt SOB and right sided non radiating CP.
States CP on last admission was different and radiating across entire chest. +nonproductive cough x 2 days. Denies LE edema. States normal BP in 130/80s. Denies fever, chills, diaphoresis, current CP, palps, wheezing, abd pain, n/v/d/c, dysuria,
calf or leg pain.
ER course: Pt presents with BP 87/54->102/54, Sat 89% RA transiently other V.S.S. Trop 18.1 (lower than past admission), BNP 92616. WBC 12.1K, Hgb 11.3 g/dL. BUN/Cr Na 132, BUN/Cr 74/8.0, LFTs wnl. CT PE: no pulmonary embolism, Small-moderate R/L
bilateral pleural effusions, Mild cardiomegaly, Stable postoperative changes. S/P 100mg IV lasix, ASA 325mg, Nitro SL. Levophed initiated at 2mcg/min transiently than discontinued. Pt admitted to IMU for close monitoring. Midodrine 5mg PO ordered.
Medical History
Past Medical History
Past Medical History: Reports Other (CAD s/p CABG, Recent Cath last admission not amenable to PCI (med management recommended), HTN/HLD, HFpEF (TTE 01/18/24 EF 50-55, no WMA), Asthma, GERD, DM2 on insulin, Neuropathy, ESRD on Home HD (5 days per
week), CML, Factor V Leiden (never been A.C.), DDD)
Past Surgical History: Reports Other (Cardiac (Triple bypass), Orthopedic, Urological (Renal calculus, TURP) and Other (Left upper arm fistula, cataract extractions, tenosynovectomy, wisdom teeth extraction))
Social History
Tobacco: Non-smoker
Alcohol: Occasional (social)
Drug: None
Personal:
Living: With Family
Family History
Family History: Other (Mother with CAD s/p MA. Father with ESRD)
Allergies / Home Medications
Allergies reflects when Allergies were last updated in [facility].
Home Medications with original date entered in [facility]
Allergy/Medication List:
Allergies
Allergy/AdvReac Type Severity Reaction Status Date / Time
atorvastatin Allergy reports Verified 01/24/24 14:19
muscle
weakness
clonidine Allergy Rash Verified 01/24/24 14:19
codeine Allergy Nausea / Verified 01/24/24 14:19
Vomiting
grass pollen Allergy Unknown Verified 01/24/24 14:19
house dust Allergy Unknown Verified 01/24/24 14:19
hydralazine Allergy Vomiting Verified 01/24/24 14:19
Penicillins Allergy Hives A Verified 01/24/24 14:19
CHILD
pollen extracts Allergy seasonal Verified 01/24/24 14:19
allergies
tree and shrub pollen Allergy nasal Verified 01/24/24 14:19
congestion
Home Medications
beclomethasone dipropionate 80 mcg/actuation HFA breath activated aerosol (Qvar RediHaler) 2 inh inhalation R BID Lung/breathing issues 12/01/21
aspirin 81 mg tablet,delayed release 81 mg PO DAILY Blood clot prevention/tx 05/15/22
loratadine 10 mg tablet 10 mg PO HS Allergies 08/11/22
bosutinib 100 mg tablet (Bosulif) 100 mg PO TID CML ##0 04/15/23
omega 4-jow-zjw-fish oil 1,200 mg (144 mg-216 mg) capsule (Fish Oil) 1 cap PO HS Supplement 04/27/23
insulin glargine 100 unit/mL (3 mL) subcutaneous pen (Lantus Solostar U-100 Insulin) 14 unit SC HS Diabetes 06/18/23
furosemide 80 mg tablet 80 mg PO DAILY Fluid Retention/Swelling 07/02/23
Lactobac no.2-Bifidobac no.1-S. thermo 112.5 billion cell capsule (Visbiome) 1 cap PO DAILY Gastrointestinal Issue 11/23/23
acetaminophen 650 mg tablet,extended release (Tylenol 8 Hour) 650 - 1,300 mg PO Q8HPRN PRN mild pain 11/23/23
albuterol sulfate 90 mcg/actuation aerosol inhaler 2 puff inhalation R QIDPRN PRN sob 11/23/23
insulin glargine 100 unit/mL (3 mL) subcutaneous pen (Lantus Solostar U-100 Insulin) 30 unit SC DAILY Diabetes 01/17/24
vit B complx, C-iron 8 mg-folic acid 800 mcg-D3 1,000 unit-zinc tablet (ProRenal) 1 tab PO DAILY Supplement 01/17/24
insulin aspart U-100 100 unit/mL (3 mL) subcutaneous pen 12 - 20 sliding scale dose SC AC Diabetes 01/18/24
clopidogrel 75 mg tablet 75 mg PO DAILY 30 days #30 tabs 01/19/24
losartan 25 mg tablet 25 mg PO HS 01/24/24
rosuvastatin 40 mg tablet 40 mg PO DAILY 01/24/24
Review of Systems
-
A 12 point ROS was completed and negative except as noted: Yes
Physical Exam
Vital Signs
Vital Signs
Temp Pulse Resp BP Pulse Ox
98.9 F 62 21 102/54 89
01/24/24 14:16 01/24/24 16:45 01/24/24 16:45 01/24/24 16:45 01/24/24 16:45
Physical Exam
General: Well Developed, Well Nourished and No Apparent Distress
HEENT: NormoCephalic, Moist mucous membranes and Atraumatic
Respiratory: Rales (B/L R>L lung field. ); No Wheezes, Non Labored Respirations or Accessory Resp Muscle Use
Cardiac: S1/S2, Regular Rhythm and Other (+sternotomy incision well approximated. LUE AVF +bruit/thrill ); No Murmur or Rub
GI: Soft, Non Tender, Non Distended and Normal Bowel Sounds; No Organomegaly
Rectal: Deferred by Provider
Genito-urinary: No costovertebral tender; No Morgan
Musculoskeletal: No Clubbing, No Cyanosis and No Edema
Skin: Warm and Dry; No Rash
Neuro: Awake, Alert, Oriented, AO x 3 and Nonfocal/grossly intact
Hematologic/Lymphatic: No Lymphadenopathy
Psych: Calm
Laboratory Results
-
01/24/24 15:41
01/24/24 15:41
Laboratory Results
Total Bilirubin 0.8 mg/dl (0.2-1.3) 01/24/24 15:41
AST 37 U/L (17-59) 01/24/24 15:41
ALT 28 U/L (0-50) 01/24/24 15:41
Alkaline Phosphatase 66 U/L (38-126) 01/24/24 15:41
Troponin I 18.100 ng/ml H* 01/24/24 15:41
Data Reviewed
-
Diagnostic Radiology: Image Personally Visualized and interpreted
CT Scan: Image Personally Visualized and interpreted
Medical Tests (Nuc Med, Echo, EKG etc): Image Personally Visualized and interpreted
Lab Data: Labs Reviewed by me
Old Records: Reviewed
Impression/Plan
-
Hypotension with Hx HTN
- BP 87/54. Pt endorses normal BP 130/80s
- Unclear etiology at this time.
- Infectious workup initiated. Mild leukocytosis with enteroccocus UTI noted 11/2023. Repeat UA with reflex. BC x 2. Sputum culture. Monitor off abx.
- Losartan on hold
- Norvasc and doxazosin held recently per nephrology.
- Transiently placed on levophed in ER, now discontinued
- Given 5mg Midodrine, Initiate 10mg TID standing Midodrine.
- Will attempt to continue home lasix with hold parameters
Chest Pain / Hx CAD s/p CABG / HTN / HLD
- Pt endorses right sided atypical CP, resolved; different than cardiac CP from last admission
- Also endorses nonproductive cough, may be costochondritis
- CT PE reviewed, no PE, R>L mild-mod effusion
- Trop 18.1. Trend per ACS protocol. This is likely downtrending from last admission and elevated in setting of ESRD
- S/P ASA 325mg and Nitro in ER.
- Continue aspirin/plavix, crestor. Losartan held.
B/L R>L Pleural Effusion
- CT PE with small-moderate R>L effusion
- Borderline hypoxia, sat 89% RA, maintain SPO2 > 92%
- Etiology may be nephrosis vs missed dialysis sessions (held 2/2 hypotension). CHF less suspicious (BNP 54239 in setting of ESRD) given normal TTE 12/2023.
- limited ability to diurese with hypotension, confirmed he was given 100mg IV lasix in ER
- Continue home lasix regimen, likely change to IV lasix if BP stabilized on standing midodrine
- IR consulted. Obtain thoracentesis with fluid studies ordered.
- 1200cc, low sodium diet.
ESRD
Nephrotic Syndrome
- Chronic hyponatremia noted
- Consult nephrology for further recs. Last dialysis session 01/21, yesterday held 2/2 hypotension
- Will resume home 80mg PO lasix with PRN midodrine. Ideally change to IV lasix as BP tolerates
- Continue prorenal tabs daily
- Na/K restriction
Asthma - Continue home nebs
Factor V Leiden - Denies hx DVT/PE in past. CT PE again negative today. Diagnosed genetic testing 2/2 his daughter FVL(+). Not on A.C.
CML - Hx noted. Continue bosulif 100mg TID
DM2 - continue home insulin regimen. SSI/accuchecks.
BPH - Doxazosin held per nephrology x 1 day, will continue. Urinary retention protocol initiated. Consider finasteride.
--- NOTE | 2024-01-24 17:26 | EDRN ---
Dr. Steiner in room w/ pt at this time.
--- NOTE | 2024-01-24 18:05 | EDRN ---
Pt to go to ICU bed as IMU admit per detective chief.
[2024-01-24] MEDS: ProAmatine 5 MG PO (18:48)
--- NOTE | 2024-01-24 19:32 | EDRN ---
Pt's says he had a ME Thursday, had a cardiac catheterization and went home Thursday. Pt says he developed R side cp this morning around 1130 and his breathing was 'heavy.' Pt pain free at this time. Pt reports chest pain went away couple
hours ago. Pt has a monitor tech R upper chest which he says it to stay on for 1 week. Pt makes urine about four times a day.
--- NOTE | 2024-01-24 19:50 | EDRN ---
Report given to Adrienne in ICU
--- NOTE | 2024-01-24 20:30 | PTCARENOTE ---
rec'd patient from ER. assessment as documented. IMU level of care. pt oriented x3. afebrile. denies pain. BP on admission 130s/70s. pt denies SOB, on RA. nonproductive cough noted. 2g sodium diet. pt to BR with supervision for BM. pt oliguric,
admits to voiding small amounts 4-5x/day. on home HD, schedule varies, LUE AVF. updated with patient at bedside. call flynn within reach. care ongoing.
[2024-01-24] MEDS: LANTUS 0.14 UNITS SC (21:34)
[2024-01-24 21:43] LABS: Glucose - Point of Care 157 mg/dl (70-99)
[2024-01-24] MEDS: MYLICON 80 MG PO (23:03)
[2024-01-25] VITALS (25 sets, daily range): BP systolic 94–170; BP diastolic 51–93; BMI 24.7
[2024-01-25] MEDS: ProAmatine 10 MG PO (04:07)
--- NOTE | 2024-01-25 04:31 | PTCARENOTE ---
AM labs sent. UA sent. pt OOB to BR with supervision overnight. denies pain or SOB at this time. call flynn within reach, care ongoing.
[2024-01-25 04:40] LABS: Urine Albumin 3+ (Neg - Trace); Urine Bilirubin Negative (Negative); Urine Character Clear (Clear); Urine Color Yellow; Urine Glucose Negative (Negative); Urine Ketone Negative (Negative); Urine Leukocyte 1+ (Negative); Urine Nitrite Negative (Negative); Urine Occult Blood 1+ (Negative); Urine Urobilinogen Negative (Neg - 1+)
[2024-01-25 04:40] LABS: % Basophils 0.2 % (0-2); % Eosinophils 1.4 % (0-6); % Immature Granulocytes 0.5 % (0-0.5); % Lymphocytes 14.9 % (20.5-51.1); % Monocytes 8.4 % (1.7-9.3); % Neutrophils 74.6 % (42.2-75.2); Absolute Eosinophils 0.2 10^3/uL (0-0.7); Absolute Immature Granulocytes 0.1 10^3/uL (0-0.05); Absolute Lymphocytes 1.6 10^3/uL (1.2-3.4); Absolute Monocytes 0.9 10^3/uL (0.1-0.6); Absolute Neutrophils 7.9 10^3/uL (1.4-6.5); Hematocrit 33.9 % (39.0-52.0); Hemoglobin 11.4 g/dL (13.0-18.0); Mean Corp Hgb Conc. 33.6 g/dL (33.0-37.0); Mean Corpuscular Hgb 29.1 pg (27.0-31.0); Mean Corpuscular Volume 86.5 fL (80.0-94.0); Mean Platelet Volume 9.5 fL (7.4-10.4); Nucleated Red Blood Cells % 0 % (-); Platelet Count 229 10^3/uL (130-400); Red Blood Cell Count 3.92 10^6/uL (4.70-6.10); Red Cell Dist. Width 18.1 % (11.5-14.5); White Blood Cell Count 10.6 10^3/uL (4.8-10.8)
[2024-01-25 05:05] LABS: Urine Red Blood Cell 0-2 /HPF (0-2); Urine White Cell 26-30 /HPF (0-5)
[2024-01-25 05:06] LABS: Urine Bacteria Few (Negative)
[2024-01-25 05:10] LABS: ALT (SGPT) 25 U/L (0-50); AST (SGOT) 30 U/L (17-59); Albumin 3.8 g/dl (3.5-5.0); Alkaline Phosphatase 71 U/L (38-126); Blood Urea Nitrogen 80 mg/dl (9-20); Carbon Dioxide 24 mmol/L (22-30); Chloride 88 mmol/L (98-107); Direct Bilirubin 0.6 mg/dl (0.0-0.4); Estimated Creatinine Clearance 8 ml/min; Glucose 192 mg/dl (70-99); LDH 278 U/L (120-246); Magnesium 2.8 mg/dl (1.6-2.3); Potassium 4.6 mmol/L (3.5-5.1); Sodium 130 mmol/L (135-145); Total Bilirubin 0.6 mg/dl (0.2-1.3); Total Protein 6.1 g/dl (6.3-8.2); eGFR 5.92
--- NOTE | 2024-01-25 06:52 | W.PN.HOSP.TC ---
Today's Communication/Plan
-
Stable for downgrade to Tele
cont HD as per nephro
glycemic control
midodrine
pending EP eval
Assessment / Plan
Assessment / Plan
Physical Exam
General: Well Developed, Well Nourished and No Apparent Distress
HEENT: NormoCephalic, Moist mucous membranes and Atraumatic
Respiratory: Clear to auscultation bilateral; No Wheezes, Non Labored Respirations or Accessory Resp Muscle Use
Cardiac: S1/S2, Regular Rhythm old sternotomy incision. LUE AVF +bruit/thrill No Murmur or Rub
GI: Soft, Non Tender, Non Distended and Normal Bowel Sounds; No Organomegaly
Genito-urinary: No costovertebral tender; No Morgan
Musculoskeletal: No Clubbing, No Cyanosis and No Edema
Skin: Warm and Dry; No Rash
Neuro: AOx3
Psych: Calm
69M ESRD HD DM HFpEF Iron Def BPH CML Asthma CAD CABG presents for evaluation hypotension chest pain pleural effusion after recent hospitalization for STEMI.
Hypotension with Hx HTN
- Unclear etiology at this time possibly iatrogenic
- UA not suggestive UTI. Ucx pending BC x 2 NGTD. Sputum culture if possible. Monitor off abx.
- Losartan on hold
- Norvasc and doxazosin held recently per nephrology.
- Transiently placed on levophed in ER since discontinued
- cont Midodrine 5 mg TID with holding parameters
- continue home Lasix with hold parameters
Chest Pain / Hx CAD s/p CABG / HTN / HLD
Junctional Rhythm
- Pt endorses right sided atypical CP, resolved; different than cardiac CP from last admission
- Also endorses nonproductive cough, possible costochondritis
- CT PE reviewed, no PE, R>L mild-mod effusion
- Trop 18.1 continues to downtrend from last admission, elevated in setting of ESRD
- S/P ASA 325mg and Nitro in ER.
- Continue aspirin/plavix, crestor. Losartan held.
-Cardio appreciated, EP eval pending
B/L R>L Pleural Effusion
- CT PE with small-moderate R>L effusion
- Borderline hypoxia, sat 89% RA, maintain SPO2 > 92%
- Etiology may be nephrosis vs missed dialysis sessions (held 2/2 hypotension). CHF less suspicious (BNP 72082 in setting of ESRD) given normal TTE 12/2023.
- limited ability to diurese with hypotension, given 100mg IV lasix in ER
- Continue home lasix regimen for now
- IR consulted. Obtain thoracentesis with fluid studies ordered.
- fluid restriction 1200cc, low sodium diet.
ESRD
Nephrotic Syndrome
- Chronic hyponatremia noted
-Nephro eval appreciated
-cont HD as per Nephro
- Continue prorenal tabs daily
- Na/K restriction
Asthma - Continue home nebs
Factor V Leiden - Denies hx DVT/PE in past. CT PE again negative today. Diagnosed genetic testing 2/2 his daughter FVL(+). Not on A.C.
CML - Hx noted. Continue bosulif 100mg TID converted to 300 mg daily per discussion with pharmacy d/t Creatine Clearance ESRD
DM2 - continue home insulin regimen. SSI/accuchecks.
BPH - Doxazosin remains on hold d/t significant hypotension since resolved. No significant urinary retention noted at this time.
dvt ppx heparin
Medically stable for downgrade to Tele
discussed with patient and patient's Sabrina
I spent a total of 50 minutes with the patient or on the floor. More than 50% of this time involved counseling and coordination of care.
Anticipated Discharge: 24 - 48 hours
Subjective/Interval History
-
Date of Service: January 25, 2024
Seen and examined at bedside in no acute distress resting comfortably in bed. Overall reports feeling well. Denies new acute issues at this time.
Objective Data
-
Labs:
Laboratory Results
01/25/24
04:26
WBC 10.6
Hgb 11.4 L
Hct 33.9 L
Plt Count 229
Sodium 130 L
Potassium 4.6
Chloride 88 L
Carbon Dioxide 24
BUN 80 H
Creatinine 8.8 H*
Glucose 192 H
Calcium 8.0 L
Total Bilirubin 0.6
AST 30
ALT 25
Alkaline Phosphatase 71
Vital Signs:
Vital Signs
Temp Pulse Resp BP Pulse Ox
98.6 F 51 16 123/64 93
01/25/24 04:03 01/25/24 06:00 01/25/24 06:00 01/25/24 06:00 01/25/24 06:00
I&O
01/23/24 01/24/24 01/25/24
06:59 06:59 06:59
Intake Total 480 / 480
Output Total 150 / 150
Balance 330 / 330
[2024-01-25 07:33] LABS: Glucose - Point of Care 169 mg/dl (70-99)
[2024-01-25] MEDS: CRESTOR 40 MG PO (07:33)
[2024-01-25] MEDS: ASPIR LOW (ENTERIC COATED) 81 MG PO (07:33)
[2024-01-25] MEDS: HEPARIN 5000 UNITS SC ×3 (07:33→22:30)
[2024-01-25] MEDS: LANTUS 0.3 UNITS SC (07:34)
[2024-01-25] MEDS: VISBIOME 1 CAP PO (07:34)
[2024-01-25] MEDS: PLAVIX 75 MG PO (07:34)
--- NOTE | 2024-01-25 08:02 | W.CON.NEPH ---
Consultation
-
Date/Time Consultation Requested: 01/25/2024 7:00 AM
Date/Time Consultation Performed: 01/25/2024 7:30 AM
Requesting Provider: Dr. Garcia
Performing Provider: Dr. Frost
Reason for Consultation: End-stage renal disease
Medical History
-
Chief Complaint: End-stage renal disease/hypertension
History of Present Illness:
This is a 69-year-old gentleman who is well-known to us for his chronic kidney disease with ESRD now on dialysis at home 5 times nightly. He dialyzes via his AV fistula and his last dialysis was partially completed on this past Thursday. He has
diabetes mellitus type 2 with multiple complications and is maintained insulin.� He also has known coronary artery disease with CABG in the past.� He has a history of hypertension maintained on amlodipine and doxazosin both of which were recently
discontinued due to potentiated hypotension. His current estimated dry weight on dialysis has been 76.5 kg. He presented last week for chest pain with ST elevation in anterior leads. He was found to have a STEMI and brought to senior label specialist. He was
noted to have an obtuse marginal occlusion of the circumflex that was not amendable to stenting procedure. He presented with right sided chest pain and sob.
Past Medical History
ESRD, heart failure preserved ejection fraction, coronary disease with bypass, hypertension, diabetes mellitus type 2, nephrolithiasis, left upper extremity AV fistula, BPH, GERD, vocal polyps, CML, cervical radiculopathy, right Achilles tendon
repair, cataract surgery, tenosynovectomy, wisdom teeth extraction.
Past Surgical History: Other (Coronary artery bypass graft x 3 PCI to RCA/LCx and CABG x3 (LAIRD to LAD, LRA to OM, SVG to RPDA) in [address] Brasher Cardiac stent Left ankle surgery x 2)
Social History
Tobacco: Non-Smoker
Alcohol: None
Drug: None
Living: With Family
Family History
Family History: Not Pertinent
Allergies / Home Medications
Allergy/AdvReac Type Severity Reaction Status Date / Time
atorvastatin Allergy reports Verified 01/24/24 14:19
muscle
weakness
clonidine Allergy Rash Verified 01/24/24 14:19
codeine Allergy Nausea / Verified 01/24/24 14:19
Vomiting
grass pollen Allergy Unknown Verified 01/24/24 14:19
house dust Allergy Unknown Verified 01/24/24 14:19
hydralazine Allergy Vomiting Verified 01/24/24 14:19
Penicillins Allergy Hives A Verified 01/24/24 14:19
CHILD
pollen extracts Allergy seasonal Verified 01/24/24 14:19
allergies
tree and shrub pollen Allergy nasal Verified 01/24/24 14:19
congestion
�Medication �Instructions �Recorded �Confirmed �Type
beclomethasone dipropionate 80 2 inh inhalation R BID 12/01/21 01/24/24 History
mcg/actuation HFA breath activated Lung/breathing issues
aerosol (Qvar RediHaler)
aspirin 81 mg tablet,delayed 81 mg PO DAILY Blood clot 05/15/22 01/24/24 History
release prevention/tx
loratadine 10 mg tablet 10 mg PO HS Allergies 08/11/22 01/24/24 History
bosutinib 100 mg tablet (Bosulif) 100 mg PO TID CML ##0 04/15/23 01/24/24 History
omega 2-iib-qrl-fish oil 1,200 mg 1 cap PO HS Supplement 04/27/23 01/24/24 History
(144 mg-216 mg) capsule (Fish Oil)
insulin glargine 100 unit/mL (3 14 unit SC HS Diabetes 06/18/23 01/24/24 History
mL) subcutaneous pen (Lantus
Solostar U-100 Insulin)
furosemide 80 mg tablet 80 mg PO DAILY Fluid 07/02/23 01/24/24 History
Retention/Swelling
Lactobac no.2-Bifidobac no.1-S. 1 cap PO DAILY Gastrointestinal 11/23/23 01/24/24 History
thermo 112.5 billion cell capsule Issue
(Visbiome)
acetaminophen 650 mg 650 - 1,300 mg PO Q8HPRN PRN mild 11/23/23 01/24/24 History
tablet,extended release (Tylenol 8 pain
Hour)
albuterol sulfate 90 mcg/actuation 2 puff inhalation R QIDPRN PRN sob 11/23/23 01/24/24 History
aerosol inhaler
insulin glargine 100 unit/mL (3 30 unit SC DAILY Diabetes 01/17/24 01/24/24 History
mL) subcutaneous pen (Lantus
Solostar U-100 Insulin)
vit B complx, C-iron 8 mg-folic 1 tab PO DAILY Supplement 01/17/24 01/24/24 History
acid 800 mcg-D3 1,000 unit-zinc
tablet (ProRenal)
insulin aspart U-100 100 unit/mL 12 - 20 sliding scale dose SC AC 01/18/24 01/24/24 History
(3 mL) subcutaneous pen Diabetes
clopidogrel 75 mg tablet 75 mg PO DAILY 30 days #30 tabs 01/19/24 01/24/24 Rx
losartan 25 mg tablet 25 mg PO HS 01/24/24 01/24/24 History
rosuvastatin 40 mg tablet 40 mg PO DAILY 01/24/24 01/24/24 History
Review of Systems
-
History Source: Patient
All other systems: Negative unless noted
Physical Exam
Vital Signs
Vital Signs
Temp Pulse Resp BP Pulse Ox
98.5 F 51 16 123/64 93
01/25/24 07:01 01/25/24 06:00 01/25/24 06:00 01/25/24 06:00 01/25/24 06:00
Lab Results
01/25/24 04:26
01/25/24 04:26
WBC 10.6 10^3/uL (4.8-10.8) 01/25/24 04:26
RBC 3.92 10^6/uL (4.70-6.10) L 01/25/24 04:26
Hgb 11.4 g/dL (13.0-18.0) L 01/25/24 04:26
Hct 33.9 % (39.0-52.0) L 01/25/24 04:26
Plt Count 229 10^3/uL (130-400) 01/25/24 04:26
Sodium 130 mmol/L (135-145) L 01/25/24 04:26
Potassium 4.6 mmol/L (3.5-5.1) 01/25/24 04:26
Chloride 88 mmol/L (98-107) L 01/25/24 04:26
Carbon Dioxide 24 mmol/L (22-30) 01/25/24 04:26
BUN 80 mg/dl (9-20) H 01/25/24 04:26
Creatinine 8.8 mg/dL (0.7-1.3) H* 01/25/24 04:26
eGFR 5.92 01/25/24 04:26
Glucose 192 mg/dl (70-99) H 01/25/24 04:26
Calcium 8.0 mg/dl (8.4-10.2) L 01/25/24 04:26
Rdy-Z-Gynswxqhvew Pept 70040 pg/ml 01/24/24 15:41
Albumin 3.8 g/dl (3.5-5.0) 01/25/24 04:26
Physical Exam
General: AOx3, Nontoxic , NAD
HEENT: PERRL, EOMI, Anicteric, Conjunctivae Clear, Ear/Nose Intact, Hearing Normal, Oropharynx Clear/Moist, Dentition Intact, Facial Symmetry, Neck Supple, Neck: Trachea Midline, No JVD and No Thyromegaly, no Bruits
Respiratory: Clear to auscultation bilaterally with normal lung exersion
Cardiac: S1/S2 and Regular Rate/Rhythm
Breast: Deferred by me
Abdomen: Soft, Nontender, Nondistended, Normal Bowel Sounds and No Hepatosplenomegaly
Rectal: Deferred by Provider
Genito-urinary: No Costovertebral Tenderness
Extremities: No Clubbing, No Cyanosis and No Edema
Skin: No Rash or open lesions
Neuro: Nonfocal/Grossly Intact, CN II-XII (Intact) and Strength (Musculoskeletal exam 5 out of 5 both upper and lower extremities)
Hematologic/Lymphatic: No Cervical Lymphadenopathy, No Submandibular Lymphadenopathy and No Supraclavicular Lymphadenopathy
Psych: Mood/afflect pleasant, Insight/judgement good and Appropriate
Vascular: plus 1pedal and radial pulses
Vascular Access: AVF (Left upper extremity )
Data Reviewed
-
Radiology: Report Reviewed by me (Chest x-ray reviewed no evidence of congestive heart failure)
Labs: Labs Reviewed by me (BMP CBC troponin)
Old Records: Reviewed (Reviewed nephrology consultation from December 2019 for an electronic medical)
Assessment/Plan
-
Impression:
ESRD (home HD) 76.5kg EDW
S/P STEMI not amendable to stenting in 01/15
Uncontrolled hypertension now hypotensive
Hyponatremia
Left upper extremity AV fistula
Diabetes
History of coronary artery disease with previous CABG
BPH/TURP
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
Plan:
HD provided
No evidence of congestive heart failure on chest x-ray or CT of chest, patient very close to EDW and hypotensive
I do not believe I can push his UF further
Antihypertensives held in setting of hypotension
For repeat echocardiogram given ongoing hypotension
--- NOTE | 2024-01-25 08:24 | W.PN.NEPH.HD ---
Assessment
-
Patient seen on dialysis
No chest pain or shortness of
Systolic blood pressure 120 at current UF to dry weight
AV fistula with good function
Progress Note - Hemodialysis
-
Date of Service: January 25, 2024
Duration: 45 minutes and 3 hours
Potassium Bath: 3
Calcium Bath: 2.5
Opti-Dialyzer: 160
Ultrafiltration: EDW (76.5kg)
Blood Flow: 400
Dialysate Flow: 600
Heparin: none
EPO: none
[2024-01-25] MEDS: NOVOLOG FLEXPEN-MODERATE RESISTANCE SC ×2 (09:11→11:42)
--- NOTE | 2024-01-25 09:32 | PTCARENOTE ---
Received pt this am without complaint, hd nurse at bedside for hd this am. Otherwise please see flowsheet.
--- NOTE | 2024-01-25 09:53 | CM ---
Reviewed the chart notes and spoke with the patient at the bedside. The patient resides with his spouse in a two story home with one step to enter. The patient reports having in home if needed a cane and walker. The patient does HD at home five
days/week. [facility] is back-up if needed. The patient is current with [facility] PT/OT. The patient confirmed his pharmacy of choice is the [facility] [place]. CM continues to be available to patient/family and is
monitoring medical plan for needs at discharge.
Plan: Discharge hopefully to home with resumption of [facility].
--- NOTE | 2024-01-25 10:30 | PTCARENOTE ---
received a call from IR to confirm if pt was on HD, thora will be planned for 01/25
[2024-01-25] MEDS: LASIX 80 MG PO (11:43)
--- NOTE | 2024-01-25 11:46 | PTCARENOTE ---
pt assisted oob to chair to eat lunch
[2024-01-25 11:51] LABS: Glucose - Point of Care 80 mg/dl (70-99)
--- NOTE | 2024-01-25 14:58 | W.PN.CARDCBS ---
Today's Communication / Plan
-
Continue medical management of CAD
Will ask EP to evaluate tomorrow re: junctional rhythm
Impression / Plan
-
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
Assessment:
Presented with chest pain, predominantly right-sided
Abnormal EKG
Junctional rhythm
Low blood pressure
Recent STEMI with peak troponin of 31 discharged 01/18/24
Catheterization 01/17/2024�SUMO WRESTLER of mid circumflex into OM2 as well as occluded LRA to OM2. Unsuccessful attempt to wire OM2, confirming SUMO WRESTLER.
CAD
s/p inferior wall PR in 1997 with circ PCI
in-stent restenosis of circ resulting in PTCA 2004
CABG x3 2018
Chronic HFpEF
PVCs with NSVT previously mentioned on outpatient Holter monitor asymptomatic (in the setting of ejection fraction 50 to 55%)
Hyperlipidemia
DM2
ESRD on HD as of 04/2023
CML
Factor V Leiden with no history of clotting events
Asthma
R renal mass, felt most likely to be cyst
L kidney stones s/p lithotripsy in past
ECHO 04/29/23: EF 50 to 55%, mild biatrial dilatation, trace TR, PAP [address] of chest 01/17/2024: Negative for PE.
Lower extremity venous ultrasound 01/18/2024: US negative for DVT.
Catheterization 01/17/2024�SUMO WRESTLER of mid circumflex into OM2 as well as occluded LRA to OM2. Unsuccessful attempt to wire OM2, confirming SUMO WRESTLER.
Echo 01/18/2024: Ejection fraction 50 to 55%, mild concentric LVH, aortic sclerosis
Rhythm star current download- including 01/22/2024 08:00:23 -01/20/2024 15:01:21 junctional rhythm, sinus bradycardia, PVCs isolated, couplets and 4 beat run of NSVT. Short runs of PAT
Plan:
-Presented with chest discomfort which is atypical and right-sided. He recently had ST elevation PR with that time troponin peaking at 31.4. Cath with occluded mid circumflex into OM 2, which was unable to be crossed. EKG is abnormal but stable and
consistent with evolving PR. He is currently chest pain-free. Fortunately recent echo with EF preserved at 50 to 55%.
-Troponin is down trending, no need to repeat, troponin elevation is most likely residual from recent PR
-Continue aspirin, Plavix, high intensity statin
-Unfortunately given low blood pressure amlodipine was discontinued
-He is not a beta-randa candidate due to junctional rhythm
-Remains in junctional rhythm, will ask EP to evaluate for possible PPM
-PVCs/NSVT - Noted previously on outpatient monitor 4 beat run on current rhythm*. No symptoms. Ejection fraction 50 to 55%.
Progress Note - Lumber Marker
Subjective
Date of Service: January 25, 2024
No acute overnight events. Patient resting comfortably in bed, currently being dialyzed in the medical ICU. Not reporting any chest pain or pressure at this time. No shortness of breath. No significant edema.
Objective
Labs:
01/25/24 04:26
01/25/24 04:26
Labs
Hgb 11.4 g/dL (13.0-18.0) L 01/25/24 04:26
Hct 33.9 % (39.0-52.0) L 01/25/24 04:26
Plt Count 229 10^3/uL (130-400) 01/25/24 04:26
Sodium 130 mmol/L (135-145) L 01/25/24 04:26
Potassium 4.6 mmol/L (3.5-5.1) 01/25/24 04:26
BUN 80 mg/dl (9-20) H 01/25/24 04:26
Creatinine 8.8 mg/dL (0.7-1.3) H* 01/25/24 04:26
Glucose 192 mg/dl (70-99) H 01/25/24 04:26
Troponins
01/24/24 01/24/24 01/25/24
15:41 21:40 04:26
Troponin I 18.100 H* 17.800 H* 16.500 H*
Vital Signs and I&O:
Vital Signs
Temp Pulse Resp BP Pulse Ox
98.2 F 67 15 137/88 96
01/25/24 11:45 01/25/24 13:00 01/25/24 13:00 01/25/24 12:00 01/25/24 11:46
Vital Signs
Temp Pulse Resp BP Pulse Ox
98.2 F 67 15 137/88 96
01/25/24 11:45 01/25/24 13:00 01/25/24 13:00 01/25/24 12:00 01/25/24 11:46
Intake & Output
01/23/24 01/24/24 01/25/24 01/26/24
06:59 06:59 06:59 06:59
Intake Total 480 / 480 360 / 360
Output Total 150 / 150
Balance 330 / 330 360 / 360
Physical Exam
Physical Exam
Gen: NAD, AAOx3
HEENT: NC/AT, sclera anicteric
Neck: No JVD
CV: RRR, NL s1/s2, no M/R/G
Lungs: CTAB
Abd: S/ND
Ext: No LE edema
Skin: Warm, dry
Neuro: Non-focal
[2024-01-25] MEDS: NOVOLOG FLEXPEN-MODERATE RESISTANCE 7 UNITS SC (17:11)
[2024-01-25 17:13] LABS: Glucose - Point of Care 302 mg/dl (70-99)
[2024-01-25] MEDS: NON-FORMULARY ITEM 300 MG PO (17:24)
--- NOTE | 2024-01-25 17:44 | PTCARENOTE ---
pt reported his home ssi starts at 12 units for blood sugars above [address] increases from [address] Garcia aware that pt would take 14 units for his 302 blood sugar, additional orders obtained and ssi increased.
[2024-01-25] MEDS: NOVOLOG FLEXPEN 7 UNITS SC (17:49)
[2024-01-25] MEDS: ANESTHETIC LOZENGE 1 LOZENGE PO (19:46)
--- NOTE | 2024-01-25 20:00 | PTCARENOTE ---
rec`d pt at 1900. pt AAOx3. moves all 4 of extremities. tele pack since pt is tele orders. left upper arm fistula- +bruit and thrill. rec`d dialysis during the day per day shift nurse. weak but palpable dp/pt. SR on monitor. HR in 70s. coarse, dim
lung sounds. dry cough. POX 97% RA. obese, round abdomen. oliguric. RT FA and Rt AC Ivs flushed and patent. call flynn in reach, safe environment maintained.
[2024-01-25] MEDS: LANTUS 0.14 UNITS SC (22:29)
[2024-01-25] MEDS: CLARITIN 10 MG PO (22:30)
[2024-01-25 22:33] LABS: Glucose - Point of Care 142 mg/dl (70-99)
[2024-01-25] MEDS: TYLENOL 650 MG PO (23:45)
[2024-01-25] MEDS: MYLICON 80 MG PO (23:46)
[2024-01-26] VITALS (11 sets, daily range): BP systolic 73–175; BP diastolic 73–99; BMI 24.7
[2024-01-26 04:19] LABS: Hematocrit 36.7 % (39.0-52.0); Hemoglobin 12.2 g/dL (13.0-18.0); Mean Corp Hgb Conc. 33.2 g/dL (33.0-37.0); Mean Corpuscular Volume 84.4 fL (80.0-94.0); Mean Platelet Volume 8.6 fL (7.4-10.4); Platelet Count 232 10^3/uL (130-400); Red Blood Cell Count 4.35 10^6/uL (4.70-6.10); Red Cell Dist. Width 17.8 % (11.5-14.5); White Blood Cell Count 9.8 10^3/uL (4.8-10.8)
[2024-01-26 04:21] LABS: Glucose - Point of Care 83 mg/dl (70-99)
--- NOTE | 2024-01-26 04:28 | PTCARENOTE ---
pt given OJ and peanut butter crackers for low blood sugar. sugar rechecked and now 86.
[2024-01-26 04:43] LABS: Blood Urea Nitrogen 44 mg/dl (9-20); Calcium 8.7 mg/dl (8.4-10.2); Carbon Dioxide 24 mmol/L (22-30); Chloride 96 mmol/L (98-107); Estimated Creatinine Clearance 11 ml/min; Glucose 86 mg/dl (70-99); Magnesium 2.7 mg/dl (1.6-2.3); Phosphorus 4.9 mg/dl (2.5-4.5); Potassium 4.1 mmol/L (3.5-5.1); Sodium 138 mmol/L (135-145); eGFR 9.01
--- NOTE | 2024-01-26 07:25 | W.PN.HOSP.TC ---
Today's Communication/Plan
-
Thoracentesis
glycemic control
npo after midnighf for ppm, insulin regimen adjusted accordingly
midodrine with holding parameters
Assessment / Plan
Assessment / Plan
Physical Exam
General: Well Developed, Well Nourished and No Apparent Distress
HEENT: NormoCephalic, Moist mucous membranes and Atraumatic
Respiratory: Clear to auscultation bilateral; No Wheezes, Non Labored Respirations or Accessory Resp Muscle Use
Cardiac: S1/S2, Regular Rhythm old sternotomy incision. LUE AVF +bruit/thrill No Murmur or Rub
GI: Soft, Non Tender, Non Distended and Normal Bowel Sounds; No Organomegaly
Genito-urinary: No costovertebral tender; No Morgan
Musculoskeletal: No Clubbing, No Cyanosis and No Edema
Skin: Warm and Dry; No Rash
Neuro: AOx3
Psych: Calm
69M ESRD HD DM HFpEF Iron Def BPH CML Asthma CAD CABG presents for evaluation hypotension chest pain pleural effusion after recent hospitalization for STEMI.
Hypotension with Hx HTN
- Unclear etiology at this time possibly iatrogenic
- UA not suggestive UTI. Ucx pending BC x 2 NGTD. Sputum culture if possible. Monitor off abx.
- Losartan on hold
- Norvasc and doxazosin held recently per nephrology.
- Transiently placed on levophed in ER since discontinued
- cont Midodrine 5 mg TID with holding parameters
- continue home Lasix with hold parameters
Chest Pain / Hx CAD s/p CABG / HTN / HLD
Junctional Rhythm
- Pt endorses right sided atypical CP, resolved; different than cardiac CP from last admission
- Also endorses nonproductive cough, possible costochondritis
- CT PE reviewed, no PE, R>L mild-mod effusion
- Trop 18.1 continues to downtrend from last admission, elevated in setting of ESRD
- S/P ASA 325mg and Nitro in ER.
- Continue aspirin/plavix, crestor. Losartan held.
-Cardio appreciated, NPO after midnight for PPM insulin regimen adjusted (bedtime Lantus halved to 7U and morning Lantus placed on hold)
B/L R>L Pleural Effusion
- CT PE with small-moderate R>L effusion
- Borderline hypoxia, sat 89% RA, maintain SPO2 > 92%
- Etiology may be nephrosis vs missed dialysis sessions (held 2/2 hypotension). CHF less suspicious (BNP 90111 in setting of ESRD) given normal TTE 12/2023.
- limited ability to diurese with hypotension, given 100mg IV lasix in ER
- Continue home lasix regimen for now
- IR consulted. Obtain thoracentesis with fluid studies ordered.
- fluid restriction 1200cc, low sodium diet.
ESRD
Nephrotic Syndrome
- Chronic hyponatremia noted
-Nephro eval appreciated
-cont HD as per Nephro
- Continue prorenal tabs daily
- Na/K restriction
MRSA screen positive
-mupirocin nasal daily with daily chlorhexidine showers and wipes under fingernails x5 days started 01/25
Asthma - Continue home nebs
Factor V Leiden - Denies hx DVT/PE in past. CT PE again negative today. Diagnosed genetic testing 2/2 his daughter FVL(+). Not on A.C.
CML - Hx noted. Continue bosulif 100mg TID converted to 300 mg daily per discussion with pharmacy d/t Creatine Clearance ESRD
DM2 - continue home insulin regimen. SSI/accuchecks.
BPH - Doxazosin remains on hold d/t significant hypotension since resolved. No significant urinary retention noted at this time.
dvt ppx heparin
Medically stable for downgrade to Tele
discussed with patient and patient's Sabrina
I spent a total of 50 minutes with the patient or on the floor. More than 50% of this time involved counseling and coordination of care.
Anticipated Discharge: 24 - 48 hours
Subjective/Interval History
-
Date of Service: January 26, 2024
No acute distress. Appears comfortable at this time.
Objective Data
-
Labs:
Laboratory Results
01/26/24
04:07
WBC 9.8
Hgb 12.2 L
Hct 36.7 L
Plt Count 232
Sodium 138 D
Potassium 4.1
Chloride 96 L
Carbon Dioxide 24
BUN 44 H
Creatinine 6.2 H*
Glucose 86
Calcium 8.7
Vital Signs:
Vital Signs
Temp Pulse Resp BP Pulse Ox
98.2 F 70 16 138/77 97
01/26/24 04:00 01/26/24 04:37 01/25/24 20:14 01/26/24 04:37 01/25/24 20:00
I&O
01/25/24 01/26/24 01/27/24
06:59 06:59 06:59
Intake Total 480 / 480 960 / 960
Output Total 150 / 150
Balance 330 / 330 960 / 960
[2024-01-26 07:36] LABS: Glucose - Point of Care 137 mg/dl (70-99)
[2024-01-26] MEDS: NOVOLOG FLEXPEN-HIGH RESISTANCE 1 UNITS SC (08:05)
[2024-01-26] MEDS: LANTUS 0.3 UNITS SC (08:24)
[2024-01-26] MEDS: HEPARIN 5000 UNITS SC ×3 (08:24→23:30)
[2024-01-26] MEDS: CRESTOR 40 MG PO (08:24)
[2024-01-26] MEDS: ASPIR LOW (ENTERIC COATED) 81 MG PO (08:24)
[2024-01-26] MEDS: PLAVIX 75 MG PO (08:25)
[2024-01-26] MEDS: NEPHROCAP 1 CAPSULE PO (08:25)
[2024-01-26] MEDS: LASIX 80 MG PO (08:25)
[2024-01-26] MEDS: VISBIOME 1 CAP PO (08:26)
--- NOTE | 2024-01-26 11:39 | W.PN.CARDCBS ---
Today's Communication / Plan
-
-Patient with intermittent hypotension/low blood pressures (in the ER temporarily hung Levophed) in the setting of junctional rhythm. At home Cardura and amlodipine needed to be discontinued because of low blood pressure. Currently blood pressure
is elevated (sinus rhythm). It is likely when patient is in junctional rhythm he is hypotensive which has been limiting effectiveness of dialysis over the past week.
Plan is for pacemaker tomorrow.
-In addition patient with PVCs and NSVT would start beta-randa once pacemaker in place. Previously this had to be discontinued because of junctional rhythm. After pacemaker resume carvedilol.
-If blood pressure in sinus rhythm needs to be treated or remains elevated after pacemaker would reinstitute patient's amlodipine which was 10 mg daily after beta-randa is added
Impression / Plan
-
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
Assessment:
Presented with chest pain, predominantly right-sided
Abnormal EKG
Junctional rhythm
Low blood pressure
Recent STEMI with peak troponin of 31 discharged 01/18/24
Catheterization 01/17/2024�MARBLE SETTER HELPER of mid circumflex into OM2 as well as occluded LRA to OM2. Unsuccessful attempt to wire OM2, confirming MARBLE SETTER HELPER.
CAD
s/p inferior wall RI in 1997 with circ PCI
in-stent restenosis of circ resulting in PTCA 2004
CABG x3 2018
Chronic HFpEF
PVCs with NSVT previously mentioned on outpatient Holter monitor asymptomatic (in the setting of ejection fraction 50 to 55%)
Hyperlipidemia
DM2
ESRD on HD as of 04/2023
CML
Factor V Leiden with no history of clotting events
Asthma
R renal mass, felt most likely to be cyst
L kidney stones s/p lithotripsy in past
ECHO 04/29/23: EF 50 to 55%, mild biatrial dilatation, trace TR, PAP [address] of chest 01/17/2024: Negative for PE.
Lower extremity venous ultrasound 01/18/2024: US negative for DVT.
Catheterization 01/17/2024MARBLE SETTER HELPER of mid circumflex into OM2 as well as occluded LRA to OM2. Unsuccessful attempt to wire OM2, confirming MARBLE SETTER HELPER.
Echo 01/18/2024: Ejection fraction 50 to 55%, mild concentric LVH, aortic sclerosis
Rhythm star current download- including 01/22/2024 08:00:23 -01/20/2024 15:01:21 junctional rhythm, sinus bradycardia, PVCs isolated, couplets and 4 beat run of NSVT. Short runs of PAT
Plan:
-Presented with chest discomfort which is atypical and right-sided. He recently had ST elevation RI with that time troponin peaking at 31.4. Cath with occluded mid circumflex into OM 2, which was unable to be crossed. EKG is abnormal but stable and
consistent with evolving RI. He is currently chest pain-free. Fortunately recent echo with EF preserved at 50 to 55%. Do not feel that chest discomfort was cardiac in nature. Continue to follow. No recurrence.
-Troponin is down trending, no need to repeat, troponin elevation is most likely residual from recent RI
-Continue aspirin, Plavix, high intensity statin
-In the emergency department patient with low blood pressure (temporarily hung Levophed) in the setting of junctional rhythm. At home Cardura and amlodipine needed to be discontinued because of low blood pressure. Currently blood pressure is
elevated (sinus rhythm). I suspect that when the patient is in junctional rhythm he is hypotensive which has been limiting effectiveness of dialysis over the past week. Discussed at great length with the patient. Discussed with electrophysiology.
Plan is for pacemaker. Patient is agreeable. Rhythm star removed. In addition patient with PVCs and NSVT would start beta-randa once pacemaker in place. Previously this had to be discontinued because of junctional rhythm.
-If blood pressure in sinus rhythm needs to be treated or remains elevated after pacemaker would reinstitute patient's amlodipine which was 10 mg daily
-Ejection fraction 50 to 55%.
Dialysis per primary service.
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
Subjective
Date of Service: January 26, 2024
He is feeling better overall. He denies chest pain and palpitations.
Objective
Labs:
01/26/24 04:07
01/26/24 04:07
Labs
Hgb 12.2 g/dL (13.0-18.0) L 01/26/24 04:07
Hct 36.7 % (39.0-52.0) L 01/26/24 04:07
Plt Count 232 10^3/uL (130-400) 01/26/24 04:07
Sodium 138 mmol/L (135-145) D 01/26/24 04:07
Potassium 4.1 mmol/L (3.5-5.1) 01/26/24 04:07
BUN 44 mg/dl (9-20) H 01/26/24 04:07
Creatinine 6.2 mg/dL (0.7-1.3) H* 01/26/24 04:07
Glucose 86 mg/dl (70-99) 01/26/24 04:07
Troponins
01/24/24 01/24/24 01/25/24
15:41 21:40 04:26
Troponin I 18.100 H* 17.800 H* 16.500 H*
Vital Signs and I&O:
Vital Signs
Temp Pulse Resp BP Pulse Ox
98.4 F 73 22 159/80 96
01/26/24 11:27 01/26/24 11:22 01/26/24 11:22 01/26/24 11:22 01/26/24 11:22
Vital Signs
Temp Pulse Resp BP Pulse Ox
98.4 F 73 22 159/80 96
01/26/24 11:27 01/26/24 11:22 01/26/24 11:22 01/26/24 11:22 01/26/24 11:22
Intake & Output
01/24/24 01/25/24 01/26/24 01/27/24
06:59 06:59 06:59 06:59
Intake Total 480 / 480 960 / 960
Output Total 150 / 150
Balance 330 / 330 960 / 960
Physical Exam
Physical Exam
General: Well developed, well nourished in NAD.
Heart: Distant heart sounds RRR, no murmurs, No S3, S4, no rubs.
Lungs: Coarse anterior breath
Extremities: No clubbing, cyanosis or edema bilaterally.
Neuro: Grossly nonfocal, awake, alert and oriented x3.
--- NOTE | 2024-01-26 11:39 | W.PN.NEPH.PH ---
Today's Communication / Plan
-
HD tomorrow
Assessment/Plan
-
Impression:
ESRD (home HD) 76.5kg EDW
S/P STEMI not amendable to stenting in 01/15
Uncontrolled hypertension now hypotensive
Hyponatremia
Left upper extremity AV fistula
Diabetes
History of coronary artery disease with previous CABG
BPH/TURP
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
Plan:
noted PPM tomorrow
will have HD first in am
hemodynamics are stable
BP meds remains on hold, not requiring midodrine
d/w nursing and cards
-
-
Date of Service: January 26, 2024
CC / HPI / ROS
-
Chief Complaint:
ESRD
History of Present Illness:
tolerated HD yesterday
BP are better now
no fever
Review of Systems:
no cp or sob
feels fine at baseline
Labs
-
Labs:
WBC 9.8 10^3/uL (4.8-10.8) 01/26/24 04:07
RBC 4.35 10^6/uL (4.70-6.10) L 01/26/24 04:07
Hgb 12.2 g/dL (13.0-18.0) L 01/26/24 04:07
Hct 36.7 % (39.0-52.0) L 01/26/24 04:07
Plt Count 232 10^3/uL (130-400) 01/26/24 04:07
Sodium 138 mmol/L (135-145) D 01/26/24 04:07
Potassium 4.1 mmol/L (3.5-5.1) 01/26/24 04:07
Chloride 96 mmol/L (98-107) L 01/26/24 04:07
Carbon Dioxide 24 mmol/L (22-30) 01/26/24 04:07
BUN 44 mg/dl (9-20) H 01/26/24 04:07
Creatinine 6.2 mg/dL (0.7-1.3) H* 01/26/24 04:07
eGFR 9.01 01/26/24 04:07
Glucose 86 mg/dl (70-99) 01/26/24 04:07
Calcium 8.7 mg/dl (8.4-10.2) 01/26/24 04:07
Phosphorus 4.9 mg/dl (2.5-4.5) H 01/26/24 04:07
Ahx-H-Fscefhqzmeo Pept 83739 pg/ml 01/24/24 15:41
Albumin 3.8 g/dl (3.5-5.0) 01/25/24 04:26
Physical Exam
-
Vital Signs:
Vital Signs
Temp Pulse Resp BP Pulse Ox
98.4 F 73 22 159/80 96
01/26/24 11:27 01/26/24 11:22 01/26/24 11:22 01/26/24 11:22 01/26/24 11:22
Cardiovascular:: Regular rate and rhythm
Respiratory:: Bilateral: CTA
Lung Excursion:: Normal
Abdomen:: Nontender and Soft
Extremity Edema:: None: Bilateral:
Morgan Catheter: No
--- NOTE | 2024-01-26 12:00 | PTCARENOTE ---
vitals taken and pt sent to IR for norma
[2024-01-26] MEDS: BACTROBAN 2% OINTMENT 1 APPLIC NASAL (13:00)
[2024-01-26 13:04] LABS: Glucose - Point of Care 156 mg/dl (70-99)
[2024-01-26] MEDS: TYLENOL 650 MG PO ×2 (13:17→23:29)
[2024-01-26] MEDS: NOVOLOG FLEXPEN-HIGH RESISTANCE 2 UNITS SC (13:18)
--- NOTE | 2024-01-26 13:26 | PTCARENOTE ---
pt returned from IR with only c/o feeling tired. denies sob, appears in no distress with vitals as charted. chg cloth bath completed. pt aware of plan for tomorrow/insulin/npo. also aware of repeat xray to f/u pneumo s/p thora. Medicated for
unchanged r sided cpain as charted that pt had prior to procedure. No other complaints at this time.
[2024-01-26 13:41] LABS: Body Fluid pH 7.54
[2024-01-26 14:03] LABS: Body Fluid Amylase < 30 U/L; Body Fluid Glucose 151 mg/dl; Body Fluid LDH 208 U/L; Body Fluid Protein 3.4 g/dl; Body Fluid Triglycerides < 30 mg/dl
--- NOTE | 2024-01-26 14:15 | W.PN.UPDATE ---
Update Note
Progress Note Update
Right sided thoracentesis performed. Pt with stable suspected ex vacuo pneumothorax. Will order repeat CXR for tomorrow morning. If patients condition changes please get STAT CXR.
[2024-01-26 14:25] LABS: Body Fluid Mononuclear 96.7 %; Body Fluid Polymorphonuclear 3.3 %; Body Fluid WBC 1092 /CUMM
[2024-01-26 14:27] LABS: Body Fluid Second Tech BP
--- NOTE | 2024-01-26 15:46 | CM ---
CM following re: discharge planning.
Reviewed pt's chart, met with pt.
Per Rounds meeting, Right sided thoracentesis performed today, repeat CXR for tomorrow morning. HD tomorrow.
Pt reports he lives with spouse 2SH, ambulates with a walker and a cane and active with [facility], home HD 5days per week.
Pt expressed his desire to return back home with [facility], resumptions of home HD treatment and family support.
D/C plan: home with [facility], resumptions of home HD treatment and family support.
CM will follow with discharge plan updates as hospitalization progresses
--- NOTE | 2024-01-26 16:30 | PTCARENOTE ---
Pt sent to new room with belongings from room. carried meds from room with her. Report called to Layla prior to transfer.
[2024-01-26 17:13] LABS: Glucose - Point of Care 209 mg/dl (70-99)
[2024-01-26] MEDS: NON-FORMULARY ITEM 300 MG PO (17:13)
--- NOTE | 2024-01-26 17:28 | PTCARENOTE ---
Received pt from ICU, VSS, at bedside, patient resting comfortably in bed at this time, call flynn within reach.
[2024-01-26] MEDS: NOVOLOG FLEXPEN-HIGH RESISTANCE 4 UNITS SC (17:58)
[2024-01-26 21:38] LABS: Glucose - Point of Care 359 mg/dl (70-99)
[2024-01-26] MEDS: LANTUS 0.07 UNITS SC (21:58)
[2024-01-26] MEDS: NOVOLOG FLEXPEN 12 UNITS SC (21:58)
--- NOTE | 2024-01-26 23:26 | PTCARENOTE ---
Patients manual blood pressure was 168/74 at 2120. Patient feels great in room. 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 CHOPPER GUN OPERATOR not adding any PRN blood pressure medication
[2024-01-26 23:36] LABS: Glucose - Point of Care 284 mg/dl (70-99)
[2024-01-27 03:46] VITALS: BP 165/79
[2024-01-27 06:00] VITALS: BMI 23.9
[2024-01-27 06:14] LABS: Glucose - Point of Care 128 mg/dl (70-99)
--- NOTE | 2024-01-27 07:18 | W.PN.HOSP.TC ---
Today's Communication/Plan
-
NPO for ppm today, insulin regimen adjusted accordingly
Assessment / Plan
Assessment / Plan
Physical Exam
General: Well Developed, Well Nourished and No Apparent Distress
HEENT: NormoCephalic, Moist mucous membranes and Atraumatic
Respiratory: Clear to auscultation bilateral; No Wheezes, Non Labored Respirations or Accessory Resp Muscle Use
Cardiac: S1/S2, Regular Rhythm old sternotomy incision. LUE AVF +bruit/thrill No Murmur or Rub
GI: Soft, Non Tender, Non Distended and Normal Bowel Sounds; No Organomegaly
Genito-urinary: No costovertebral tender; No Morgan
Musculoskeletal: No Clubbing, No Cyanosis and No Edema
Skin: Warm and Dry; No Rash
Neuro: AOx3
Psych: Calm
69M ESRD HD DM HFpEF Iron Def BPH CML Asthma CAD CABG presents for evaluation hypotension chest pain pleural effusion after recent hospitalization for STEMI.
Hypotension with Hx HTN
- Unclear etiology at this time possibly iatrogenic
- UA not suggestive UTI. Ucx pending BC x 2 NGTD. Sputum culture if possible. Monitor off abx.
- Losartan on hold
- Norvasc and doxazosin held recently per nephrology.
- Transiently placed on levophed in ER since discontinued
- BP since improved, midodrine discontinued
- continue home Lasix with hold parameters
Chest Pain / Hx CAD s/p CABG / HTN / HLD
Junctional Rhythm
- Pt endorses right sided atypical CP, resolved; different than cardiac CP from last admission
- Also endorses nonproductive cough, possible costochondritis
- CT PE reviewed, no PE, R>L mild-mod effusion
- Trop 18.1 continues to downtrend from last admission, elevated in setting of ESRD
- S/P ASA 325mg and Nitro in ER.
- Continue aspirin/plavix, crestor. Losartan held.
-Cardio appreciated, NPO for PPM insulin regimen adjusted (bedtime Lantus halved to 7U and morning Lantus placed on hold)
B/L R>L Pleural Effusion
- CT PE with small-moderate R>L effusion
- Borderline hypoxia, sat 89% RA, maintain SPO2 > 92%
- Etiology may be nephrosis vs missed dialysis sessions (held 2/2 hypotension). CHF less suspicious (BNP 33723 in setting of ESRD) given normal TTE 12/2023.
- limited ability to diurese with hypotension, given 100mg IV lasix in ER
- Continue home lasix regimen for now
- IR consult appreciated s/p thoracentesis fluid studies not suggestive of infection
- fluid restriction, low sodium diet.
ESRD
Nephrotic Syndrome
- Chronic hyponatremia noted
-Nephro eval appreciated
-cont HD as per Nephro
- Continue prorenal tabs daily
- Na/K restriction
MRSA screen positive
-mupirocin nasal daily with daily chlorhexidine showers and wipes under fingernails x5 days started 01/25
Asthma - Continue home nebs
Factor V Leiden - Denies hx DVT/PE in past. CT PE again negative today. Diagnosed genetic testing 2/2 his daughter FVL(+). Not on A.C.
CML - Hx noted. Continue bosulif 100mg TID converted to 300 mg daily per discussion with pharmacy d/t Creatine Clearance ESRD
DM2 - continue home insulin regimen. SSI/accuchecks.
BPH - Doxazosin remains on hold d/t significant hypotension since resolved. No significant urinary retention noted at this time.
dvt ppx heparin
Medically stable for downgrade to Tele
discussed with patient and patient's Sabrina
I spent a total of 50 minutes with the patient or on the floor. More than 50% of this time involved counseling and coordination of care.
Anticipated Discharge: 24 - 48 hours
Subjective/Interval History
-
Date of Service: January 27, 2024
No acute distress. Comfortable
Objective Data
-
Labs:
Laboratory Results
01/27/24
06:00
WBC Pending
Hgb Pending
Hct Pending
Plt Count Pending
Sodium Pending
Potassium Pending
Chloride Pending
Carbon Dioxide Pending
BUN Pending
Creatinine Pending
Glucose Pending
Calcium Pending
Vital Signs:
Vital Signs
Temp Pulse Resp BP Pulse Ox
97.3 F 76 18 165/79 97
01/27/24 03:46 01/27/24 03:46 01/27/24 03:46 01/27/24 03:46 01/27/24 03:46
I&O
01/26/24 01/27/24 01/28/24
06:59 06:59 06:59
Intake Total 960 / 960 520 / 520
Balance 960 / 960 520 / 520
[2024-01-27 07:48] VITALS: BP 147/82
[2024-01-27] MEDS: NOVOLOG FLEXPEN-HIGH RESISTANCE SC ×2 (08:09→12:50)
[2024-01-27 08:31] LABS: Hematocrit 34.5 % (39.0-52.0); Hemoglobin 11.9 g/dL (13.0-18.0); Mean Corp Hgb Conc. 34.5 g/dL (33.0-37.0); Mean Corpuscular Hgb 29.5 pg (27.0-31.0); Mean Corpuscular Volume 85.4 fL (80.0-94.0); Mean Platelet Volume 9.2 fL (7.4-10.4); Platelet Count 207 10^3/uL (130-400); Red Blood Cell Count 4.04 10^6/uL (4.70-6.10); Red Cell Dist. Width 17.6 % (11.5-14.5); White Blood Cell Count 10.2 10^3/uL (4.8-10.8)
[2024-01-27 08:46] LABS: Blood Urea Nitrogen 66 mg/dl (9-20); Calcium 8.1 mg/dl (8.4-10.2); Chloride 97 mmol/L (98-107); Estimated Creatinine Clearance 9 ml/min; Glucose 98 mg/dl (70-99); Magnesium 2.6 mg/dl (1.6-2.3); Phosphorus 6.3 mg/dl (2.5-4.5); Potassium 3.8 mmol/L (3.5-5.1); Sodium 137 mmol/L (135-145); eGFR 6.95
[2024-01-27] MEDS: HEPARIN 500 UNITS IV ×2 (09:00→10:54)
[2024-01-27 09:01] LABS: Carbon Dioxide 22 mmol/L (22-30)
--- NOTE | 2024-01-27 11:05 | W.PN.NEPH.HD ---
Assessment
-
Seen on HD. no complaints. VSS, access ok
for PPM
Progress Note - Hemodialysis
-
Date of Service: January 27, 2024
Duration: 45 minutes and 3 hours
Potassium Bath: 3
Calcium Bath: 2.5
Opti-Dialyzer: 160
Ultrafiltration: Other (2kg)
Blood Flow: 400
Dialysate Flow: 600
Heparin: 500x2
EPO: 0
--- NOTE | 2024-01-27 11:40 | CM ---
Addendum entered by Clarissa Armenta 01/27/24 12:07:
Spoke with [facility] & not in care port will need a script along with face sheet, ins, discharge summary faxed to them [facility] Fax #: [phone]
Original Note:
Patient seen at bedside.
Receiving dialysis now.
Patient states he does HD at home (has a machine) 5 days/wk.
Back up HD is [facility] FAX #: [phone]
Stated he was receiving [facility] therapy at home prior to hospitalization.
PLAN: Discharge when stable with [facility]
[2024-01-27 12:19] LABS: LDH 278 U/L (120-246)
[2024-01-27 12:28] LABS: Glucose - Point of Care 98 mg/dl (70-99)
[2024-01-27 12:30] VITALS: BP 150/79
[2024-01-27] MEDS: VANCOCIN 200 IV (12:39)
[2024-01-27] MEDS: NEPHROCAP 1 CAPSULE PO (12:44)
[2024-01-27] MEDS: VISBIOME 1 CAP PO (12:44)
[2024-01-27] MEDS: ASPIR LOW (ENTERIC COATED) 81 MG PO (12:44)
[2024-01-27] MEDS: CRESTOR 40 MG PO (12:44)
[2024-01-27] MEDS: PLAVIX 75 MG PO (12:44)
[2024-01-27] MEDS: HEPARIN SC (12:45)
[2024-01-27] MEDS: LASIX PO (12:46)
[2024-01-27] MEDS: BACTROBAN 2% OINTMENT 1 APPLIC NASAL (12:46)
--- NOTE | 2024-01-27 14:31 | ITS.CL.PACE ---
[facility] - Pacemaker Implant
Pacemaker Implant
Procedure Report:
Date of Procedure: January 27, 2024
Patient : 1955
Procedure: Pacemaker Implantation.
Indication: Symptomatic sick sinus syndrome with junctional rhythm at 40 bpm as well as underlying atrial tachycardia and sinus rhythm at times with AV block. Indication is for symptomatic sick sinus syndrome
�
Implants:
Pulse Generator: Medtronic; Model# W1 DR 01; SN: [id number]
RA Lead: Medtronic; Model# 4574; SN: [id number]
RV Lead: Medtronic; Model# 4074 SN: [id number]
�
Technique: A time out was performed. The procedure site was identified. The patient was anesthetized by the anesthesia service. Preoperative sedation was administered. The patient was prepped and draped in the usual fashion. Local anesthetic was
applied to the right prepectoral subcutaneous tissue. A 3 inch incision was made 2.5 inches below the left clavicle. A subcutaneous pocket was created with blunt and sharp dissection and hemostasis controlled with Bovie cautery. The right axillary
vein was accessed within the pocket without difficulty. Hemostasis was excellent. The leads were introduced with 7 Fr hemostatic peel away introducer sheaths. The ventricular lead was placed at the right ventricular apex. The atrial lead was placed
in the right atrial appendage. 10 volt pacing did not capture the diaphragm. The leads were secured to the pectoralis muscle and fascia. The leads were appropriately attached to the device. The pocket was irrigated with antibiotic solution. The
device and leads were placed in the pocket. The incision was closed in three layers with absorbable suture. The estimated blood loss was minimal. There were no complications.��At implant the underlying atrial rate was 400 ms and attempts to pace
terminate the rhythm were unsuccessful. We were able to demonstrate capture pacing the atrium at 360 ms.
�
Lead Analysis:
RA lead: P: 1.4 mV; Threshold: 0.5 V @ 0.5��ms; Impedance: 540 ohms.
RV lead: R: 4.5 mV; Threshold: 0.4 V @ 0.5��ms; Impedance: 840 ohms.
�
Final Programming: AAIR�DDDR 60-130 beats a minute
�
Conclusion: Uncomplicated Medtronic pacemaker implant.
�
Recommendation: Routine post pacemaker care.
�
�
--- NOTE | 2024-01-27 14:47 | PTCARENOTE ---
patient received from EP lab post pacemaker implant to Right side/chest. No s/s of distress noted at this time. VS documented. Per ep lab nurse DDR setting 60-130. Right side mobilizer/ sling in place. Aquacel dressing in place, Dry and intact
noted. Plan of care ongoing.
[2024-01-27 15:06] VITALS: BP 159/74
[2024-01-27 16:08] LABS: Glucose - Point of Care 142 mg/dl (70-99)
[2024-01-27] MEDS: NOVOLOG FLEXPEN-HIGH RESISTANCE 1 UNITS SC (16:10)
[2024-01-27] MEDS: NON-FORMULARY ITEM 300 MG PO (16:54)
[2024-01-27] MEDS: HEPARIN 5000 UNITS SC (16:55)
[2024-01-27] MEDS: PERCOCET 5/325 1 TABLET PO ×2 (17:45→22:09)
[2024-01-27 19:28] VITALS: BP 159/76
[2024-01-27] MEDS: COREG 6.25 MG PO (21:03)
[2024-01-27] MEDS: ANCEF 5 IV (21:03)
[2024-01-27 21:26] LABS: Glucose - Point of Care 330 mg/dl (70-99)
[2024-01-27] MEDS: NOVOLOG FLEXPEN 5 UNITS SC (21:48)
[2024-01-27] MEDS: LANTUS 0.14 UNITS SC (21:48)
[2024-01-27] MEDS: CLARITIN 10 MG PO (21:49)
[2024-01-27] MEDS: MELATONIN 5 MG PO (22:08)
[2024-01-27 23:25] VITALS: BP 134/70
[2024-01-28] MEDS: HEPARIN 5000 UNITS SC ×4 (00:25→23:08)
[2024-01-28] MEDS: PERCOCET 5/325 1 TABLET PO ×3 (02:12→22:39)
[2024-01-28 03:12] VITALS: BP 111/66
[2024-01-28 05:49] VITALS: BMI 23.5
[2024-01-28 07:00] VITALS: BP 134/77
[2024-01-28 07:16] LABS: Glucose - Point of Care 191 mg/dl (70-99)
--- NOTE | 2024-01-28 07:51 | W.PN.HOSP.TC ---
Today's Communication/Plan
-
HD as per nephro
post-ppm care as per cardio
resume losartan low dose bedtime
Assessment / Plan
Assessment / Plan
Physical Exam
General: Well Developed, Well Nourished and No Apparent Distress
HEENT: NormoCephalic, Moist mucous membranes and Atraumatic
Respiratory: Clear to auscultation bilateral; No Wheezes, Non Labored Respirations or Accessory Resp Muscle Use
Cardiac: S1/S2, Regular Rhythm old sternotomy incision. LUE AVF +bruit/thrill No Murmur or Rub
GI: Soft, Non Tender, Non Distended and Normal Bowel Sounds; No Organomegaly
Genito-urinary: No costovertebral tender; No Morgan
Musculoskeletal: No Clubbing, No Cyanosis and No Edema
Skin: Warm and Dry; No Rash
Neuro: AOx3
Psych: Calm
69M ESRD HD DM HFpEF Iron Def BPH CML Asthma CAD CABG presents for evaluation hypotension chest pain pleural effusion after recent hospitalization for STEMI.
Hypotension with Hx HTN
- Unclear etiology at this time possibly iatrogenic
- UA not suggestive UTI. Ucx pending BC x 2 NGTD. Sputum culture if possible. Monitor off abx.
- Norvasc and doxazosin held recently per nephrology.
- Transiently placed on levophed in ER since discontinued
- BP since improved, midodrine discontinued
- continue home Lasix with hold parameters
-Losartan held, since resumed low dose, with improvement/increasing bp
Chest Pain / Hx CAD s/p CABG / HTN / HLD
Junctional Rhythm
- Pt endorses right sided atypical CP, resolved; different than cardiac CP from last admission
- Also endorses nonproductive cough, possible costochondritis
- CT PE reviewed, no PE, R>L mild-mod effusion
- Trop 18.1 continues to downtrend from last admission, elevated in setting of ESRD
- S/P ASA 325mg and Nitro in ER.
- Continue aspirin/plavix, crestor. Losartan briefly held, resumed as above
-Cardio appreciated s/p ppm
B/L R>L Pleural Effusion
- CT PE with small-moderate R>L effusion
- Borderline hypoxia, sat 89% RA, maintain SPO2 > 92%
- Etiology may be nephrosis vs missed dialysis sessions (held 2/2 hypotension). CHF less suspicious (BNP 95476 in setting of ESRD) given normal TTE 12/2023.
- limited ability to diurese with hypotension, given 100mg IV lasix in ER
- Continue home lasix regimen for now
- IR consult appreciated s/p thoracentesis fluid studies not suggestive of infection
- fluid restriction, low sodium diet.
ESRD
Nephrotic Syndrome
- Chronic hyponatremia noted
-Nephro eval appreciated
-cont HD as per Nephro
- Continue prorenal tabs daily
- Na/K restriction
MRSA screen positive
-mupirocin nasal daily with daily chlorhexidine showers and wipes under fingernails x5 days started 01/25
Asthma - Continue home nebs
Factor V Leiden - Denies hx DVT/PE in past. CT PE again negative today. Diagnosed genetic testing 2/2 his daughter FVL(+). Not on A.C.
CML - Hx noted. Continue bosulif 100mg TID converted to 300 mg daily per discussion with pharmacy d/t Creatine Clearance ESRD
DM2 - continue home insulin regimen. SSI/accuchecks.
BPH - Doxazosin remains on hold d/t significant hypotension since resolved. No significant urinary retention noted at this time.
dvt ppx heparin
Medically stable for downgrade to Tele
discussed with patient and patient's Sabrina
I spent a total of 40 minutes with the patient or on the floor. More than 50% of this time involved counseling and coordination of care.
Anticipated Discharge: 24 - 48 hours
Subjective/Interval History
-
Date of Service: January 28, 2024
No acute distress. Patient reports feeling well.
Objective Data
-
Labs:
Laboratory Results
01/28/24
06:00
WBC Pending
Hgb Pending
Hct Pending
Plt Count Pending
Sodium Pending
Potassium Pending
Chloride Pending
Carbon Dioxide Pending
BUN Pending
Creatinine Pending
Glucose Pending
Calcium Pending
Vital Signs:
Vital Signs
Temp Pulse Resp BP Pulse Ox
98.2 F 74 14 111/66 97
01/28/24 03:12 01/28/24 07:49 01/28/24 07:49 01/28/24 03:12 01/28/24 07:49
I&O
01/27/24 01/28/24 01/29/24
06:59 06:59 06:59
Intake Total 520 / 520 960 / 960
Balance 520 / 520 960 / 960
[2024-01-28] MEDS: NOVOLOG FLEXPEN-HIGH RESISTANCE 2 UNITS SC (08:43)
[2024-01-28] MEDS: LANTUS 0.3 UNITS SC (08:44)
[2024-01-28] MEDS: COREG 6.25 MG PO ×2 (08:44→20:58)
[2024-01-28] MEDS: VISBIOME 1 CAP PO (08:45)
[2024-01-28] MEDS: NEPHROCAP 1 CAPSULE PO (08:45)
[2024-01-28] MEDS: PLAVIX 75 MG PO (08:45)
[2024-01-28] MEDS: ASPIR LOW (ENTERIC COATED) 81 MG PO (08:45)
[2024-01-28] MEDS: CRESTOR 40 MG PO (08:45)
[2024-01-28] MEDS: LASIX 80 MG PO (08:45)
[2024-01-28] MEDS: BACTROBAN 2% OINTMENT 1 APPLIC NASAL (08:46)
[2024-01-28 10:18] LABS: Hematocrit 37.1 % (39.0-52.0); Hemoglobin 12.4 g/dL (13.0-18.0); Mean Corp Hgb Conc. 33.4 g/dL (33.0-37.0); Mean Corpuscular Hgb 27.9 pg (27.0-31.0); Mean Corpuscular Volume 83.4 fL (80.0-94.0); Mean Platelet Volume 9.1 fL (7.4-10.4); Platelet Count 240 10^3/uL (130-400); Red Blood Cell Count 4.45 10^6/uL (4.70-6.10); Red Cell Dist. Width 17.8 % (11.5-14.5); White Blood Cell Count 8.9 10^3/uL (4.8-10.8)
[2024-01-28 10:25] LABS: Blood Urea Nitrogen 43 mg/dl (9-20); Calcium 8.5 mg/dl (8.4-10.2); Carbon Dioxide 23 mmol/L (22-30); Chloride 93 mmol/L (98-107); Estimated Creatinine Clearance 13 ml/min; Glucose 185 mg/dl (70-99); Magnesium 2.5 mg/dl (1.6-2.3); Phosphorus 5.4 mg/dl (2.5-4.5); Potassium 4.6 mmol/L (3.5-5.1); Sodium 135 mmol/L (135-145); eGFR 10.63
--- NOTE | 2024-01-28 11:18 | W.PN.NEPH.PH ---
Today's Communication / Plan
-
losartan
Assessment/Plan
-
Impression:
ESRD (home HD) 76.5kg EDW
S/P STEMI not amendable to stenting in 01/15
Uncontrolled hypertension now hypotensive
Hyponatremia
Left upper extremity AV fistula
Diabetes
History of coronary artery disease with previous CABG
BPH/TURP
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
Plan:
HD tomorrow
will return home from [facility] tomorrow
hemodynamics are stable
restart losartan at night
-
-
Date of Service: January 28, 2024
CC / HPI / ROS
-
Chief Complaint:
ESRD
History of Present Illness:
tolerated HD yesterday
BP stable
s/p PPM 01/26
no fever
Review of Systems:
no cp or sob
feels fine at baseline
Labs
-
Labs:
WBC 8.9 10^3/uL (4.8-10.8) 01/28/24 09:16
RBC 4.45 10^6/uL (4.70-6.10) L 01/28/24 09:16
Hgb 12.4 g/dL (13.0-18.0) L 01/28/24 09:16
Hct 37.1 % (39.0-52.0) L 01/28/24 09:16
Plt Count 240 10^3/uL (130-400) 01/28/24 09:16
Sodium 135 mmol/L (135-145) 01/28/24 09:16
Potassium 4.6 mmol/L (3.5-5.1) 01/28/24 09:16
Chloride 93 mmol/L (98-107) L 01/28/24 09:16
Carbon Dioxide 23 mmol/L (22-30) 01/28/24 09:16
BUN 43 mg/dl (9-20) H 01/28/24 09:16
Creatinine 5.4 mg/dL (0.7-1.3) H* 01/28/24 09:16
eGFR 10.63 01/28/24 09:16
Glucose 185 mg/dl (70-99) H 01/28/24 09:16
Calcium 8.5 mg/dl (8.4-10.2) 01/28/24 09:16
Phosphorus 5.4 mg/dl (2.5-4.5) H 01/28/24 09:16
Eoc-J-Szscxupfzxx Pept 53153 pg/ml 01/24/24 15:41
Albumin 3.8 g/dl (3.5-5.0) 01/25/24 04:26
Physical Exam
-
Vital Signs:
Vital Signs
Temp Pulse Resp BP Pulse Ox
98.0 F 78 14 134/77 97
01/28/24 07:00 01/28/24 08:45 01/28/24 07:49 01/28/24 08:45 01/28/24 08:00
Cardiovascular:: Regular rate and rhythm
Respiratory:: Bilateral: Coarse
Lung Excursion:: Normal
Abdomen:: Nontender and Soft
Bowel Sounds:: Normal
Extremity Edema:: None: Bilateral:
[2024-01-28 11:26] VITALS: BP 128/75
[2024-01-28 11:54] LABS: Glucose - Point of Care 268 mg/dl (70-99)
[2024-01-28] MEDS: NOVOLOG FLEXPEN-HIGH RESISTANCE 7 UNITS SC ×2 (12:14→17:36)
--- NOTE | 2024-01-28 14:26 | CM ---
Addendum entered by Clarissa Armenta 01/28/24 14:33:
[facility] Fax #: [phone] - when discharged fax script, discharge summary.
Original Note:
Patient seen at bedside.
s/p pacemaker
ESRD - does dialysis at home.
[facility] back up. Fax #: [phone]
Had [facility] rehab PT/OT previously - referral placed in [facility] & called [facility] as well.
Will need script for when patient is discharged.
PLAN: Discharge when medically stable, [facility] rehab PT/OT to resume.
[2024-01-28 15:17] VITALS: BP 134/73
--- NOTE | 2024-01-28 15:32 | W.PN.CARDCBS ---
Addendum entered and electronically signed by Nathan Norris DO 01/28/24 19:41:
I saw and examined the patient.
The Gypsum Roofer's note was reviewed and I agree with the note.
Comment:
Plan:
s/p PPM, functioning well
incision check as outpt
Cont DAPT with recent MN
Cont Coreg and resume Losartan tonight given recent MN
Monitor bps
Discussed with nephrology
Outpt cardiac follow up.
Please recall if needed
Original Note:
Today's Communication / Plan
-
s/p PPM
continue asa, plavix, statin
coreg started post PPM
resume losartan HS
Impression / Plan
-
.
Primary wetland scientist Dr. Chris Watts
Impression:
Presented with chest pain, predominantly right-sided
Abnormal EKG
Junctional rhythm with associated hypotension s/p Medtronic PPM placement 01/27/24
Recent STEMI with peak troponin of 31 discharged 01/18/24
Catheterization 01/17/2024TEACHER'S AIDE of mid circumflex into OM2 as well as occluded LRA to OM2. Unsuccessful attempt to wire OM2, confirming TEACHER'S AIDE.
CAD
s/p inferior wall MN in 1997 with circ PCI
in-stent restenosis of circ resulting in PTCA 2004
CABG x3 2018
Chronic HFpEF
PVCs with NSVT previously mentioned on outpatient Holter monitor asymptomatic (in the setting of ejection fraction 50 to 55%)
Hyperlipidemia
DM2
ESRD on HD as of 04/2023
CML
Factor V Leiden with no history of clotting events
Asthma
R renal mass, felt most likely to be cyst
L kidney stones s/p lithotripsy in past
ECHO 04/29/23: EF 50 to 55%, mild biatrial dilatation, trace TR, PAP [address] chest 01/17/2024: Negative for PE.
Lower extremity venous ultrasound 01/18/2024: US negative for DVT.
Catheterization 01/17/2024TEACHER'S AIDE of mid circumflex into OM2 as well as occluded LRA to OM2. Unsuccessful attempt to wire OM2, confirming TEACHER'S AIDE.
Echo 01/18/2024: Ejection fraction 50 to 55%, mild concentric LVH, aortic sclerosis
Rhythm star current download- including 01/22/2024 08:00:23 -01/20/2024 15:01:21 junctional rhythm, sinus bradycardia, PVCs isolated, couplets and 4 beat run of NSVT. Short runs of PAT
Plan:
-he had periods of junctional rhythm correlating to hypotension which was limiting dialysis sessions at home.
-s/p Medtronic PPM placement 01/27/24
-CXR with small stable R PTX, which was noted prior to PPM insertion
-hgb stable at 12.4. continue asa, plavix in setting of recent STEMI
-SR by EKG and on review of tele overnight with occasional PVCs
-started coreg 6.25mg BID post PPM in setting of CAD/CHF
-losartan 25mg HS resumed today. if BPs remain elevated, consider resuming norvasc
-continue statin
-Ejection fraction 50 to 55% by echo 01/18/24
-for HD in AM
-hopeful for DC in AM. OP cardiac follow up arranged
Progress Note - Change Director
Subjective
Date of Service: January 28, 2024
no issues overnight
Objective
Labs:
01/28/24 09:16
01/28/24 09:16
Labs
Hgb 12.4 g/dL (13.0-18.0) L 01/28/24 09:16
Hct 37.1 % (39.0-52.0) L 01/28/24 09:16
Plt Count 240 10^3/uL (130-400) 01/28/24 09:16
Sodium 135 mmol/L (135-145) 01/28/24 09:16
Potassium 4.6 mmol/L (3.5-5.1) 01/28/24 09:16
BUN 43 mg/dl (9-20) H 01/28/24 09:16
Creatinine 5.4 mg/dL (0.7-1.3) H* 01/28/24 09:16
Glucose 185 mg/dl (70-99) H 01/28/24 09:16
Vital Signs and I&O:
Vital Signs
Temp Pulse Resp BP Pulse Ox
98.3 F 69 16 134/73 95
01/28/24 15:17 01/28/24 15:17 01/28/24 15:17 01/28/24 15:17 01/28/24 15:17
Vital Signs
Temp Pulse Resp BP Pulse Ox
98.3 F 69 16 134/73 95
01/28/24 15:17 01/28/24 15:17 01/28/24 15:17 01/28/24 15:17 01/28/24 15:17
Intake & Output
01/26/24 01/27/24 01/28/24 01/29/24
07:59 07:59 07:59 07:59
Intake Total 960 / 1200 520 / 520 960 / 960
Balance 960 / 1200 520 / 520 960 / 960
[2024-01-28 16:41] LABS: Glucose - Point of Care 275 mg/dl (70-99)
[2024-01-28] MEDS: NON-FORMULARY ITEM 300 MG PO (17:35)
[2024-01-28 19:05] VITALS: BP 123/65
[2024-01-28] MEDS: ANCEF 5 IV (20:57)
[2024-01-28] MEDS: COZAAR 25 MG PO (20:58)
[2024-01-28] MEDS: MELATONIN 5 MG PO (20:59)
[2024-01-28 21:46] LABS: Glucose - Point of Care 298 mg/dl (70-99)
[2024-01-28] MEDS: LANTUS 0.14 UNITS SC (22:38)
[2024-01-28 23:35] VITALS: BP 137/86
[2024-01-29 03:27] VITALS: BP 121/71
[2024-01-29 05:30] VITALS: BMI 23.6
[2024-01-29 07:00] VITALS: BP 120/58
--- NOTE | 2024-01-29 07:20 | W.PN.HOSP.TC ---
Today's Communication/Plan
-
discharge
Assessment / Plan
Assessment / Plan
Physical Exam
General: No acute distress comfortable
HEENT: NormoCephalic, Moist mucous membranes and Atraumatic
Respiratory: Clear to auscultation bilateral; No Wheezes, Non Labored Respirations or Accessory Resp Muscle Use
Cardiac: S1/S2, Regular Rhythm old sternotomy incision. LUE AVF +bruit/thrill No Murmur or Rub
GI: Soft, Non Tender, Non Distended and Normal Bowel Sounds; No Organomegaly
Genito-urinary: No costovertebral tender; No Morgan
Musculoskeletal: No Clubbing, No Cyanosis and No Edema
Skin: Warm and Dry; No Rash
Neuro: AOx3
Psych: Calm
69M ESRD HD DM HFpEF Iron Def BPH CML Asthma CAD CABG presents for evaluation hypotension chest pain pleural effusion after recent hospitalization for STEMI.
Hypotension with Hx HTN
- Unclear etiology at this time possibly iatrogenic
- UA not suggestive UTI. Ucx pending BC x 2 NGTD. Sputum culture if possible. Monitor off abx.
- Norvasc and doxazosin held recently per nephrology.
- Transiently placed on levophed in ER since discontinued
- BP since improved, midodrine discontinued
- continue home Lasix with hold parameters
-Losartan held, since resumed low dose, with improvement/increasing bp
Chest Pain / Hx CAD s/p CABG / HTN / HLD
Junctional Rhythm
- Pt endorses right sided atypical CP, resolved; different than cardiac CP from last admission
- Also endorses nonproductive cough, possible costochondritis
- CT PE reviewed, no PE, R>L mild-mod effusion
- Trop 18.1 continues to downtrend from last admission, elevated in setting of ESRD
- S/P ASA 325mg and Nitro in ER.
- Continue aspirin/plavix, crestor. Losartan briefly held, resumed as above
-Cardio appreciated s/p ppm, medically stable for discharge
B/L R>L Pleural Effusion
- CT PE with small-moderate R>L effusion
- Borderline hypoxia, sat 89% RA, maintain SPO2 > 92%
- Etiology may be nephrosis vs missed dialysis sessions (held 2/2 hypotension). CHF less suspicious (BNP 04497 in setting of ESRD) given normal TTE 12/2023.
- limited ability to diurese with hypotension, given 100mg IV lasix in ER
- Continue home lasix regimen for now
- IR consult appreciated s/p thoracentesis fluid studies not suggestive of infection
- fluid restriction, low sodium diet.
ESRD
Nephrotic Syndrome
- Chronic hyponatremia noted
-Nephro eval appreciated
-cont HD as per Nephro
- Continue prorenal tabs daily
- Na/K restriction
MRSA screen positive
-mupirocin nasal daily with daily chlorhexidine showers and wipes under fingernails x5 days started 01/25
Asthma - Continue home nebs
Factor V Leiden - Denies hx DVT/PE in past. CT PE again negative today. Diagnosed genetic testing 2/2 his daughter FVL(+). Not on A.C.
CML - Hx noted. Continue bosulif 100mg TID converted to 300 mg daily per discussion with pharmacy d/t Creatine Clearance ESRD
DM2 - continue home insulin regimen. SSI/accuchecks.
BPH - Doxazosin remains on hold d/t significant hypotension since resolved. No significant urinary retention noted at this time.
dvt ppx heparin
Medically stable for discharge home with outpatient follow up recommendations.
I spent a total of 40 minutes with the patient or on the floor. More than 50% of this time involved counseling and coordination of care.
Anticipated Discharge: Today
Subjective/Interval History
-
Date of Service: January 29, 2024
Seen and examined at bedside in no acute distress. reports feeling well. Denies new acute issues. Eager to go home.
Objective Data
-
Labs:
Laboratory Results
01/29/24
06:00
WBC Pending
Hgb Pending
Hct Pending
Plt Count Pending
Sodium Pending
Potassium Pending
Chloride Pending
Carbon Dioxide Pending
BUN Pending
Creatinine Pending
Glucose Pending
Calcium Pending
Vital Signs:
Vital Signs
Temp Pulse Resp BP Pulse Ox
98.8 F 86 16 121/71 95
01/29/24 03:27 01/29/24 03:27 01/29/24 03:27 01/29/24 03:27 01/29/24 03:27
I&O
01/28/24 01/29/24 01/30/24
06:59 06:59 06:59
Intake Total 960 / 960 480 / 480
Balance 960 / 960 480 / 480
[2024-01-29 07:31] LABS: Glucose - Point of Care 176 mg/dl (70-99)
[2024-01-29] MEDS: HEPARIN 500 UNITS IV ×2 (07:50→08:50)
[2024-01-29] MEDS: MANNITOL 25% 12.5 GRAMS IV (08:00)
[2024-01-29] MEDS: FLEXBUMIN 25% FOR HEMODIALYSIS 12.5 GRAMS IV (08:04)
--- NOTE | 2024-01-29 08:25 | W.PN.NEPH.HD ---
Assessment
-
Patient seen on HD
Systolic blood pressure was recorded at 77 but this was on his leg
Repeat blood pressure 120
UF set to around 1 kg
Progress Note - Hemodialysis
-
Date of Service: January 29, 2024
Duration: 30 minutes
Potassium Bath: 2
Calcium Bath: 2.5
Opti-Dialyzer: 160
Ultrafiltration: Other (1kg)
Blood Flow: 400
Dialysate Flow: 600
Heparin: 500 times two
EPO: none
[2024-01-29] MEDS: NEPHROCAP 1 CAPSULE PO (08:29)
[2024-01-29] MEDS: VISBIOME 1 CAP PO (08:29)
[2024-01-29] MEDS: ProAmatine 10 MG PO (08:29)
[2024-01-29] MEDS: LANTUS 0.3 UNITS SC (08:33)
[2024-01-29] MEDS: BACTROBAN 2% OINTMENT 1 APPLIC NASAL (08:34)
[2024-01-29] MEDS: NOVOLOG FLEXPEN-HIGH RESISTANCE 2 UNITS SC (08:34)
[2024-01-29 09:29] LABS: Hematocrit 35.2 % (39.0-52.0); Hemoglobin 11.8 g/dL (13.0-18.0); Mean Corp Hgb Conc. 33.5 g/dL (33.0-37.0); Mean Corpuscular Hgb 28.7 pg (27.0-31.0); Mean Corpuscular Volume 85.6 fL (80.0-94.0); Mean Platelet Volume 9.4 fL (7.4-10.4); Platelet Count 215 10^3/uL (130-400); Red Blood Cell Count 4.11 10^6/uL (4.70-6.10); Red Cell Dist. Width 17.6 % (11.5-14.5); White Blood Cell Count 8.8 10^3/uL (4.8-10.8)
[2024-01-29 10:34] LABS: Blood Urea Nitrogen 58 mg/dl (9-20); Calcium 8.1 mg/dl (8.4-10.2); Carbon Dioxide 21 mmol/L (22-30); Chloride 93 mmol/L (98-107); Estimated Creatinine Clearance 10 ml/min; Glucose 197 mg/dl (70-99); Magnesium 2.5 mg/dl (1.6-2.3); Phosphorus 6.3 mg/dl (2.5-4.5); Potassium 4.1 mmol/L (3.5-5.1); Sodium 133 mmol/L (135-145); eGFR 8.06
[2024-01-29 11:16] LABS: Glucose - Point of Care 141 mg/dl (70-99)
[2024-01-29 11:23] VITALS: BP 129/62
--- NOTE | 2024-01-29 11:31 | CM ---
Addendum entered by Clarissa Armenta 01/29/24 16:28:
[facility] Fax #: [phone] - when discharged fax script, discharge summary.
Addendum entered by Clarissa Armenta 01/29/24 16:26:
Patient discharged today.
will transport home.
Script on chart for [facility] PT/OT at home.
Original Note:
IMM explained & signed today.
Patient having HD this am.
Patient does HD at home.
[facility] back up. Fax #: [phone]
Had [facility] rehab prior to hospitalization.
PLAN: Discharge when medically stable to home.
to transport.
[2024-01-29] MEDS: CRESTOR 40 MG PO (12:22)
[2024-01-29] MEDS: ASPIR LOW (ENTERIC COATED) 81 MG PO (12:22)
[2024-01-29] MEDS: LASIX 80 MG PO (12:23)
[2024-01-29] MEDS: HEPARIN 5000 UNITS SC (12:25)
[2024-01-29] MEDS: PLAVIX 75 MG PO (12:25)
[2024-01-29] MEDS: COREG 6.25 MG PO (12:25)
[2024-01-29] MEDS: NOVOLOG FLEXPEN-HIGH RESISTANCE 1 UNITS SC (12:26)
[2024-01-29] MEDS: TYLENOL 650 MG PO (14:48)
[2024-01-29 15:09] VITALS: BP 102/48
--- NOTE | 2024-01-29 15:47 | W.DCSUMMARY ---
Discharge Summary
Discharge Data
Date of Admission: 01/24/24
Date of Discharge: 01/29/24
-
Pending Results: No
Discharge Plan
-
Patient Disposition: Home (Routine Discharge)
Discharge Diagnosis/Procedures: Junctional Rhythm status post Pacemaker implant
Hypotension Unclear etiology possibly due to junctional rhythm vs iatrogenic
Right Pleural Effusion Status post Thoracentesis
ESRD
Nephrotic Syndrome
Chronic hyponatremia
MRSA screen positive
Asthma
Factor V Leiden deficiency
CML
Diabetes
BPH
Condition: Fair
Diet: Low Cholesterol, 2 Gram Sodium and Diabetic, Carb Controlled
Additional Diets: Potassium restriction 2g
Activity: No strenuous activity
Driving Restrictions: No driving for 1 week
Bathing Restrictions: OK to Shower
Others Tests: Please repeat Chest X-ray with primary care provider in 2 weeks of discharge.
Activity Restrictions/Additional Instructions:
Please follow up with primary care provider in 1 week of discharge and keep your appointment with cardiology.
Coreg has been prescribed for recent STEMI, unable to tolerate previously due to junctional rhythm since improved with pacemaker.
Percocet has been prescribed as needed for pain.
Regarding your home medication Bosulif for CML, due to your kidney function End stage Renal disease, it's recommended that you take the medication 300 mg daily as opposed to prior 100 mg three times a day.
Please take medications as prescribed/recommended and follow up with primary care provider and/or other healthcare provider involved in your care for refills and/or further adjustment to your medication regimen as necessary.
Stand Alone Forms: DC Inst - Implanted Device
Referrals:
Ariela Tovar PA-C [Specified Professional Personl] - 02/04/24 11:00 am (Incision check appointment)
Paz Vasquez MD [Family Provider] - in one week
Prescriptions:
New
carvedilol 6.25 mg Tablet
6.25 mg PO BID 30 Days Qty: 60 0RF
oxycodone-acetaminophen 5-325 mg Tablet
1 tab PO BIDPRN PRN (Reason: moderate severe pain) 5 Days Qty: 10 0RF
Bosulif 100 mg tablet
300 mg PO DAILY Qty: 90 0RF
Continued
Qvar RediHaler 80 mcg/actuation HFA aerosol breath activated
2 inh INHALATION R BID
aspirin 81 mg Tablet,Delayed Release (Dr/Ec)
81 mg PO DAILY
loratadine 10 mg Tablet
10 mg PO HS
omega 0-gki-jty-fish oil [Fish Oil] 1,200 (144-216) mg Capsule
1 cap PO HS
insulin glargine [Lantus Solostar U-100 Insulin] 100 unit/mL (3 mL) insulin pen
14 unit SC HS
furosemide 80 mg tablet
80 mg PO DAILY
acetaminophen [Tylenol 8 Hour] 650 mg Tablet Extended Release
650 - 1,300 mg PO Q8HPRN PRN (Reason: mild pain)
albuterol sulfate 90 mcg/actuation Hfa Aerosol Inhaler
2 puff INHALATION R QIDPRN PRN (Reason: sob)
Visbiome 112.5 billion cell Capsule
1 cap PO DAILY
ProRenal 8 mg iron-800 mcg-1,000 unit tablet
1 tab PO DAILY
insulin glargine [Lantus Solostar U-100 Insulin] 100 unit/mL (3 mL) insulin pen
30 unit SC DAILY
insulin aspart U-100 100 unit/mL (3 mL) insulin pen
12 - 20 sliding scale dose SC AC
Rx Instructions:
starts 12 units for 150
clopidogrel 75 mg Tablet
75 mg PO DAILY 30 Days Qty: 30 0RF
rosuvastatin 40 mg Tablet
40 mg PO DAILY
losartan 25 mg tablet
25 mg PO HS
Rx Instructions:
Hold for SBP<100
Discharge Orders:
Discharge Patient (As Directed); Ordered 01/29/24
Ordered By: Osmin Garcia
Discharge Date and Time
Print Language: LATVIAN
[2024-01-29] MEDS: PERCOCET 5/325 1 TABLET PO (17:02)
== END 2024-01-29 17:26 | disposition home or self-care (01) | DRG 242 ==
LOC: 2 NORTH 18:03
PROVIDERS: Internal Medicine Cardiovascular Disease; Radiology Vascular & Interventional Radiology; Specialist; ADMITTING PHYSICIAN Internal Medicine; ATTENDING PHYSICIAN Internal Medicine; CONSULT PHYSICIAN Internal Medicine Cardiovascular Disease; CONSULT PHYSICIAN Specialist; EMERGENCY PHYSICIAN Emergency Medicine; FAMILY PHYSICIAN Family Medicine
PROC: 5A1D70Z Performance of Urinary Filtration, Intermittent, Less than 6 Hours Per Day (ICD-10-PCS; 2024-01-25)
PROC: 0W993ZZ Drainage of Right Pleural Cavity, Percutaneous Approach (ICD-10-PCS; 2024-01-26)
PROC: 0JH606Z Insertion of Pacemaker, Dual Chamber into Chest Subcutaneous Tissue and Fascia, Open Approach (ICD-10-PCS; 2024-01-27)
PROC: 02H63JZ Insertion of Pacemaker Lead into Right Atrium, Percutaneous Approach (ICD-10-PCS; 2024-01-27)
PROC: 02HK3JZ Insertion of Pacemaker Lead into Right Ventricle, Percutaneous Approach (ICD-10-PCS; 2024-01-27)
DX: I49.5 Sick sinus syndrome (principal); I21.3 ST elevation (STEMI) myocardial infarction of unspecified site; N18.6 End stage renal disease; I13.2 Hypertensive heart and chronic kidney disease with heart failure and with stage 5 chronic kidney disease, or end stage renal disease; I47.19 Other supraventricular tachycardia; I50.32 Chronic diastolic (congestive) heart failure; D68.51 Activated protein C resistance; E87.1 Hypo-osmolality and hyponatremia; C92.10 Chronic myeloid leukemia, BCR/ABL-positive, not having achieved remission; I47.20 Ventricular tachycardia, unspecified; J93.9 Pneumothorax, unspecified; J91.8 Pleural effusion in other conditions classified elsewhere; I44.30 Unspecified atrioventricular block; I95.9 Hypotension, unspecified; I45.10 Unspecified right bundle-branch block; I25.10 Atherosclerotic heart disease of native coronary artery without angina pectoris; E11.22 Type 2 diabetes mellitus with diabetic chronic kidney disease; E78.00 Pure hypercholesterolemia, unspecified; J45.909 Unspecified asthma, uncomplicated; R09.02 Hypoxemia; I49.3 Ventricular premature depolarization; E11.40 Type 2 diabetes mellitus with diabetic neuropathy, unspecified; N40.0 Benign prostatic hyperplasia without lower urinary tract symptoms; K21.9 Gastro-esophageal reflux disease without esophagitis; E61.1 Iron deficiency; I25.82 Chronic total occlusion of coronary artery; Z99.2 Dependence on renal dialysis; Z95.5 Presence of coronary angioplasty implant and graft; I25.2 Old myocardial infarction; Z95.1 Presence of aortocoronary bypass graft; Z79.82 Long term (current) use of aspirin; Z79.02 Long term (current) use of antithrombotics/antiplatelets; Z79.4 Long term (current) use of insulin; Z22.322 Carrier or suspected carrier of Methicillin resistant Staphylococcus aureus
CPT/HCPCS: 32555; 33208; 51798; 71045; 71275; 80048; 80053; 81003; 81015; 82150; 82248; 82945; 82962; 83615; 83735; 83880; 83986; 84100; 84157; 84478; 84484; 85025; 85027; 87015; 87040; 87070; 87086; 87147; 87186; 87205; 89051; 93005; 94640; 96365; 96375; 99291; C1785; C1898; G0257; P9047; Q9967

== ENCOUNTER → 2024-02-09 16:48 | Outpatient (REF) | payer MEDICARE, OTHER, SELFPAY | LOC: RAD 16:48 | PROVIDERS: ATTENDING PHYSICIAN Family Medicine | DX: J90 Pleural effusion, not elsewhere classified (principal) | CPT/HCPCS: 71046 ==

== ENCOUNTER → 2024-03-03 15:52 | Outpatient (REF) | payer MEDICARE, OTHER, SELFPAY | LOC: RAD 15:52 | PROVIDERS: ATTENDING PHYSICIAN Family Medicine | DX: J90 Pleural effusion, not elsewhere classified (principal) | CPT/HCPCS: 71046 ==

== ENCOUNTER → 2024-03-08 16:15 | Outpatient (REF) | payer MEDICARE, OTHER, SELFPAY | LOC: RCS 16:15 | PROVIDERS: ATTENDING PHYSICIAN Internal Medicine Cardiovascular Disease; FAMILY PHYSICIAN Family Medicine | DX: I50.30 Unspecified diastolic (congestive) heart failure (principal); J90 Pleural effusion, not elsewhere classified | CPT/HCPCS: 93306 ==

== ENCOUNTER → 2024-04-11 12:56 | Outpatient (REF) | payer MEDICARE, OTHER, SELFPAY | LOC: WOUND 12:56 | PROVIDERS: ATTENDING PHYSICIAN Surgery; FAMILY PHYSICIAN Family Medicine | DX: L97.412 Non-pressure chronic ulcer of right heel and midfoot with fat layer exposed (principal); L97.212 Non-pressure chronic ulcer of right calf with fat layer exposed; I73.9 Peripheral vascular disease, unspecified; I87.2 Venous insufficiency (chronic) (peripheral); Z99.2 Dependence on renal dialysis; N18.6 End stage renal disease; N04.9 Nephrotic syndrome with unspecified morphologic changes; E11.22 Type 2 diabetes mellitus with diabetic chronic kidney disease; I25.10 Atherosclerotic heart disease of native coronary artery without angina pectoris | CPT/HCPCS: 11042; 97597; 99204 ==

== ENCOUNTER → 2024-04-13 10:47 | Outpatient (REF) | payer MEDICARE, OTHER, SELFPAY | LOC: RAD 10:47 | PROVIDERS: ATTENDING PHYSICIAN Internal Medicine Critical Care Medicine; FAMILY PHYSICIAN Family Medicine | DX: R06.02 Shortness of breath (principal) | CPT/HCPCS: 71046 ==

== ENCOUNTER → 2024-04-18 07:42 | Outpatient (REF) | payer MEDICARE, OTHER, SELFPAY ==
[2024-04-18 08:22] VITALS: BP 152/85; BP_SYST 66
[2024-04-18 08:52] VITALS: BP 150/73; BP_SYST 74
[2024-04-18 09:15] VITALS: BP 150/73
== END ==
LOC: RADI 07:42
PROVIDERS: ATTENDING PHYSICIAN Internal Medicine Critical Care Medicine; FAMILY PHYSICIAN Family Medicine
DX: J90 Pleural effusion, not elsewhere classified (principal)
CPT/HCPCS: 32555; 71045

== ENCOUNTER → 2024-04-18 07:46 | Outpatient (REF) | payer MEDICARE, OTHER, SELFPAY ==
[2024-04-18 08:37] LABS: Urine Albumin 3+ (Neg - Trace); Urine Bilirubin Negative (Negative); Urine Character Clear (Clear); Urine Color Yellow; Urine Glucose 3+ (Negative); Urine Ketone Negative (Negative); Urine Leukocyte 1+ (Negative); Urine Nitrite Negative (Negative); Urine Occult Blood 2+ (Negative); Urine Specific Gravity 1.015 (<1.030); Urine Urobilinogen Negative (Neg - 1+)
[2024-04-18 10:04] LABS: Urine Amorphous Seen; Urine Squamous Cell 0-2 /LPF (Few)
[2024-04-18 10:05] LABS: Urine Granular Cast 0-2 /LPF (0); Urine Red Blood Cell 0-2 /HPF (0-2); Urine White Cell 30-40 /HPF (0-5)
[2024-04-18 10:07] LABS: Urine Bacteria Few (Negative)
== END ==
LOC: REG 07:46
PROVIDERS: ATTENDING PHYSICIAN Internal Medicine
DX: R52 Pain, unspecified (principal)
CPT/HCPCS: 81003; 81015; 87086

== ENCOUNTER → 2024-04-18 13:31 | Outpatient (REF) | payer MEDICARE, OTHER, SELFPAY | LOC: WOUND 13:31 | PROVIDERS: ATTENDING PHYSICIAN Surgery; FAMILY PHYSICIAN Family Medicine | DX: L97.412 Non-pressure chronic ulcer of right heel and midfoot with fat layer exposed (principal); L97.212 Non-pressure chronic ulcer of right calf with fat layer exposed; I73.9 Peripheral vascular disease, unspecified; I87.2 Venous insufficiency (chronic) (peripheral); Z99.2 Dependence on renal dialysis; Z95.1 Presence of aortocoronary bypass graft; N18.6 End stage renal disease; N04.9 Nephrotic syndrome with unspecified morphologic changes; E11.22 Type 2 diabetes mellitus with diabetic chronic kidney disease; I77.0 Arteriovenous fistula, acquired; I25.10 Atherosclerotic heart disease of native coronary artery without angina pectoris | CPT/HCPCS: 99213 ==

== ENCOUNTER → 2024-04-22 09:30 | Outpatient (REF) | payer MEDICARE, OTHER, SELFPAY | LOC: HWRAD 09:30 | PROVIDERS: ATTENDING PHYSICIAN Internal Medicine; FAMILY PHYSICIAN Family Medicine | DX: R52 Pain, unspecified (principal) | CPT/HCPCS: 76700 ==

== ENCOUNTER → 2024-04-25 13:39 | Outpatient (REF) | payer MEDICARE, OTHER, SELFPAY | LOC: WOUND 13:39 | PROVIDERS: ATTENDING PHYSICIAN Surgery; FAMILY PHYSICIAN Family Medicine | DX: L97.222 Non-pressure chronic ulcer of left calf with fat layer exposed (principal); L97.312 Non-pressure chronic ulcer of right ankle with fat layer exposed; L97.422 Non-pressure chronic ulcer of left heel and midfoot with fat layer exposed; L97.122 Non-pressure chronic ulcer of left thigh with fat layer exposed; I73.9 Peripheral vascular disease, unspecified; I87.2 Venous insufficiency (chronic) (peripheral); N18.6 End stage renal disease; N04.9 Nephrotic syndrome with unspecified morphologic changes; E11.22 Type 2 diabetes mellitus with diabetic chronic kidney disease; I25.10 Atherosclerotic heart disease of native coronary artery without angina pectoris; Z95.1 Presence of aortocoronary bypass graft; Z99.2 Dependence on renal dialysis | CPT/HCPCS: 11042 ==

== ENCOUNTER → 2024-05-03 13:11 | Outpatient (REF) | payer MEDICARE, OTHER, SELFPAY | LOC: WOUND 13:11 | PROVIDERS: ATTENDING PHYSICIAN Surgery; FAMILY PHYSICIAN Family Medicine | DX: L97.222 Non-pressure chronic ulcer of left calf with fat layer exposed (principal); L02.416 Cutaneous abscess of left lower limb; L97.312 Non-pressure chronic ulcer of right ankle with fat layer exposed; L97.422 Non-pressure chronic ulcer of left heel and midfoot with fat layer exposed; L97.122 Non-pressure chronic ulcer of left thigh with fat layer exposed; I73.9 Peripheral vascular disease, unspecified; I87.2 Venous insufficiency (chronic) (peripheral); N18.6 End stage renal disease; N04.9 Nephrotic syndrome with unspecified morphologic changes; E11.22 Type 2 diabetes mellitus with diabetic chronic kidney disease; I77.0 Arteriovenous fistula, acquired; I25.10 Atherosclerotic heart disease of native coronary artery without angina pectoris; Z95.1 Presence of aortocoronary bypass graft; Z99.2 Dependence on renal dialysis | CPT/HCPCS: 10060; 87070; 87075; 87076; 87147; 87185; 87186; 87205; 99213 ==

== ENCOUNTER → 2024-05-09 11:28 | Outpatient (REF) | payer MEDICARE, OTHER, SELFPAY | LOC: WOUND 11:28 | PROVIDERS: ATTENDING PHYSICIAN Surgery; FAMILY PHYSICIAN Family Medicine | DX: L97.222 Non-pressure chronic ulcer of left calf with fat layer exposed (principal); I50.32 Chronic diastolic (congestive) heart failure; L02.416 Cutaneous abscess of left lower limb; L97.312 Non-pressure chronic ulcer of right ankle with fat layer exposed; L97.422 Non-pressure chronic ulcer of left heel and midfoot with fat layer exposed; L97.122 Non-pressure chronic ulcer of left thigh with fat layer exposed; I73.9 Peripheral vascular disease, unspecified; I87.2 Venous insufficiency (chronic) (peripheral); Z99.2 Dependence on renal dialysis; Z95.1 Presence of aortocoronary bypass graft; N18.6 End stage renal disease; N04.9 Nephrotic syndrome with unspecified morphologic changes; E11.22 Type 2 diabetes mellitus with diabetic chronic kidney disease; I25.10 Atherosclerotic heart disease of native coronary artery without angina pectoris | CPT/HCPCS: 11042; 71046; 97597 ==

== ENCOUNTER 2024-05-16 07:41 | Inpatient (IN) | payer MEDICARE, OTHER, SELFPAY ==
[2024-05-16] VITALS (49 sets, daily range): BP systolic 62–153; BP diastolic 42–94; BMI 25.4
[2024-05-16 01:48] LABS: % Basophils 0.2 % (0-2); % Eosinophils 0.4 % (0-6); % Immature Granulocytes 0.5 % (0-0.5); % Lymphocytes 6.8 % (20.5-51.1); % Monocytes 7.7 % (1.7-9.3); % Neutrophils 84.4 % (42.2-75.2); Absolute Eosinophils 0.1 10^3/uL (0-0.7); Absolute Immature Granulocytes 0.1 10^3/uL (0-0.05); Absolute Lymphocytes 0.9 10^3/uL (1.2-3.4); Absolute Monocytes 1.1 10^3/uL (0.1-0.6); Absolute Neutrophils 11.6 10^3/uL (1.4-6.5); Hematocrit 38.8 % (39.0-52.0); Hemoglobin 12.2 g/dL (13.0-18.0); Mean Corp Hgb Conc. 31.4 g/dL (33.0-37.0); Mean Corpuscular Hgb 29.3 pg (27.0-31.0); Mean Platelet Volume 9.9 fL (7.4-10.4); Nucleated Red Blood Cells % 0 % (-); Platelet Count 151 10^3/uL (130-400); Red Blood Cell Count 4.17 10^6/uL (4.70-6.10); Red Cell Dist. Width 18.9 % (11.5-14.5); White Blood Cell Count 13.7 10^3/uL (4.8-10.8)
[2024-05-16 02:04] LABS: COVID-19 Antigen Negative (Negative)
[2024-05-16 02:11] LABS: ALT (SGPT) 27 U/L (0-50); AST (SGOT) 36 U/L (17-59); Albumin 3.9 g/dl (3.5-5.0); Alkaline Phosphatase 77 U/L (38-126); Blood Urea Nitrogen 62 mg/dl (9-20); Calcium 9.4 mg/dl (8.4-10.2); Carbon Dioxide 26 mmol/L (22-30); Chloride 91 mmol/L (98-107); Glucose 65 mg/dl (70-99); Potassium 4.2 mmol/L (3.5-5.1); Sodium 135 mmol/L (135-145); Total Bilirubin 0.8 mg/dl (0.2-1.3); Total Protein 6.7 g/dl (6.3-8.2); eGFR 8.36
[2024-05-16 02:35] LABS: Glucose - Point of Care 37 mg/dl (70-99)
[2024-05-16] MEDS: DEXTROSE 50% SYRINGE 25 GRAMS IV (02:37)
[2024-05-16 02:53] LABS: Glucose - Point of Care 57 mg/dl (70-99)
[2024-05-16] MEDS: D5/0.45%NACL 500 IV (03:01)
[2024-05-16 03:08] LABS: Glucose - Point of Care 100 mg/dl (70-99)
[2024-05-16] MEDS: PROTONIX IV 80 MG IV ×2 (03:10→07:51)
[2024-05-16 03:25] LABS: Lactic Acid 2.7 mmol/L (0.7-2.0)
--- NOTE | 2024-05-16 03:44 | ED.GENMED ---
History of Present Illness
General
Chief Complaint: Weakness
Source: patient and spouse
Exam Limitations: none
Time Seen by Provider: 05/16/24 02:22
Nursing documentation reviewed up to this point in time: agreed with
History of Present Illness
History of Present Illness:
This is a 69-year-old gentleman who has history of end-stage renal disease, hemodialysis at home 5 days/week. He has history of CAD, STEMI December 2023, hypertension, hyperlipidemia, triple bypass 2018, history of insulin requiring diabetes, factor
V Leyden deficiency, no previous episodes of clots.
Had been maintained on aspirin and Plavix� 2 weeks ago, Plavix discontinued and started on Eliquis as per cardiology. Unclear as to why.
He complains of 3-day history of black diarrhea passing 3-4 loose black stools per day accompanied with progressive generalized weakness over the past 3 days. Tonight while trying to walk into the bathroom he suffered a slow fall in the bathroom
due to generalized weakness and was unable to stand due to profound weakness. He does not believe he struck his head and he denies loss of consciousness. He denies fever nor chills. He does note some posterior neck pain over the past 2 to 3 days.
He states his blood pressure has been stable, no episodes of hypotension during dialysis and uneventful dialysis earlier today.
He denies coughing or shortness of breath.
Since yesterday or the day prior he noted left medial to posterior thigh pain without insightful injury. Thigh pain is much worse with local pressure with intermittent spasms in his left medial to posterior thigh.
Past History
Past History
ED Past Medical History: Arrthythmia (Atrial fibrillation), Asthma, CAD, Cancer (Right kidney neoplasm, CML), CHF, GERD, HTN, Hypercholesterolemia, NIDDM, [place], Renal failure (Diabetic nephropathy), Other (Kidney stones, Back pain due to herniated
disc, transient global amnesia in November 2022, bilateral pleural effusions) and Other (Herniated discs in neck, has seen pain management at Dr. Arias's office for injections x 2. Has not had lower back problems, BPH, vocal polyps)
ED Past Surgical History: Cardiac (Triple bypass), Orthopedic, Urological (Renal calculus, TURP) and Other (Left upper arm fistula, cataract extractions, tenosynovectomy, wisdom teeth extraction)
Social History
Tobacco: Non-smoker
Alcohol: Occasional
Drug: None
Personal:
Living: with family
Employment: Employed
Family History
Family History: Other (Reviewed and noncontributory)
Phy Exam
Physical Exam
Physical Exam:
GENERAL: 69-year-old gentleman appears somewhat older than stated age, awake, minimally drowsy, oriented x 3, appears moderately fatigued. is accompanying.
EYE: pupils equal and reactive. anicteric
NECK: Supple, nontender, no meningismus, no significant adenopathy.
ENT: posterior pharynx is clear, oral mucosa is mildly dry, lips are dry. TM clear b/l, nares patent.
CARDIAC: Regular rate and rhythm. no murmur.
LUNGS: Clear breath sounds bilaterally, no acute respiratory distress, no wheezes/rales/rhonchi
ABDOMEN: Soft, nondistended, without focal tenderness, no r/g, no cvat. Mildly hyperactive bowel sounds. Rectal exam reveals scant dark liquid stool per vault that is heme positive.
NEUROLOGICAL: Awake, moderately drowsy, oriented x3, no focal neuro deficits. Motor strength is 5/5 bilaterally. Gross sensation is intact.
SKIN: Warm and dry, mildly pale in color, chronic wounds bilateral lower legs. Superficial subacute scratches noted left anterior thigh, right lateral proximal hip region. The left medial to posterior thigh is moderately red/thiago in appearance
with thickened/edematous skin that is moderately tender to palpation. Mildly thickened/edematous skin of the right medial thigh without accompanying redness nor swelling. There is no palpable cords. There is no inguinal adenopathy. There is
superficial abrasions x 2 right anterior knee. No focal tenderness. No joint effusion, full knee range of motion without difficulty nor pain.
MUSCULOSKELETAL: Subcutaneous edema bilateral thighs left greater than right, AV graft left upper arm with positive thrill and bruit, peripheral pulses are full and equal b/l. Moderate tenderness left medial to posterior thigh as above.
PSYCH: Normal and appropriate interaction.
Course
Orders/Labs/Results
Orders:
Orders
05/16/24 01:27
COVID-19 Antigen Urgent
Source: Nasal Swab
Complete Blood Count/With Diff Urgent
Comprehensive Metabolic Panel Urgent
Influenza A+B Rapid Molecular Urgent
JAQCUE Source: Nasal Swab
Specimen Description:
05/16/24 02:24
CT Head W/o Iv Contrast Urgent
Comment:
Reason For Exam: fall at home, gen weakness, confusion
Urinalysis Reflex To Culture Urgent
CR Chest - 2 Views Urgent
Comment:
Reason For Exam: fall at home, confusion, fever
05/16/24 02:25
Electrocardiogram (*1) Urgent
Reason for Study: Fatigue / Weakness
EKG- Treatment ONCE
05/16/24 02:34
Dextrose 50%-Water [Dextrose 50% Syringe] 25 grams IV NOW STA
05/16/24 02:39
US Periph Venous LOWER Ext LT Urgent
Comment:
Reason For Exam: pain, fullness left medial thigh
05/16/24 02:51
CT Cervical Spine W/o Iv Contr Urgent
Comment:
Reason For Exam: posterior neck pain, fall tonight
05/16/24 02:52
Pantoprazole [Protonix IV] 80 mg IV NOW STA
05/16/24 02:54
Lactic Acid Urgent
05/16/24 02:56
Dextrose 5%/0.45%Sodchl 500 ml [D5/0.45%NaCl] 500 ml IV 80 mls/hr
05/16/24 03:11
Pantoprazole [Protonix IV] 40 mg .ROUTE .STK-MED ONE
05/16/24 04:39
Bedside Glucose- Treatment ONCE
Abnormal Lab Results
05/16/24 05/16/24 05/16/24
01:27 02:33 02:51
WBC 13.7 H 10^3/uL
(4.8-10.8)
RBC 4.17 L 10^6/uL
(4.70-6.10)
Hgb 12.2 L g/dL
(13.0-18.0)
Hct 38.8 L %
(39.0-52.0)
MCHC 31.4 L g/dL
(33.0-37.0)
RDW 18.9 H %
(11.5-14.5)
Abs Immat Gran (auto) 0.1 H 10^3/uL
(0-0.05)
Absolute Neuts (auto) 11.6 H 10^3/uL
(1.4-6.5)
Absolute Lymphs (auto) 0.9 L 10^3/uL
(1.2-3.4)
Absolute Monos (auto) 1.1 H 10^3/uL
(0.1-0.6)
Neutrophils % 84.4 H %
(42.2-75.2)
Lymphocytes % 6.8 L %
(20.5-51.1)
Chloride 91 L mmol/L
(98-107)
BUN 62 H mg/dl
(9-20)
Creatinine 6.6 H* mg/dL
(0.7-1.3)
Glucose 65 L mg/dl
(70-99)
Lactic Acid
POC Glucose 37 L* mg/dl 57 L mg/dl
(70-99) (70-99)
05/16/24 05/16/24
02:54 03:07
WBC
RBC
Hgb
Hct
MCHC
RDW
Abs Immat Gran (auto)
Absolute Neuts (auto)
Absolute Lymphs (auto)
Absolute Monos (auto)
Neutrophils %
Lymphocytes %
Chloride
BUN
Creatinine
Glucose
Lactic Acid 2.7 H mmol/L
(0.7-2.0)
POC Glucose 100 H mg/dl
(70-99)
05/16/24 01:27
05/16/24 01:27
Vital Signs
Initial and Last Documented VS:
Initial Vital Signs
BP
110/72
05/16/24 00:45
Last Documented Vital Signs
Temp Pulse Resp BP Pulse Ox
98.9 F 72 25 94/53 91
05/16/24 00:46 05/16/24 06:00 05/16/24 06:00 05/16/24 06:00 05/16/24 06:00
MDM/Problems Addressed
Differential Diagnosis Includes:
Patient presents with generalized weakness, 3-day history of diarrhea, black stools. Heme positive stools.
Concern for occult upper GI bleed, dehydration, symptomatic anemia, electrolyte abnormality.
He does note somewhat poor oral intake over the past few days and found to be hypoglycemic with blood sugar 66 drifted down to 37 requiring IV dextrose.
Exam also notable for moderate erythema and soft tissue fullness left medial thigh, concerning for cellulitis, phlebitis.
Patient suffered a fall tonight, concern for occult head injury. He has had some posterior neck pain as well, will check CT of the head and cervical spine.
No focal neurodeficits, nothing to suggest CVA but this is also a consideration.
Will initiate IV Protonix. Will monitor blood sugar closely.
Will check labs, urinalysis.
Due to heme positive black stools, profound weakness, significant hypoglycemia patient will require acute hospitalization for further evaluation and stabilization.
Chronic conditions affecting care: DM, HTN, CAD, Cardiomyopathy and Kidney disease
Acute Exacerbation and/or Progression of Chronic Illness: DM, CAD, Cardiomyopathy and Kidney disease
*Radiology
Radiology exam reviewed: radiology read reviewed (CT of the head and cervical spine negative for traumatic findings.) and other (Ultrasound left lower extremity shows no evidence of DVT, no evidence of phlebitis. There is soft tissue edema left
medial thigh but no fluid collection.)
*Pulse Oximetry
Patient hypoxic: no
*EKG
Interpreted by ED Provider?: Yes
Interpretation: abnormal
Comparison EKG: no changes (Unchanged from previous January 2024)
Rate: normal
Rhythm: sinus
[place]: normal axis
Interval: long QT
Ischemia: non-specific ST changes
*Photograph Tinter Interpretation
Rate: normal
Interpretation: normal
Rhythm: sinus
*Critical Care Note
Total Time (30-74mins, 75-104mins- exclusive of procedures): Not Applicable
ED Attending Note
-
Portions of this chart may have been created with voice recognition software.� Occasional wrong word or��sound alike� substitutions may have occurred due to the inherent limitations of voice recognition software.
Discharge Plan
Departure
Patient Disposition: Admit
Date of Disposition: 05/16/24
Time of Disposition: 04:46
Admit to: Telemetry
Admit to doctor: Micki
Presentation/result/management discussed w/ accepting MD/DO: Hospitalist
Condition: Fair
Discharge Problem:
Acute upper GI bleeding, profound weakness, Hypoglycemia associated with diabetes, ESRD (end stage renal disease), Cellulitis of left thigh
Prescriptions:
No Action
Qvar RediHaler 80 mcg/actuation HFA aerosol breath activated
2 inh INHALATION R BID
aspirin 81 mg Tablet,Delayed Release (Dr/Ec)
81 mg PO DAILY
loratadine 10 mg Tablet
10 mg PO HS
omega 3-gfz-pzi-fish oil [Fish Oil] 1,200 (144-216) mg Capsule
1 cap PO HS
insulin glargine [Lantus Solostar U-100 Insulin] 100 unit/mL (3 mL) insulin pen
14 unit SC HS
furosemide 80 mg tablet
80 mg PO DAILY
albuterol sulfate 90 mcg/actuation Hfa Aerosol Inhaler
2 puff INHALATION R QIDPRN PRN (Reason: sob)
Visbiome 112.5 billion cell Capsule
1 cap PO DAILY
ProRenal 8 mg iron-800 mcg-1,000 unit tablet
1 tab PO DAILY
insulin glargine [Lantus Solostar U-100 Insulin] 100 unit/mL (3 mL) insulin pen
30 unit SC DAILY
insulin aspart U-100 100 unit/mL (3 mL) insulin pen
12 - 20 sliding scale dose SC AC
Rx Instructions:
starts 12 units for 150
rosuvastatin 40 mg Tablet
40 mg PO DAILY
carvedilol 6.25 mg Tablet
6.25 mg PO BID 30 Days Qty: 60 0RF
Bosulif 100 mg tablet
300 mg PO DAILY Qty: 90 0RF
Eliquis 5 mg Tablet
5 mg PO BID
Referrals:
Paz Vasquez MD [Family Provider] -
Interventions
Interventions:
*Risk Screen - Suicide Last Done: 05/16/24 00:46
*General Assessment Last Done: 05/16/24 00:46
*Neglect/Abuse Screening Last Done: 05/16/24 00:46
*ED COVID-19 Vaccine History Last Done: 05/16/24 00:46
ED- Cardiac Assessment Last Done: 05/16/24 04:26
ED- Neurological Assessment Last Done: 05/16/24 01:42
ED- Pulmonary Assessment Last Done: 05/16/24 04:26
Discharge Date and Time
Print Language: ANGOLAN
[2024-05-16 04:16] LABS: Glucose - Point of Care 96 mg/dl (70-99)
[2024-05-16 04:43] LABS: Glucose - Point of Care 96 mg/dl (70-99)
--- NOTE | 2024-05-16 07:38 | HPS.HSE ---
Family Physician
-
Family Physician: Paz Vasquez
Chief Complaint
-
Weakness
History of Present Illness
This is a 69-year-old with past medical history significant for CML, end-stage renal disease on hemodialysis at home, ischemic cardiomyopathy, insulin-dependent diabetes, recent junctional rhythm on his last admission status post pacemaker placement
who presents to the emergency department today with progressive weakness and collapse.
He reports about 3 days of loose stools/diarrhea. Denied any nausea or vomiting. He reported that the stool/diarrhea was back to black. He reports that he has had black stools intermittently for a long time and he attributes it to his iron use.
He says he has decreased appetite, and decreased p.o. intake but has been tolerating p.o. He denies any abdominal pain. He denies any fevers or chills. He denies any cough. He denies any shortness of breath. Today he became so weak that as he
was walking to the bathroom he fell. He says that there was no loss of consciousness but it appeared his legs just gave way due to weakness. He was unable to get up by himself. Suffered a left thigh bruise. This occurred after he had a session
of dialysis today. Patient reports that he gets dialysis 5 times a week because he cannot go more than 2 days in between sessions. He does dialysis at home and chooses to days of the week as convenient. He denies any recent issues with his
dialysis. On last admission the patient was discharged on aspirin and Plavix. However he tells me that he is currently takes Eliquis per cardiology. It is unclear why he was switched to Eliquis.
On initial arrival in the emergency department he was found to be hypoglycemic to 37 and responded to pushes of dextrose with improvement to 90s and improved mental status..
Initial evaluation in the ED showed a blood pressure of 150/60, pulse of 70 he was afebrile and was satting 93% on room air. ECG showed a junctional rhythm at a rate of 62. He was not being paced. There was no acute ST or T wave changes. His
chest x-ray is unchanged from prior without any focal consolidation but appears to have persistent or effusion. Due to the fall he had a head CT which was negative. This is the C-spine CT was also negative. The white count was 13, hemoglobin was
stable at 12 and a plate count of 150. His lactic acid was 2.7. His electrolytes were all within normal limits, BUN/creatinine were consistent with end-stage renal disease. Had a peripheral ultrasound of the lower extremity which was negative for
DVT.
After initial evaluation of the patient I did find that his blood pressure dropped to 80s to 90s systolic. He had a bowel movement that was large but not formed. It was greenish-black and heme positive.
Medical History
Past Medical History
Past Medical History: Reports CAD and Other
Additional Past Medical History:
Junctional Rhythm status post Pacemaker implant
Right Pleural Effusion Status post Thoracentesis
ESRD
Nephrotic Syndrome
Chronic hyponatremia
MRSA screen positive
Asthma
Factor V Leiden deficiency
CML
Diabetes
BPH
Past Surgical History: Reports Other
Additional Past Surgical History:
Cardiac (Triple bypass), Orthopedic, Urological (Renal calculus, TURP) and Other (Left upper arm fistula, cataract extractions, tenosynovectomy, wisdom teeth extraction)
Social History
Alcohol: None
Drug: None
Personal:
Living: With Family
Family History
Family History: Not pertinent
Allergies / Home Medications
Allergies reflects when Allergies were last updated in [employer].
Home Medications with original date entered in [employer]
Allergy/Medication List:
Allergies
Allergy/AdvReac Type Severity Reaction Status Date / Time
atorvastatin Allergy reports Verified 05/16/24 00:46
muscle
weakness
clonidine Allergy Rash Verified 05/16/24 00:46
codeine Allergy Nausea / Verified 05/16/24 00:46
Vomiting
grass pollen Allergy Unknown Verified 05/16/24 00:46
house dust Allergy Unknown Verified 05/16/24 00:46
hydralazine Allergy Vomiting Verified 05/16/24 00:46
Penicillins Allergy Hives A Verified 05/16/24 00:46
CHILD
pollen extracts Allergy seasonal Verified 05/16/24 00:46
allergies
tree and shrub pollen Allergy nasal Verified 05/16/24 00:46
congestion
Home Medications
beclomethasone dipropionate 80 mcg/actuation HFA breath activated aerosol (Qvar RediHaler) 2 inh inhalation R BID Lung/breathing issues 12/01/21
aspirin 81 mg tablet,delayed release 81 mg PO DAILY Blood clot prevention/tx 05/15/22
loratadine 10 mg tablet 10 mg PO HS Allergies 08/11/22
omega 2-dgz-geu-fish oil 1,200 mg (144 mg-216 mg) capsule (Fish Oil) 1 cap PO HS Supplement 04/27/23
insulin glargine 100 unit/mL (3 mL) subcutaneous pen (Lantus Solostar U-100 Insulin) 14 unit SC HS Diabetes 06/18/23
furosemide 80 mg tablet 80 mg PO DAILY Fluid Retention/Swelling 07/02/23
Lactobac no.2-Bifidobac no.1-S. thermo 112.5 billion cell capsule (Visbiome) 1 cap PO DAILY Gastrointestinal Issue 11/23/23
albuterol sulfate 90 mcg/actuation aerosol inhaler 2 puff inhalation R QIDPRN PRN sob 11/23/23
insulin glargine 100 unit/mL (3 mL) subcutaneous pen (Lantus Solostar U-100 Insulin) 30 unit SC DAILY Diabetes 01/17/24
vit B complx, C-iron 8 mg-folic acid 800 mcg-D3 1,000 unit-zinc tablet (ProRenal) 1 tab PO DAILY Supplement 01/17/24
insulin aspart U-100 100 unit/mL (3 mL) subcutaneous pen 12 - 20 sliding scale dose SC AC Diabetes 01/18/24
rosuvastatin 40 mg tablet 40 mg PO DAILY High Cholesterol 01/24/24
bosutinib 100 mg tablet (Bosulif) 300 mg (3 x 100 mg) PO DAILY #90 tabs 01/29/24
carvedilol 6.25 mg tablet 6.25 mg PO BID 30 days #60 tabs 01/29/24
apixaban 5 mg tablet (Eliquis) 5 mg PO BID 04/15/24
Review of Systems
-
History Source: Patient
Constitutional: Reports Fatigue
EENT: Reports No Symptoms
Respiratory: Reports No Symptoms
Cardiac: Reports No Symptoms
Abdomen/GI: Reports Diarrhea, Black Stools and Anorexia
: Reports No Symptoms
Musculoskeletal: Reports No Symptoms
Skin: Reports No Symptoms
Neurological: Reports No Symptoms
Endocrine: Reports No Symptoms
Hematologic/Lymphatic: Reports No Symptoms
Psych: Reports No Symptoms
Physical Exam
Vital Signs
Vital Signs
Temp Pulse Resp BP Pulse Ox
98.9 F 72 25 94/53 91
05/16/24 00:46 05/16/24 06:00 05/16/24 06:00 05/16/24 06:00 05/16/24 06:00
Physical Exam
General: Comfortable, Poor Appetite and Appears Chronically Ill
HEENT: NormoCephalic, Anicteric, Moist mucous membranes, Atraumatic, PERRLA and No Ptosis
Respiratory: Clear
Cardiac: S1/S2 and Irregular Rhythm
Breast: Deferred by me
GI: Soft, Non Tender and Normal Bowel Sounds
Rectal: Black and Hem Positive
Genito-urinary: Deferred by me
Musculoskeletal: No Clubbing, No Cyanosis and No Edema
Neuro: Awake, AO x 3 and Nonfocal/grossly intact
Hematologic/Lymphatic: No Lymphadenopathy
Psych: Calm
Laboratory Results
-
05/16/24 01:27
05/16/24 01:27
Laboratory Results
Lactic Acid 2.7 mmol/L (0.7-2.0) H 05/16/24 02:54
Total Bilirubin 0.8 mg/dl (0.2-1.3) 05/16/24 01:27
AST 36 U/L (17-59) 05/16/24 01:27
ALT 27 U/L (0-50) 05/16/24 01:27
Alkaline Phosphatase 77 U/L (38-126) 05/16/24 01:27
Data Reviewed
-
Diagnostic Radiology: Image Personally Visualized and interpreted
CT Scan: Report Reviewed by me
Ultrasound: Report Reviewed by me
Medical Tests (Nuc Med, Echo, EKG etc): Image Personally Visualized and interpreted
Lab Data: Labs Reviewed by me
Old Records: Reviewed
Impression/Plan
-
IMPRESSION:
69-year-old with complex past medical history who presents to the emergency department with progressive weakness over 3 days in the setting of diarrhea, black stools, decreased appetite and decreased p.o. intake. He was initially hemodynamically
stable in the emergency department and afebrile. He was found to be hypoglycemic to 37. He was given pushes of dextrose and responded with improvement in blood glucose and mental status. His labs were mostly unremarkable with a baseline
hemoglobin counts normal platelet and normal electrolytes. Had a mild leukocytosis. Imaging studies were unremarkable. ECG showed a junctional rhythm/slow A-fib at a rate of 62. COVID/Influenza test was negative. BP then fell abruptly lower
than his baseline from initial 150s systolic to 80 - 90 systolic. Had a large liquid bm, heme positive and black-greenish. The left thigh redness is a local dermatitis and is not cellulitis
Patient had a similar presentation of weakness previously when he was found to be in a junctional rhythm. He is status post pacemaker. While and having the patient he did have non-formed BM
PLAN:
1. GI bleed - Suspect subacute GI bleed and likely upper given melanotic stool, heme positive. However Hgb of 12 would be unusual if ongoing for the last 3 days. Risk factors include eliquis, aspirin use. No uremia.
- admit to imu
- npo
- type and screen
- pt inr
- boluses of iv fluids for now
- h&H q 6 for now
- protonix 80mg iv bolus then gtt
- holding aspirin/eliquis
- held off on CT GI bleed as he is anticoagulated
- GI consulted.
2. Hypotension - Possibly from GI bleed, but could also be from hypovolemia as he had GI losses for 3 days but continued to perform dialysis with UF of 2 L on last session before his collapse.
- 500 ml iv bolus
- holding losartan for now
- may bolus as needed to maintain bp
- transfuse for rapid drop in Hgb or for goal Hgb > 8
- no signs of infection
3. Hypoglycemia - On lantus 14 hs and 30 am with aspart sliding scale. Appears to have decreased po intake and giving himself usual insulin dose. Improved with dextrose bolus
- holding lantus
- bedside glucose q6 with low dose sliding scale for now
- dextrose gtt if recurrent hypoglycemia
4. ESRD - On HD 5 x a week at home. Last HD yesterday with 2 L UF. Now hypotensive. Labs ok.
- nephrology consult
- no indication for HD at this time
DVT PPX - SCDs
Code status - full code
[2024-05-16] MEDS: NSS (PRESERVATIVE FREE) 20 ML IV (07:51)
[2024-05-16] MEDS: NSS 250 IV ×3 (08:02→12:05)
[2024-05-16 08:23] LABS: INR 1.94; PT 22.3 Sec (11.4-14.6)
[2024-05-16] MEDS: TYLENOL 650 MG PO ×2 (09:34→21:16)
--- NOTE | 2024-05-16 10:28 | W.CON.NEPH ---
Consultation
-
Date/Time Consultation Requested: 05/16/2024 7:30 AM
Date/Time Consultation Performed: 05/16/2024 10:30 AM
Requesting Provider: Mac Shell
Performing Provider: Iveth Gore
Reason for Consultation: End-stage renal disease
Medical History
-
Chief Complaint: Weakness and fall
History of Present Illness:
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
not amenable for stent of cx art in Dec, recent junctional rhythm s/p PPM in Jan 2024, on coreg and Eliquis who presents to ER last night with progressive weakness and fall. his last HD was yesterday at home. He reports about 3 days of loose
stools/diarrhea. Denied any nausea or vomiting. He reported that the stool/diarrhea was back to black from iron pills. He says he has decreased appetite, and decreased p.o. intake but has been tolerating p.o. He denies any abdominal pain. He
denies any fevers or chills. He denies any cough. He denies any shortness of breath or dizziness. he progressively became weak and feel yesterday and no LOC. Suffered a left thigh bruise.
On initial arrival in the emergency department he was found to be hypoglycemic to 37 and responded to dextrose.
in ER head CT and C-spine CT negative. The white count was 13, hemoglobin was stable at 12, Had a peripheral ultrasound of the lower extremity which was negative for DVT. Stool heme +ve.
Past Medical History
heart failure preserved ejection fraction,
ESRD (home HD) 5xweek
Junctional Rhythm status post Pacemaker implant 01/2024
h/o STEMI not amendable to stenting in 01/15
h/o Right Pleural Effusion Status post Thoracentesis
h/o Uncontrolled hypertension now hypotensive
Hyponatremia
Left upper extremity AV fistula
Diabetes
History of coronary artery disease with previous CABG
BPH/TURP
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
Factor V Leiden deficiency
nephrolithiasis, GERD, vocal polyps, cervical radiculopathy,
Past Surgical History: Other (Coronary artery bypass graft x 3 PCI to RCA/LCx and CABG x3 (LAIRD to LAD, LRA to OM, SVG to RPDA) in [address] Brasher Cardiac stent Left ankle surgery x 2)
Social History
Tobacco: Non-Smoker
Alcohol: None
Drug: None
Living: With Family
Family History
Family History: Not Pertinent
Allergies / Home Medications
Allergy/AdvReac Type Severity Reaction Status Date / Time
atorvastatin Allergy reports Verified 05/16/24 00:46
muscle
weakness
clonidine Allergy Rash Verified 05/16/24 00:46
codeine Allergy Nausea / Verified 05/16/24 00:46
Vomiting
grass pollen Allergy Unknown Verified 05/16/24 00:46
house dust Allergy Unknown Verified 05/16/24 00:46
hydralazine Allergy Vomiting Verified 05/16/24 00:46
Penicillins Allergy Hives A Verified 05/16/24 00:46
CHILD
pollen extracts Allergy seasonal Verified 05/16/24 00:46
allergies
tree and shrub pollen Allergy nasal Verified 05/16/24 00:46
congestion
�Medication �Instructions �Recorded �Confirmed �Type
beclomethasone dipropionate 80 2 inh inhalation R BID 12/01/21 05/16/24 History
mcg/actuation HFA breath activated Lung/breathing issues
aerosol (Qvar RediHaler)
aspirin 81 mg tablet,delayed 81 mg PO DAILY Blood clot 05/15/22 05/16/24 History
release prevention/tx
loratadine 10 mg tablet 10 mg PO HS Allergies 08/11/22 05/16/24 History
omega 4-mts-asw-fish oil 1,200 mg 1 cap PO HS Supplement 04/27/23 05/16/24 History
(144 mg-216 mg) capsule (Fish Oil)
insulin glargine 100 unit/mL (3 14 unit SC HS Diabetes 06/18/23 05/16/24 History
mL) subcutaneous pen (Lantus
Solostar U-100 Insulin)
Lactobac no.2-Bifidobac no.1-S. 1 cap PO DAILY Gastrointestinal 11/23/23 05/16/24 History
thermo 112.5 billion cell capsule Issue
(Visbiome)
albuterol sulfate 90 mcg/actuation 2 puff inhalation R QIDPRN PRN sob 11/23/23 05/16/24 History
aerosol inhaler
insulin glargine 100 unit/mL (3 30 unit SC DAILY Diabetes 01/17/24 05/16/24 History
mL) subcutaneous pen (Lantus
Solostar U-100 Insulin)
vit B complx, C-iron 8 mg-folic 1 tab PO DAILY Supplement 01/17/24 05/16/24 History
acid 800 mcg-D3 1,000 unit-zinc
tablet (ProRenal)
insulin aspart U-100 100 unit/mL 12 unit SC AC Diabetes 01/18/24 05/16/24 History
(3 mL) subcutaneous pen
rosuvastatin 40 mg tablet 40 mg PO DAILY High Cholesterol 01/24/24 05/16/24 History
bosutinib 100 mg tablet (Bosulif) 300 mg (3 x 100 mg) PO DAILY #90 01/29/24 05/16/24 Rx
tabs
carvedilol 6.25 mg tablet 6.25 mg PO BID 30 days #60 tabs 01/29/24 05/16/24 Rx
apixaban 5 mg tablet (Eliquis) 5 mg PO BID 04/15/24 05/16/24 History
calcitriol 0.5 mcg capsule 1 mcg PO DAILY 05/16/24 05/16/24 History
collagenase clostridium histo. 250 1 applic topical DAILY 05/16/24 05/16/24 History
unit/gram topical ointment (Santyl)
ferric citrate 210 mg iron tablet 210 mg PO BID 05/16/24 05/16/24 History
(Auryxia)
linezolid 600 mg tablet 600 mg PO BID 05/16/24 05/16/24 History
Review of Systems
-
Al complete 12 point ROS have been inquired and found negative other than stated in HPI
Physical Exam
Vital Signs
Vital Signs
Temp Pulse Resp BP Pulse Ox
98.9 F 60 24 88/58 90
05/16/24 00:46 05/16/24 09:00 05/16/24 09:00 05/16/24 09:00 05/16/24 09:00
Lab Results
WBC 13.7 10^3/uL (4.8-10.8) H 05/16/24 01:27
RBC 4.17 10^6/uL (4.70-6.10) L 05/16/24 01:27
Hgb 12.2 g/dL (13.0-18.0) L 05/16/24 01:27
Hct 38.8 % (39.0-52.0) L 05/16/24 01:27
Plt Count 151 10^3/uL (130-400) 05/16/24 01:27
Sodium 135 mmol/L (135-145) 05/16/24 01:27
Potassium 4.2 mmol/L (3.5-5.1) 05/16/24 01:27
Chloride 91 mmol/L (98-107) L 05/16/24:27
Carbon Dioxide 26 mmol/L (22-30) 05/16/24 01:27
BUN 62 mg/dl (9-20) H 05/16/24 01:27
Creatinine 6.6 mg/dL (0.7-1.3) H* 05/16/24 01:27
eGFR 8.36 05/16/24 01:27
Glucose 65 mg/dl (70-99) L 05/16/24 01:27
Calcium 9.4 mg/dl (8.4-10.2) 05/16/24 01:27
Albumin 3.9 g/dl (3.5-5.0) 05/16/24 01:27
CT head:
IMPRESSION:
1. No acute intracranial abnormality noted.
2. No acute fracture or subluxation of the cervical spine. Multilevel degenerative changes of the cervical spine.
CXR:
IMPRESSION:
Small left and [id number] right pleural effusions with associated probable atelectasis, improved.
Physical Exam
General: Awake, Alert, Oriented, AOx3, No Distress and Nontoxic
HEENT: EOMI, Anicteric and Neck Supple
Respiratory: Normal Excursion, Nonlabored Respirations and Other (decreased BS)
Cardiac: S1/S2 and Regular Rate/Rhythm
Breast: Deferred by me
Abdomen: Soft, Nontender and Nondistended
Musculoskeletal: No Cyanosis and Edema (1+)
Skin: No Rash
Neuro: Nonfocal/Grossly Intact
Psych: Mood/afflect pleasant and Appropriate
Vascular Access: AVF
Data Reviewed
-
Labs: Labs Reviewed by me and Discussed with Patient
Assessment/Plan
-
Impression:
GI bleed - Suspect subacute
Hypotension
Hypoglycemia
ESRD (home HD) 5xweek
Junctional Rhythm status post Pacemaker implant 01/2024
h/o STEMI not amendable to stenting in 01/15
h/o Right Pleural Effusion Status post Thoracentesis 04/18/24
h/o Uncontrolled hypertension now hypotensive
Left upper extremity AV fistula
Diabetes
History of coronary artery disease with previous CABG
BPH/TURP
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
Factor V Leiden deficiency
Plan:
A/w weakness and fall
HD tomorrow
BP are low, avoid aggressive IVF with h/o CHF
will add midodrine, prn pressors to keep MAP>65
seem stable vol status , pleural effusion better on CXR
he has gall stones on US in Nov and ?symp, currently with out pain -was supposed to see GI
resume calcitriol, ok to hold binder Auryxia
he is on Linezolid ?
d/w pt
[2024-05-16] MEDS: PROTONIX 100 IV (11:24)
[2024-05-16 11:29] LABS: Hematocrit 38.8 % (39.0-52.0); Hemoglobin 12.4 g/dL (13.0-18.0); Mean Corpuscular Hgb 29.8 pg (27.0-31.0); Mean Corpuscular Volume 93.3 fL (80.0-94.0); Mean Platelet Volume 10.3 fL (7.4-10.4); Platelet Count 144 10^3/uL (130-400); Red Blood Cell Count 4.16 10^6/uL (4.70-6.10); Red Cell Dist. Width 19.3 % (11.5-14.5); White Blood Cell Count 16.6 10^3/uL (4.8-10.8)
--- NOTE | 2024-05-16 11:33 | EDRN ---
notified of patient's blood pressure. Patient receiving NSS 250 cc bolus over 1 hour. Protonix drip started. Patient denies c/o chest pain, SOB and dizziness. Continues with c/o generalized weakness.
--- NOTE | 2024-05-16 11:46 | CON.GI ---
Addendum entered and electronically signed by Roseann Aldridge MD 05/16/24 17:11:
I saw and examined the patient.
The SEATING AND MOBILITY TECHNOLOGIST or PA's note was reviewed and I agree with the note.
Comment: 69-year-old male with history of end-stage renal disease on hemodialysis, history of CML, CAD, CABG, pacemaker, atrial fibrillation on Eliquis presenting with weakness and fall, incidentally also noted to have black stool. Reviewing his
labs, his hemoglobin was 12.4, baseline between 11-12.4 since November 2023. No significant drop compared to baseline. Patient is also on oral iron as outpatient. He did report episodes of diarrhea in the last few days. Other notable labs include
hypoglycemia with fasting blood sugar of 37 and leukocytosis WBC of 16.6-without fevers. He was hypotensive with systolic blood pressure in the 70s in the emergency room and currently requiring pressors. Chest x-ray today showing small to moderate
right pleural effusion s/p thoracentesis-1150 cc removed.
History was limited as patient is lethargic and also just had IR thoracentesis done. Most of the history obtained from chart review.
Reviewing outpatient labs, no PPI, on Eliquis and baby aspirin. On oral iron. Colonoscopy [place] [address] Myers unremarkable study. No history of prior GI bleed on record.
-Anemia which seems to be chronic without any evidence of overt GI bleeding. He does seem to have chronic slow bleed.
Currently on oral iron which can give black stool.
In the ER, 1 small soft black stool which does not explain the hypotensive episode. At this time I do not believe that he has overt active bleeding that explains his presentation and is more consistent with sepsis.
He will need GI evaluation once his sepsis is treated.
He is currently on pressors in ICU not explained by GI bleeding. Unless there is evidence of overt active bleeding, no need for urgent endoscopy evaluation.
Will keep him on Protonix 40 mg IV twice daily. Eliquis is on hold.
N.p.o., monitor H&H and transfuse if needed and monitor bowel movements as well.
-Sepsis and hypoglycemia workup per primary/ICU team.
Currently on antibiotics.
Will follow
Addendum entered and electronically signed by VERNON Chaudhry 05/16/24 13:32:
reviewed with Dr. Jennings concern for sepsis. Will also add norovirus and stools studies with recent reported vomiting and diarrhea.
Original Note:
Consultation
-
Date/Time Consultation Requested: 05/16/24 1140
Date/Time Consultation Performed: 05/16/24 1145
Requesting Provider: Candy Sweet MD
Performing Provider: VERNON Arriaga, Roseann Aldridge MD
Reason for Consultation: melena
Medical History
Chief Complaint / HPI
Chief Complaint: weakness
History of Present Illness:
Pt is a 69yo with multiple med problems CML, ESRD on HD, CAD with prior NM, ischemic CM, CABG,stent, pacer, junction rhythm/afib on Eliquis, CHF, asthma, GERD, IDDM, renal stone, pleural effusion with prior thoracentesis, + factor V Leiden testing
with admission to ER with weakness and fall. He reports 3 days of loose stool and diarrhea with black stools. On arrival he is noted with marked hypoglycemia with FBS 37 and hypotension. WBC 13,700 with hbg 12.2, BUN 62 with prior range 40-80,
initial glucose 37 then 100 and further drop to 50 after admission. Pt also noted with hypotension. Rectal in ER with scant stool that was heme +.
In review with patient he remains lethargic in exam but answers most questions. He admits to chronic dark stools with use of iron. He did have some vomiting yesterday and diarrhea for last few days. GERD with Omeprazole use as needed. He
otherwise denies odynophagia, abdominal pain, constipation or red blood in stools. No hx EGD and last colonoscopy 07/[address] Myers -normal
Past Medical History
Past Medical History: Arrhythmias (junctional rhythm, afib ), Asthma, CAD, CHF, GERD, Hypercholesterolemia, IDDM, NM, Renal Failure (ESRD on HD) and Other (CML, cervical radiulopathy, vocal cord polyp, shingles, ischemic CM, pleural effusion with
prior thoracentesis, factor V Leiden testing with family history, renal stones, ureteral stent )
Past Surgical History: Cardiac (pacer, stents, CABG), Orthopedic (achilles injury with repair), Urological (TURP) and Other (cataracts surgery, wisdom teeth extraction)
Social History
Tobacco: Non-Smoker
Alcohol: Occasional (1-2 drinks per week)
Drug: None
Personal:
Living: With Family
Employment: Retired
Family History
Family History: Other
Allergies / Home Medications
Allergy/AdvReac Type Severity Reaction Status Date / Time
atorvastatin Allergy reports Verified 05/16/24 00:46
muscle
weakness
clonidine Allergy Rash Verified 05/16/24 00:46
codeine Allergy Nausea / Verified 05/16/24 00:46
Vomiting
grass pollen Allergy Unknown Verified 05/16/24 00:46
house dust Allergy Unknown Verified 05/16/24 00:46
hydralazine Allergy Vomiting Verified 05/16/24 00:46
Penicillins Allergy Hives A Verified 05/16/24 00:46
CHILD
pollen extracts Allergy seasonal Verified 05/16/24 00:46
allergies
tree and shrub pollen Allergy nasal Verified 05/16/24 00:46
congestion
�Medication �Instructions �Recorded
beclomethasone dipropionate 80 2 inh inhalation R BID 12/01/21
mcg/actuation HFA breath activated Lung/breathing issues
aerosol (Qvar RediHaler)
aspirin 81 mg tablet,delayed 81 mg PO DAILY Blood clot 05/15/22
release prevention/tx
loratadine 10 mg tablet 10 mg PO HS Allergies 08/11/22
omega 0-kcq-vej-fish oil 1,200 mg 1 cap PO HS Supplement 04/27/23
(144 mg-216 mg) capsule (Fish Oil)
insulin glargine 100 unit/mL (3 14 unit SC HS Diabetes 06/18/23
mL) subcutaneous pen (Lantus
Solostar U-100 Insulin)
Lactobac no.2-Bifidobac no.1-S. 1 cap PO DAILY Gastrointestinal 11/23/23
thermo 112.5 billion cell capsule Issue
(Visbiome)
albuterol sulfate 90 mcg/actuation 2 puff inhalation R QIDPRN PRN sob 11/23/23
aerosol inhaler
insulin glargine 100 unit/mL (3 30 unit SC DAILY Diabetes 01/17/24
mL) subcutaneous pen (Lantus
Solostar U-100 Insulin)
vit B complx, C-iron 8 mg-folic 1 tab PO DAILY Supplement 01/17/24
acid 800 mcg-D3 1,000 unit-zinc
tablet (ProRenal)
insulin aspart U-100 100 unit/mL 12 unit SC AC Diabetes 01/18/24
(3 mL) subcutaneous pen
rosuvastatin 40 mg tablet 40 mg PO DAILY High Cholesterol 01/24/24
bosutinib 100 mg tablet (Bosulif) 300 mg (3 x 100 mg) PO DAILY #90 01/29/24
tabs
carvedilol 6.25 mg tablet 6.25 mg PO BID 30 days #60 tabs 01/29/24
apixaban 5 mg tablet (Eliquis) 5 mg PO BID 04/15/24
calcitriol 0.5 mcg capsule 1 mcg PO DAILY 05/16/24
collagenase clostridium histo. 250 1 applic topical DAILY 05/16/24
unit/gram topical ointment (Santyl)
ferric citrate 210 mg iron tablet 210 mg PO BID 05/16/24
(Auryxia)
linezolid 600 mg tablet 600 mg PO BID 05/16/24
Review of Systems
-
Unable to obtain full review of systems at this time due to: Other (some limitation with lethargy but answers most questions)
History Source: Patient
Constitutional: Reports No Symptoms
EENT: Reports No Symptoms
Respiratory: Reports No Symptoms
Cardiac: Reports No Symptoms
Abdomen/GI: Reports Nausea, Vomiting, Diarrhea and Black Stools
Musculoskeletal: Reports No Symptoms and Other (occasional cane use for mobility )
Skin: Reports No Symptoms
Neurological: Reports Weakness
Endocrine: Reports No Symptoms
Hematologic/Lymphatic: Reports Bleeding
Vital Signs
Temp Pulse Resp BP Pulse Ox
98.9 F 60 14 71/55 90
05/16/24 00:46 05/16/24 11:30 05/16/24 11:30 05/16/24 11:30 05/16/24 09:00
Physical Exam
Exam
General: Other (lethargic but answering most questions)
HEENT: Normocephalic and Anicteric
Respiratory: Clear and Other (decreased bases )
Cardiac: Regular Rhythm
GI: Soft, Non Tender and Non Distended
Rectal: Hem Positive (scant black per ER)
Musculoskeletal: No Clubbing and No Cyanosis
Skin: Warm and Dry
Neuro: Other (lethargic but answering most questions)
Psych: Calm
Results
WBC 16.6 10^3/uL (4.8-10.8) H 05/16/24 11:18
Hgb 12.4 g/dL (13.0-18.0) L 05/16/24 11:18
Hct 38.8 % (39.0-52.0) L 05/16/24 11:18
MCV 93.3 fL (80.0-94.0) 05/16/24 11:18
Plt Count 144 10^3/uL (130-400) 05/16/24 11:18
Absolute Neuts (auto) 11.6 10^3/uL (1.4-6.5) H 05/16/24 01:27
PT 22.3 Sec (11.4-14.6) H 05/16/24 07:55
INR 1.94 05/16/24 07:55
Sodium 135 mmol/L (135-145) 05/16/24 01:27
Potassium 4.2 mmol/L (3.5-5.1) 05/16/24 01:27
Chloride 91 mmol/L (98-107) L 05/16/24 01:27
Carbon Dioxide 26 mmol/L (22-30) 05/16/24 01:27
BUN 62 mg/dl (9-20) H 05/16/24 01:27
Creatinine 6.6 mg/dL (0.7-1.3) H* 05/16/24:
Calcium 9.4 mg/dl (8.4-10.2) 05/16/24 01:27
Total Bilirubin 0.8 mg/dl (0.2-1.3) 05/16/24 01:27
AST 36 U/L (17-59) 05/16/24:27
ALT 27 U/L (0-50) 05/16/24 01:27
Alkaline Phosphatase 77 U/L (38-126) 05/16/24 01:27
Diagnostic Image Results:
05/16 US LE
IMPRESSION: No evidence of deep venous thrombosis of the left lower extremity.
No interval change.
05/16 HCT
1. No acute intracranial abnormality noted.
2. No acute fracture or subluxation of the cervical spine. Multilevel degenerative changes of the cervical spine.
Prior GI Procedures:
EGD: none
Colonoscopy: Felix myers normal
Assessment / Plan
-
Pt is a 69yo with multiple med problems CML, ESRD on HD, CAD with prior NM, ischemic CM, CABG,stent, pacer, junction rhythm/afib on Eliquis, CHF, asthma, GERD, IDDM, renal stone, pleural effusion with prior thoracentesis, + factor V Leiden testing
with admission to ER with weakness and fall. He reports 3 days of loose stool and diarrhea with black stools. On arrival he is noted with marked hypoglycemia with FBS 37 and hypotension. WBC 13,700 with rise after admission with hbg 12.2, BUN 62
with prior range 40-80, initial glucose 37 then 100 and further drop to 50 after admission. Pt also noted with hypotension requiring pressors. Rectal in ER with scant stool that was heme +.
-black heme + stool
-mild anemia
-hypotension requiring pressors
-leukocytosis
-weakness/ s/p fall prior to admission
-persistent hypoglycemia on admission
-elevated lactate level
-afib/junctional rhythm on Eliquis prior to admission
other med problems:
-CML on Bosulif
-ESRD on HD
-CAD with prior NM/stent
-ischemic CM
-s/p CABG
-pacer
-asthma
-GERD
-IDDM
-renal stones
-pleural effusion with prior thoracentesis
PLAN:
etiology of symptoms unclear -- pt is noted with black stool and reports black stools for months hbg 12.2 with repeat 12.4 and only 1 stool- likely some chronic GI bleeding issues
concern for recurrent hypoglycemia and hypotension now requiring pressor with concern for sepsis
agree with blood cultures
trend labs
cont rx for hypoglycemia and hypotension per medical team
consider GI work up when stable
Eliquis hold
cont PPI gtt
NPO
monitor stool output
-
-
Thank you for consultation and allowing me to participate in the patient's care. Please call the educational institution president GI physician during the after hours with any questions or concerns.
[2024-05-16 11:49] LABS: Glucose - Point of Care 50 mg/dl (70-99)
--- NOTE | 2024-05-16 11:49 | EDRN ---
notified via [facility] that patient's blood sugar is 50. Waiting for a return response.
[2024-05-16] MEDS: DEXTROSE 50% SYRINGE 12.5 GRAMS IV (12:02)
[2024-05-16] MEDS: NSS IV (12:03)
[2024-05-16] MEDS: NOVOLOG FLEXPEN-LOW RESISTANCE SC ×3 (12:09→17:16)
[2024-05-16 12:25] LABS: Glucose - Point of Care 105 mg/dl (70-99)
--- NOTE | 2024-05-16 12:39 | EDRN ---
notified of repeat blood sugar and continued blood pressure in the 70's.
[2024-05-16] MEDS: LEVOPHED 250 IV ×2 (13:02→23:02)
--- NOTE | 2024-05-16 13:08 | EDRN ---
Patient started on Levophed drip @ 2 mcg/min for continued SBP 70's.
--- NOTE | 2024-05-16 13:31 | W.PN.UPDATE ---
Update Note
Progress Note Update
Seen this morning by Dr. Sweet for weakness and black heme positive stools.
I got called by the nurse for hypotension. His systolic was in 70s gave 2 boluses of fluid of 250s over without much improvement.
This morning he says he had a vomiting episode. Decreased appetite. Denies any abdominal pain. He has for the last 2 to 3 days frequent stools which are black in color and they were heme positive here. His H&H is repeat done by me this afternoon
and is stable. Doubt significant GI bleed causing hypotension.
Denies any chronic hypotension. In fact on Coreg at home.
Patient on linezolid-he states it was started by his wound care doctor. He developed wounds in both the legs after having had a fall. This was since 4 weeks.
He continues to remain weak.
Tried to review the wounds-they are all dressed with foam dressing ;they is quite abit of adherent dressings on. The left lower lateral one smell malodorous and dried up discharge noted.
Denies sore throat, cough or shortness of breath
Denies any dysuria frequency of urine.
Hypertension did not response to 2 fluid boluses. Would avoid weightbase boluses due to end-stage renal disease and hemodialysis need. Clinical suspicion is of sepsis. Admitting lactic acid was 2.7. White count was elevated. He is already on
linezolid. He also takes bosutinib for CML.
Continue with linezolid. Check a CPK.
Start on cefepime. Consult ID. Draw blood cultures.
Check urinalysis.
Another clinical concern of infection source is the right pleural effusion. Small to moderate in quality. Will consult IR for therapeutic tap. His Eliquis is on hold.
Tx to ICU
Discussed with READING RECOVERY TEACHER and GI.
Total critical care time 32 minutes
[2024-05-16 13:52] LABS: Lactic Acid 3.6 mmol/L (0.7-2.0)
--- NOTE | 2024-05-16 14:23 | EDRN ---
Patient taken to [facility]AD on monitor with Levophed drip infusing @ 2mcg/min and Protonix drip infusing.
--- NOTE | 2024-05-16 14:44 | EDRN ---
REport given to OLGA LIDIA Rojas in ICU.
--- NOTE | 2024-05-16 14:53 | CON.INTV ---
Consultation
Consultation Request
Date/Time Consultation Requested: 05/16/2024-3 PM
Date/Time Consultation Performed: 05/16/2024-3 PM
Requesting Provider: Hospitalist
Performing Provider: Dr. Jamil
Reason for Consultation: GI bleed/critical care management
Medical History
-
Chief Complaint: GI bleed
History of Present Illness:
69-year-old male with a history of end-stage renal disease on hemodialysis, CML, ischemic cardiomyopathy, diabetes status post permanent pacemaker for recent junctional rhythm who presented with progressive weakness and collapse noted to have a GI
bleed-panel cutter consulted for hypotension/GI bleed/critical care management 05/16/2024. He admits to some mild shortness of breath. He is not significantly improved after thoracentesis. He is somewhat lethargic and sleepy. He denies any chest
pain, chest congestion, productive cough, pleurisy, previous lung disease, and he denies any abdominal pain, nausea, increased leg swelling or weakness.
Past Medical History
Past Medical History: None (CML. Nephrotic syndrome/ESRD-hemodialysis. Chronic hyponatremia. Ischemic CM. Diabetes. Junctional rhythm/PPM. Right effusion/thoracentesis. Factor V Leiden. BPH.)
Past Surgical History: None (CABG. Orthopedic surgery. Renal calculi. TURP. Left upper extremity fistula. Cataract extraction. [place] teeth extraction.)
Social History
Tobacco: Non-smoker
Alcohol: None
Drug: None
Personal:
Living: With Family
Occupational Exposures: No known asbestos exposure
Environmental Exposures: No known tuberculosis exposure
Family History
Family History: Reviewed & Not Pertinent
Allergies / Home Medications
Allergies
Allergy/AdvReac Type Severity Reaction Status Date / Time
atorvastatin Allergy reports Verified 05/16/24 00:46
muscle
weakness
clonidine Allergy Rash Verified 05/16/24 00:46
codeine Allergy Nausea / Verified 05/16/24 00:46
Vomiting
grass pollen Allergy Unknown Verified 05/16/24 00:46
house dust Allergy Unknown Verified 05/16/24 00:46
hydralazine Allergy Vomiting Verified 05/16/24 00:46
Penicillins Allergy Hives A Verified 05/16/24 00:46
CHILD
pollen extracts Allergy seasonal Verified 05/16/24 00:46
allergies
tree and shrub pollen Allergy nasal Verified 05/16/24 00:46
congestion
Home Medications
�Medication �Instructions �Recorded �Confirmed �Last Taken �Type
beclomethasone dipropionate 80 2 inh inhalation R BID 12/01/21 05/16/24 01/24/24 History
mcg/actuation HFA breath activated Lung/breathing issues
aerosol (Qvar RediHaler)
aspirin 81 mg tablet,delayed 81 mg PO DAILY Blood clot 05/15/22 05/16/24 01/24/24 History
release prevention/tx
loratadine 10 mg tablet 10 mg PO HS Allergies 08/11/22 05/16/24 01/23/24 History
omega 6-wyu-bzi-fish oil 1,200 mg 1 cap PO HS Supplement 04/27/23 05/16/24 01/23/24 History
(144 mg-216 mg) capsule (Fish Oil)
insulin glargine 100 unit/mL (3 14 unit SC HS Diabetes 06/18/23 05/16/24 01/16/24 History
mL) subcutaneous pen (Lantus
Solostar U-100 Insulin)
Lactobac no.2-Bifidobac no.1-S. 1 cap PO DAILY Gastrointestinal 11/23/23 05/16/24 01/24/24 History
thermo 112.5 billion cell capsule Issue
(Visbiome)
albuterol sulfate 90 mcg/actuation 2 puff inhalation R QIDPRN PRN sob 11/23/23 05/16/24 11/22/23 History
aerosol inhaler
insulin glargine 100 unit/mL (3 30 unit SC DAILY Diabetes 01/17/24 05/16/24 01/16/24 History
mL) subcutaneous pen (Lantus
Solostar U-100 Insulin)
vit B complx, C-iron 8 mg-folic 1 tab PO DAILY Supplement 01/17/24 05/16/24 01/23/24 History
acid 800 mcg-D3 1,000 unit-zinc
tablet (ProRenal)
insulin aspart U-100 100 unit/mL 12 unit SC AC Diabetes 01/18/24 05/16/24 Unknown History
(3 mL) subcutaneous pen
rosuvastatin 40 mg tablet 40 mg PO DAILY High Cholesterol 01/24/24 05/16/24 01/23/24 History
bosutinib 100 mg tablet (Bosulif) 300 mg (3 x 100 mg) PO DAILY #90 01/29/24 05/16/24 Unknown Rx
tabs
carvedilol 6.25 mg tablet 6.25 mg PO BID 30 days #60 tabs 01/29/24 05/16/24 Unknown Rx
apixaban 5 mg tablet (Eliquis) 5 mg PO BID 04/15/24 05/16/24 Unknown History
calcitriol 0.5 mcg capsule 1 mcg PO DAILY 05/16/24 05/16/24 Unknown History
collagenase clostridium histo. 250 1 applic topical DAILY 05/16/24 05/16/24 Unknown History
unit/gram topical ointment (Santyl)
ferric citrate 210 mg iron tablet 210 mg PO BID 05/16/24 05/16/24 Unknown History
(Auryxia)
linezolid 600 mg tablet 600 mg PO BID 05/16/24 05/16/24 Unknown History
Review of Systems
-
Unable to Obtain full review of systems at this time due to: Other (Per HPI)
Vitals / Labs / Diagnostic Testing
Vital Signs
Temp Pulse Resp BP Pulse Ox
97.7 F 62 18 90/48 86
05/16/24 14:15 05/16/24 14:15 05/16/24 14:15 05/16/24 14:15 05/16/24 14:15
Lab Data
05/16/24 01:27
Laboratory Results
05/16/24
07:55
PT 22.3 H
INR 1.94
Microbiology
05/16/24 01:27 Nasal Swab Influenza Types A & B (MARY) - Final
Negative for Influenza A & B, NAAT
Negative results must be combined with clinical observations
and patient history.
Nucleic Acid Amplification test (NAAT)performed on the
[employer] platform.
Diagnostic Testing:
Physical Exam
-
Exam:
Well-nourished and well-developed in no apparent distress
HEENT-atraumatic, normocephalic
Neck-supple, no JVD, no bruit
Heart-regular rate and rhythm-no murmurs, rubs or gallops
Chest-clear to auscultation, no wheezes, crackles
Back-no tenderness
Abdomen-soft, nontender, nondistended, no hepatosplenomegaly
Extremities-no cyanosis, clubbing, edema and good peripheral pulses
Integument-intact, no rashes, lesions or ecchymosis
Neurology-alert and oriented, nonfocal motor and sensory exam
Assessment
-
69-year-old male with a history of end-stage renal disease on hemodialysis, CML, ischemic cardiomyopathy, diabetes status post permanent pacemaker for recent junctional rhythm who presented with progressive weakness and collapse noted to have a GI
bleed-panel cutter consulted for hypotension/GI bleed/critical care management 05/16/2024.
GI bleed
Hypotension due to acute blood loss and suspected sepsis unresponsive to fluids requiring pressors
Anemia due to acute blood loss
Sepsis with shock unresponsive to fluids requiring pressors
Recurrent right pleural effusion
Status post diagnostic/therapeutic thoracentesis 05/16/24--1150 mL clear hina pleural fluid
Hypoglycemia
End-stage renal disease on hemodialysis 5 times a week at home
Leukocytosis
Lactic acidosis
Wound
Conditions present prior to admission:
CML.
Nephrotic syndrome/ESRD-hemodialysis.
Chronic hyponatremia.
CAD/stent/CABG
Ischemic CM.
Diabetes.
Junctional rhythm/PPM.
Right effusion/thoracentesis x3-analysis once 01/26/2024-glucose 151, TP 3.4, LDH 208, pH 7.5, WBC 1092, cytology not sent
Factor V Leiden.
BPH/TURP
Nephrolithiasis
CABG x 3-(LAIRD to LAD, LRA to OM, SVG to RPDA) in [address] Brasher. Orthopedic surgery-left ankle. Renal calculi. TURP. Left upper extremity fistula. Cataract extraction. [place] teeth extraction.
Plan
Patient with persistent hypotension unresponsive to fluid boluses requiring pressors, suspected sepsis and GI bleed transfer to ICU
Supplemental oxygen as needed
Nebulizers if needed-currently not bronchospastic
Aspiration precautions
Recurrent right pleural effusion
Thoracentesis 05/16/2024-sent for analysis, cultures as well as cytology
Check cultures
Empiric antibiotics-cefepime and Zyvox initiated
Follow lactate
Intravenous fluids-30 mL/kg if sepsis suspected-patient end-stage renal disease on home hemodialysis
Norepinephrine and vasopressin as needed
Monitor leukocytosis
Follow hemoglobin
Transfuse as needed
GI evaluation-reviewed with them
Consideration towards endoscopy or colonoscopy-suspected subacute and no immediate plans
PPI
Supplement blood sugar
Nephrology evaluation
Hemodialysis per nephrology
DVT prophylaxis-mechanical
Nutrition
Early mobilization
Critical care statement: A total of 55 minutes of critical care time was provided for this patient today. This includes management of unstable vital signs, evaluation of the patient at bedside, reviewing the patient's pertinent medical records
including radiographs, microbiology, laboratory evaluations, and discussion with primary team, consultants, pharmacy, nutrition, physical therapy, case management, charge nurse, critical care nursing, and respiratory therapy.
Diagnostic data:
Chest x-ray 01/24/2024-small bilateral pleural effusions
Chest x-ray 04/13/2024-moderate right pleural effusion
Chest x-ray 05/09/2024-moderate right pleural effusion progressed
Chest x-ray 05/16/2024-small left and small to moderate right pleural effusion with atelectasis
CT chest 01/24/2024-no pulmonary embolism, small to moderate bilateral pleural effusions
Thoracentesis 01/26/24--1500 mL clear yellow fluid
Thoracentesis 04/18/24--2000 mL cloudy hina pleural fluid
Thoracentesis 05/16/24--1150 mL clear hina pleural fluid
CT head 05/16/2024-no acute intracranial abnormalities
Left lower extremity ultrasound-no evidence for DVT
Data Reviewed
-
EKG: Report reviewed by me
Radiology: Report reviewed by me
CT Scan: Image personally visualized and interpreted and Report reviewed by me
Ultrasound: Report reviewed by me
Medical Tests (Nuc Med, Echo etc): Report reviewed by me
Labs: Labs reviewed by me
Old Records: Reviewed
Critical Care Time (in minutes): 55
[2024-05-16 16:01] LABS: Body Fluid pH 7.44
[2024-05-16 16:11] LABS: Body Fluid LDH 106 U/L; Body Fluid Protein 3.3 g/dl
--- NOTE | 2024-05-16 16:18 | WOUNDNOTE ---
RUPERTO RN NOTE: Patient admitted with acute upper GI bleed and cellulitis of L thigh, s/p fall at home. PMH see medical record for extensive history. Attempted to see patient in ER, was in IR then being transferred to ICU after. Reviewed photos sent to
this web content writer from ICU nurse of L leg once arrived. Reviewed last report from Dr. Miranda at [facility] on 05/09/24 and recent vascular report. Santyl dressing in use and compression stockings 20-30mmhg daily. Arterial studies scheduled 05/23 as OP per
vascular report. Peripheral Vascular studies today were negative for DVT. Confirmed with Dr. Jennings can order Santyl dressing for L leg and will defer to if want to move studies up. Notified nurse Symone in ICU of wound order for L leg, will
follow tomorrow and address any other wounds. Will update care plan and follow.
[2024-05-16] MEDS: MAXIPIME 1000 MG IV (16:56)
[2024-05-16] MEDS: STERILE WATER FOR INJECTION 10 ML IV (16:57)
--- NOTE | 2024-05-16 17:06 | PTCARENOTE ---
REceived report from Ying in ED when pt was in IR for thoracentesis. Pt then picked up s/p r thora for 1150ml that was aborted with dropping blood pressure and increase in levophed support. Pt was on 3lnc and in no distress. Complete chg bath
given, wound care completed per current regimen at home and WOC will see pt tomorrow for further orders. Pt c/o wound discomfort/restless legs but dozing when undisturbed. Otherwise please refer to flow sheets. Admission completed as charted.
--- NOTE | 2024-05-16 17:13 | CON.ID ---
Consultation
-
Date/Time Consultation Requested: 05/16/2024 1338
Date/Time Consultation Performed: 05/16/2024 1713
Requesting Provider: Dr. Jennings
Performing Provider: Dr. Dubon
Reason for Consultation: Clinical sepsis
Chief Complaint / Past History
History of Present Illness
Kahlil Medina is a 69-year-old man being evaluated at the request of Dr. Jennings in regards to suspected clinical sepsis. History is obtained from chart review, along with patient interview.
The patient presents to the emergency room at [facility] yesterday with complaints of 3 days of tarry stool and progressive generalized weakness. On the day of admission he reported being helped to the bathroom by his , and sustaining a
'slow fall' and was unable to stand due to his weakness. He denied any loss of consciousness. No history of fevers or chills. He is also noted left medial thigh discomfort without known injury.
In the ER he was found to initially have normal vitals, but subsequently developed hypotension. Additionally, he was noted to have an elevated white count and lactic acid level.
Additional history obtained includes bilateral lower extremity wounds that he has had since sustaining a fall several months ago. He has been followed closely in the wound care center for them. He denies fevers, but notes he is always somewhat
chilly. He admits to a slight cough but no sputum production. He denies any abdominal pain. He denies any dysuria. He has had several episodes of vomiting over the past several days, but does not note significant nausea. Stool, although black,
is described as mushy.
Past History
Additional Past Medical History:
Atrial fibrillation
Asthma
CAD; Hx NE
ESRD�HD (on home HD)
CML (maintained on bosutinib)
Hx Renal cell carcinoma
CHF
GERD
HTN
Dyslipidemia
DM
Additional Past Surgical History:
CABG
TURP
LUE graft
Cataract surgery
Renal calculus surgery
Allergy History:
atorvastatin Allergy (Verified 12/23/24 00:46)
reports muscle weakness
clonidine Allergy (Verified 05/16/24 00:46)
Rash
codeine Allergy (Verified 05/16/24 00:46)
Nausea / Vomiting
grass pollen Allergy (Verified 05/16/24 00:46)
Unknown
house dust Allergy (Verified 05/16/24 00:46)
Unknown
hydralazine Allergy (Verified 05/16/24 00:46)
Vomiting
Penicillins Allergy (Verified 05/16/24 00:46)
Hives A CHILD
pollen extracts Allergy (Verified 05/16/24 00:46)
seasonal allergies
tree and shrub pollen Allergy (Verified 05/16/24 00:46)
nasal congestion
Medications Reviewed: Yes
Current Antibiotics:
Linezolid 600 mg p.o. twice daily
Cefepime 1 g IV every 24 hours
Social History
Tobacco: Non-Smoker
Alcohol: Occasional
Drug: None
Personal:
Living: With Family
Employment: Retired
Family History
Family History: Not Pertinent
Review of Systems
Vital Signs
Temp Pulse Resp BP Pulse Ox
97.9 F 62 18 127/56 97
05/16/24 15:40 05/16/24 16:30 05/16/24 16:30 05/16/24 16:30 05/16/24 16:41
Physical Exam
Physical Exam
Constitutional: No Acute Distress, Chronically Ill and Non-toxic
Eyes: Pupils Equal, Pupils Round, No Conjunctival Hemorrhage and Sclera Anicteric
Oral: No Thrush and No Ulcers
Cardiovascular: Regular Rate and S1/S2; Negative S3/S4, Murmur or Rub
Pulmonary: Clear, Symmetric and Non Labored; Negative Wheezes, Rales or Rhonchi
Gastrointestinal: Soft, Non Tender, Non Distended and Normal Bowel Sounds
Extremities: Negative Edema, Cyanosis or Erythema
Skin: Warm and Dry; Negative Rash or Jaundice
Wound: Other (Multiple superficial wounds noted on the lower extremities.)
Neurological: Awake and Alert
Psychological: Calm
Lines: HD Cath
Lab / Diagnostic Study Results
05/16/24 01:27
Abs Immat Gran (auto) 0.1 10^3/uL (0-0.05) H 05/16/24 01:27
Absolute Neuts (auto) 11.6 10^3/uL (1.4-6.5) H 05/16/24 01:27
Absolute Lymphs (auto) 0.9 10^3/uL (1.2-3.4) L 05/16/24 01:27
Absolute Monos (auto) 1.1 10^3/uL (0.1-0.6) H 05/16/24 01:27
Absolute Basos (auto) 0.0 10^3/uL (0-0.2) 05/16/24 01:27
Immature Gran % 0.5 % (0-0.5) 05/16/24 01:27
Neutrophils % 84.4 % (42.2-75.2) H 05/16/24 01:27
Lymphocytes % 6.8 % (20.5-51.1) L 05/16/24 01:27
Monocytes % 7.7 % (1.7-9.3) 05/16/24 01:27
Eosinophils % 0.4 % (0-6) 05/16/24 01:27
Basophils % 0.2 % (0-2) 05/16/24 01:27
PT 22.3 Sec (11.4-14.6) H 05/16/24 07:55
INR 1.94 05/16/24 07:55
Lactic Acid 3.6 mmol/L (0.7-2.0) H 05/16/24 13:26
Microbiology Results
Micro:
05/16/24 15:25 Body Fluid Culture - Pending
Pleural Fluid Gram Stain - Preliminary
05/16/24 13:26 Blood Culture - Pending
Blood/Venous
05/16/24 01:27 Influenza Types A & B (MARY) - Final
Nasal Swab Negative for Influenza A & B, NAAT
Negative results must be combined with clinical observations
and patient history.
Nucleic Acid Amplification test (NAAT)performed on the
[employer] platform.
Assessment / Plan
Hypotension; improved
S/p fall
Leukocytosis
Clinical sepsis
Lactic acidosis
Atrial fibrillation
Asthma
CAD; Hx NE
ESRD�HD (home)
CML
Renal cell carcinoma
CHF
GERD
HTN
Dyslipidemia
DM
Recommendations:
Continue with empiric cefepime. Dose is appropriate for current renal function
Discontinue further linezolid and begin vancomycin
Follow pending cultures.
Monitor white count and temperature curve.
Further recommendations as additional data becomes available.
[2024-05-16 17:18] LABS: APTT 44.7 Sec (23.4-35.0); Hematocrit 38.1 % (39.0-52.0); Hemoglobin 12.1 g/dL (13.0-18.0)
[2024-05-16 17:20] LABS: Lactic Acid 3.3 mmol/L (0.7-2.0)
[2024-05-16 17:27] LABS: Glucose - Point of Care 73 mg/dl (70-99)
[2024-05-16 17:49] LABS: LDH 198 U/L (120-246); Magnesium 2.6 mg/dl (1.6-2.3); Phosphorus 7.8 mg/dl (2.5-4.5)
[2024-05-16] MEDS: VANCOCIN 530 MG IV (19:37)
[2024-05-16] MEDS: NSS (PRESERVATIVE FREE) 10 ML IV (19:38)
[2024-05-16] MEDS: PROTONIX IV 40 MG IV (19:38)
--- NOTE | 2024-05-16 20:15 | PHA.VAN.IN ---
Assessment
- Assessment
Renal Function: Patient has ESRD, on chronic Hemodialysis
Hemodialysis Schedule: Other (5 X A WEEK AT HOME)
Concomitant Antimicrobials: CEFEPIME
- Previous Dosing Experience
Previous Regimen: DOSING BY RANDOM LEVELS
Date of Regimen: 07/01/23
Provided Trough of: UNKNOWN
Provided AUC of: UNKNOWN
Patient's SCR is: Elevated compared to previous dosing experience (07/01/23 SCR = 2.9)
Patient's weight is: Decreased compared to previous dosing experience (07/01/23 WT = 83.8 KG)
Plan
- Plan
Initial / Loading Dose: 1500MG
Maintenance Regimen: DOSING BY RANDOM LEVELS
Monitoring: RANDOM VANCOMYCIN LEVEL 05/17/24 AM
Pharmacokinetics Vancomycin I
- -
Patient Age: 69
Patient Sex: Male
Vancomycin Day #: 1
Indication: Bacteremia
Requesting Provider: DIANA
Pertinent Antimicrobial Allergies:
Allergies
Penicillins Allergy (Verified 05/16/24 00:46)
Hives A CHILD
tolerates cefepime/ceftiraxone 07/02/23
Height / Weight:
Height 5 ft 9 in
Actual Weight 78 kg
- Vital Signs / Lab Results
Temp Pulse Resp BP Pulse Ox
98.2 F 63 15 105/62 92
05/16/24 19:40 05/16/24 18:30 05/16/24 18:30 05/16/24 18:30 05/16/24 18:42
Lab Results - Hematology
05/16/24 05/16/24
01:27 11:18
WBC 13.7 H 16.6 H
Lab Results - Chemistry
05/16/24
01:27
BUN 62 H
Creatinine 6.6 H*
Albumin 3.9
05/16/24 05/16/24 05/16/24
02:54 13:26 16:53
Lactic Acid 2.7 H 3.6 H 3.3 H
Microbiology Results
05/16/24 17:17 - Final
Feces/Stool Negative for Norovirus GI and GII.
05/16/24 17:17 Cryptosporidium/Giardia - Final
Feces/Stool Negative for Cryptosporidium and/or Giardia Lamblia
antigens.
C. difficile GDH Antigen & Toxins - Final
Negative for toxigenic C.difficile
05/16/24 15:25 Gram Stain - Preliminary
Pleural Fluid
05/16/24 01:27 Influenza Types A & B (MARY) - Final
Nasal Swab Negative for Influenza A & B, NAAT
Negative results must be combined with clinical observations
and patient history.
Nucleic Acid Amplification test (NAAT)performed on the
[employer] platform.
--- NOTE | 2024-05-16 21:30 | PTCARENOTE ---
Pt received start of shift, HR A/AV paced with underlying sinus rhythm and BBB on telemetry. Levo infusing at 6mcg/min. L AV fistula bruit and thrill present. Doppler b/l DP and PT pulses. 2L NC, 98%. Pt w/ x1 loose dark stool, small amount. Pt c/o
pain at wound sites on b/l legs. PRN tylenol administered - see JUL. Reinforced NPO status w/ pt and updated on plan of care.
[2024-05-16 23:26] LABS: Glucose - Point of Care 96 mg/dl (70-99)
[2024-05-16] MEDS: BENADRYL 25 MG PO (23:26)
--- NOTE | 2024-05-16 23:30 | PTCARENOTE ---
Pt c/o pain at site of leg wounds, PRN tylenol administered (see MAR). Pt also requesting something to help him sleep, states he usually takes advil PM. Spoke with VERNON Yarbrough ordered and administered (see MAR)
--- NOTE | 2024-05-16 23:38 | PTCARENOTE ---
Around 2337, pt's case was accidentally ended on threat monitoring analyst. Pt added back into system immediately.
[2024-05-17] VITALS (64 sets, daily range): BP systolic 79–148; BP diastolic 38–85; BMI 25.1
[2024-05-17] MEDS: NOVOLOG FLEXPEN-LOW RESISTANCE SC ×5 (00:12→23:08)
[2024-05-17 00:59] LABS: Hematocrit 38.4 % (39.0-52.0); Hemoglobin 12.1 g/dL (13.0-18.0)
[2024-05-17 01:05] LABS: Lactic Acid 3.4 mmol/L (0.7-2.0)
--- NOTE | 2024-05-17 01:45 | PTCARENOTE ---
Pt assessment remains unchanged from previous. Levo currently infusing at 5mcg/min. Pt w/ gelatinous dark brown BM.
[2024-05-17] MEDS: DILAUDID 0.5 MG IV (03:18)
--- NOTE | 2024-05-17 03:24 | PTCARENOTE ---
Pt c/o 8/10 pain in L lower leg where bruises/wounds are. Spoke with VISUAL AND STOCK ASSOCIATE Marcelo Daniels, 0.5mg Dilaudid ordered and administered.
[2024-05-17 05:00] LABS: Glucose - Point of Care 115 mg/dl (70-99)
--- NOTE | 2024-05-17 07:43 | W.PN.INTV ---
Today's Communication / Plan
Recommendations
Continue pressors-attempt to wean
Wean oxygen
Follow-up cultures
Antibiotics per infectious disease
Hemodialysis per nephrology
Assessment
-
69-year-old male with a history of end-stage renal disease on hemodialysis, CML, ischemic cardiomyopathy, diabetes status post permanent pacemaker for recent junctional rhythm who presented with progressive weakness and collapse noted to have a GI
bleed-tv technician consulted for hypotension/GI bleed/critical care management 05/16/2024.
GI bleed
Hypotension due to acute blood loss and suspected sepsis unresponsive to fluids requiring pressors
Anemia due to acute blood loss
Sepsis with shock unresponsive to fluids requiring pressors
Recurrent right pleural effusion
Status post diagnostic/therapeutic thoracentesis 05/16/24--1150 mL clear hina pleural fluid
Hypoglycemia
End-stage renal disease on hemodialysis 5 times a week at home
Leukocytosis
Lactic acidosis
Wound
Conditions present prior to admission:
CML.
Nephrotic syndrome/ESRD-hemodialysis.
Chronic hyponatremia.
CAD/stent/CABG
Ischemic CM.
Diabetes.
Junctional rhythm/PPM.
Right effusion/thoracentesis x3-analysis once 01/26/2024-glucose 151, TP 3.4, LDH 208, pH 7.5, WBC 1092, cytology not sent
Factor V Leiden.
BPH/TURP
Nephrolithiasis
CABG x 3-(LAIRD to LAD, LRA to OM, SVG to RPDA) in [address] Brasher. Orthopedic surgery-left ankle. Renal calculi. TURP. Left upper extremity fistula. Cataract extraction. Ramsay teeth extraction.
Plan
Patient with persistent hypotension unresponsive to fluid boluses requiring pressors, suspected sepsis in addition to mild GI bleed transfer to ICU
Remains critically ill on pressors
Supplemental oxygen as needed
Nebulizers if needed-currently not bronchospastic
Aspiration precautions
Recurrent right pleural effusion
Thoracentesis 05/16/2024-sent for analysis, cultures as well as cytology
Cultures reviewed
Stool cultures for Salmonella/Shigella/Campylobacter-pending
Stool for norovirus-negative
Pleural fluid-negative
Influenza negative
Wound cultures positive for MRSA and anaerobic organisms
Infectious disease following-correspondence reviewed
Empiric antibiotics-cefepime and Zyvox initiated
Follow lactate decrease IV fluids
Norepinephrine and vasopressin as needed
Monitor leukocytosis
Follow hemoglobin
Transfuse as needed
GI evaluation-reviewed with them
Consideration towards endoscopy or colonoscopy-suspected subacute and no immediate plans
PPI
Supplement blood sugar
Nephrology evaluation-correspondence reviewed
Hemodialysis 05/17/2024-per nephrology
DVT prophylaxis-mechanical
Nutrition
Early mobilization
If able to be weaned off pressors then transfer out of ICU-call pulmonary if respiratory issues arise
Critical care statement: A total of 55 minutes of critical care time was provided for this patient today. This includes management of unstable vital signs, evaluation of the patient at bedside, reviewing the patient's pertinent medical records
including radiographs, microbiology, laboratory evaluations, and discussion with primary team, consultants, pharmacy, nutrition, physical therapy, case management, charge nurse, critical care nursing, and respiratory therapy.
Diagnostic data:
Chest x-ray 01/24/2024-small bilateral pleural effusions
Chest x-ray 04/13/2024-moderate right pleural effusion
Chest x-ray 05/09/2024-moderate right pleural effusion progressed
Chest x-ray 05/16/2024-small left and small to moderate right pleural effusion with atelectasis
CT chest 01/24/2024-no pulmonary embolism, small to moderate bilateral pleural effusions
Thoracentesis 01/26/24--1500 mL clear yellow fluid
Thoracentesis 04/18/24--2000 mL cloudy hina pleural fluid
Thoracentesis 05/16/24--1150 mL clear hina pleural fluid
CT head 05/16/2024-no acute intracranial abnormalities
Left lower extremity ultrasound-no evidence for DVT
Subjective Dataa
Subjective Data
Date of Service:
Date of Service: May 17, 2024
Chief Complaint: Hematology Specialist Follow Up and Pulmonary Follow Up
Subjective:
Feels a little better, denies any shortness of breath at rest, chest congestion, chest pain, abdominal pain
Review of Systems
General: Other (Per HPI)
Objective Data
Data Reviewed
Vital Signs / I&O / Oxygen:
Vital Signs
Temp Pulse Resp BP Pulse Ox
98.0 F 62 15 99/39 99
05/17/24 03:23 05/17/24 05:45 05/17/24 05:45 05/17/24 05:45 05/17/24 05:45
Intake and Output
05/16/24 05/17/24 05/18/24
06:59 06:59 06:59
Intake Total 564.0 / 564.0
Balance 564.0 / 564.0
SaO2 99
Nasal Cannula flow liters per 2
minute
Physical Exam
General: Respiratory Distress (n) and Comfortable
HEENT: Normocephalic, Anicteric and Moist Mucous Membranes
Cardiovascular: Regular Rhythm
Respiratory: Clear ( diminished breath sounds right greater than left base), Wheeze (n), Crackles, Rhonchi, Non-Labored Respirations, Accessory Resp Muscle Use (n) and Stridor
GI: Non Distended and Non Tender
Neurology: Awake, Alert and No Motor Deficits
Skin: Good Color, Cyanosis (n) and Jaundice (n)
Labs/Micro/Reports
Laboratory Results
05/16/24 05/16/24
07:55 16:53
PT 22.3 H
INR 1.94
APTT 44.7 H
Microbiology
05/16/24 17:17 Feces/Stool Stool Leukocytes - Final
05/16/24 17:17 Feces/Stool - Final
Negative for Norovirus GI and GII.
05/16/24 17:17 Feces/Stool Cryptosporidium/Giardia - Final
Negative for Cryptosporidium and/or Giardia Lamblia
antigens.
05/16/24 17:17 Feces/Stool C. difficile GDH Antigen & Toxins - Final
Negative for toxigenic C.difficile
05/16/24 15:25 Pleural Fluid Gram Stain - Preliminary
05/16/24 01:27 Nasal Swab Influenza Types A & B (MARY) - Final
Negative for Influenza A & B, NAAT
Negative results must be combined with clinical observations
and patient history.
Nucleic Acid Amplification test (NAAT)performed on the
[employer] platform.
--- NOTE | 2024-05-17 08:00 | PTCARENOTE ---
Assumed care of patient. Pt rec'd sleeping but easily arousable. A&Ox3. Pleasant. CHANG's but weak. S1 S2 reg w/ apacing on monitor. + murmur. DP's by doppler. No edema. Cool extremities. Heels elevated on pillows. On 2L N/C...sats 95.
Placed on R/A...sats 93%. Lungs diminished w/ bibasilar crackles. Abdomen round..+BS. Oliguric. Skin pale/sallow in color. Multiple wounds...WOC RN consulted. L AV fistula...+ bruit/+ thrill. 20P RW flushed w/o issue. 20P RAC w/ levophed gtt
infusing....see intervention. VS documented. Will continue to monitor.
--- NOTE | 2024-05-17 08:03 | W.PN.ID1 ---
Date of Service
Date of Service: May 17, 2024
Today's Communication
Continue antibiotics
Assessment / Plan
Hypotension; improved
S/p fall
Leukocytosis
Clinical sepsis
Lactic acidosis
Atrial fibrillation
Asthma
CAD; Hx NH
ESRD�HD (home)
CML
Renal cell carcinoma
CHF
GERD
HTN
Dyslipidemia
DM
Recommendations:
Continue with empiric vanco (d#2) / cefepime (d#2).
Cefepime dose is appropriate for current renal function (HD). Dose Vanco by levels.
Follow pending cultures. (Stool, pleural, blood)
Monitor white count and temperature curve.
Further recommendations as additional data becomes available.
����������������������������������������������������������
Chief Complaint
-: Clinical Sepsis
Subjective / Review of Systems
Review of Systems: No Fever and No Chills
Vital Signs / Physical Exam
Vital Signs
Vital Signs
Temp Pulse Resp BP Pulse Ox
98.0 F 62 15 99/39 99
05/17/24 03:23 05/17/24 05:45 05/17/24 05:45 05/17/24 05:45 05/17/24 05:45
Physical Exam
Constitutional: No Acute Distress, Comfortable, Chronically Ill and Non-toxic
Eyes: No Conjunctival Hemorrhage and Sclera Anicteric
Cardiovascular: S1/S2; Negative S3/S4
Pulmonary: Non Labored
Gastrointestinal: Soft, Non Tender and Non Distended
Extremities: Negative Cyanosis
Wound: Other (Multiple lower extremity superficial wounds without significant periwound erythema.)
Neurological: Awake and Alert
Psychological: Calm
Objective Data
Lab Data
PT 22.3 Sec (11.4-14.6) H 05/16/24 07:55
INR 1.94 05/16/24 07:55
APTT 44.7 Sec (23.4-35.0) H 05/16/24 16:53
Lactic Acid 3.4 mmol/L (0.7-2.0) H 05/17/24 00:41
Total Bilirubin 0.8 mg/dl (0.2-1.3) 05/16/24 01:27
AST 36 U/L (17-59) 05/16/24 01:27
ALT 27 U/L (0-50) 05/16/24 01:27
Alkaline Phosphatase 77 U/L (38-126) 05/16/24 01:27
Most recent labs reviewed.
Micro Results:
05/16/24 17:17 Salmonella/Shigella Culture - Pending
Feces/Stool Campylobacter Culture - Pending
Shiga Toxin Test - Pending
Stool Leukocytes - Final
05/16/24 17:17 - Final
Feces/Stool Negative for Norovirus GI and GII.
05/16/24 17:17 Cryptosporidium/Giardia - Final
Feces/Stool Negative for Cryptosporidium and/or Giardia Lamblia
antigens.
C. difficile GDH Antigen & Toxins - Final
Negative for toxigenic C.difficile
05/16/24 15:25 Body Fluid Culture - Pending
Pleural Fluid Gram Stain - Preliminary
05/16/24 13:26 Blood Culture - Pending
Blood/Venous
05/16/24 01:27 Influenza Types A & B (MARY) - Final
Nasal Swab Negative for Influenza A & B, NAAT
Negative results must be combined with clinical observations
and patient history.
Nucleic Acid Amplification test (NAAT)performed on the
[employer] platform.
[2024-05-17] MEDS: NSS (PRESERVATIVE FREE) 10 ML IV ×2 (09:07→19:58)
[2024-05-17] MEDS: PROTONIX IV 40 MG IV ×2 (09:10→19:57)
[2024-05-17] MEDS: SANTYL OINTMENT 1 APPLIC TOPICAL (09:13)
--- NOTE | 2024-05-17 12:00 | PTCARENOTE ---
Currently rec'ing HD. No major changes in physical assessment. Seen by WOC RN this am...see wound care notes. Call flynn within reach. Will continue to monitor closely.
[2024-05-17] MEDS: LEVOPHED 250 IV (12:07)
--- NOTE | 2024-05-17 12:13 | W.PN.NEPH.PH ---
Today's Communication / Plan
-
HD today
Assessment/Plan
-
Impression:
GI bleed - Suspect subacute
Hypotension
Hypoglycemia
ESRD (home HD) 5xweek
Junctional Rhythm status post Pacemaker implant 01/2024
h/o STEMI not amendable to stenting in 01/15
h/o Right Pleural Effusion Status post Thoracentesis 04/18/24
h/o Uncontrolled hypertension now hypotensive
Left upper extremity AV fistula
Diabetes
History of coronary artery disease with previous CABG
BPH/TURP
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
Factor V Leiden deficiency
Plan:
A/w weakness and fall
sepsis with shock on pressors-wean as toelrated
HD today off schedule for holiday
UF as tolerates
will add midodrine prn
s/p thoracentesis on 05/16
resume calcitriol and binder Auryxia
abx per ID
d/w pt and nursing
-
-
Date of Service: May 17, 2024
CC / HPI / ROS
-
Chief Complaint:
ESRD
History of Present Illness:
remains on pressors for hypotension
hb stable at 12.1
WBC 16
s/p thoracentesis 1.1lit on 05/16
Review of Systems:
no cp
chr sob no change
no n/v
Labs
-
Labs:
eGFR 8.36 05/16/24 01:27
Phosphorus Cancelled 05/16/24 15:36
Albumin 3.9 g/dl (3.5-5.0) 05/16/24 01:27
Physical Exam
-
Vital Signs:
Vital Signs
Temp Pulse Resp BP Pulse Ox
97.9 F 62 15 99/39 99
05/17/24 11:16 05/17/24 05:45 05/17/24 05:45 05/17/24 05:45 05/17/24 05:45
Cardiovascular:: Regular rate and rhythm
Respiratory:: Bilateral: CTA (decreased)
Lung Excursion:: Normal
Abdomen:: Nontender and Soft
Extremity Edema:: +1: Bilateral:
Morgan Catheter: No
--- NOTE | 2024-05-17 12:32 | W.PN.HOSP.TC ---
Addendum entered and electronically signed by Omi Jennings MD 05/17/24 12:48:
Hold on lantus due to low blood sugars, cw SSI.
Original Note:
Today's Communication/Plan
-
Started diet when okay from GI. Start on aspirin when okay from GI. Hold Eliquis for now.
Follow H&H closely.
Continue with the current antibiotics and follow culture data. Wean Levophed as able. We will give a trial of midodrine use.
Hemodialysis per nephrology.
Assessment / Plan
Assessment / Plan
Persistent hypotension suggestive of shock physiology;lactic elevated -suspected sepsis-remains on vasopressors in the form of Levophed. Continue with antibiotics and wean pressors as able. Heme positive stools noted but H&H has been stable so
doubt active bleeding causing hypotension. 2 months ago had an echocardiogram with EF of 50%.
Appreciate ID input
Bilateral lower extremity wounds-on the left lower wound was odorous. Await wound care evaluation. Continue with antibiotics as above. Check a vascular ultrasound due to slow healing.
Right-sided pleural effusion-recurrent nature. Transudative by protein criteria exudative by LDH criteria. Culture data pending. Suspect possibly secondary to fluid issue in this dialysis pt. Continue to follow for any recurrence.Cyto and cx
pending.
ESRD on HD - renal following
Heme positive stools - HH stable - on asa and AC. Started on Protonix. Eliquis on hold. Patient kept NPO. Await GI input from today.
History of CAD-restart aspirin if okay from GI. Symptomatic without chest pain. Continue with statins. Beta-randa on hold due to hypotension.
Eliquis use-unclear indication-patient with a prior junctional rhythm but no mention about A-fib. He does have CML and factor V Leiden deficiency. Need more information.
CML-on Bosulif
Diabetes mellitus type 2-patient on Lantus and nutritional insulin-currently NPO. Continue with Lantus at half the dose for now.
Full code
Discussed with URBAN SOCIOLOGIST
Total time spent on today's encounter was 52 minutes which included time spent in counseling the patient/family regarding diagnosis and treatment plan as listed above, goals of care, and symptom management. Case was discussed with nursing staff,
specialists, and care coordinators/case management. All labs and imaging personally reviewed by me. Remainder the time spent in detailed review of previous records, lab data, imaging, and other medical provider documentation.
Anticipated Discharge: > 48 hours
Subjective/Interval History
-
Date of Service: May 17, 2024
Patient with better today. He was admitted with weakness.
Denies any fever or chills.
No sore throat, cough or shortness of breath. Denies having a prior right-sided pleural tap 2 months ago.
Denies any nausea vomiting or diarrhea.
No chest pain.
Objective Data
-
Labs:
Laboratory Results
05/17/24 05/17/24
00:41 11:44
WBC Pending
Hgb 12.1 L Pending
Hct 38.4 L Pending
Plt Count Pending
Sodium Pending
Potassium Pending
Chloride Pending
Carbon Dioxide Pending
BUN Pending
Creatinine Pending
Glucose Pending
Calcium Pending
Vital Signs:
Vital Signs
Temp Pulse Resp BP Pulse Ox
97.9 F 62 15 99/39 99
05/17/24 11:16 05/17/24 05:45 05/17/24 05:45 05/17/24 05:45 05/17/24 05:45
I&O
05/16/24 05/17/24 05/18/24
06:59 06:59 06:59
Intake Total 564.0 / 586.5 63.8 / 63.8
Balance 564.0 / 586.5 63.8 / 63.8
Review of Systems
-
Constitutional: Denies Chills
Abdomen/GI: Denies Abdominal Pain
Musculoskeletal: Denies Joint Pain
Neuro: Denies Dizzy or Headache
Physical Exam
-
General: Comfortable
Respiratory: Clear to Auscultation (Anteriorly) and Non Labored Respirations; Negative Accessory Resp Muscle Use
Cardiac: Regular Rhythm and S1/S2
GI: Soft, Nontender, Nondistended and Normal Bowel Sounds
Musculoskeletal: Other (wounds in dressing)
Neuro: AO x 3
Psych: Calm; Negative Confused
Data Reviewed
-
Labs: Labs Reviewed by me
[2024-05-17 12:36] LABS: Hematocrit 38.1 % (39.0-52.0); Hemoglobin 11.7 g/dL (13.0-18.0); Mean Corp Hgb Conc. 30.7 g/dL (33.0-37.0); Mean Corpuscular Hgb 29.3 pg (27.0-31.0); Mean Corpuscular Volume 95.3 fL (80.0-94.0); Mean Platelet Volume 10.7 fL (7.4-10.4); Platelet Count 112 10^3/uL (130-400); White Blood Cell Count 17.6 10^3/uL (4.8-10.8)
--- NOTE | 2024-05-17 12:36 | WOUNDNOTE ---
L LATERAL LOWER LEG
--- NOTE | 2024-05-17 12:40 | WOUNDNOTE ---
RUPERTO RN NOTE: Followed up today for wound care needs. L lateral lower leg, R lateral ankle, L lateral foot with full thickness ulcers, pink mixed with batista slough. R lateral knee with few abrasions and L lateral thigh with small full thickness wound,
no undermining or tunneling. Patient reports wounds are from a fall he sustained on outside walkway, tripping over stone path. Medial to thigh wound is small skin tear patient reports from tape. Patient turned self, sacrum intact and buttocks
blanchable pink. Heels blanchable pink, feet cold. Unable to palpate pedal pulses, + with Doppler, no edema in legs. Recommend Santyl, adaptic and dry dressing to wounds lower legs, then adaptic and foam to R knee and L thigh. Dressings changed and
applied protective heel foams, pillow under calves. Will update wound care orders and follow as needed.
--- NOTE | 2024-05-17 12:43 | CM ---
CM following re: discharge planning.
Reviewed pt's chart, met with pt.
Pt is a 69 year old male, admitted with primary dx of GI bleed. Hypotension due to acute blood loss and suspected sepsis unresponsive to fluids requiring pressors.
Pt reports he lives with spouse 2SH, 1 step to enter, has 2 supportive children. Pt reports he ambulates mostly with a cane, has a walker and was receiving PT and OT at [facility]. Pt reports he is on home dialysis 5 days per week, managed [place]
[facility] and back up plan [place] [facility]. Pt reports he has not been able to walk in the past week.
PT and OT will evaluate the pt to determine a level of care at discharge.
Pt expressed his desire to return back home with resumptions of [facility].
PCP: Paz Vasquez
Pharmacy: [facility]
D/c plan: Pt expressed his desire to return back home with [facility] and is open for discharge plan discussion after PT/OT evaluations.
CM will follow with discharge plan updates as hospitalization progresses
[2024-05-17 12:49] LABS: Lactic Acid 2.9 mmol/L (0.7-2.0)
[2024-05-17 12:55] LABS: Vancomycin Random 18.2 ug/ml
[2024-05-17 12:56] LABS: Blood Urea Nitrogen 78 mg/dl (9-20); Calcium 8.2 mg/dl (8.4-10.2); Carbon Dioxide 12 mmol/L (22-30); Chloride 92 mmol/L (98-107); Estimated Creatinine Clearance 8 ml/min; Glucose 118 mg/dl (70-99); Potassium 4.9 mmol/L (3.5-5.1); Sodium 131 mmol/L (135-145); eGFR 6.35
--- NOTE | 2024-05-17 13:10 | PHA.VAN.FU ---
Vancomycin Assessment / Plan
- Assessment
Hemodialysis Schedule: Other (5 X A WEEK AT HOME)
Last Hemodialysis performed: HD today 05/17 - off schedule for holiday
WBC's are: Trending Up
In the past 24 hrs, patient has been: Afebrile
Concomitant Antimicrobials: cefepime
- Assessment - Therapeutic Drug Monitoring
Random Level: 18.2 - drawn 05/17 11:44 ( after 1500 mg dose 05/16 18:49)
- Dosing Plan
Adjust Regimen to: dose by level HD days
Dosing by Level: Hold off on dosing today
- Monitoring Plan
Random Level: will repeat random level 05/18 am
- Follow Up
Pharmacy will continue to follow.
Vancomycin Follow UP
- -
Patient Age: 69
Patient Sex: Male
Vancomycin Day #: 2
Indication: Bacteremia
Requesting Provider: DIANA
Pertinent Antimicrobial Allergies:
Allergies
Penicillins Allergy (Verified 05/16/24 00:46)
Hives A CHILD
tolerates cefepime/ceftiraxone 07/02/23
Height / Weight:
Height 5 ft 9 in
Actual Weight 77.1 kg
Pertinent Past Medical History: CML on botsutinib
- Vital Signs / Lab Results
Temp Pulse Resp BP Pulse Ox
97.9 F 62 15 99/39 99
05/17/24 11:16 05/17/24 05:45 05/17/24 05:45 05/17/24 05:45 05/17/24 05:45
Lab Results - Hematology
05/16/24 05/16/24 05/17/24
01:27 11:18 11:44
WBC 13.7 H 16.6 H 17.6 H
Lab Results - Chemistry
05/16/24 05/17/24
01:27 11:44
BUN 62 H 78 H
Creatinine 6.6 H* 8.3 H*
Estimated Creat Clear 8
Albumin 3.9
05/16/24 05/16/24 05/16/24
02:54 13:26 16:53
Lactic Acid 2.7 H 3.6 H 3.3 H
05/17/24 05/17/24
00:41 11:44
Lactic Acid 3.4 H 2.9 H
Lab Results - Urine
05/16/24
02:24
Urine Nitrite (Reflex) Cancelled
Leukocyte Esterase Rfl Cancelled
Microbiology Results
05/16/24 17:17 Salmonella/Shigella Culture - Preliminary
Feces/Stool Culture in Progress
Campylobacter Culture - Preliminary
Culture in Progress
Stool Leukocytes - Final
05/16/24 15:25 Body Fluid Culture - Preliminary
Pleural Fluid No Growth After 18-24 Hours
Gram Stain - Preliminary
05/16/24 17:17 - Final
Feces/Stool Negative for Norovirus GI and GII.
05/16/24 17:17 Cryptosporidium/Giardia - Final
Feces/Stool Negative for Cryptosporidium and/or Giardia Lamblia
antigens.
C. difficile GDH Antigen & Toxins - Final
Negative for toxigenic C.difficile
05/16/24 01:27 Influenza Types A & B (MARY) - Final
Nasal Swab Negative for Influenza A & B, NAAT
Negative results must be combined with clinical observations
and patient history.
Nucleic Acid Amplification test (NAAT)performed on the
[employer] platform.
Therapeutic Drug Monitoring
Random Vancomycin 18.2 ug/ml 05/17/24 11:44
[2024-05-17] MEDS: FLEXBUMIN 25% FOR HEMODIALYSIS 12.5 GRAMS IV (14:42)
--- NOTE | 2024-05-17 14:53 | W.PN.NEPH.HD ---
Assessment
-
pt seen during HD
remains on pressor-UF limited
AVF functions well
prn midodrine
next HD
Progress Note - Hemodialysis
-
Date of Service: May 17, 2024
Duration: 30 minutes and 3 hours
Potassium Bath: 2
Calcium Bath: 2.5
Opti-Dialyzer: 160
Ultrafiltration: Other (0.75kg)
Blood Flow: 400
Dialysate Flow: 600
Heparin: no
EPO: no
[2024-05-17] MEDS: DILAUDID 0.25 MG IV (14:57)
--- NOTE | 2024-05-17 15:32 | W.PN.GI.CBS2 ---
Today's Communication / Plan
-
-Anemia which seems to be chronic without any evidence of overt GI bleeding. He does seem to have chronic slow bleed.
Hemoglobin stable since admission without significant drop, oral iron as outpatient which can give black stool.
This does not seem like active GI bleeding causing hemodynamic instability.
He will need GI evaluation with upper endoscopy once his sepsis is treated.
He is currently on low dose pressors in ICU not explained by GI bleeding. Unless there is evidence of overt active bleeding, no need for urgent endoscopy evaluation.
Will keep him on Protonix 40 mg IV twice daily. Eliquis is on hold.
Okay for clear liquid diet, monitor H&H and transfuse if needed and monitor bowel movements as well.
Okay to start aspirin.
-Sepsis and hypoglycemia workup per primary/ICU team.
Currently on antibiotics.
Will follow
Assessment / Plan
-
Pt is a 69yo with multiple med problems CML, ESRD on HD, CAD with prior CA, ischemic CM, CABG,stent, pacer, junction rhythm/afib on Eliquis, CHF, asthma, GERD, IDDM, renal stone, pleural effusion with prior thoracentesis, + factor V Leiden testing
with admission to ER with weakness and fall. He reports 3 days of loose stool and diarrhea with black stools. On arrival he is noted with marked hypoglycemia with FBS 37 and hypotension. WBC 13,700 with rise after admission with hbg 12.2, BUN 62
with prior range 40-80, initial glucose 37 then 100 and further drop to 50 after admission. Pt also noted with hypotension requiring pressors. Rectal in ER with scant stool that was heme +.
-black heme + stool
-mild anemia
-hypotension requiring pressors
-leukocytosis
-weakness/ s/p fall prior to admission
-persistent hypoglycemia on admission
-elevated lactate level
-afib/junctional rhythm on Eliquis prior to admission
other med problems:
-CML on Bosulif
-ESRD on HD
-CAD with prior CA/stent
-ischemic CM
-s/p CABG
-pacer
-asthma
-GERD
-IDDM
-renal stones
-pleural effusion with prior thoracentesis
PLAN:
-Anemia which seems to be chronic without any evidence of overt GI bleeding. He does seem to have chronic slow bleed.
Hemoglobin stable since admission without significant drop, oral iron as outpatient which can give black stool.
This does not seem like active GI bleeding causing hemodynamic instability.
He will need GI evaluation with upper endoscopy once his sepsis is treated.
He is currently on low dose pressors in ICU not explained by GI bleeding. Unless there is evidence of overt active bleeding, no need for urgent endoscopy evaluation.
Will keep him on Protonix 40 mg IV twice daily. Eliquis is on hold.
Okay for clear liquid diet, monitor H&H and transfuse if needed and monitor bowel movements as well.
Okay to start aspirin.
-Sepsis and hypoglycemia workup per primary/ICU team.
Currently on antibiotics.
Will follow
Subjective
Subjective
Date of Service: May 17, 2024
Patient much more awake today, denies any abdominal pain, nausea or vomiting.
Small amount of dark blackish stool this morning, no overt bleeding.
Objective
Data Reviewed
Laboratory Data:
Laboratory Results
05/17/24 11:44
05/17/24 11:44
Laboratory Results
PT 22.3 Sec (11.4-14.6) H 05/16/24 07:55
INR 1.94 05/16/24 07:55
APTT 44.7 Sec (23.4-35.0) H 05/16/24 16:53
Phosphorus Cancelled 05/16/24 15:36
Magnesium Cancelled 05/16/24 15:36
Total Bilirubin 0.8 mg/dl (0.2-1.3) 05/16/24 01:27
AST 36 U/L (17-59) 05/16/24 01:27
ALT 27 U/L (0-50) 05/16/24 01:27
Alkaline Phosphatase 77 U/L (38-126) 05/16/24 01:27
Vital Signs and I&O:
Vital Signs
Temp Pulse Resp BP Pulse Ox
97.9 F 77 19 119/70 90
05/17/24 11:16 05/17/24 13:45 05/17/24 13:45 05/17/24 13:45 05/17/24 13:45
I&O
05/16/24 05/17/24 05/18/24
06:59 06:59 06:59
Intake Total 564.0 / 586.5 626.4 / 626.4
Balance 564.0 / 586.5 626.4 / 626.4
Physical Exam
Physical Exam
GI: Soft, Non Distended and Non Tender
--- NOTE | 2024-05-17 16:00 | PTCARENOTE ---
HD completed w/o issue. at bedside...fully updated. No major changes in assessment. Will continue to monitor closely.
[2024-05-17] MEDS: MAXIPIME 1000 MG IV (16:34)
[2024-05-17] MEDS: STERILE WATER FOR INJECTION 10 ML IV (16:34)
[2024-05-17 18:04] LABS: Glucose - Point of Care 92 mg/dl (70-99)
[2024-05-17] MEDS: ProAmatine 5 MG PO (19:58)
[2024-05-17] MEDS: TIGAN 200 MG IM (21:06)
[2024-05-17] MEDS: TYLENOL 650 MG PO (22:06)
[2024-05-17] MEDS: DEXTROSE 50% SYRINGE 12.5 GRAMS IV (22:13)
[2024-05-17 22:22] LABS: Glucose - Point of Care 41 mg/dl (70-99)
--- NOTE | 2024-05-17 22:45 | PTCARENOTE ---
pt c/o shakes and 'seeing bright spots', states his sugar may be low. accucheck done, BGM 41. PRN dextrose given, repeat BGM 104. will continue with hypoglycemia protocol.
[2024-05-17 22:50] LABS: Glucose - Point of Care 104 mg/dl (70-99)
[2024-05-18] VITALS (83 sets, daily range): BP systolic 38–199; BP diastolic 13–141; BMI 25.6
[2024-05-18] MEDS: DILAUDID 0.25 MG IV ×3 (00:40→22:23)
[2024-05-18 00:54] LABS: Glucose - Point of Care 79 mg/dl (70-99)
[2024-05-18] MEDS: DEXTROSE 50% SYRINGE 12.5 GRAMS IV (02:50)
[2024-05-18 02:59] LABS: Glucose - Point of Care 48 mg/dl (70-99)
[2024-05-18] MEDS: LEVOPHED 250 IV ×2 (03:16→07:26)
[2024-05-18 03:25] LABS: Glucose - Point of Care 77 mg/dl (70-99)
--- NOTE | 2024-05-18 03:26 | PTCARENOTE ---
AM labs sent. pt with critical low glucose at 0300 check per protocol, prn dextrose given, recheck 77 15 min later. ORGANIC EXTRACTIONS TECHNICIAN made aware of low glucose results overnight, no new orders at this time. assessment unchanged. levo gtt continues. call flynn
within reach.
[2024-05-18 03:48] LABS: Hematocrit 38.5 % (39.0-52.0); Hemoglobin 11.5 g/dL (13.0-18.0); Mean Corp Hgb Conc. 29.9 g/dL (33.0-37.0); Mean Corpuscular Hgb 29.9 pg (27.0-31.0); Platelet Count 89 10^3/uL (130-400); Red Blood Cell Count 3.85 10^6/uL (4.70-6.10); Red Cell Dist. Width 19.5 % (11.5-14.5); White Blood Cell Count 19.8 10^3/uL (4.8-10.8)
[2024-05-18 04:22] LABS: Blood Urea Nitrogen 44 mg/dl (9-20); Carbon Dioxide 10 mmol/L (22-30); Chloride 93 mmol/L (98-107); Estimated Creatinine Clearance 12 ml/min; Glucose 152 mg/dl (70-99); Potassium 5.7 mmol/L (3.5-5.1); Sodium 135 mmol/L (135-145); eGFR 9.76
[2024-05-18 04:25] LABS: Vancomycin Random 10.8 ug/ml
[2024-05-18] MEDS: SODIUM BICARBONATE 50 MEQ IV ×3 (05:32→12:22)
[2024-05-18] MEDS: DEXTROSE 50% SYRINGE 25 GRAMS IV (05:48)
[2024-05-18] MEDS: NOVOLOG FLEXPEN-LOW RESISTANCE SC ×2 (05:56→12:00)
[2024-05-18 05:57] LABS: Glucose - Point of Care 69 mg/dl (70-99)
[2024-05-18] MEDS: PITRESSIN 100 IV (05:57)
[2024-05-18 06:30] LABS: Magnesium 2.7 mg/dl (1.6-2.3); Potassium 5.6 mmol/L (3.5-5.1)
[2024-05-18 06:38] LABS: Glucose - Point of Care 73 mg/dl (70-99)
--- NOTE | 2024-05-18 06:59 | W.PN.INTV ---
Today's Communication / Plan
Recommendations
Continue norepinephrine, wean as able, target SBP greater than 90
Double concentrate
Follow electrolytes, follow hypoglycemia
CXR and Abd film. Consider Abd CT. GI following
Cont frequent fingerstick, monitoring for hypoglycemia
Maintain n.p.o.
Remains on broad-spectrum antibiotics
Remains on PPI
Cardiology consult, check echocardiogram
Assessment
-
69-year-old male with a history of end-stage renal disease on hemodialysis, CML, ischemic cardiomyopathy, diabetes status post permanent pacemaker for recent junctional rhythm who presented with progressive weakness and collapse noted to have a GI
bleed-computer systems integrator consulted for hypotension/GI bleed/critical care management 05/16/2024.
GI bleed
Burgundy stool
Hypotension due to acute blood loss and suspected sepsis unresponsive to fluids requiring pressors
Anemia due to acute blood loss
Sepsis with shock unresponsive to fluids requiring pressors
Recurrent right pleural effusion
Status post diagnostic/therapeutic thoracentesis 05/16/24--1150 mL clear hina pleural fluid
Multiple thoracenteses in the past
Hypoglycemia
End-stage renal disease on hemodialysis 5 times a week at home
Leukocytosis
Lactic acidosis
Wound, LE
Conditions present prior to admission:
CML, on chronic Bosulif therapy ([place])
dx 2022
Nephrotic syndrome/ESRD-hemodialysis.
Chronic hyponatremia.
CAD/stent/CABG
Ischemic CM.
Diabetes.
Junctional rhythm/PPM.
Right effusion/thoracentesis x3-analysis once 01/26/2024-glucose 151, TP 3.4, LDH 208, pH 7.5, WBC 1092, cytology not sent
Factor V Leiden.
BPH/TURP
Nephrolithiasis
CABG x 3-(LAIRD to LAD, LRA to OM, SVG to RPDA) in [address] Brasher. Orthopedic surgery-left ankle. Renal calculi. TURP. Left upper extremity fistula. Cataract extraction. [place] teeth extraction.
Plan/recommendations
Patient remains critically ill
Hypotensive, intermittent chest pain, nausea overnight, atrial paced, episode of NSVT wide-complex overnight
Hypoglycemia noted requiring D50
Also required few boluses of IV bicarbonate
Responded to 1 L IV fluid bolus with improved systolic pressure greater than 100
Briefly required 100% nonrebreather overnight for saturation of 85%
Presently without chest pain, nausea
Burgundy stool this morning
Moving forward
Continue with gentle IV fluids as needed
Remains on norepinephrine at 24 mcg. Double concentrated norepinephrine
Etiology for hypotension, broad differential
Echocardiogram February 2024 with normal biventricular function, EF 50%
Recent pacemaker placed
Positive troponin noted
Patient has not aspirin therapy, Eliquis/ASA has been held
Cardiology has been consulted
Presently he is pain-free
Patient on Coreg as an outpatient, currently being held
Tele strip with NSVT over night (bundle morphology) vs VT
Consider Echo (will discuss with cardiology). Recent Echo 03/08/2024 with EF 50%, top normal RV size with normal function, PA pressure 50
Platelets have decreased to 89, hemoglobin stable at 11.5
Maintain active type and screen
GI following. No plans for endoscopy at this time
Remains on Protonix
Maintain n.p.o. for now
Hypoglycemia noted
Patient with right upper quadrant pain on exam, no rebound
Lactic acid elevated since admission 05/16
History of gallstones per prior abdominal ultrasound March 2024
Check abdominal film
May require additional imaging. Reviewed with GI and primary service. Abd/Pelvis CT
Follow-up frequent fingerstick
Hold insulin therapy
Receives hemodialysis at home, 5 days a week
Nephrology is following
Monitor hyperkalemia
Bicarbonate has needed
Dialysis per nephrology, with addressing hyperkalemia and acidemia
History of thoracentesis with recurrent pleural effusions noted
No significant worsening at this time, follow clinically
Has been weaned from 100% to 6 L this morning
Thoracentesis 05/16/2024-sent for analysis, cultures as well as cytology
Await CT imaging today to better characterize
Cultures reviewed
Stool cultures for Salmonella/Shigella/Campylobacter-pending
Stool for norovirus-negative
Pleural fluid-negative
Influenza negative
Wound cultures positive for MRSA and anaerobic organisms
Infectious disease following-correspondence reviewed
Empiric antibiotics-cefepime and Zyvox initiated
Follow lactate decrease IV fluids
Norepinephrine and vasopressin as needed
Monitor leukocytosis
Pt with hx of CML on bosutinib (TKI)
pt chronically immunosuppressed
Can also cause gastroenteritis, colitis, GI bleed, rectal bleeding
plts trending down. TKI held during inpt
Sees [facility] ([place])
DVT prophylaxis-mechanical
GI prophylaxis: Maintained on Protonix twice daily
Early mobilization
Updated at length by phone in a.m. 05/18
Reviewed multisystem organ dysfunction and risk for clinical deterioration
Reviewed advance directives. has been trying to have this discussion with many times in the past
Also reviewed advance directives with patient. Patient will discuss with this morning but does not want prolonged mechanical ventilation or life support, but his agreeable to intubation, shock if thought to be temporary and bridge to
improvement
Critical care statement: A total of 76 minutes of critical care time was provided for this patient today. This includes management of unstable vital signs, evaluation of the patient at bedside, reviewing the patient's pertinent medical records
including radiographs, microbiology, laboratory evaluations, and discussion with primary team, consultants, pharmacy, nutrition, physical therapy, case management, charge nurse, critical care nursing, and respiratory therapy.
Diagnostic data:
Chest x-ray 01/24/2024-small bilateral pleural effusions
Chest x-ray 04/13/2024-moderate right pleural effusion
Chest x-ray 05/09/2024-moderate right pleural effusion progressed
Chest x-ray 05/16/2024-small left and small to moderate right pleural effusion with atelectasis
CT chest 01/24/2024-no pulmonary embolism, small to moderate bilateral pleural effusions
Thoracentesis 01/26/24--1500 mL clear yellow fluid
Thoracentesis 04/18/24--2000 mL cloudy hina pleural fluid
Thoracentesis 05/16/24--1150 mL clear hina pleural fluid
CT head 05/16/2024-no acute intracranial abnormalities
Left lower extremity ultrasound-no evidence for DVT
Subjective Dataa
Subjective Data
Date of Service:
Date of Service: May 18, 2024
Chief Complaint: Subway Operator Follow Up and Pulmonary Follow Up
Subjective:
Patient remains critically ill, events overnight noted. Developed hypoglycemia, chest discomfort, nausea and hypotension through the night. Seem to have responded to IV fluid, bicarbonate bolus. Hyperkalemia also noted. No emesis. Presently on
norepinephrine at 24 mcg. Burgundy stool noted this morning. Patient presently lying flat, denies shortness of breath, chest pain, nausea. He is complaining of some abdominal pain on exam
Objective Data
Data Reviewed
Vital Signs / I&O / Oxygen:
Vital Signs
Temp Pulse Resp BP Pulse Ox
98.2 F 74 21 147/44 98
05/18/24 04:27 05/18/24 06:40 05/18/24 06:40 05/18/24 06:40 05/18/24 06:40
Intake and Output
05/16/24 05/17/24 05/18/24
06:59 06:59 06:59
Intake Total 564.0 / 586.5 1488.9 / 1488.9
Balance 564.0 / 586.5 1488.9 / 1488.9
SaO2 98
Nasal Cannula flow liters per 2
minute
Physical Exam
General: Comfortable (Lying flat)
HEENT: Normocephalic, Anicteric and Other (Dry mucosa)
Cardiovascular: S1-S2, Regular Rhythm, Murmur (n), Rub (n), Peripheral Edema (n), Other (Lower extremity wounds) and Other (Left upper extremity AV fistula)
Respiratory: Clear ( diminished breath sounds right greater than left base), Wheeze (n), Crackles (n), Rhonchi (n), Non-Labored Respirations, Stridor (n) and Other (Decreased breath sounds at base)
GI: Soft, Non Distended and Tender (Mild right upper quadrant tenderness, no rebound or guarding)
Neurology: Awake, Alert and No Motor Deficits (Moves all extremities)
Skin: Good Color, Cyanosis (n) and Jaundice (n)
Labs/Micro/Reports
Lab Data
05/18/24 03:24
05/18/24 05:35
Microbiology
05/16/24 13:26 Blood/Venous Blood Culture - Preliminary
No Growth in 24 hours- Final report to follow
05/16/24 17:17 Feces/Stool Salmonella/Shigella Culture - Preliminary
Culture in Progress
05/16/24 17:17 Feces/Stool Campylobacter Culture - Preliminary
Culture in Progress
05/16/24 17:17 Feces/Stool Stool Leukocytes - Final
05/16/24 15:25 Pleural Fluid Body Fluid Culture - Preliminary
No Growth After 18-24 Hours
05/16/24 15:25 Pleural Fluid Gram Stain - Preliminary
05/16/24 17:17 Feces/Stool - Final
Negative for Norovirus GI and GII.
05/16/24 17:17 Feces/Stool Cryptosporidium/Giardia - Final
Negative for Cryptosporidium and/or Giardia Lamblia
antigens.
05/16/24 17:17 Feces/Stool C. difficile GDH Antigen & Toxins - Final
Negative for toxigenic C.difficile
05/16/24 01:27 Nasal Swab Influenza Types A & B (MARY) - Final
Negative for Influenza A & B, NAAT
Negative results must be combined with clinical observations
and patient history.
Nucleic Acid Amplification test (NAAT)performed on the
[employer] ID NOW platform.
--- NOTE | 2024-05-18 07:30 | PTCARENOTE ---
fully updated on director of analytics events. updated by via telephone. Orders rec'd. Will continue to monitor closely.
--- NOTE | 2024-05-18 07:30 | PTCARENOTE ---
0530-pt went into ventricular rhythm with HR 120-130s alarming on monitor. upon assessment, pt oriented x3, admits to nausea/abd cramping but denies CP at the moment. BP recycled and SBP in 70s. EKG done. levo titrated to maintain MAP goal
throughout episode. house SALT WASHER made aware of situation and came to bedside. Dr Martin also made aware of situation. vaso added, 1L NS given. K 5.7, dextrose given. BGM upon check 69, no insulin given. pt with episode of vomiting and incontinent of
BM. pt remained in ventricular rhythm with BP decreasing. sierra gtt ordered. pt admits to CP as episode goes on. trop, repeat K, mag sent. 0615-pt converts to V paced rhythm with HR in 90s. BP slowly stabilizing, pressors titrated as needed. pt denies
CP after rhythm change. pt remained alert and oriented throughout entire situation. dayshift RN given pt on 24mcg norepi gtt only. Nilda notified and at bedside this morning. see documented VS and MAR for med administrations.
--- NOTE | 2024-05-18 08:00 | PTCARENOTE ---
Assumed care of patient. Pt rec'd sleeping but easily arousable. A&Ox3. Pleasant. CHANG's but weak. S1 S2 reg w/ apacing on monitor. + murmur. DP's by doppler. No edema. Cold and mottled extremities. Heels elevated on pillows. Rec'd on 100%
NRB...sats 100%. Lungs diminished. Dry NPC. Abdomen round..+BS. Incontinent of small amts of burgundy mucoid/liquid stool. Intermittently nausea. Oliguric. Skin pale/sallow in color. Multiple wounds...see interventions. Left upper arm AV
fistula...+ bruit/+ thrill. 20P RW flushed w/o issue. 20P RAC w/ levophed gtt infusing....see intervention. VS documented. Will continue to monitor.
--- NOTE | 2024-05-18 08:12 | W.PN.ID1 ---
Date of Service
Date of Service: May 18, 2024
Today's Communication
Continue antibiotics for today.
Assessment / Plan
Hypotension; improved
-Vasopressin now off. Continues on norepinephrine
S/p fall
Leukocytosis
Clinical sepsis
Lactic acidosis
Atrial fibrillation
Asthma
CAD; Hx [place]
ESRD�HD (home)
CML
Renal cell carcinoma
CHF
GERD
HTN
Dyslipidemia
DM
Recommendations:
Continue with empiric vanco (d#3) / cefepime (d#3).
Cefepime dose is appropriate for current renal function (HD). Dose Vanco by levels.
Follow pending cultures. (Stool, pleural, blood); cultures no growth to date.
Monitor white count and temperature curve.
Further recommendations as additional data becomes available.
����������������������������������������������������������
Chief Complaint
-: Clinical Sepsis
Subjective / Review of Systems
Review of Systems: No Fever
Vital Signs / Physical Exam
Vital Signs
Vital Signs
Temp Pulse Resp BP Pulse Ox
98.2 F 74 21 147/44 98
05/18/24 04:27 05/18/24 06:40 05/18/24 06:40 05/18/24 06:40 05/18/24 06:40
Physical Exam
Constitutional: No Acute Distress, Comfortable, Chronically Ill and Non-toxic
Cardiovascular: Regular Rate and S1/S2; Negative S3/S4
Pulmonary: Non Labored; Negative Wheezes or Rales
Gastrointestinal: Soft, Non Tender and Non Distended
Extremities: Negative Cyanosis
Wound: Other (Multiple lower extremity superficial wounds without significant periwound erythema.)
Psychological: Calm
Objective Data
Lab Data
Lab Results
05/18/24 03:24
05/18/24 05:35
PT 22.3 Sec (11.4-14.6) H 05/16/24 07:55
INR 1.94 05/16/24 07:55
APTT 44.7 Sec (23.4-35.0) H 05/16/24 16:53
Estimated Creat Clear 12 ml/min 05/18/24 03:24
Lactic Acid 2.9 mmol/L (0.7-2.0) H 05/17/24 11:44
Total Bilirubin 0.8 mg/dl (0.2-1.3) 05/16/24 01:27
AST 36 U/L (17-59) 05/16/24 01:27
ALT 27 U/L (0-50) 05/16/24 01:27
Alkaline Phosphatase 77 U/L (38-126) 05/16/24 01:27
Most recent labs reviewed.
Micro Results:
05/16/24 13:26 Blood Culture - Preliminary
Blood/Venous No Growth in 24 hours- Final report to follow
05/16/24 17:17 Salmonella/Shigella Culture - Preliminary
Feces/Stool Culture in Progress
Campylobacter Culture - Preliminary
Culture in Progress
Shiga Toxin Test - Pending
Stool Leukocytes - Final
05/16/24 15:25 Body Fluid Culture - Preliminary
Pleural Fluid No Growth After 18-24 Hours
Gram Stain - Preliminary
05/16/24 17:17 - Final
Feces/Stool Negative for Norovirus GI and GII.
05/16/24 17:17 Cryptosporidium/Giardia - Final
Feces/Stool Negative for Cryptosporidium and/or Giardia Lamblia
antigens.
C. difficile GDH Antigen & Toxins - Final
Negative for toxigenic C.difficile
05/16/24 01:27 Influenza Types A & B (MARY) - Final
Nasal Swab Negative for Influenza A & B, NAAT
Negative results must be combined with clinical observations
and patient history.
Nucleic Acid Amplification test (NAAT)performed on the
[employer] ID NOW platform.
[2024-05-18] MEDS: NSS (PRESERVATIVE FREE) 10 ML IV ×2 (08:57→20:23)
[2024-05-18] MEDS: PROTONIX IV 40 MG IV ×2 (08:57→20:22)
--- NOTE | 2024-05-18 09:10 | PHA.VAN.FU ---
Addendum entered and electronically signed by Maryse Ramirez [facility] 05/18/24 17:32:
vancomycin 500 mg x1 @ 1800 for a total dose of 1000 mg on 05.18
Original Note:
Vancomycin Assessment / Plan
- Assessment
Hemodialysis Schedule: Other (5 X A WEEK AT HOME)
WBC's are: Trending Up
In the past 24 hrs, patient has been: Afebrile
Concomitant Antimicrobials: Cefepime
- Assessment - Therapeutic Drug Monitoring
Random Level: R = 10.8 Last Vanc 1500mg 05/16 at 1937
- Dosing Plan
Continue: Dose by level HD.
Dosing by Level: Re-dose today (Vanc 500mg IV)
- Monitoring Plan
Random Level: R in AM.
- Follow Up
Pharmacy will continue to follow.
Vancomycin Follow UP
- -
Patient Age: 69
Patient Sex: Male
Vancomycin Day #: 3
Indication: Bacteremia
Requesting Provider: IDANA
Pertinent Antimicrobial Allergies:
Allergies
Penicillins Allergy (Verified 05/16/24 00:46)
Hives A CHILD
tolerates cefepime/ceftiraxone 07/02/23
Height / Weight:
Height 5 ft 9 in
Actual Weight 78.6 kg
Pertinent Past Medical History: CML on botsutinib
- Vital Signs / Lab Results
Temp Pulse Resp BP Pulse Ox
97.8 F 74 21 147/44 98
05/18/24 08:34 05/18/24 06:40 05/18/24 06:40 05/18/24 06:40 05/18/24 06:40
Lab Results - Hematology
05/16/24 05/16/24 05/17/24
01:27 11:18 11:44
WBC 13.7 H 16.6 H 17.6 H
05/18/24
03:24
WBC 19.8 H
Lab Results - Chemistry
05/16/24 05/17/24 05/18/24
01:27 11:44 03:24
BUN 62 H 78 H 44 H
Creatinine 6.6 H* 8.3 H* 5.8 H*
Estimated Creat Clear 8 12
Albumin 3.9
05/16/24 05/16/24 05/16/24
02:54 13:26 16:53
Lactic Acid 2.7 H 3.6 H 3.3 H
05/17/24 05/17/24
00:41 11:44
Lactic Acid 3.4 H 2.9 H
Microbiology Results
05/16/24 13:26 Blood Culture - Preliminary
Blood/Venous No Growth in 24 hours- Final report to follow
05/16/24 17:17 Salmonella/Shigella Culture - Preliminary
Feces/Stool Culture in Progress
Campylobacter Culture - Preliminary
Culture in Progress
Stool Leukocytes - Final
05/16/24 15:25 Body Fluid Culture - Preliminary
Pleural Fluid No Growth After 18-24 Hours
Gram Stain - Preliminary
05/16/24 17:17 - Final
Feces/Stool Negative for Norovirus GI and GII.
05/16/24 17:17 Cryptosporidium/Giardia - Final
Feces/Stool Negative for Cryptosporidium and/or Giardia Lamblia
antigens.
C. difficile GDH Antigen & Toxins - Final
Negative for toxigenic C.difficile
Therapeutic Drug Monitoring
Random Vancomycin 10.8 ug/ml 05/18/24 03:24
--- NOTE | 2024-05-18 09:11 | W.PN.HOSP.TC ---
Today's Communication/Plan
-
Check a CT chest with contrast
Check CT abdomen pelvis with p.o. and IV contrast
Continue with empirical antibiotics
Wean Levophed as able
Echo today
Start on IV amiodarone per cardiology
Pacer interrogation today.
Assessment / Plan
Assessment / Plan
Recurrent hypotension along with broad complex tachy - eval for primary arrthymia - SVT with aberrany vs VTach . EKG showed broad complex tachy . DW Cards - Start on IV amio. Pacer will be interoggated . ECHO requested for today .Correct K. Correct
acidosis- Bicarb given today. Mg is ok
Persistent hypotension suggestive of shock physiology;lactic elevated -suspected sepsis-was on vasopressors / Levophed, now back on it. Continue with antibiotics and wean pressors as able. Heme positive stools noted but H&H has been stable so
doubt active bleeding causing hypotension. 2 months ago had an echocardiogram with EF of 50%.
Appreciate ID input
CW empiric abx
Will order CT chest/A/P with po and IV contrast [okay with the nephrology] to evaluate for source of infection. Patient is also having abdominal discomfort and heme positive stools-rule out colitis, ischemic colitis.
Bilateral lower extremity wounds-on the left lower wound was odorous. cw wound care . Continue with antibiotics as above. Check a vascular ultrasound due to slow healing.
Right-sided pleural effusion-recurrent nature. Transudative by protein criteria ,exudative by LDH criteria. Culture data pending. Suspect possibly secondary to fluid issue in this dialysis pt. Continue to follow for any recurrence.Cyto and cx
pending.
ESRD on HD - renal following
Heme positive stools - HH stable - on asa and AC. Started on Protonix. Eliquis on hold. Currently on clears. If you are okay with GI will at least start on aspirin. Known to have CAD.
History of CAD-restart aspirin if okay from GI. Symptomatic without chest pain. Continue with statins. Beta-randa on hold due to hypotension.
Eliquis use-unclear indication-patient with a prior junctional rhythm but no mention about A-fib. He does have CML and factor V Leiden deficiency. Need more information.
CML-on Bosulif
Diabetes mellitus type 2-patient on Lantus and nutritional insulin-few low blood sugars noted-hold on home insulin regimen. Continue sliding scale insulin.
Full code
Discussed with PAVILION CUTTER
Discussed with cow tender and receivable manager.
Discussed with nephrology and GI
Total Critical Care Time___35__ minutes. I was immediately available to the patient and staff. I personally examined, reviewed labs, diagnostic images/reports, interpretations, treatment plans, discussed patient care with other providers and
family or caregivers (if patient is unable to make decisions), entered orders as appropriate and documented the medical record.
Anticipated Discharge: > 48 hours
Subjective/Interval History
-
Date of Service: May 18, 2024
Last night events noted. Discussed with the cow tender this morning.
Patient had significant hypotension and there was a broad complex tachycardia. He needed to go back on Levophed.
When questioned the patient ,he says he was sleeping when this happened and the alarms went off. He denies any palpitations or shortness of breath. He had some discomfort in the lower chest wall area anteriorly,none now.
Since yesterday started noticed some abdominal discomfort as well. He had stools which were positive for blood again. No nausea vomiting.
Denies any fever or chills.
Objective Data
-
Labs:
Laboratory Results
05/18/24 05/18/24
03:24 05:35
WBC 19.8 H
Hgb 11.5 L
Hct 38.5 L
Plt Count 89 L D
Sodium 135
Potassium 5.7 H 5.6 H
Chloride 93 L
Carbon Dioxide 10 L*
BUN 44 H
Creatinine 5.8 H*
Glucose 152 H
Calcium 8.0 L
Vital Signs:
Vital Signs
Temp Pulse Resp BP Pulse Ox
97.8 F 74 21 147/44 98
05/18/24 08:34 05/18/24 06:40 05/18/24 06:40 05/18/24 06:40 05/18/24 06:40
I&O
05/17/24 05/18/24 05/19/24
06:59 06:59 06:59
Intake Total 564.0 / 586.5 1488.9 / 1578.9 172.5 / 172.5
Balance 564.0 / 586.5 1488.9 / 1578.9 172.5 / 172.5
Review of Systems
-
EENT: Denies Sore Throat
Respiratory: Denies Cough
Genitourinary: Denies Dysuria
Neuro: Denies Dizzy or Headache
Physical Exam
-
General: No Apparent Distress
Respiratory: Clear to Auscultation (anteriorly) and Non Labored Respirations; Negative Accessory Resp Muscle Use
Cardiac: Regular Rhythm (av paced) and S1/S2
GI: Soft, Nondistended and Tender (in general but no rebound or guarding); Negative Normal Bowel Sounds (hypoactive)
Neuro: AO x 3
Psych: Calm
Data Reviewed
-
Labs: Labs Reviewed by me
[2024-05-18] MEDS: OMNIPAQUE 50 ML PO (09:58)
[2024-05-18] MEDS: VANCOCIN HCL 500 MG 100 IV ×2 (09:59→17:26)
--- NOTE | 2024-05-18 10:00 | PTCARENOTE ---
Double concentrated levophed gtt hung per orders...will titrate to maintain SBP > 90. Pt seen by cardiology...possible initiation of amiodarone gtt. at bedside and fully updated on plan of care. Pt and pt's in agreement to continue w/
full support. IR notified by for HD cath placement. Pt currently 4L N/C...sats 98%. Intermittent incontinence and nausea/vomitting. Will continue to monitor closely.
[2024-05-18] MEDS: LEVOPHED 258 MG IV ×2 (10:03→17:24)
--- NOTE | 2024-05-18 10:20 | W.PN.NEPH.PH ---
Addendum entered and electronically signed by Iveth Jefferson MD 05/18/24 17:53:
CC time spent 40min
Original Note:
Today's Communication / Plan
-
see plan
CRRT once line placed
Assessment/Plan
-
Impression:
GI bleed - Suspect subacute
Hypotension
Hypoglycemia
ESRD (home HD) 5xweek
Junctional Rhythm status post Pacemaker implant 01/2024
h/o STEMI not amendable to stenting in 01/15
h/o Right Pleural Effusion Status post Thoracentesis 04/18/24
h/o Uncontrolled hypertension now hypotensive
Left upper extremity AV fistula
Diabetes
History of coronary artery disease with previous CABG
BPH/TURP
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
Factor V Leiden deficiency
s/p thoracentesis on 05/16
Plan:
A/w weakness and fall
sepsis with shock on pressors-wean as tolerated, double concentrate
noted events overnight acidosis, hypoglycemia and arrhythmia
plan CT chest and abd today
given persistent acidosis and hyperkalemia despite HD yesterday
will start on CRRT, IR consulted to place temp HD catheter
he probably needs other IV access for IV meds
holding po meds with nausea
abx per ID-dose renally
cards consulted, echo today
plt decreasing, no heparin in CRRT
d/w pt, , pulm and nursing
-
-
Date of Service: May 18, 2024
CC / HPI / ROS
-
Chief Complaint:
ESRD
History of Present Illness:
remains on pressors for hypotension
hb stable at 11.5, plt decreasing to 89
WBC up at 19.8, bicarb 10, k up at 5.7
s/p thoracentesis 1.1lit on 05/16
was hypoglycemic overnight, wide complex tachy, received IV bicarb pushes x2
was off levo yesterday but resumed at night, with additional pressors, now on levo at 20-weaning
on 4lit o2
Review of Systems:
no cp
nausea, abd pain
no fever
Labs
-
Labs:
WBC 19.8 10^3/uL (4.8-10.8) H 05/18/24 03:24
RBC 3.85 10^6/uL (4.70-6.10) L 05/18/24 03:24
Hgb 11.5 g/dL (13.0-18.0) L 05/18/24 03:24
Hct 38.5 % (39.0-52.0) L 05/18/24 03:24
Plt Count 89 10^3/uL (130-400) L D 05/18/24 03:24
Sodium 135 mmol/L (135-145) 05/18/24 03:24
Potassium 5.6 mmol/L (3.5-5.1) H 05/18/24 05:35
Chloride 93 mmol/L (98-107) L 05/18/24 03:24
Carbon Dioxide 10 mmol/L (22-30) L* 05/18/24 03:24
BUN 44 mg/dl (9-20) H 05/18/24 03:24
Creatinine 5.8 mg/dL (0.7-1.3) H* 05/18/24 03:24
eGFR 9.76 05/18/24 03:24
Glucose 152 mg/dl (70-99) H 05/18/24 03:24
Calcium 8.0 mg/dl (8.4-10.2) L 05/18/24 03:24
Phosphorus Cancelled 05/16/24 15:36
Albumin 3.9 g/dl (3.5-5.0) 05/16/24 01:27
Physical Exam
-
Vital Signs:
Vital Signs
Temp Pulse Resp BP Pulse Ox
97.8 F 74 21 147/44 98
05/18/24 08:34 05/18/24 06:40 05/18/24 06:40 05/18/24 06:40 05/18/24 06:40
Cardiovascular:: Regular rate and rhythm
Lung Excursion:: Abnormal (decreased)
Abdomen:: Nontender and Soft
Extremity Edema:: None: Bilateral: (trace)
Morgan Catheter: No
[2024-05-18 10:23] LABS: Glycohemoglobin (HgbA1c) 8.3 % (4.0-5.6)
[2024-05-18] MEDS: TIGAN 200 MG IM ×2 (10:24→17:27)
--- NOTE | 2024-05-18 11:22 | CON.CAR ---
Consultation
Consultation Request
Requesting Provider: Mario
Performing Provider: Jose David
Reason for Consultation: VT
Medical History
-
Chief Complaint: Weakness, fatigue
History of Present Illness:
Patient is a 69-year-old male with a past medical history for CML, end-stage renal disease on hemodialysis at home, multivessel CAD (PCI 1997, 2004, CABG 2018, STEMI December 2023 managed medically), junctional bradycardia status post dual-chamber
pacemaker 01/2024, hyperlipidemia, diabetes mellitus type 2, factor V Leiden deficiency, asthma who initially presented on 05/16/2024 due to progressive weakness and collapse. Patient was found to be hypotensive, hypoglycemic, and with GI bleed. In
the setting of shock, patient's required vasopressor support. Patient transferred to ICU for further management. In the outpatient setting, patient had been transition from dual antiplatelet with aspirin and Plavix to aspirin and Eliquis due to AF
burden. Patient without prior history of GI bleed. Given persistent hypotension with associated GI bleed, abdominal discomfort, pleural effusions, there is concern for mixed infectious etiology. Patient followed by infectious disease as well.
Patient had undergone thoracentesis on 05/16/2024 with last 1.1 L. 05/18/2020 4 AM, patient was noted to have wide-complex arrhythmia. Patient reported upper abdominal discomfort which was brief and mild and resolved. EKG from episode appears to
be wide-complex tach possible SVT with aberrancy versus ventricular tachycardia however likely ventricular tachycardia based on morphology and axis. Additionally, patient had been hypoglycemic overnight requiring treatment as well as received IV
bicarb pushes x 2. Patient to be started on amiodarone by primary service. Patient with significant metabolic derangement undergoing treatment by nephrology, intensive care, primary service. In discussion with patient and his , patient
resting comfortably in bed. Patient denies any chest pain, shortness of breath, palpitations, lightheadedness, dizziness, or weakness. Telemetry currently shows a paced V sense, he sensed V paced occasional, sinus rhythm, and wide-complex
tachycardia.
Past Medical History
Past Medical History: Other (See HPI)
Past Surgical History: Other (Orthopedic surgeries, stenting, CABG, lithotripsy, spinal procedure, cataracts, ureteral stents, kidney stones, fistula, AV graft, DC PPM 01/2024, multiple thoracenteses)
Social History
Tobacco: Non-Smoker
Alcohol: None
Drug: None
Personal:
Living: With Family
Family History
Family History: Reviewed & Not Pertinent
Allergies / Home Medications
Allergy/AdvReac Type Severity Reaction Status Date / Time
atorvastatin Allergy reports Verified 05/16/24 00:46
muscle
weakness
clonidine Allergy Rash Verified 05/16/24 00:46
codeine Allergy Nausea / Verified 05/16/24 00:46
Vomiting
grass pollen Allergy Unknown Verified 05/16/24 00:46
house dust Allergy Unknown Verified 05/16/24 00:46
hydralazine Allergy Vomiting Verified 05/16/24 00:46
Penicillins Allergy Hives A Verified 05/16/24 00:46
CHILD
pollen extracts Allergy seasonal Verified 05/16/24 00:46
allergies
tree and shrub pollen Allergy nasal Verified 05/16/24 00:46
congestion
�Medication �Instructions �Recorded �Confirmed �Type
beclomethasone dipropionate 80 2 inh inhalation R BID 12/01/21 05/16/24 History
mcg/actuation HFA breath activated Lung/breathing issues
aerosol (Qvar RediHaler)
aspirin 81 mg tablet,delayed 81 mg PO DAILY Blood clot 05/15/22 05/16/24 History
release prevention/tx
loratadine 10 mg tablet 10 mg PO HS Allergies 08/11/22 05/16/24 History
omega 8-hqh-bpz-fish oil 1,200 mg 1 cap PO HS Supplement 04/27/23 05/16/24 History
(144 mg-216 mg) capsule (Fish Oil)
insulin glargine 100 unit/mL (3 14 unit SC HS Diabetes 06/18/23 05/16/24 History
mL) subcutaneous pen (Lantus
Solostar U-100 Insulin)
Lactobac no.2-Bifidobac no.1-S. 1 cap PO DAILY Gastrointestinal 11/23/23 05/16/24 History
thermo 112.5 billion cell capsule Issue
(Visbiome)
albuterol sulfate 90 mcg/actuation 2 puff inhalation R QIDPRN PRN sob 11/23/23 05/16/24 History
aerosol inhaler
insulin glargine 100 unit/mL (3 30 unit SC DAILY Diabetes 01/17/24 05/16/24 History
mL) subcutaneous pen (Lantus
Solostar U-100 Insulin)
vit B complx, C-iron 8 mg-folic 1 tab PO DAILY Supplement 01/17/24 05/16/24 History
acid 800 mcg-D3 1,000 unit-zinc
tablet (ProRenal)
insulin aspart U-100 100 unit/mL 12 unit SC AC Diabetes 01/18/24 05/16/24 History
(3 mL) subcutaneous pen
rosuvastatin 40 mg tablet 40 mg PO DAILY High Cholesterol 01/24/24 05/16/24 History
bosutinib 100 mg tablet (Bosulif) 300 mg (3 x 100 mg) PO DAILY #90 01/29/24 05/16/24 Rx
tabs
carvedilol 6.25 mg tablet 6.25 mg PO BID 30 days #60 tabs 01/29/24 05/16/24 Rx
apixaban 5 mg tablet (Eliquis) 5 mg PO BID Blood Clot 04/15/24 05/16/24 History
Prevention/Tx
calcitriol 0.5 mcg capsule 1 mcg PO DAILY Kidney Disease 05/16/24 05/16/24 History
collagenase clostridium histo. 250 1 applic topical DAILY Skin Issues 05/16/24 05/16/24 History
unit/gram topical ointment (Santyl)
ferric citrate 210 mg iron tablet 210 mg PO BID Kidney Disease 05/16/24 05/16/24 History
(Auryxia)
linezolid 600 mg tablet 600 mg PO BID Infection 05/16/24 05/16/24 History
Review of Systems
-
History Source: Patient and Family
All other systems: Negative unless noted
Constitutional: Fatigue
EENT: No Symptoms
Respiratory: No Symptoms
Cardiac: Chest Pain
Abdomen/GI: Abdominal Pain, Nausea, Bloody Stools and Black Stools
: No Symptoms
Musculoskeletal: No Symptoms
Skin: No Symptoms
Neurological: No Symptoms
Endocrine: No Symptoms
Hematologic/Lymphatic: No Symptoms
Physical Exam
Vital Signs
Temp Pulse Resp BP Pulse Ox
97.8 F 74 20 143/68 99
05/18/24 08:34 05/18/24 11:00 05/18/24 11:00 05/18/24 11:00 05/18/24 11:00
Lab Results
05/18/24 03:24
Troponin I 2.930 ng/ml H* 05/18/24 05:53
Physical exam:
GENERAL: no acute distress, NC
EYE: sclera anicteric
NECK: Supple, no JVD, no carotid bruit appreciated
ENT: normal nose, dry mucosal membranes
CARDIAC: Regular rate and rhythm, +S1/S2, no murmur, rubs, or gallops; LUE AVF
CHEST/PULMONARY: Normal effort, BL diminished bases, no crackles
ABDOMEN: Soft, distended, TTP
NEUROLOGICAL: Alert and oriented x3
SKIN: Warm and dry; BL LE bandages
PSYCH: Normal and appropriate interaction.
Impression / Plan
-
Primary general sales manager: Chris Watts MD
Impression:
Acute GI bleed
Shock, multifactorial likely related to infection and anemia/blood loss
Sepsis, without clear source, on antibiotic therapy per ID
Wide-complex tachycardia concerning for sustained ventricular tachycardia
Multivessel CAD
� Status post IMI 1997 with circumflex PCI
� ISR of circumflex with PTCA 2004
� CABG times 08/11/2018
� STEMI with left heart catheterization 01/17/2024 demonstrating PROVIDER RELATIONS REP mid circumflex into OM 2 as well as occluded LRA to OM 2, unsuccessful attempt to wire OM 2 confirming PROVIDER RELATIONS REP, managed medically, peak troponin 31
Junctional rhythm/bradycardia status post [employer] DC PPM 01/2024
History of PVCs with NSVT
Recurrent effusions
End-stage renal disease on hemodialysis
Diabetes mellitus type 2
Factor V Leiden deficiency
History of CML
BPH/TURP
PAF on Eliquis
CT of chest 01/17/2024: Negative for PE.
Lower extremity venous ultrasound 01/18/2024: US negative for DVT.
Catheterization 01/17/2024PROVIDER RELATIONS REP of mid circumflex into OM2 as well as occluded LRA to OM2. Unsuccessful attempt to wire OM2, confirming PROVIDER RELATIONS REP.
ECHO 04/29/23: EF 50 to 55%, mild biatrial dilatation, trace TR, PAP 37 mmHg
Echo 01/18/2024: Ejection fraction 50 to 55%, mild concentric LVH, aortic sclerosis
Echo 03/08/2024: EF 50%, LVH, increased RV size, low normal RV function; mod TR PASP 45-50 mmHg
Echo 05/18/2024: EF 45-50%, LVH, D shaped septum 2/2 vol overload, enlarged/dysfunctional RV, mild-mod TR PASP 43 mmHg
Plan:
� Repeat echocardiogram without significant change compared to prior echocardiogram 03/08/2024 however there is evidence of volume overload, pleural effusions possible ascites
� Patient with wide-complex tachycardia occurring in the a.m. with possible mild discomfort in the chest however unclear per patient EKG concerning for ventricular tachycardia versus V pacing with fusion. While patient has low normal LVEF, given
extensive history of CAD along with metabolic derangement, infection, and comorbid conditions, this increases likelihood for ventricular tachycardia. For now, start IV amiodarone monitor on telemetry. May need ischemic reevaluation pending
clinical course. Additionally, may benefit from upgrade of device to ICD pending clinical course and overall prognosis.
� Patient remains on vasopressors in the setting of septic shock hypovolemic shock; undergoing antibiotic therapy and evaluation by GI. Given patient's significant cardiac history, patient to benefit from being back on antiplatelet agent such as
aspirin and anticoagulation. Defer for now due to acute medical illness and significant bleeding
� CT abdomen pelvis pending
�Device interrogation
� Overall very guarded prognosis
Discussed with family, patient, nephrology, hospitalist, intensive care
Data Reviewed
-
EKG: Tracing Personally Visualized and interpreted
Radiology: Report Reviewed by me
CT Scan: Report Reviewed by me
Ultrasound: Report Reviewed by me
Medical Tests (Nuc Med, Echo etc): Image Personally Visualized and interpreted and Report Reviewed by me
Labs: Labs Reviewed by me
[2024-05-18] MEDS: SANTYL OINTMENT 1 APPLIC TOPICAL (11:47)
[2024-05-18 11:53] LABS: Blood Urea Nitrogen 48 mg/dl (9-20); Calcium 7.5 mg/dl (8.4-10.2); Carbon Dioxide 10 mmol/L (22-30); Chloride 95 mmol/L (98-107); Estimated Creatinine Clearance 11 ml/min; Glucose 172 mg/dl (70-99); Lactic Acid 13.3 mmol/L (0.7-2.0); Potassium 4.9 mmol/L (3.5-5.1); Sodium 135 mmol/L (135-145); eGFR 8.84
--- NOTE | 2024-05-18 12:30 | PTCARENOTE ---
Right DL PICC placed by VAT at bedside. CXR done post to confirm placement. Echo done at bedside. Labs drawn...multiple MD's updated on results...orders rec'd. New tubing hung on levophed and amiodarone gtts. Scheduled for CT chest/abdomen
followed by placement of HD cath for CRRT per . Unable to complete oral contrast....pt vomitted approximately 250mls of clear/bile colored liquid after taking 30mls of omnipaque orally. aware.
[2024-05-18] MEDS: CORDARONE 518 MG IV (12:34)
--- NOTE | 2024-05-18 13:58 | PTCARENOTE ---
Cat scans completed. Orthopnea and desating on 2L N/C (88%) noted while pt flat. O2 increased to 6L N/C...pt's sats increased to 93%. Currently in IR for HD cath placement. Will initiate CRRT per orders.
--- NOTE | 2024-05-18 14:46 | W.PN.GI.CBS2 ---
Today's Communication / Plan
-
Monitor H&H. Workup of shock. Continue abx.
Assessment / Plan
-
Pt is a 69yo with multiple med problems CML, ESRD on HD, CAD with prior AK, ischemic CM, CABG,stent, pacer, junction rhythm/afib on Eliquis, CHF, asthma, GERD, IDDM, renal stone, pleural effusion with prior thoracentesis, + factor V Leiden testing
with admission to ER with weakness and fall. He reports 3 days of loose stool and diarrhea with black stools. On arrival he is noted with marked hypoglycemia with FBS 37 and hypotension. WBC 13,700 with rise after admission with hbg 12.2, BUN 62
with prior range 40-80, initial glucose 37 then 100 and further drop to 50 after admission. Pt also noted with hypotension requiring pressors. Rectal in ER with scant stool that was heme +. Overnight, noted to have black/burgandy stool with
worsening hypotension, restarted on pressors and lactic acidosis. Leukocytosis 19K. Currently on Abx. CT Chest/Abdomen/Pelvis w/o evidence of PE, no obvious source of infection.
-black heme + stool
-mild anemia
-septic shock w/ metabolic acidosis
-leukocytosis
-weakness/ s/p fall prior to admission
-persistent hypoglycemia on admission
-elevated lactate level
-afib/junctional rhythm on Eliquis prior to admission
other med problems:
-CML on Bosulif
-ESRD on HD
-CAD with prior AK/stent
-ischemic CM
-s/p CABG
-pacer
-asthma
-GERD
-IDDM
-renal stones
-pleural effusion with prior thoracentesis
PLAN:
-Acute on Chronic anemia with small volume losses and stable H&H, suspect very slow oozing given no drop in hemoglobin
-Unclear what is driving his sepsis infectious vs. ischemic, though, infectious workup unremarkable thus far
-ARF, started on dialysis
-Agree with eventual EGD but given instability at this time without large drops in hemoglobin/ongoing bleeding, would defer for now and continue to monitor closely. Certainly, active GI bleeding is not causing his hemodynamic instability, but
rather, it is likely the result of his hemodynamics
Will keep him on Protonix 40 mg IV twice daily. Eliquis is on hold.
-Okay for clear liquid diet, monitor H&H and transfuse if needed and monitor bowel movements as well.
-Okay to start aspirin.
-sepsis/shock workup per primary team/pheresis specialist, continue abx
Will follow
Subjective
Subjective
Date of Service: May 18, 2024
Patient was noted to be hypotensive requiring pressors as well as wide-complex tachycardia on EKG and upper abdominal discomfort as well as hypoglycemia requiring treatment with bicarb. He was started on an amiodarone gtt and ECHO performed w/o
significant change compared to prior, but evidence of volume overload, pleural effusions and possible ascites. He is demonstrating signs of septic shock with metabolic acidosis and elevated lactate, lactate 13.3 from 2.9 yesterday. H&H overall
stable, but he was noted to have black and maroon colored stool by nursing today.
Hgb 12.1 --> 12.1 --> 11.7 --> 11.5
CT Chest/Abdomen/Pelvis:
1. Large bilateral pleural effusions with adjacent atelectasis, more pronounced on the right.
2. There is no evidence of central or segmental pulmonary embolus.
3. Trace intra-abdominal/intrapelvic ascites.
4. Cholelithiasis with small volume pericholecystic free fluid which is unlikely to represent acute cholecystitis, further evaluation with dedicated right upper quadrant ultrasound may be considered as clinically warranted.
5. Hypoattenuating, mildly heterogeneous liver which is likely sequelae of fatty infiltration.
6. The kidneys are atrophic bilaterally with bilateral renal cysts.
Objective
Data Reviewed
Laboratory Data:
Laboratory Results
05/18/24 03:24
05/18/24 11:14
Laboratory Results
PT 22.3 Sec (11.4-14.6) H 05/16/24 07:55
INR 1.94 05/16/24 07:55
APTT 44.7 Sec (23.4-35.0) H 05/16/24 16:53
Phosphorus Cancelled 05/16/24 15:36
Magnesium 2.7 mg/dl (1.6-2.3) H 05/18/24 05:35
Magnesium Cancelled 05/18/24 05:35
Total Bilirubin 0.8 mg/dl (0.2-1.3) 05/16/24 01:27
AST 36 U/L (17-59) 05/16/24 01:27
ALT 27 U/L (0-50) 05/16/24 01:27
Alkaline Phosphatase 77 U/L (38-126) 05/16/24 01:27
Vital Signs and I&O:
Vital Signs
Temp Pulse Resp BP Pulse Ox
97.8 F 68 24 115/57 98
05/18/24 08:34 05/18/24 14:30 05/18/24 14:30 05/18/24 14:30 05/18/24 13:55
I&O
05/17/24 05/18/24 05/19/24
06:59 06:59 06:59
Intake Total 564.0 / 586.5 1488.9 / 1578.9 490.5 / 490.5
Output Total 250 / 250
Balance 564.0 / 586.5 1488.9 / 1578.9 240.5 / 240.5
Physical Exam
Physical Exam
GI: Soft, Non Distended, Non Tender and Normal Bowel Sounds
[2024-05-18] MEDS: RFP-401 HD Soln (K+ 4 mEq/L) 15000 ML CRRT-IRR ×2 (16:41→21:17)
--- NOTE | 2024-05-18 16:45 | PTCARENOTE ---
CRRT top bottom attaching machine operator per protocol and initiated at 1635. Pt remains on levophed and amiodarone gtts...see interventions. Pt required 100% NRB for small period of time after cat scans and IR procedure due to need to be flat...pt orthopneic for
testing/procedures. aware. updated via TT once CRRT was initiated. No major changes in physical assessment. VS documented. Call flynn within reach. Will continue to monitor closely.
[2024-05-18] MEDS: MAXIPIME 1000 MG IV ×2 (17:15→18:11)
[2024-05-18] MEDS: STERILE WATER FOR INJECTION 10 ML IV ×2 (17:15→18:05)
[2024-05-18 17:29] LABS: Glucose - Point of Care 189 mg/dl (70-99)
--- NOTE | 2024-05-18 17:49 | W.PN.UPDATE ---
Update Note
Progress Note Update
CRRT note:
Pt seen during CRRT
attempt weaning pressor
no heaprin
dialysate 3lit/hr -wean down based on next labs
likely start UF if he is stable tonight
noted large pleural effusion -likely need to tap again
BP checking in leg now as UE are limited by lines
adjust antibiotic dosing based on CRRT adjustment
d/w nursing and pt
multiple visits today
[2024-05-18] MEDS: NOVOLOG FLEXPEN-LOW RESISTANCE 1 UNITS SC (18:11)
--- NOTE | 2024-05-18 19:57 | PTCARENOTE ---
On assessment pt on CRRT, AAOx3, denies pain and SOB at this time, paced rhythm on the monitor, mottled b/l hands and feet, 4L NC, intermittent N/V, incontinent, R PICC with Amio and Levo gtt infusing per orders, LUE fistula, and RIJ HD catheter,
call flynn in reach.
[2024-05-18 21:08] LABS: Ionized Calcium 0.93 mMOL/L (1.15-1.33)
[2024-05-18] MEDS: MELATONIN 10 MG PO (21:28)
[2024-05-18 21:35] LABS: Lactic Acid 12.6 mmol/L (0.7-2.0)
[2024-05-18 21:44] LABS: Blood Urea Nitrogen 35 mg/dl (9-20); Calcium 7.3 mg/dl (8.4-10.2); Carbon Dioxide 12 mmol/L (22-30); Chloride 99 mmol/L (98-107); Estimated Creatinine Clearance 17 ml/min; Glucose 94 mg/dl (70-99); Magnesium 2.2 mg/dl (1.6-2.3); Phosphorus 7.2 mg/dl (2.5-4.5); Potassium 4.9 mmol/L (3.5-5.1); Sodium 136 mmol/L (135-145); eGFR 15.72
[2024-05-18] MEDS: CALCIUM GLUCONATE 130 MG IV (22:12)
[2024-05-18 23:48] LABS: Glucose - Point of Care 91 mg/dl (70-99)
[2024-05-19] VITALS (112 sets, daily range): BP systolic 53–154; BP diastolic 24–140; BMI 25.6
[2024-05-19] MEDS: NOVOLOG FLEXPEN-LOW RESISTANCE SC ×2 (00:11→04:59)
--- NOTE | 2024-05-19 01:00 | PTCARENOTE ---
CRRT remains functional, temp 93, amanda whitman applied per orders, call flynn in reach
[2024-05-19 01:54] LABS: Glucose - Point of Care 94 mg/dl (70-99)
--- NOTE | 2024-05-19 01:56 | W.PN.ANESINT ---
Anesthesia Intubation Note
- Intubation Note
Intubation Note:
Diagnosis: code
Blade: glidescope
Tube Size: 8.0
Depth: 23
Side Taped: center
Drugs Used: none
Grade View: grade 1 view
EtCO2 Present: color change present on ETCO2 detector
Atraumatic: atraumatic
Attempts: 1 attempt
Insertion Start and Stop Time: 133 start 137 end
SaO2 Pre: 81
SaO2 Post: 89
Glidescope Used: glidescope used
Other Airway Adjustments: none
Pre-Oxygenated: preoxygenated
Portable Chest X-Ray:
RSI: no meds given
Suctioned: no suction required
Bilateral Breath Sounds Confirmed: bilateral breaths confirmed, no sounds over abdomen
Vent Settings:
Settings per ___Attending Physician
Faith Ace CRNA
[2024-05-19] MEDS: SUBLIMAZE 50 MCG IV ×3 (02:17→05:34)
[2024-05-19] MEDS: LEVOPHED 258 MG IV ×2 (02:18→07:10)
[2024-05-19] MEDS: SUBLIMAZE 100 IV (02:42)
[2024-05-19 03:13] LABS: B.E. -21.6 mmol/L; Ionized Calcium 1.01 mMOL/L (1.15-1.33); O2 Saturation % 99.5 % (94-98); PCO2 23 mmHg (35-48); PO2 241 mmHg (83-108); Potassium 5.4 mMOL/L (3.5-5.1); Sodium 133 mMOL/L (136-145)
[2024-05-19 03:15] LABS: HCO3 6.8 mmol/L (21-28); O2 Therapy 100; pH 7.08 (7.35-7.45)
[2024-05-19 03:21] LABS: Glucose - Point of Care 52 mg/dl (70-99)
[2024-05-19 03:23] LABS: Ionized Calcium 1.02 mMOL/L (1.15-1.33)
[2024-05-19] MEDS: SODIUM BICARBONATE 100 MEQ IV (03:23)
[2024-05-19] MEDS: DEXTROSE 50% SYRINGE 12.5 GRAMS IV ×2 (03:24→06:44)
[2024-05-19 03:28] LABS: Hematocrit 35.3 % (39.0-52.0); Hemoglobin 10.1 g/dL (13.0-18.0); Mean Corp Hgb Conc. 28.6 g/dL (33.0-37.0); Mean Corpuscular Hgb 30.1 pg (27.0-31.0); Mean Corpuscular Volume 105.1 fL (80.0-94.0); Mean Platelet Volume 12.4 fL (7.4-10.4); Platelet Count 45 10^3/uL (130-400); Red Blood Cell Count 3.36 10^6/uL (4.70-6.10); Red Cell Dist. Width 19.7 % (11.5-14.5); White Blood Cell Count 14.9 10^3/uL (4.8-10.8)
[2024-05-19] MEDS: CALCIUM CHLORIDE 10% SYRINGE 60 MG IV (03:37)
[2024-05-19 03:47] LABS: Blood Urea Nitrogen 28 mg/dl (9-20); Calcium 7.9 mg/dl (8.4-10.2); Carbon Dioxide 8 mmol/L (22-30); Chloride 98 mmol/L (98-107); Estimated Creatinine Clearance 18 ml/min; Glucose 49 mg/dl (70-99); Magnesium 2.7 mg/dl (1.6-2.3); Phosphorus 9.7 mg/dl (2.5-4.5); Potassium 5.3 mmol/L (3.5-5.1); Sodium 139 mmol/L (135-145); eGFR 16.21
[2024-05-19 03:56] LABS: Glucose - Point of Care 179 mg/dl (70-99)
--- NOTE | 2024-05-19 04:09 | W.PN.UPDATE ---
Update Note
Progress Note Update
0140 Patient went into Vach Tach with pulse, responsive for a minute, in getting code cart patient become unresponsive. �CPR started. ��Progressed to PEA arrest then to VFIB. �For specifics refer to code sheet. Patient received 5 amps of EPI, 1
*300mg of Amiodarone bolus, 2 amps of bicarbonate, shock 4 times before establishing ROSC. Total arrest time over 20 minures. Post code: patient following, at bedside and updated. Nephrology and cardiology updated�
0300 Patient inappropriately pacing due to lactic acidosis, pacing in the 20s, had to override pace with transcutaneous pacing. CCRT stopped. ABG 7. = gave 2 amps of bicarbonate. �Vasopressin added for hypotension. �Patient continues to be
hypothermic. Repeat BMP. �Turned down transcutaneous pacing. PPM rate in the 20s. Transcutaneous pacer at 70bpm with 20ma.
--- NOTE | 2024-05-19 04:43 | PTCARENOTE ---
around 0130 change in pt rhythm noted, pt awake and alert, denies chest pain at this time, COMMERCIAL GREEN RETROFIT ARCHITECT at bedside, pt then becomes unresponsive with low BP, pt went into PEA and CPR was initiated and code was called, refer to code sheet in chart, pt was
intubated and achieved ROSC, family notified and currently at bedside, COMMERCIAL GREEN RETROFIT ARCHITECT updated at bedside. pt on LEVO, VASO, AMIO, and FEN gtt, HR was low in the 30s and pt internal pacemaker not pacing properly, COMMERCIAL GREEN RETROFIT ARCHITECT placed pt on external placer via Zoll
with a rate of 60.
[2024-05-19] MEDS: MAXIPIME 2000 MG IV (05:13)
[2024-05-19 05:14] LABS: Vancomycin Random 11.9 ug/ml
[2024-05-19] MEDS: STERILE WATER FOR INJECTION 10 ML IV (05:14)
[2024-05-19] MEDS: CORDARONE 518 MG IV (05:20)
[2024-05-19 05:22] LABS: Glucose - Point of Care 105 mg/dl (70-99)
[2024-05-19 05:51] LABS: Blood Urea Nitrogen 29 mg/dl (9-20); Calcium 8.7 mg/dl (8.4-10.2); Carbon Dioxide 8 mmol/L (22-30); Chloride 96 mmol/L (98-107); Estimated Creatinine Clearance 17 ml/min; Glucose 108 mg/dl (70-99); Potassium 5.4 mmol/L (3.5-5.1); Sodium 137 mmol/L (135-145); eGFR 15.25
--- NOTE | 2024-05-19 05:53 | PTCARENOTE ---
TAPPING MACHINE OPERATOR notified Nephro of code and stopping CRRT.
[2024-05-19] MEDS: SODIUM BICARBONATE 50 MEQ IV ×2 (06:06→06:28)
--- NOTE | 2024-05-19 06:25 | PTCARENOTE ---
RIJ HD catheter has one stitch missing due to previous CODE, CHEMICAL RECOVERY OPERATOR made aware and at bedside to assess pt.
[2024-05-19 06:53] LABS: Glucose - Point of Care 68 mg/dl (70-99)
[2024-05-19 08:18] LABS: Glucose - Point of Care 77 mg/dl (70-99)
--- NOTE | 2024-05-19 08:19 | W.PN.INTV ---
Today's Communication / Plan
Recommendations
Maintain sedation
Epinephrine if needed
Continue broad-spectrum antibiotics
Sodium bicarbonate as needed
Follow-up platelets
Cardiology following, remains on amiodarone. Transcutaneous pacing as able, correct acidemia to optimize pacing
Extremely poor prognosis
Assessment
-
69-year-old male with a history of end-stage renal disease on hemodialysis, CML, ischemic cardiomyopathy, diabetes status post permanent pacemaker for recent junctional rhythm who presented with progressive weakness and collapse noted to have a GI
bleed-photograph mounter consulted for hypotension/GI bleed/critical care management 05/16/2024.
S/p Cardiac Arrest (VT/PEA)
CPR, shock 05/19
Intubated 05/19
GI bleed
[place] stool
Hypotension due to acute blood loss and suspected sepsis unresponsive to fluids requiring pressors
Anemia due to acute blood loss
Sepsis with shock unresponsive to fluids requiring pressors
Recurrent right pleural effusion
Status post diagnostic/therapeutic thoracentesis 05/16/24--1150 mL clear hina pleural fluid
Multiple thoracenteses in the past
Hypoglycemia
End-stage renal disease on hemodialysis 5 times a week at home
Leukocytosis
Lactic acidosis
Wound, LE
Conditions present prior to admission:
CML, on chronic Bosulif therapy ([facility])
dx 2022
Nephrotic syndrome/ESRD-hemodialysis.
Chronic hyponatremia.
CAD/stent/CABG
Ischemic CM.
Diabetes.
Junctional rhythm/PPM.
Right effusion/thoracentesis x3-analysis once 01/26/2024-glucose 151, TP 3.4, LDH 208, pH 7.5, WBC 1092, cytology not sent
Factor V Leiden.
BPH/TURP
Nephrolithiasis
CABG x 3-(LAIRD to LAD, LRA to OM, SVG to RPDA) in [address] Brasher. Orthopedic surgery-left ankle. Renal calculi. TURP. Left upper extremity fistula. Cataract extraction. [place] teeth extraction.
Plan/recommendations
Patient remains critically ill
Unfortunately developed cardiac arrest overnight requiring CPR/resuscitation. Intubated at that time
Also received amiodarone, had been started on amiodarone prior
Received multiple doses of IV bicarbonate
Severe acidemia persists
Patient received CRRT which had to be prematurely stopped due to cardiac arrest
Issues with pacer capture noted, requiring transcutaneous pacing overnight
Moving forward
Continue with volume-cycled ventilation
Remains on norepinephrine, vasopressin, double concentrated
Suspect hypotension is multifactorial
Echocardiogram February 2024 with normal biventricular function, EF 50%
Repeat echocardiogram on 05/18 with volume overload, D-shaped left ventricle with EF 45%. No pericardial effusion
Recent pacemaker placed
Patient has not aspirin therapy, Eliquis/ASA has been held
Cardiology following
Will likely require resumption of aspirin therapy
Platelets have decreased to 89, hemoglobin stable at 11.5
Maintain active type and screen
GI following. No plans for endoscopy at this time
Remains on Protonix
Hypoglycemia noted
Patient with right upper quadrant pain on exam, no rebound
Lactic acid elevated since admission 05/16
History of gallstones per prior abdominal ultrasound March 2024
Check abdominal film
Abdominal imaging, CT imaging without acute PE.
No significant acute abdominal findings. Large bilateral pleural effusions noted
Follow-up frequent fingerstick
Hold insulin therapy
Receives hemodialysis at home, 5 days a week
Nephrology is following
CRRT attempted yesterday p.m., right IJ HD catheter placed
Monitor hyperkalemia
Bicarbonate has needed
Dialysis per nephrology, with addressing hyperkalemia and acidemia
History of thoracentesis with recurrent pleural effusions noted
No significant worsening at this time, follow clinically
Has been weaned from 100% to 6 L this morning
Thoracentesis 05/16/2024-sent for analysis, cultures as well as cytology
May require thoracentesis
Cultures reviewed
Stool cultures for Salmonella/Shigella/Campylobacter-pending
Stool for norovirus-negative
Pleural fluid-negative
Influenza negative
Wound cultures positive for MRSA and anaerobic organisms
Infectious disease following-correspondence reviewed
Empiric antibiotics-cefepime and Zyvox initiated
Follow lactate decrease IV fluids
Norepinephrine and vasopressin as needed
Monitor leukocytosis
Pt with hx of CML on bosutinib (TKI)
pt chronically immunosuppressed
plts trending down. TKI held during inpt
Sees [facility] ([facility])
DVT prophylaxis-mechanical
GI prophylaxis: Maintained on Protonix twice daily
Updated at length at bedside 05/19 and 05/18
states that she would not want any more CPR moving forward. Continue with supportive care
Both her and her had extensive discussion yesterday regarding prolonged ventilator support
Critical care statement: A total of 31 minutes of critical care time was provided for this patient today. This includes management of unstable vital signs, evaluation of the patient at bedside, reviewing the patient's pertinent medical records
including radiographs, microbiology, laboratory evaluations, and discussion with primary team, consultants, pharmacy, nutrition, physical therapy, case management, charge nurse, critical care nursing, and respiratory therapy.
Diagnostic data:
Chest x-ray 01/24/2024-small bilateral pleural effusions
Chest x-ray 04/13/2024-moderate right pleural effusion
Chest x-ray 05/09/2024-moderate right pleural effusion progressed
Chest x-ray 05/16/2024-small left and small to moderate right pleural effusion with atelectasis
CT chest 01/24/2024-no pulmonary embolism, small to moderate bilateral pleural effusions
Thoracentesis 01/26/24--1500 mL clear yellow fluid
Thoracentesis 04/18/24--2000 mL cloudy hina pleural fluid
Thoracentesis 05/16/24--1150 mL clear hina pleural fluid
CT head 05/16/2024-no acute intracranial abnormalities
Left lower extremity ultrasound-no evidence for DVT
Subjective Dataa
Subjective Data
Date of Service:
Date of Service: May 19, 2024
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
Subjective:
Patient remains critically ill, events overnight noted. Developed PEA/VT, required CPR, multiple shock with ROSC. Per records, patient was following simple commands post resuscitation. Ongoing issues with patient or capture, transcutaneous pacer
also initiated. Remains on pressors, vasopressin, norepinephrine
Objective Data
Data Reviewed
Vital Signs / I&O / Oxygen:
Vital Signs
Temp Pulse Resp BP Pulse Ox
96.4 F L 80 27 112/53 99
05/19/24 08:00 05/19/24 07:39 05/19/24 07:39 05/19/24 07:39 05/19/24 08:10
Intake and Output
05/18/24 05/19/24 05/20/24
06:59 06:59 06:59
Intake Total 1488.9 / 1578.9 1692.6 / 1789.3 96.7 / 96.7
Output Total 778 / 778 0 / 0
Balance 1488.9 / 1578.9 914.6 / 1011.3 96.7 / 96.7
SaO2 [A/C] 100
SaO2 99
Nasal Cannula flow liters per 4
minute
Physical Exam
General: Comfortable (Lying flat) and Other (Right IJ HD catheter, right upper extremity PICC)
HEENT: Normocephalic and Anicteric
Cardiovascular: S1-S2, Regular Rhythm, Murmur (n), Rub (n), Peripheral Edema (n), Other (Lower extremity wounds) and Other (Left upper extremity AV fistula)
Respiratory: Clear ( diminished breath sounds right greater than left base), Wheeze (n), Crackles (n), Rhonchi (n), Non-Labored Respirations, Stridor (n), ET Tube and Other (Decreased breath sounds at base)
GI: Soft, Non Distended and Non Tender
Neurology: Unresponsive (Does not respond to stimuli, remains sedated on ventilator)
Skin: Cyanosis (n) and Rash (n)
Labs/Micro/Reports
Lab Data
05/19/24 03:05
05/19/24 05:06
Laboratory Results
05/19/24
02:49
pH 7.08 L*
pCO2 23 L
pO2 241 H
HCO3 6.8 L*
O2 Delivery Level 100
Microbiology
05/16/24 13:26 Blood/Venous Blood Culture - Preliminary
No Growth in 48 hours- Final report to follow
05/16/24 17:17 Feces/Stool Salmonella/Shigella Culture - Preliminary
Culture in Progress
05/16/24 17:17 Feces/Stool Campylobacter Culture - Final
No Campylobacter species isolated.
05/16/24 17:17 Feces/Stool Stool Leukocytes - Final
05/16/24 15:25 Pleural Fluid Body Fluid Culture - Preliminary
No Growth After 48 Hours
05/16/24 15:25 Pleural Fluid Gram Stain - Preliminary
05/16/24 17:17 Feces/Stool - Final
Negative for Norovirus GI and GII.
05/16/24 17:17 Feces/Stool Cryptosporidium/Giardia - Final
Negative for Cryptosporidium and/or Giardia Lamblia
antigens.
05/16/24 17:17 Feces/Stool C. difficile GDH Antigen & Toxins - Final
Negative for toxigenic C.difficile
[2024-05-19] MEDS: ADRENALIN 250 IV (08:41)
--- NOTE | 2024-05-19 08:41 | W.PN.HOSP.TC ---
Today's Communication/Plan
-
Continue with antibiotics
Continue with vasopressors
Continue with IV amiodarone
Start on aspirin
Repeat BMP this afternoon
Assessment / Plan
Assessment / Plan
In hospital cardiac arrest 05/18 -based on the documentation V. tach and became unresponsive progressed to PEA and V-fib and was resuscitated. Patient's family amiodarone yesterday for broad complex tachycardia suspected ventricular tachycardia.
Had an echocardiogram yesterday - LV ejection fraction 45 to 50% and in the past it was 50%. RV dysfunction, overload and dilatation noted. Chest CT 05/18 showed no evidence of PE.
Correct acidosis. Continue with antiarrhythmics. Await cardiology input from today.
Persistent hypotension suggestive of shock physiology;lactic elevated -suspected sepsis-was on Levophed, now back on it. Heme positive stools noted but the trend of H&H does not support active bleeding to cause hypotension. Vasopressin added
yesterday postcardiac arrest.
Appreciate ID input
CW empiric abx
CT chest/A/P with po and IV contrast no obvious source of infection apart from cholelithiasis with small volume pericholecystic free fluid which was felt unlikely to represent acute cholecystitis. LFTs were normal on admission. He did not have
any right upper quadrant tenderness. Right pleural fluid culture is negative.
COVID and flu negative. Not bacteremic.
Bilateral lower extremity wounds-on the left lower wound was odorous. cw wound care . Continue with antibiotics as above. vascular ultrasound due to slow healing-report pending.
Right-sided pleural effusion-recurrent nature. Transudative by protein criteria ,exudative by LDH criteria. Culture data pending. Suspect possibly secondary to fluid issue in this dialysis pt. Continue to follow for any recurrence.Cyto and cx
pending.
ESRD on HD - renal following. Initiated on CRRT 05/18
Severe metabolic acidosis-postcardiac arrest-continue with bicarb treatments.
Heme positive stools - HH stable - on asa and AC. Started on Protonix. Eliquis on hold. GI is ok with aspirin. Known to have CAD.
History of CAD-cw aspirin.. Continue with statins. Beta-randa on hold due to hypotension.
Eliquis use-unclear indication-patient with a prior junctional rhythm but no mention about A-fib. He does have CML and factor V Leiden deficiency. Need more information.
CML-on Bosulif
Diabetes mellitus type 2-patient on Lantus and nutritional insulin-few low blood sugars noted-hold on home insulin regimen. Continue sliding scale insulin.
Full code
Discussed with BRANCH OPERATION EVALUATION MANAGER
Discussed with
Total Critical Care Time___35__ minutes. I was immediately available to the patient and staff. I personally examined, reviewed labs, diagnostic images/reports, interpretations, treatment plans, discussed patient care with other providers and
family or caregivers (if patient is unable to make decisions), entered orders as appropriate and documented the medical record.
Anticipated Discharge: > 48 hours
Subjective/Interval History
-
Date of Service: May 19, 2024
Last night events of ventricular arrhythmias and cardiac arrest noted.
Currently sedated on vent.
Now on 2 vasopressors.
No bowel movement or rectal bleeding noted per nurse.
Objective Data
-
Labs:
Laboratory Results
05/18/24 05/19/24 05/19/24
21:02 02:49 03:05
WBC 14.9 H
Hgb 10.1 L
Hct 35.3 L
Plt Count 45 L D
HCO3 6.8 L*
Sodium 136 139
Potassium 4.9
Chloride 99
Carbon Dioxide 12 L*
BUN 35 H
Creatinine 3.9 H
Glucose 94
Calcium 7.3 L
05/19/24 05/19/24 05/19/24
03:05 03:05 03:05
WBC
Hgb
Hct
Plt Count
HCO3
Sodium Cancelled
Potassium 5.3 H Cancelled
Chloride 98 Cancelled
Carbon Dioxide 8 L*
BUN
Creatinine
Glucose
Calcium
05/19/24 05/19/24 05/19/24
03:05 03:05 03:05
WBC
Hgb
Hct
Plt Count
HCO3
Sodium
Potassium
Chloride
Carbon Dioxide Cancelled
BUN 28 H Cancelled
Creatinine 3.8 H Cancelled
Glucose 49 L*
Calcium
05/19/24 05/19/24 05/19/24
03:05 03:05 05:06
WBC
Hgb
Hct
Plt Count
HCO3
Sodium 137
Potassium 5.4 H
Chloride 96 L
Carbon Dioxide 8 L*
BUN 29 H
Creatinine 4.0 H
Glucose Cancelled 108 H
Calcium 7.9 L Cancelled 8.7
Vital Signs:
Vital Signs
Temp Pulse Resp BP Pulse Ox
96.4 F L 80 27 112/53 99
05/19/24 08:00 05/19/24 07:39 05/19/24 07:39 05/19/24 07:39 05/19/24 08:10
I&O
05/18/24 05/19/24 05/20/24
06:59 06:59 06:59
Intake Total 1488.9 / 1578.9 1692.6 / 1789.3 96.7 / 96.7
Output Total 778 / 778 0 / 0
Balance 1488.9 / 1578.9 914.6 / 1011.3 96.7 / 96.7
Review of Systems
-
Unable to obtain full review of systems at this time due to: Patient Intubation
Physical Exam
-
General: Negative No Apparent Distress
Respiratory: Clear to Auscultation (anteriorly) and Non Labored Respirations
Cardiac: Regular Rhythm (v paced) and S1/S2
GI: Soft; Negative Normal Bowel Sounds (hypoactive)
Neuro: Sedated; Negative Awake or Alert
Psych: Calm
Data Reviewed
-
Labs: Labs Reviewed by me
--- NOTE | 2024-05-19 08:57 | PTCARENOTE ---
Took over care of pt at 0700. Pt on ventilator with transcutaneous pacing. Levophed at 25 mcg/min and Vasopressin at 0.03 units/min.
[employer] porcelain technician arrived and adjusted pacemaker. Pt AV paced on monitor. Transcutaneous pacing d/c'd.
Levophed increased via protocol. Epinephrine started per order. BP continued to drop. Asystolic on the monitor. No pulse. Pt DNR status per at bedside.
--- NOTE | 2024-05-19 08:59 | W.PN.DEATH ---
Pronouncement of
-
Called to see patient to pronounce.
No spontaneous heart tones or respirations noted.
Patient not responsive to verbal stimuli.
Patient is pronounced .
Time of : 08:55
Date of : 05/19/24
Cause of : multisystem organ failure, severe acidemia
Family Notified: Yes
--- NOTE | 2024-05-19 09:30 | W.PN.CARDCBS ---
Today's Communication / Plan
-
- Agree with plan for end-of-life care inpatient with multiorgan system failure.
Impression / Plan
-
Primary chemotherapist: Chris Watts MD
Impression:
Acute GI bleed
Shock, multifactorial likely related to infection and anemia/blood loss
Sepsis, without clear source, on antibiotic therapy per ID
Wide-complex tachycardia concerning for sustained ventricular tachycardia
s/p cardiac arrest 05/18
Multivessel CAD
� Status post IMI 1997 with circumflex PCI
� ISR of circumflex with PTCA 2004
� CABG times 08/11/2018
� STEMI with left heart catheterization 01/17/2024 demonstrating CLINICAL EXERCISE SPECIALIST mid circumflex into OM 2 as well as occluded LRA to OM 2, unsuccessful attempt to wire OM 2 confirming CLINICAL EXERCISE SPECIALIST, managed medically, peak troponin 31
Junctional rhythm/bradycardia status post [employer] DC PPM 01/2024
History of PVCs with NSVT
Recurrent effusions
End-stage renal disease on hemodialysis
Diabetes mellitus type 2
Factor V Leiden deficiency
History of CML
BPH/TURP
PAF on Eliquis
CT of chest 01/17/2024: Negative for PE.
Lower extremity venous ultrasound 01/18/2024: US negative for DVT.
Catheterization 01/17/2024CLINICAL EXERCISE SPECIALIST of mid circumflex into OM2 as well as occluded LRA to OM2. Unsuccessful attempt to wire OM2, confirming CLINICAL EXERCISE SPECIALIST.
ECHO 04/29/23: EF 50 to 55%, mild biatrial dilatation, trace TR, PAP 37 mmHg
Echo 01/18/2024: Ejection fraction 50 to 55%, mild concentric LVH, aortic sclerosis
Echo 03/08/2024: EF 50%, LVH, increased RV size, low normal RV function; mod TR PASP 45-50 mmHg
Echo 05/18/2024: EF 45-50%, LVH, D shaped septum 2/2 vol overload, enlarged/dysfunctional RV, mild-mod TR PASP 43 mmHg
Plan:
-Events overnight noted. Case discussed with feeder loader.
-Patient had cardiac arrest overnight now on Levophed and vasopressin with initiation of epinephrine.
-Patient in multiorgan system failure and continuing to worsen.
-This is likely a combination of sepsis, cardiac, and GI bleeding.
-Family does not desire further resuscitation efforts.
Progress Note - Hand Twister
Subjective
Date of Service: May 19, 2024
Patient seen in intensive care unit prior to passing away. Patient was on multiple pressors and epinephrine was going to be initiated. At this point decision was made to not pursue CPR and the patient was made DNR.
Objective
Labs:
05/19/24 03:05
Labs
Hgb 10.1 g/dL (13.0-18.0) L 05/19/24 03:05
Hct 35.3 % (39.0-52.0) L 05/19/24 03:05
Plt Count 45 10^3/uL (130-400) L D 05/19/24 03:05
PT 22.3 Sec (11.4-14.6) H 05/16/24 07:55
INR 1.94 05/16/24 07:55
APTT 44.7 Sec (23.4-35.0) H 05/16/24 16:53
Sodium 137 mmol/L (135-145) 05/19/24 05:06
Potassium 5.4 mmol/L (3.5-5.1) H 05/19/24 05:06
BUN 29 mg/dl (9-20) H 05/19/24 05:06
Creatinine 4.0 mg/dL (0.7-1.3) H 05/19/24 05:06
Glucose 108 mg/dl (70-99) H 05/19/24 05:06
Troponins
05/18/24 05/18/24 05/18/24
05:53 11:14 21:02
Troponin I 2.930 H* 9.060 H* D 10.900 H*
Vital Signs and I&O:
Vital Signs
Temp Pulse Resp BP Pulse Ox
96.9 F L 0 30 95
05/19/24 08:00 05/19/24 08:46 05/19/24 08:46 05/19/24 08:46 05/19/24 08:30
Vital Signs
Temp Pulse Resp BP Pulse Ox
96.9 F L 0 30 95
05/19/24 08:00 05/19/24 08:46 05/19/24 08:46 05/19/24 08:46 05/19/24 08:30
Intake & Output
05/17/24 05/18/24 05/19/24 05/20/24
06:59 06:59 06:59 06:59
Intake Total 564.0 / 586.5 1488.9 / 1578.9 1692.6 / 1789.3 202.8 / 202.8
Output Total 778 / 778 0 / 0
Balance 564.0 / 586.5 1488.9 / 1578.9 914.6 / 1011.3 202.8 / 202.8
Physical Exam
Physical Exam
GEN: No distress, intubated/sedated
HEENT: supple, anicteric, mmm
LUNGS: bilat rhonchi
CV: Reg, S1/S2, 1/6 syst LSB, S4+
ABD: soft, BS+, NT/ND
EXT: No edema
NEURO: Gross non-focal
SKIN: No rash
--- NOTE | 2024-05-19 09:37 | RESPNOTE ---
0855- Called to bedside by Dr Martin given order to remove ET tube, RN and MD all at bedside.
== END 2024-05-19 08:55 | disposition expired | DRG 871 ==
LOC: ICU 07:41
PROVIDERS: Internal Medicine; Internal Medicine Critical Care Medicine; Nurse Practitioner Family; Nurse Practitioner Primary Care; Radiology Diagnostic Radiology; ADMITTING PHYSICIAN Internal Medicine; ATTENDING PHYSICIAN Internal Medicine; CONSULT PHYSICIAN Internal Medicine; CONSULT PHYSICIAN Internal Medicine Cardiovascular Disease; CONSULT PHYSICIAN Internal Medicine Critical Care Medicine; CONSULT PHYSICIAN Internal Medicine Gastroenterology; CONSULT PHYSICIAN Internal Medicine Infectious Disease; EMERGENCY PHYSICIAN Emergency Medicine; FAMILY PHYSICIAN Family Medicine
PROC: 0W993ZZ Drainage of Right Pleural Cavity, Percutaneous Approach (ICD-10-PCS; 2024-05-16)
PROC: 5A1D70Z Performance of Urinary Filtration, Intermittent, Less than 6 Hours Per Day (ICD-10-PCS; 2024-05-17)
PROC: 02HV33Z Insertion of Infusion Device into Superior Vena Cava, Percutaneous Approach (ICD-10-PCS; 2024-05-18)
PROC: 5A1D90Z Performance of Urinary Filtration, Continuous, Greater than 18 hours Per Day (ICD-10-PCS; 2024-05-18)
PROC: 5A12012 Performance of Cardiac Output, Single, Manual (ICD-10-PCS; 2024-05-18)
PROC: B5181ZA Fluoroscopy of Superior Vena Cava using Low Osmolar Contrast, Guidance (ICD-10-PCS; 2024-05-19)
PROC: 02H633Z Insertion of Infusion Device into Right Atrium, Percutaneous Approach (ICD-10-PCS; 2024-05-19)
DX: A41.9 Sepsis, unspecified organism (principal); N18.6 End stage renal disease; R65.21 Severe sepsis with septic shock; I50.30 Unspecified diastolic (congestive) heart failure; I13.2 Hypertensive heart and chronic kidney disease with heart failure and with stage 5 chronic kidney disease, or end stage renal disease; K92.1 Melena; C92.10 Chronic myeloid leukemia, BCR/ABL-positive, not having achieved remission; E87.1 Hypo-osmolality and hyponatremia; D68.51 Activated protein C resistance; E87.20 Acidosis, unspecified; J98.11 Atelectasis; D62 Acute posthemorrhagic anemia; I47.20 Ventricular tachycardia, unspecified; D84.9 Immunodeficiency, unspecified; Q61.02 Congenital multiple renal cysts; R53.1 Weakness; E11.22 Type 2 diabetes mellitus with diabetic chronic kidney disease; I25.10 Atherosclerotic heart disease of native coronary artery without angina pectoris; E78.00 Pure hypercholesterolemia, unspecified; E11.649 Type 2 diabetes mellitus with hypoglycemia without coma; I46.8 Cardiac arrest due to other underlying condition; K21.9 Gastro-esophageal reflux disease without esophagitis; E87.5 Hyperkalemia; J45.909 Unspecified asthma, uncomplicated; I48.0 Paroxysmal atrial fibrillation; I25.5 Ischemic cardiomyopathy; R19.7 Diarrhea, unspecified; E83.39 Other disorders of phosphorus metabolism; R57.8 Other shock; K80.20 Calculus of gallbladder without cholecystitis without obstruction; K76.0 Fatty (change of) liver, not elsewhere classified; I49.01 Ventricular fibrillation; N26.1 Atrophy of kidney (terminal); M47.22 Other spondylosis with radiculopathy, cervical region; L30.9 Dermatitis, unspecified; N40.0 Benign prostatic hyperplasia without lower urinary tract symptoms; W19.XXXA Unspecified fall, initial encounter; Y93.01 Activity, walking, marching and hiking; Y92.009 Unspecified place in unspecified non-institutional (private) residence as the place of occurrence of the external cause; Z99.2 Dependence on renal dialysis; Z79.4 Long term (current) use of insulin; Z87.442 Personal history of urinary calculi; Z85.528 Personal history of other malignant neoplasm of kidney; I25.2 Old myocardial infarction; Z79.82 Long term (current) use of aspirin; Z79.01 Long term (current) use of anticoagulants; Z95.0 Presence of cardiac pacemaker; Z88.5 Allergy status to narcotic agent; Z88.0 Allergy status to penicillin; Z88.8 Allergy status to other drugs, medicaments and biological substances; Z95.1 Presence of aortocoronary bypass graft; Z95.5 Presence of coronary angioplasty implant and graft; Z11.52 Encounter for screening for COVID-19
CPT/HCPCS: 88305; 32555; 36556; 36600; 70450; 71045; 71046; 71275; 72125; 74018; 74177; 76937; 77001; 80048; 80053; 80202; 82330; 82805; 82962; 83036; 83605; 83615; 83735; 83986; 84100; 84132; 84157; 84302; 84484; 85014; 85018; 85025; 85027; 85610; 85730; 86850; 86900; 86901; 87015; 87040; 87045; 87046; 87070; 87077; 87205; 87324; 87328; 87329; 87427; 87449; 87502; 87798; 87811; 88112; 89055; 93005; 93306; 93971; 94002; 96365; 96366; 96367; 96375; 99285; C1752; G0257; P9047; Q9967